=== PATIENT | female | born 1935 | race African-American/Black ===

== ENCOUNTER 2017-11-01 21:20 | Inpatient (IN) | payer MEDICARE, OTHER ==
[~2017-11-01] VITALS: Ht 165.1 cm; Wt 87.8 kg
[2017-11-01] MEDS ORDERED: LACTULOSE SYRUP 20 GM/30 ML CUP PO PRN (22:45)
[2017-11-01] MEDS ORDERED: MAGNESIUM HYDROXIDE SUSP 30 ML CUP PO PRN (22:45)
[2017-11-01] MEDS ORDERED: CHLORHEXIDINE GLUCONATE 2 % 1 PACK (2 CLOTHS) TOP PRN (22:45)
[2017-11-01] MEDS ORDERED: NURSING INFORMATION XX SCH (22:45)
[2017-11-01] MEDS ORDERED: BISACODYL 10 MG SUPP RECTAL PRN (22:45)
[2017-11-01] MEDS ORDERED: SENNOSIDES 8.6 MG TAB PO PRN (22:45)
[2017-11-01] MEDS ORDERED: RESP: ALBUTEROL 2.5 MG/IPRATROPIUM 0.5 MG NEB (PRN) INH (22:45)
[2017-11-01] MEDS ORDERED: MORPHINE SULFATE 4 MG/ML INJ IV PUSH PRN (22:45)
[2017-11-01] MEDS ORDERED: ACETAMINOPHEN 325 MG TAB PO PRN (22:45)
[2017-11-01] MEDS ORDERED: ONDANSETRON HCL 4 MG/2 ML VIAL IV PUSH PRN (22:45)
[2017-11-01] MEDS ORDERED: VITD400 PO (22:51)
[2017-11-01] MEDS ORDERED: POTA99TA4 (22:51)
[2017-11-01] MEDS ORDERED: HUMIBIDDM PO (22:51)
[2017-11-01] MEDS ORDERED: THYR120T2 (22:51)
[2017-11-01] MEDS ORDERED: LEVO250T7 PO (22:51)
[2017-11-01] MEDS ORDERED: ARAV10TA PO (22:51)
[2017-11-01] MEDS ORDERED: [UNRECOGNIZED DRUG - CODE] (22:51)
[2017-11-01] MEDS ORDERED: SPIRCAP INH (22:51)
[2017-11-01] MEDS ORDERED: LORA-650 PO (22:51)
[2017-11-01] MEDS ORDERED: SYMB80AE INH (22:51)
[2017-11-01] MEDS ORDERED: PRED1 PO (22:51)
[2017-11-01] MEDS ORDERED: LACTCAP8 PO (22:51)
--- NOTE | 2017-11-01 23:04 | HHI.HP ---
HPI Service Critical Care Medicine Primary Care Physician Unknown Admission Diagnosis Diagnosis: Travel History International Travel<30 Days: No Contact w/Intl Traveler <30 Da: No Traveled to Known Affected Are: No History of Present Illness 82-year-old female with past medical history significant for COPD, diabetes mellitus, dyslipidemia, hypertension, osteoporosis, thyroid disorder presented to [facility] due to altered mental status, found by the patient's caregiver. 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 for higher level of care. The patient is nonverbal and information is obtained from medical chart review. Review of Systems ROS Unobtainable patient's nonverbal Past Family Social History Allergies: Coded Allergies: No Known Allergies (Unverified , 11/01/17) Past Medical History COPD, diabetes mellitus, dyslipidemia, hypertension, osteoporosis, thyroid disorder Past Surgical History Gallstones removed. Reported Medications Reported Meds & Active Scripts Active Reported Prednisone 1 Mg Tab Unknown Dose PO DAILY Spiriva Handihaler (Tiotropium Inh) 18 Mcg Cap Unknown Dose INH DAILY 1 capsule = 18 mcg Probiotic (Lactobacillus Acidophilus) 10 Billion Cell Cap Unknown Dose PO TIDAC Levofloxacin 250 Mg Tablet Unknown Dose PO DAILY Mucinex DM (Dextromethorphan-Guaifenesin) 30-600 Mg Tab Unknown Dose PO BID PRN Symbicort Inh (Budesonide/Formoterol Fumarate) 80-4.5 Mcg/Act Aero Unknown Dose INH Q12HR Allergy Relief (Loratadine) 10 Mg Tab Unknown Dose PO DAILY Experimental Display Builder Thyroid (Thyroid,Pork) 120 Mg Tablet Unknown Dose Arava (Leflunomide) 10 Mg Tab Unknown Dose PO DAILY Vitamin D3 (Cholecalciferol) 400 Unit Tab Unknown Dose PO DAILY Potassium 99 Mg Tablet Hydrochlorothiazide 100 % Powder Active Ordered Medications Current Medications Medications (Trade) Dose Ordered Sig/Cathie Route PRN Reason Start Time Stop Time Status Last Admin Dose Admin Sodium Chloride 1,000 ml @ 84 mls/hr [id number] IV 11/01/17 22:37 Sodium Chloride (NS Flush) 2 ml UNSCH PRN IV FLUSH FLUSH AFTER USING IV ACCESS 11/01/17 22:45 Sodium Chloride (NS Flush) 2 ml BID IV FLUSH 11/02/17 09:00 Acetaminophen (Tylenol) 650 mg Q6H PRN PO PAIN 1-5 AND/OR FEVER >101F 11/01/17 22:45 Morphine Sulfate (Morphine Inj) 2 mg Q2H PRN IV PUSH PAIN SCALE 6 TO 10 11/01/17 22:45 Famotidine (Pepcid Inj) 20 mg Q12HR IV PUSH 11/02/17 09:00 Ondansetron HCl (Zofran Inj) 4 mg Q6H PRN IV PUSH NAUSEA OR VOMITING 11/01/17 22:45 Albuterol/ Ipratropium (Duoneb Neb) 1 ampule Q2HR NEB PRN INH WHEEZING 11/01/17 22:45 Miscellaneous Information ([facility] [place] [facility] [place]) 1 Q361D XX 11/01/17 22:45 Chlorhexidine Gluconate (Chlorhexidine 2% Cloth) 3 pack Taper DAILY@04 TOP 11/02/17 04:00 10/29/18 03:59 Chlorhexidine Gluconate (Chlorhexidine 2% Cloth) 3 pack UNSCH PRN TOP HYGIENIC CARE 11/01/17 22:45 Senna/Docusate Sodium (Leigh-Colace) 1 tab BID PO 11/02/17 09:00 Magnesium Hydroxide (Milk Of Magnesia Liq) 30 ml Q12H PRN PO Mild constipation 11/01/17 22:45 Sennosides (Senokot) 17.2 mg Q12H PRN PO Moderate constipation 11/01/17 22:45 Bisacodyl (Dulcolax Supp) 10 mg DAILY PRN RECTAL SEVERE CONSITIPATION 11/01/17 22:45 Lactulose (Lactulose Liq) 30 ml DAILY PRN PO SEVERE CONSITIPATION 11/01/17 22:45 Labetalol HCl (Trandate Inj) 10 mg Q4H PRN IV PUSH SBP>140, DBP>90 11/02/17 00:30 UNV Hydralazine HCl (Apresoline Inj) 20 mg Q4H PRN IV PUSH SBP>140, DBP>90 11/02/17 00:30 UNV Family History No family history significant of COMPENSATION SPECIALIST tumors Social History Positive history of tobacco use, negative for alcohol or illicit drug abuse Physical Exam Vital Signs Vital Signs Date Time Temp Pulse Resp B/P (MAP) Pulse Ox O2 Delivery O2 Flow Rate FiO2 11/02/17 00:00 98 Room Air Physical Exam GENERAL: Well-nourished, well-developed patient. Nonverbal SKIN: Warm and dry. HEAD: Normocephalic. EYES: No scleral icterus. No injection or drainage. NECK: Supple, trachea midline. No JVD or lymphadenopathy. CARDIOVASCULAR: Regular rate and rhythm without murmurs, gallops, or rubs. RESPIRATORY: Breath sounds equal bilaterally. No accessory muscle use. GASTROINTESTINAL: Abdomen soft, non-tender, nondistended. MUSCULOSKELETAL: No cyanosis, or edema. BACK: Nontender without obvious deformity. NEURO EXAM: Mental Status: The patient is alert but nonverbal Imaging Chest x-ray/no significant cardiopulmonary process. Head CT/findings compatible with a hemorrhagic infarct in the right temporal occipital region, measuring approximately 3.5 cm. Caprini VTE Risk Assessment Caprini VTE Risk Assessment: Mod/High Risk (score >= 2) VTE Pharm Contraindication: Hemorrhage Caprini Risk Assessment Model Point Value = 1 Point Value = 2 Point Value = 3 Point Value = 5 Age 41-60 Minor surgery BMI > 25 kg/m2 Swollen legs Varicose veins or History of unexplained or recurrent spontaneous Oral contraceptives or hormone replacement Sepsis (< 1 month) Serious lung disease, including pneumonia (< 1 month) Abnormal pulmonary function Acute myocardial infarction Congestive heart failure (< 1 month) History of inflammatory bowel disease Medical patient at bed rest Age 61-74 Arthroscopic surgery Major open surgery (> 45 min) Laparoscopic surgery (> 45 min) Malignancy Confined to bed (> 72 hours) Immobilizing plaster cast Central venous access Age >= 75 History of VTE Family history of VTE Factor V Leiden Prothrombin [id number] Lupus anticoagulant Anticardiolipin antibodies Elevated serum homocysteine Heparin-induced thrombocytopenia Other congenital or acquired thrombophilia Stroke (< 1 month) Elective arthroplasty Hip, pelvis, or leg fracture Acute spinal cord injury (< 1 month) Prophylaxis Regimen Total Risk Factor Score Risk Level Prophylaxis Regimen 0-1 Low Early ambulation 2 Moderate Order ONE of the following: *Sequential Compression Device (SCD) *Heparin 5000 units SQ BID 3-4 Higher Order ONE of the following medications: *Heparin 5000 units SQ TID *Enoxaparin/Lovenox 40 mg SQ daily (WT < 150 kg, CrCl > 30 mL/min) *Enoxaparin/Lovenox 30 mg SQ daily (WT < 150 kg, CrCl > 10-29 mL/min) *Enoxaparin/Lovenox 30 mg SQ BID (WT < 150 kg, CrCl > 30 mL/min) AND/OR *Sequential Compression Device (SCD) 5 or more Highest Order ONE of the following medications: *Heparin 5000 units SQ TID (Preferred with Epidurals) *Enoxaparin/Lovenox 40 mg SQ daily (WT < 150 kg, CrCl > 30 mL/min) *Enoxaparin/Lovenox 30 mg SQ daily (WT < 150 kg, CrCl > 10-29 mL/min) *Enoxaparin/Lovenox 30 mg SQ BID (WT < 150 kg, CrCl > 30 mL/min) AND *Sequential Compression Device (SCD) Assessment and Plan Assessment and Plan Intracranially humeri -Repeat CT head -Blood pressure control with SBP goal less than 140 -Neurosurgical consultation -Coags profile pending -PT and OT as tolerated COPD -No exacerbation -DuoNeb scheduled and as needed -No steroids or antibiotics indicated at this time Diabetes mellitus -Insulin sliding scale Dyslipidemia -Resume atorvastatin when okay 2 p.o. Hypertension -Hydralazine and labetalol as needed to keep SBP less than 140 Thyroid disease -Levothyroxine per home dose when available DVT GI prophylaxis -James's and SCDs -No pharmacological DVT prophylaxis due to acute ICH -IV Pepcid Critical Care: The total critical care time was 35 minutes. Time to perform other separately billable procedures was not included in the critical care time. Panchito Ghosh MD Nov 01, 2017 11:04 pm
[2017-11-02] VITALS (14 sets, daily range): BP systolic 125–137; BP diastolic 61–83; PULSE 88–106; RESP 20–26; TEMP 98.1–100.9; O2SAT 95–99
[2017-11-02] MEDS ORDERED: LABETALOL HCL 100 MG/20 ML VIAL IV PUSH PRN (00:30)
--- NOTE | 2017-11-02 03:49 | RADRPT ---
EXAM DATE/TIME: 11/02/2017 03:30 [place] COMPARISON: No previous studies available for comparison. INDICATIONS : Follow up hemorrhage. RADIATION DOSE: 56.34 CTDIvol (mGy) MEDICAL HISTORY : Cardiovascular disease. Hypertension. Chronic obstructive pulmonary disease. SURGICAL HISTORY : None. ENCOUNTER: Initial ACUITY: 1 day PAIN SCALE: Non-responsive LOCATION: cranial TECHNIQUE: Multiple contiguous axial images were obtained of the head. Using automated exposure control and adj ustment of the mA and/or kV according to patient size, radiation dose was kept as low as reasonably a chievable to obtain optimal diagnostic quality images. DICOM format image data is available electro nically for review and comparison. FINDINGS: Limited examination with motion artifact on every image. Despite the indications, I do not have the p rior for direct comparison. CEREBRUM: The ventricles are normal for age. I believe there is some periventricular small vessel ischemic demy elination, around the frontal horns of the lateral ventricles. There appears to be a 1.4 cm parenchym al hemorrhage in the right temporal lobe no midline shift. POSTERIOR FOSSA: The cerebellum and brainstem are intact. The 4th ventricle is midline. The cerebellopontine angle i s unremarkable. EXTRACRANIAL: The visualized portion of the orbits is intact. SKULL: The calvaria is intact. No evidence of skull fracture. CONCLUSION: 1. Limited exam due to motion artifact throughout. 2. 1.4 cm apparent parenchymal hemorrhage in the right temporal lobe. No midline shift. 3. Periventricular small vessel ischemic demyelination Gerardo Mcqueen MD on November 02, 2017 at 3:44 Board Certified Radiologist. This report was verified electronically.
[2017-11-02] MEDS: CHLORHEXIDINE GLUCONATE 2 % 1 PACK (2 CLOTHS) TOP SCH ×2 (04:00→23:39)
[2017-11-02 06:09] LABS: AUTOMATED NEUTROPHIL # 5.8 TH/MM3 (1.8-7.7); BASOPHIL % 0.4 % (0.0-2.0); EOSINOPHIL % 0.4 % (0.0-4.0); HEMATOCRIT 35.5 % (35.0-46.0); HEMOGLOBIN 11.8 GM/DL (11.6-15.3); LYMPHOCYTE # 1.8 TH/MM3 (1.0-4.8); MEAN CELL VOLUME 85.3 FL (80.0-100.0); MEAN CORPUSCULAR HEMOGLOBIN 28.4 PG (27.0-34.0); MEAN CORPUSCULAR HGB CONC 33.3 % (32.0-36.0); MEAN PLATELET VOLUME 6.7 FL (7.0-11.0); MONO % 12.6 % (0.0-8.0); MONOCYTE # 1.1 TH/MM3 (0-0.9); NEUT % 66.6 % (16.0-70.0); PLATELET COUNT 192 TH/MM3 (150-450); RED BLOOD COUNT 4.16 MIL/MM3 (4.00-5.30); RED CELL DISTRIBUTION WIDTH 18.1 % (11.6-17.2); WHITE BLOOD COUNT 8.8 TH/MM3 (4.0-11.0)
[2017-11-02 06:15] LABS: PROTHROMBIN TIME - PATIENT 10.3 SEC (9.8-11.6)
[2017-11-02 06:40] LABS: ALBUMIN 2.5 GM/DL (3.4-5.0); ALT (GPT) 27 U/L (10-53); AST (GOT) 28 U/L (15-37); BICARBONATE 26.6 MEQ/L (21.0-32.0); BLOOD UREA NITROGEN 17 MG/DL (7-18); CHLORIDE 106 MEQ/L (98-107); CREATININE 0.72 MG/DL (0.50-1.00); GLOMERULAR FILTRATION RATE 93 ML/MIN (>89); GLUCOSE,RANDOM 74 MG/DL (74-106); MAGNESIUM 1.9 MG/DL (1.5-2.5); PHOSPHORUS 2.2 MG/DL (2.5-4.9); SODIUM (NA) 139 MEQ/L (136-145)
[2017-11-02 06:42] LABS: ALKALINE PHOSPHATASE 85 U/L (45-117); TOTAL BILIRUBIN ADULT 1.1 MG/DL (0.2-1.0); TOTAL PROTEIN 5.8 GM/DL (6.4-8.2)
[2017-11-02] MEDS: DOCUSATE SODIUM 50 MG/SENNA 8.6 MG TAB PO SCH ×2 (08:20→20:45)
[2017-11-02] MEDS: FAMOTIDINE 20 MG/2 ML VIAL IV PUSH SCH ×2 (08:28→21:21)
[2017-11-02] MEDS: SODIUM CHLORIDE 0.9% FLUSH 10 ML FLUSH IV FLUSH SCH ×2 (08:29→21:00)
[2017-11-02] MEDS: SODIUM CHLOR 0.9% 1000 ML INJ 1,000 ML IV SCH (10:32)
[2017-11-02] MEDS ORDERED: FOSPHENYTOIN INJ 1,000 MGPE in SODIUM CHLORIDE 0.9% INJ 50 ML IV ONE (10:45)
--- NOTE | 2017-11-02 10:53 | HHI.CCPN ---
Subjective Remarks/Hospital Course Hospital Course: 82-year-old female with past medical history significant for COPD, diabetes mellitus, dyslipidemia, hypertension, osteoporosis, thyroid disorder presented to [facility] due to altered mental status, found by the patient's caregiver. 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 for higher level of care. The patient is nonverbal and information is obtained from medical chart review. Subjective: 11/02: more somnolent than on admission. EEG ordered and to my read appears to have significant ictal activity. loaded with fosphenytoin and neurology consult ordered. also, given size and location of the bleed, have ordered an MRI to better evaluate the area. Objective Vital Signs Date Time Temp Pulse Resp B/P (MAP) Pulse Ox O2 Delivery O2 Flow Rate FiO2 11/02/17 07:32 98 21 11/02/17 06:00 98 11/02/17 06:00 98.4 22 137/62 (87) 11/02/17 00:00 Room Air Intake and Output 11/02/17 11/02/17 11/03/17 08:00 16:00 00:00 Output Total 500 ml Balance -500 ml Result Diagram: 11/02/17 0557 11/02/17 0557 Imaging Chest x-ray/no significant cardiopulmonary process. Head CT/findings compatible with a hemorrhagic infarct in the right temporal occipital region, measuring approximately 3.5 cm. Objective Remarks GENERAL: Elderly female, lying in bed, somnolent but arousable HEENT: Normocephalic. Atraumatic. Pupils equal, round, reactive, conjugate. Mucous membranes are moist NECK: Trachea is midline. There is no JVD. CHEST: Equal chest rise. Nasal cannula oxygen. CARDIOVASCULAR: Normal rate, regular rhythm. Sinus by telemetry. ABDOMEN: Soft, nontender, nondistended. No guarding. MUSCULOSKELETAL: Pulses 2+. No peripheral edema. Left upper extremity is contracted in flexion NEUROLOGICAL: RASS -2. More somnolent than overnight. Still arouses to loud voice and will follow commands with the right upper extremity, bilateral lower extremities. Left upper extremity is contracted in flexion. A/P Assessment and Plan Assessment: 82-year-old female with right parietal intraparenchymal cerebral hemorrhage course is now complicated by acute and worsening encephalopathy and subclinical status epilepticus. Follow-up MRI, frequent neuro checks. Will load with Cerebyx. Consult neurology to assist with management of her seizure activity. Remains critically ill with intracerebral hemorrhage as well as subclinical status. Right parietal intraparenchymal hemorrhage -MRI -Blood pressure control with SBP goal less than 140 -Neurosurgical consultation -PT and OT as tolerated Frequent neurochecks Subclinical status epilepticus Neurology consult 1 g Cerebyx load and 100 mg IV every 8 hours Dilantin level in the morning Frequent neurochecks Hypertensive emergency -Hydralazine and labetalol as needed to keep SBP less than 140 May require nicardipine infusion COPD -No exacerbation -DuoNeb scheduled and as needed -No steroids or antibiotics indicated at this time Diabetes mellitus -Insulin sliding scale Dyslipidemia -Resume atorvastatin when okay to p.o. Thyroid disease -Levothyroxine per home dose when available DVT GI prophylaxis -James's and SCDs -No pharmacological DVT prophylaxis due to acute ICH -IV Pepcid Critical Care: The total critical care time was 47 minutes. Time to perform other separately billable procedures was not included in the critical care time. Arun Hernandez MD November 02, 2017 10:53
[2017-11-02] MEDS: hydrALAZINE HCL 20 MG/ML VIAL IV PUSH PRN ×2 (11:13→17:55)
--- NOTE | 2017-11-02 12:00 | PD.CONS ---
History of Present Illness Service Neurosurgery Consult Requested By Candy Starch Mold Printer Reason for Consult Right posterior temporal lobe hemorrhage Primary Care Physician Unknown Diagnoses: History of Present Illness 82-year-old -[place] female who was transferred from [facility] where she presented with neurologic changes. There is no family members and the patient cannot relate much of a history but apparently with CT scan head obtained she was found to have a right posterior temporal lobe cerebral hemorrhage. CT scan of the head reviewed from [facility] on arrival reveals a less than 2 cm right posterior temporal lobe hemorrhage without any significant mass-effect or midline shift. Overnight her exam is not changed although she had an EEG study done and was noted to have subclinical seizures and has been noted to be more lethargic since then and is awaiting fosphenytoin bolus. MRI scan of the brain is also pending along with neurology evaluation. It is unclear whether this cerebral hemorrhage is spontaneous versus traumatic. Review of Systems ROS Limitations: Clinical Condition, Speech Impaired, Poor Historian Past Family Social History Allergies: Coded Allergies: No Known Allergies (Unverified , 11/01/17) Past Medical History COPD, diabetes mellitus, dyslipidemia, hypertension, osteoporosis, thyroid disorder Reported Medications Current Medications Medications (Trade) Dose Ordered Sig/Cathie Route PRN Reason Start Time Stop Time Status Last Admin Dose Admin Sodium Chloride 1,000 ml @ 84 mls/hr [id number] IV 11/01/17 22:37 11/02/17 10:32 Sodium Chloride (NS Flush) 2 ml UNSCH PRN IV FLUSH FLUSH AFTER USING IV ACCESS 11/01/17 22:45 Sodium Chloride (NS Flush) 2 ml BID IV FLUSH 11/02/17 09:00 Acetaminophen (Tylenol) 650 mg Q6H PRN PO PAIN 1-5 AND/OR FEVER >101F 11/01/17 22:45 Morphine Sulfate (Morphine Inj) 2 mg Q2H PRN IV PUSH PAIN SCALE 6 TO 10 11/01/17 22:45 Famotidine (Pepcid Inj) 20 mg Q12HR IV PUSH 11/02/17 09:00 11/02/17 08:28 Ondansetron HCl (Zofran Inj) 4 mg Q6H PRN IV PUSH NAUSEA OR VOMITING 11/01/17 22:45 Albuterol/ Ipratropium (Duoneb Neb) 1 ampule Q2HR NEB PRN INH WHEEZING 11/01/17 22:45 Miscellaneous Information ([facility] [place] Nursing Information) 1 Q361D XX 11/01/17 22:45 Chlorhexidine Gluconate (Chlorhexidine 2% Cloth) 3 pack Taper DAILY@04 TOP 11/02/17 04:00 10/29/18 03:59 Chlorhexidine Gluconate (Chlorhexidine 2% Cloth) 3 pack UNSCH PRN TOP HYGIENIC CARE 11/01/17 22:45 Senna/Docusate Sodium (Leigh-Colace) 1 tab BID PO 11/02/17 09:00 Magnesium Hydroxide (Milk Of Magnesia Liq) 30 ml Q12H PRN PO Mild constipation 11/01/17 22:45 Sennosides (Senokot) 17.2 mg Q12H PRN PO Moderate constipation 11/01/17 22:45 Bisacodyl (Dulcolax Supp) 10 mg DAILY PRN RECTAL SEVERE CONSITIPATION 11/01/17 22:45 Lactulose (Lactulose Liq) 30 ml DAILY PRN PO SEVERE CONSITIPATION 11/01/17 22:45 Labetalol HCl (Trandate Inj) 10 mg Q4H PRN IV PUSH SBP>140, DBP>90 11/02/17 00:30 11/02/17 08:28 Hydralazine HCl (Apresoline Inj) 20 mg Q4H PRN IV PUSH SBP>140, DBP>90 11/02/17 00:30 11/02/17 11:13 Fosphenytoin Sodium (Cerebyx Inj) 100 mgpe Q8HR IV 11/02/17 14:00 Family History Unknown Social History She is a with no alcohol history and a former smoker Physical Exam Vital Signs Vital Signs Date Time Temp Pulse Resp B/P (MAP) Pulse Ox O2 Delivery O2 Flow Rate FiO2 11/02/17 07:32 98 21 11/02/17 07:00 98 Room Air 11/02/17 06:00 98 11/02/17 06:00 98.4 100 22 137/62 (87) 98 11/02/17 04:00 100 11/02/17 04:00 98.4 100 22 137/62 (87) 98 11/02/17 02:00 102 11/02/17 00:00 106 11/02/17 00:00 98 Room Air 11/02/17 00:00 98.1 106 24 133/66 (88) 99 Physical Exam GENERAL: This is a well-nourished, well-developed patient, in no apparent distress. SKIN: No rashes, ecchymoses or lesions. Cool and dry. HEAD: Atraumatic. Normocephalic. No temporal or scalp tenderness. EYES: Pupils equal round and reactive. Extraocular motions intact. No scleral icterus. No injection or drainage. ENT: Nose without bleeding, purulent drainage or septal hematoma. She has a slightly swollen tongue which is sticking out of her mouth although airway patent. NECK: Trachea midline. No JVD or lymphadenopathy. Supple, nontender, no meningeal signs. CARDIOVASCULAR: Regular rate and rhythm without murmurs, gallops, or rubs. RESPIRATORY: Clear to auscultation. Breath sounds equal bilaterally. No wheezes , rales, or rhonchi. GASTROINTESTINAL: Abdomen soft, non-tender, nondistended. No hepato-splenomegaly , or palpable masses. No guarding. MUSCULOSKELETAL: Extremities without clubbing, cyanosis, or edema. No joint tenderness, effusion, or edema noted. No calf tenderness. Negative Homans sign bilaterally. NEUROLOGICAL: Lethargic but arouses to verbal stimulation. Pupils are equal, does track. Very dysarthric speech. Follows simple commands. Moves all 4 extremities with negative Babinski. Laboratory Laboratory Tests Test 11/02/17 05:57 11/02/17 08:30 White Blood Count 8.8 Red Blood Count 4.16 Hemoglobin 11.8 Hematocrit 35.5 Mean Corpuscular Volume 85.3 Mean Corpuscular Hemoglobin 28.4 Mean Corpuscular Hemoglobin Concent 33.3 Red Cell Distribution Width 18.1 Platelet Count 192 Mean Platelet Volume 6.7 Neutrophils (%) (Auto) 66.6 Lymphocytes (%) (Auto) 20.0 Monocytes (%) (Auto) 12.6 Eosinophils (%) (Auto) 0.4 Basophils (%) (Auto) 0.4 Neutrophils # (Auto) 5.8 Lymphocytes # (Auto) 1.8 Monocytes # (Auto) 1.1 Eosinophils # (Auto) 0.0 Basophils # (Auto) 0.0 CBC Comment DIFF FINAL Differential Comment Prothrombin Time 10.3 Prothromb Time International Ratio 1.0 Blood Urea Nitrogen 17 Creatinine 0.72 Random Glucose 74 Total Protein 5.8 Albumin 2.5 Calcium Level 8.0 Phosphorus Level 2.2 Magnesium Level 1.9 Alkaline Phosphatase 85 Aspartate Amino Transf (AST/SGOT) 28 Alanine Aminotransferase (ALT/SGPT) 27 Total Bilirubin 1.1 Sodium Level 139 Potassium Level 3.8 Chloride Level 106 Carbon Dioxide Level 26.6 Anion Gap 6 Estimat Glomerular Filtration Rate 93 Nasal Screen MRSA (PCR) MRSA NOT DETECTED Result Diagram: 11/02/17 0557 11/02/17 0557 Imaging Last Impressions Head CT 11/01/17 0000 Signed Impressions: Service Date/Time: Thursday, November 02, 2017 03:30 - CONCLUSION: 1. Limited exam due to motion artifact throughout. 2. 1.4 cm apparent parenchymal hemorrhage in the right temporal lobe. No midline shift. 3. Periventricular small vessel ischemic demyelination Gerardo Mcqueen MD Assessment and Plan Assessment and Plan 82-year-old lady with a right posterior temporal lobe cerebral hemorrhage without mass-effect or midline shift. Continue with observation along with seizure prophylaxis. We will review MRI scan of the brain once undertaken. At this point the cerebral hemorrhage is small and does not warrant any surgical intervention. Recommended gastrointestinal stress ulcer prophylaxis and mechanical DVT prophylaxis. Jay Peterson MD November 02, 2017 12:00
--- NOTE | 2017-11-02 12:09 | PD.CONS ---
History of Present Illness Service Neurology Consult Requested By Dr. Hernandez Reason for Consult Seizures Primary Care Physician Unknown History of Present Illness 82 y/o female with hx of COPD, diabetes mellitus, dyslipidemia, hypertension, osteoporosis, thyroid disorder presented to [facility] due to altered mental status, found by the patient's caregiver, there is no history whether there was a fall. At the emergency department the CT of the head revealed hemorrhagic infarct in the right temporal occipital region, repeat scan shows 1.4 cm in right temporal lobe. The pt is nonverbal and unable to give history. The hx was obtained from chart review and from the nurse. Per nurse subclincial seizures seen on EEG. Pt has not had any witnessed seizure like events (Leydi Garzon) Review of Systems All other ROS: Unable to obtain (Leydi Garzon) Past Family Social History Allergies: Coded Allergies: No Known Allergies (Unverified , 11/01/17) Past Medical History COPD, diabetes mellitus, dyslipidemia, hypertension, osteoporosis, thyroid disorder Past Surgical History gallstones Active Ordered Medications Current Medications Medications (Trade) Dose Ordered Sig/Cathie Route Start Time Stop Time Status Last Admin Sodium Chloride 1,000 ml @ 84 mls/hr [id number] IV 11/01/17 22:37 11/02/17 10:32 (NS Flush) 2 ml UNSCH PRN IV FLUSH 11/01/17 22:45 (NS Flush) 2 ml BID IV FLUSH 11/02/17 09:00 (Tylenol) 650 mg Q6H PRN PO 11/01/17 22:45 (Morphine Inj) 2 mg Q2H PRN IV PUSH 11/01/17 22:45 (Pepcid Inj) 20 mg Q12HR IV PUSH 11/02/17 09:00 11/02/17 08:28 (Zofran Inj) 4 mg Q6H PRN IV PUSH 11/01/17 22:45 (Duoneb Neb) 1 ampule Q2HR NEB PRN INH 11/01/17 22:45 ([facility] [place] Nursing Information) 1 Q361D XX 11/01/17 22:45 (Chlorhexidine 2% Cloth) 3 pack Taper DAILY@04 TOP 11/02/17 04:00 10/29/18 03:59 (Chlorhexidine 2% Cloth) 3 pack UNSCH PRN TOP 11/01/17 22:45 (Leigh-Colace) 1 tab BID PO 11/02/17 09:00 (Milk Of Magnesia Liq) 30 ml Q12H PRN PO 11/01/17 22:45 (Senokot) 17.2 mg Q12H PRN PO 11/01/17 22:45 (Dulcolax Supp) 10 mg DAILY PRN RECTAL 11/01/17 22:45 (Lactulose Liq) 30 ml DAILY PRN PO 11/01/17 22:45 (Trandate Inj) 10 mg Q4H PRN IV PUSH 11/02/17 00:30 11/02/17 08:28 (Apresoline Inj) 20 mg Q4H PRN IV PUSH 11/02/17 00:30 11/02/17 11:13 (Cerebyx Inj) 100 mgpe Q8HR IV 11/02/17 14:00 Family History unable to obtain Social History unable to obtain (Leydi Garzon) Exam I&O / VS Vital Signs Date Time Temp Pulse Resp B/P (MAP) Pulse Ox O2 Delivery O2 Flow Rate FiO2 11/02/17 07:32 98 21 11/02/17 07:00 98 Room Air 11/02/17 06:00 98 11/02/17 06:00 98.4 100 22 137/62 (87) 98 11/02/17 04:00 100 11/02/17 04:00 98.4 100 22 137/62 (87) 98 11/02/17 02:00 102 11/02/17 00:00 106 11/02/17 00:00 98 Room Air 11/02/17 00:00 98.1 106 24 133/66 (88) 99 Eye: PERRL Respiratory: Non-labored respirations Cardiology: Normal rate Exam Comments Pt is lethargic but arousable, nonverbal, she does not follow commands, PERRL, no gaze deviation, no facial droop noted, withdraws from stimuli, spasticity noted in LUE, gait withheld (Leydi Garzon) Review/Management Diagnosis intraparencymal hemorrhage - unclear if this is spontaneous or traumatic MRI pending neurosurgery consulted blood pressure control subclinical seizure seen on EEG- seizure disorder likely 2/2 to bleed awaiting fosphenytoin bolus Calcium and phosphorus low, monitor electrolytes seizure precautions neuro checks HTN continue to monitor and control blood pressure DM blood sugar control Diagnosis/Plan: (Leydi Garzon) Diagnosis/Plan: (1) ICH (intracerebral hemorrhage) ICD Codes: I61.9 - Nontraumatic intracerebral hemorrhage, unspecified Status: Acute Plan: ich with edema may need f/u scan in a few weeks to r/o mass/neoplastic lesion further input per nsx bp control therapy d/w PA. agree with above. seen and examined (2) Seizure ICD Codes: R56.9 - Unspecified convulsions Status: Acute Plan: on iv cerebyrx add iv depakon recs f/u eeg (3) Brain mass ICD Codes: G93.9 - Disorder of brain, unspecified Status: Acute (Jorge Yuan MD) Leydi Garzon November 02, 2017 12:09 Jorge Yuan MD November 02, 2017 16:06
[2017-11-02] MEDS ORDERED: FOSPHENYTOIN SODIUM 100 MG PE/2 ML VIAL IV SCH (14:00)
--- NOTE | 2017-11-02 14:56 | RADRPT ---
EXAM DATE/TIME: 11/02/2017 14:05 [facility] COMPARISON: CT BRAIN W/O CONTRAST, November 02, 2017, 3:30. INDICATIONS : CVA. MEDICAL HISTORY : Hypertension. Chronic obstructive pulmonary disease. Hypercholesterolemia. SURGICAL HISTORY : Cholecystectomy. ENCOUNTER: Initial ACUITY: 1 day PAIN SCORE: Nonresponsive. LOCATION: Right cranial temporal lobe. TECHNIQUE: Multiplanar, multisequence MRI of the brain was performed without contrast. FINDINGS: CEREBRUM: There is a focal abnormality in the posterior right temporal lobe which is characterized by T2 prolon gation, scattered areas of susceptibility artifact at the periphery, and mixed pattern of signal on d iffusion weighted sequences. The lesion measures 3.7 x 2.5 cm. There is some mass effect upon the p osterior sylvian fissure. There is also some surrounding edema. Cannot determine whether this is in tra-axial or extra-axial in location. The pituitary gland is normal in appearance. No evidence of m idline shift or the ventricles are prominent. WHITE MATTER: No significant signal abnormalities are seen in the white matter. POSTERIOR FOSSA: The cerebellum and brainstem are intact. The 4th ventricle is midline. The cerebellopontine angle is unremarkable. The cerebellar tonsils are normal in position. DIFFUSION IMAGING: The lesion in the right temporal region does have areas of restricted diffusion, but there are also a reas of T2 shine through. No other focal areas of restricted diffusion are seen. No evidence of acu te infarction. EXTRACRANIAL: The visualized portions of the orbits and paranasal sinuses are unremarkable. CONCLUSION: 3.7 cm masslike lesion in the posterior right temporal region does contain blood products, but there are also areas that have signal abnormality inconsistent with blood. Cannot determine whether the le nba is intra-or extra-axial. Recommend further characterization with 3-D postcontrast imaging. Aquilino Hsieh MD on November 02, 2017 at 14:44 Board Certified Radiologist. This report was verified electronically.
[2017-11-02] MEDS: FOSPHENYTOIN INJ 100 MGPE in SODIUM CHLORIDE 0.9% INJ 50 ML IV SCH ×2 (15:52→22:28)
[2017-11-02] MEDS: VALPROATE INJ 500 MG in SODIUM CHLORIDE 0.9% INJ 100 ML IV SCH (17:56)
--- NOTE | 2017-11-02 18:15 | MG ---
cc: Santo Rsacon MD EEG NUMBER: [id number] An 82-year-old woman, hemorrhagic infarct, right occipital region. Trandate. Some right frontal 5 Hz slowing is noted, but there is some bilateral 2-4 Hz slowing at times, some phase reversing. Theta waves are seen over the right frontal head region, but no sharp activity is noted until midway through the recording, then there are some, what appears to be, sharply contoured bifrontal waves, but much more of a higher amplitude over the right frontocentral head region. These could conceivably be epileptiform. Photic stimulation is performed without significant posterior driving. Right at the end of the recording, some semirhythmic bifrontal slowing is also noted. IMPRESSION: Right frontal slowing at times with some sharply contoured features and higher amplitudes and certainly could be a seizure focus for this patient, much more prominent on the right side. There may have been a brief electroencephalographic seizure right at the end of the recording. Clinical correlation is needed. MD CODY Luis/JOZEF , 06:03 PM , 06:14 PM
[2017-11-02] MEDS ORDERED: IOHEXOL 350 MG/ML 10 ML VIAL (for RAD DIAG) IVCONTRAST ONE (21:44)
[2017-11-02] MEDS ORDERED: DEXTROSE 50% IN WATER 50 ML VIAL(D50) IV PUSH PRN (22:15)
[2017-11-02] MEDS ORDERED: GLUCAGON 1 MG/ML VIAL OTHER PRN (22:15)
--- NOTE | 2017-11-02 22:21 | RADRPT ---
EXAM DATE/TIME: 11/02/2017 21:35 [facility] COMPARISON: No previous studies available for comparison. INDICATIONS : Brain mass, evaluate for metastatic disease. IV CONTRAST: 75 cc Omnipaque 350 (iohexol) IV ; Cumulative dose for multiple exams. ORAL CONTRAST: No oral contrast ingested. RADIATION DOSE: 8.69 CTDIvol (mGy) ; Combined studies - Thorax/Abdomen/Pelvis MEDICAL HISTORY : Hypertension. Chronic obstructive pulmonary disease. Osteoporosis.CVA. SURGICAL HISTORY : Cholecystectomy. ENCOUNTER: Initial ACUITY: 1 day PAIN SCALE: 0/10 LOCATION: Abdomen. TECHNIQUE: Volumetric scanning of the abdomen and pelvis was performed. Using automated exposure control and ad justment of the mA and/or kV according to patient size, radiation dose was kept as low as reasonably achievable to obtain optimal diagnostic quality images. DICOM format image data is available electro nically for review and comparison. FINDINGS: Minimal scarring at the lung bases. Multiple hepatic cysts measuring up to 2.5 cm circumscribed in th e left leg. Additional 2.1 cm rim calcified cyst is present in the left lobe as well. Other smaller c ysts present in the liver. Small bilateral renal cysts. Spleen, adrenals and pancreas unremarkable. P revious cholecystectomy. No free fluid. No bowel obstruction. Mild constipation. Numerous partially calcified fibroids in uter us. Duong catheter in decompressed bladder. Small hiatal hernia. CONCLUSION: 1. Negative for metastatic disease in the abdomen or pelvis. Multiple hepatic cysts. Numerous fibroid s in the uterus. Mild colonic constipation and moderate rectal constipation. Axel Cheema MD on November 02, 2017 at 22:13 Board Certified Radiologist. This report was verified electronically.
--- NOTE | 2017-11-02 22:22 | RADRPT ---
EXAM DATE/TIME: 11/02/2017 21:35 [facility] COMPARISON: No previous studies available for comparison. INDICATIONS : Brain mass, evaluate for metastatic disease. IV CONTRAST: 75 cc Omnipaque 350 (iohexol) IV ; Cumulative dose for multiple exams. RADIATION DOSE: 8.69 CTDIvol (mGy) ; Combined studies - Thorax/Abdomen/Pelvis MEDICAL HISTORY : Hypertension. Chronic obstructive pulmonary disease. Osteoporosis.CVA. SURGICAL HISTORY : Cholecystectomy. ENCOUNTER: Initial ACUITY: 1 day PAIN SCALE: 0/10 LOCATION: chest TECHNIQUE: Volumetric scanning of the chest was performed. Using automated exposure control and adjustment of t he mA and/or kV according to patient size, radiation dose was kept as low as reasonably achievable to obtain optimal diagnostic quality images. DICOM format image data is available electronically for review and comparison. Follow-up recommendations for detected pulmonary nodules are based at a minimum on nodule size and pa tient risk factors according to Fleischner Society Guidelines. FINDINGS: No focal lung consolidation. Minimal basilar scarring. There is no hilar, mediastinal axillary adenop athy. No pleural or pericardial effusion. No acute bony abnormality. See abdomen CT for findings belo w the diaphragm. CONCLUSION: 1. Negative for metastatic disease to the thorax. No acute findings. Axel Cheema MD on November 02, 2017 at 22:19 Board Certified Radiologist. This report was verified electronically.
[2017-11-03] VITALS (15 sets, daily range): BP systolic 100–151; BP diastolic 49–72; PULSE 82–106; RESP 18–24; TEMP 97.4–100.1; O2SAT 95–98
[2017-11-03] MEDS: SODIUM CHLOR 0.9% 1000 ML INJ 1,000 ML IV SCH ×3 (00:54→21:01)
[2017-11-03] MEDS: VALPROATE INJ 500 MG in SODIUM CHLORIDE 0.9% INJ 100 ML IV SCH ×3 (02:53→17:48)
[2017-11-03 05:32] LABS: BICARBONATE 20.6 MEQ/L (21.0-32.0); CALCIUM 7.4 MG/DL (8.5-10.1); CREATININE 0.79 MG/DL (0.50-1.00); PHENYTOIN (DILANTIN) 12.1 MCG/ML (10.0-20.0)
[2017-11-03 05:35] LABS: HEMATOCRIT 34.1 % (35.0-46.0); HEMOGLOBIN 11.3 GM/DL (11.6-15.3); MEAN CELL VOLUME 87.4 FL (80.0-100.0); MEAN CORPUSCULAR HEMOGLOBIN 28.9 PG (27.0-34.0); MEAN CORPUSCULAR HGB CONC 33.1 % (32.0-36.0); MEAN PLATELET VOLUME 6.8 FL (7.0-11.0); PLATELET COUNT 167 TH/MM3 (150-450); RED CELL DISTRIBUTION WIDTH 19.5 % (11.6-17.2)
[2017-11-03 05:51] LABS: CALCIUM-PROTEIN CORRECTED 8.2 MG/DL (8.5-10.1); TOTAL PROTEIN 5.6 GM/DL (6.4-8.2)
[2017-11-03] MEDS: DOCUSATE SODIUM 50 MG/SENNA 8.6 MG TAB PO SCH ×2 (09:00→21:00)
--- NOTE | 2017-11-03 09:02 | HHI.PR ---
Review/Management Diagnosis Diagnosis/Plan: (1) ICH (intracerebral hemorrhage) ICD Codes: I61.9 - Nontraumatic intracerebral hemorrhage, unspecified Status: Acute Plan: ich with edema may need f/u scan in a few weeks to r/o mass/neoplastic lesion further input per nsx recs eeg this am- improved; no active sz's continue on sz meds ok for floor from neurology bp control therapy (2) Seizure ICD Codes: R56.9 - Unspecified convulsions Status: Acute Plan: on iv cerebyrx add iv depakon recs f/u eeg (3) Brain mass ICD Codes: G93.9 - Disorder of brain, unspecified Status: Acute Subjective Subjective Comments No acute events reported; no sz No headache No chest pain No dyspnea Active Medications Current Medications Medications (Trade) Dose Ordered Sig/Cathie Route Start Time Stop Time Status Last Admin Sodium Chloride 1,000 ml @ 84 mls/hr [id number] IV 11/01/17 22:37 11/03/17 00:54 (NS Flush) 2 ml UNSCH PRN IV FLUSH 11/01/17 22:45 (NS Flush) 2 ml BID IV FLUSH 11/02/17 09:00 (Tylenol) 650 mg Q6H PRN PO 11/01/17 22:45 (Morphine Inj) 2 mg Q2H PRN IV PUSH 11/01/17 22:45 (Pepcid Inj) 20 mg Q12HR IV PUSH 11/02/17 09:00 11/02/17 21:21 (Zofran Inj) 4 mg Q6H PRN IV PUSH 11/01/17 22:45 (Duoneb Neb) 1 ampule Q2HR NEB PRN INH 11/01/17 22:45 ([facility]) 1 [id number] XX 11/01/17 22:45 (Chlorhexidine 2% Cloth) 3 pack Taper DAILY@04 TOP 11/02/17 04:00 10/29/18 03:59 (Chlorhexidine 2% Cloth) 3 pack UNSCH PRN TOP 11/01/17 22:45 (Leigh-Colace) 1 tab BID PO 11/02/17 09:00 (Milk Of Magnesia Liq) 30 ml Q12H PRN PO 11/01/17 22:45 (Senokot) 17.2 mg Q12H PRN PO 11/01/17 22:45 (Dulcolax Supp) 10 mg DAILY PRN RECTAL 11/01/17 22:45 (Lactulose Liq) 30 ml DAILY PRN PO 11/01/17 22:45 (Trandate Inj) 10 mg Q4H PRN IV PUSH 11/02/17 00:30 11/02/17 08:28 (Apresoline Inj) 20 mg Q4H PRN IV PUSH 11/02/17 00:30 11/02/17 17:55 Fosphenytoin Sodium 100 mgpe/ Sodium Chloride 52 ml @ 208 mls/hr Q8H IV 11/02/17 15:00 11/02/17 22:28 Valproate Sodium 500 mg/Sodium Chloride 105 ml @ 105 mls/hr Q8H IV 11/02/17 18:00 11/03/17 02:53 (D50w (Vial) Inj) 50 ml UNSCH PRN IV PUSH 11/02/17 22:15 11/02/17 22:28 (Glucagon Inj) 1 mg UNSCH PRN OTHER 11/02/17 22:15 Allergies Allergies Coded Allergies No Known Allergies (Unverified11/01/17) Review of Systems All other ROS: ROS reviewed as documented in chart Exam I&O / VS Vital Signs Date Time Temp Pulse Resp B/P (MAP) Pulse Ox O2 Delivery O2 Flow Rate FiO2 11/03/17 07:20 97 Room Air 11/03/17 06:00 100 11/03/17 04:00 88 11/03/17 04:00 99.5 88 20 120/58 (78) 96 11/03/17 03:46 95 11/03/17 02:00 96 11/03/17 00:00 100 11/03/17 00:00 100.1 100 22 100/49 (66) 97 11/02/17 22:00 102 11/02/17 20:00 99.5 106 20 128/83 (98) 97 11/02/17 20:00 106 11/02/17 19:37 95 11/02/17 19:00 97 Room Air 11/02/17 18:00 104 11/02/17 16:00 98 11/02/17 16:00 100.9 98 24 125/69 (87) 96 11/02/17 14:00 104 11/02/17 12:00 99.8 102 26 129/61 (83) 98 11/02/17 12:00 102 11/02/17 10:00 88 General: No acute distress Eye: PERRL Respiratory: Non-labored respirations Cardiology: Normal rate Neurologic: Alert Psychiatric: Cooperative Exam Comments mumbles, follows occasionally, eomi, ou 2mm sluggish, face sym, ribeiro to gravity, getting eeg done Objective Micro and Labs Laboratory Tests Test 11/03/17 04:50 White Blood Count 10.0 Red Blood Count 3.90 Hemoglobin 11.3 Hematocrit 34.1 Mean Corpuscular Volume 87.4 Mean Corpuscular Hemoglobin 28.9 Mean Corpuscular Hemoglobin Concent 33.1 Red Cell Distribution Width 19.5 Platelet Count 167 Mean Platelet Volume 6.8 Blood Urea Nitrogen 17 Creatinine 0.79 Random Glucose 99 Total Protein 5.6 Calcium Level 7.4 Sodium Level 139 Potassium Level 3.6 Chloride Level 109 Carbon Dioxide Level 20.6 Anion Gap 9 Estimat Glomerular Filtration Rate 84 Protein Corrected Calcium 8.2 Phenytoin (Dilantin) Level 12.1 Jorge Yuan MD November 03, 2017 09:02
--- NOTE | 2017-11-03 09:16 | HHI.NSPN ---
(Deandre Cordoba) History Chief Complaint: ICH. (Deandre Cordoba) Interval History 82-year-old -[place] female who was transferred from [facility] where she presented with neurologic changes. There is no family members and the patient cannot relate much of a history but apparently with CT scan head obtained she was found to have a right posterior temporal lobe cerebral hemorrhage. CT scan of the head reviewed from [facility] on arrival reveals a less than 2 cm right posterior temporal lobe hemorrhage without any significant mass-effect or midline shift. Overnight her exam is not changed although she had an EEG study done and was noted to have subclinical seizures and has been noted to be more lethargic since then and is awaiting fosphenytoin bolus. MRI scan of the brain is also pending along with neurology evaluation. It is unclear whether this cerebral hemorrhage is spontaneous versus traumatic. 11/03/17: Pt awake and alert. At times not cooperative with exam. She at times doesn't verbalize and others answers questions yes/no. She follows commands at times and other times does not. (Deandre Cordoba) Review of Systems General: Negative for: fever, chills, insomnia Respiratory: Negative for: shortness of breath, cough, sputum Cardiovascular: Negative for: chest pain Gastrointestinal: Negative for: nausea, vomitting, diarrhea, constipation ( Deandre Cordoba) Exam Results Vital Signs Date Time Temp Pulse Resp B/P (MAP) Pulse Ox O2 Delivery O2 Flow Rate FiO2 11/03/17 07:20 97 Room Air 11/03/17 06:00 100 11/03/17 04:00 99.5 20 120/58 (78) 11/02/17 07:32 21 Intake and Output 11/03/17 11/03/17 11/04/17 08:00 16:00 00:00 Output Total 500 ml Balance -500 ml (Deandre Cordoba) Physical Examination General: Pt awake and alert. Resting in bed in NAD. Eyes: Pupils equal. Sclera anicteric. Resp: CTA bilaterally. Heart: NSR no murmurs. Abd: Soft positive bs Skin: No cyanosis or erythema. SCDs in place. Muscle: Moves all 4 extremities but not following commands consistently to get an exam. Neuro: Pt awake and alert. At times not cooperative for exam. At times verbalizes and other times doesn't. Sometimes answers questions and other times does not. Pupils 3mm bilaterally reactive bilaterally. (Deandre Cordoba) Lab, Micro, Other Results Last Impressions Chest CT 11/02/17 0000 Signed Impressions: Service Date/Time: Thursday, November 02, 2017 21:35 - CONCLUSION: 1. Negative for metastatic disease to the thorax. No acute findings. Axel Cheema MD Brain MRI 11/02/17 0000 Signed Impressions: Service Date/Time: Thursday, November 02, 2017 14:05 - CONCLUSION: 3.7 cm masslike lesion in the posterior right temporal region does contain blood products, but there are also areas that have signal abnormality inconsistent with blood. Cannot determine whether the lesion is intra-or extra-axial. Recommend further characterization with 3-D postcontrast imaging. Aquilino Hsieh MD Abdomen/Pelvis CT 11/02/17 0000 Signed Impressions: Service Date/Time: Thursday, November 02, 2017 21:35 - CONCLUSION: 1. Negative for metastatic disease in the abdomen or pelvis. Multiple hepatic cysts. Numerous fibroids in the uterus. Mild colonic constipation and moderate rectal constipation. Axel Cheema MD Head CT 11/01/17 0000 Signed Impressions: Service Date/Time: Thursday, November 02, 2017 03:30 - CONCLUSION: 1. Limited exam due to motion artifact throughout. 2. 1.4 cm apparent parenchymal hemorrhage in the right temporal lobe. No midline shift. 3. Periventricular small vessel ischemic demyelination Gerardo Mcqueen MD Laboratory Tests Test 11/03/17 04:50 White Blood Count 10.0 TH/MM3 Red Blood Count 3.90 MIL/MM3 Hemoglobin 11.3 GM/DL Hematocrit 34.1 % Mean Corpuscular Volume 87.4 FL Mean Corpuscular Hemoglobin 28.9 PG Mean Corpuscular Hemoglobin Concent 33.1 % Red Cell Distribution Width 19.5 % Platelet Count 167 TH/MM3 Mean Platelet Volume 6.8 FL Blood Urea Nitrogen 17 MG/DL Creatinine 0.79 MG/DL Random Glucose 99 MG/DL Total Protein 5.6 GM/DL Calcium Level 7.4 MG/DL Sodium Level 139 MEQ/L Potassium Level 3.6 MEQ/L Chloride Level 109 MEQ/L Carbon Dioxide Level 20.6 MEQ/L Anion Gap 9 MEQ/L Estimat Glomerular Filtration Rate 84 ML/MIN Protein Corrected Calcium 8.2 MG/DL Phenytoin (Dilantin) Level 12.1 MCG/ML (Deandre Cordoba) Medical Decision Making Impression and Plan A: 82-year-old lady with a right posterior temporal lobe cerebral hemorrhage without mass-effect or midline shift. Continue with observation along with seizure prophylaxis. MRI results noted will discuss with Dr. Peterson. P: Continue with hypertension control. Continue with neuro checks Continue with Rehab efforts. Continue with DVT prophylaxis. Continue with GI prophylaxis. (Deandre Cordoba) Attending Statement The exam, history, and the medical decision-making described in the above note were completed with the assistance of the mid-level provider. I reviewed and agree with the findings presented. I attest that I had a cnio-se-gboi encounter with the patient on the same day, and personally performed and documented my assessment and findings in the medical record. More alert today and follows simple commands although speech is still very limited. MRI of the brain without contrast suggests hemorrhagic right posterior temporal lobe mass although limited from motion artifact. Will obtain MRI scan of the brain with contrast once she is able to cooperate and lie still for a better study. Continue with supportive care for now. Discussed with nursing staff. She has a daughter and son who reside out of state and plan on coming to see her over the weekend. (Jay Peterson MD) Deandre Cordoba November 03, 2017 09:16 Jay Peterson MD November 03, 2017 13:16
[2017-11-03] MEDS: FAMOTIDINE 20 MG/2 ML VIAL IV PUSH SCH ×2 (10:12→21:06)
[2017-11-03] MEDS: FOSPHENYTOIN INJ 100 MGPE in SODIUM CHLORIDE 0.9% INJ 50 ML IV SCH ×3 (10:14→22:44)
[2017-11-03] MEDS: SODIUM CHLORIDE 0.9% FLUSH 10 ML FLUSH IV FLUSH SCH ×2 (10:14→21:00)
--- NOTE | 2017-11-03 13:01 | HHI.CCPN ---
Subjective Remarks/Hospital Course Hospital Course: 82-year-old female with past medical history significant for COPD, diabetes mellitus, dyslipidemia, hypertension, osteoporosis, thyroid disorder presented to [facility] due to altered mental status, found by the patient's caregiver. At the emergency department the CT of the head revealed hemorrhagic infarct in the right temporal occipital region, measuring approximately 3.5 cm and the patient has been transferred to [facility] for higher level of care. The patient is nonverbal and information is obtained from medical chart review. Subjective: 11/02: more somnolent than on admission. EEG ordered and to my read appears to have significant ictal activity. loaded with fosphenytoin and neurology consult ordered. also, given size and location of the bleed, have ordered an MRI to better evaluate the area. 11/03: Awake and alert. Following commands. Objective Vital Signs Date Time Temp Pulse Resp B/P (MAP) Pulse Ox O2 Delivery O2 Flow Rate FiO2 11/03/17 11:42 98 21 11/03/17 08:00 98.3 92 24 119/57 (77) 11/03/17 07:20 Room Air Intake and Output 11/03/17 11/03/17 11/04/17 08:00 16:00 00:00 Output Total 500 ml Balance -500 ml Result Diagram: 11/03/17 0450 11/03/17 0450 Imaging Chest x-ray/no significant cardiopulmonary process. Head CT/findings compatible with a hemorrhagic infarct in the right temporal occipital region, measuring approximately 3.5 cm. Objective Remarks GENERAL: Elderly female, lying in bed, awake and alert, following commands. HEENT: Normocephalic. Atraumatic. Pupils equal, round, reactive, conjugate. Mucous membranes are moist NECK: Trachea is midline. There is no JVD. CHEST: Equal chest rise. Nasal cannula oxygen. CARDIOVASCULAR: Normal rate, regular rhythm. Sinus by telemetry. ABDOMEN: Soft, nontender, nondistended. No guarding. MUSCULOSKELETAL: Pulses 2+. No peripheral edema. Left upper extremity is contracted in flexion NEUROLOGICAL: Awake alert, no she is in the hospital. Follow commands with the right upper extremity, bilateral lower extremities. Left upper extremity is contracted in flexion. A/P Assessment and Plan Assessment: 82-year-old female with right parietal intraparenchymal cerebral hemorrhage course is now complicated by acute and worsening encephalopathy and subclinical status epilepticus. Follow-up MRI, frequent neuro checks. Will load with Cerebyx. Consult neurology to assist with management of her seizure activity. Right parietal intraparenchymal hemorrhage -MRI -CT chest abdomen pelvis with no evidence of neoplasm to suggest metastatic disease -Blood pressure control with SBP goal less than 140 -Neurosurgical consultation -PT and OT as tolerated Frequent neurochecks Subclinical status epilepticus Neurology consulted and following 1 g Cerebyx load and 100 mg IV every 8 hours Dilantin level in the morning Frequent neurochecks Hypertensive emergency -Hydralazine and labetalol as needed to keep SBP less than 140 COPD -No exacerbation -DuoNeb scheduled and as needed -No steroids or antibiotics indicated at this time Diabetes mellitus -Insulin sliding scale Dyslipidemia -Resume atorvastatin when okay to p.o. Thyroid disease -Levothyroxine per home dose when available DVT GI prophylaxis -James's and SCDs -No pharmacological DVT prophylaxis due to acute ICH -IV Pepcid Consult and transfer to hospitalist service for further medical management. Critical care will be signing off at this time, please reconsult if needed. Joon Pruitt MD November 03, 2017 13:01
[2017-11-03] MEDS ORDERED: GLUCAGON 1 MG/ML VIAL OTHER PRN (18:15)
[2017-11-03] MEDS: INSULIN ASPART SUPPLEMENTAL SCALE SQ SCH (21:00)
[2017-11-04] VITALS (9 sets, daily range): BP systolic 120–137; BP diastolic 58–67; PULSE 74–96; RESP 18–22; TEMP 97.5–98.3; O2SAT 98–99
[2017-11-04] MEDS: VALPROATE INJ 500 MG in SODIUM CHLORIDE 0.9% INJ 100 ML IV SCH ×3 (01:07→17:55)
[2017-11-04] MEDS: CHLORHEXIDINE GLUCONATE 2 % 1 PACK (2 CLOTHS) TOP SCH (04:00)
--- NOTE | 2017-11-04 07:19 | MG ---
cc: Santo Rascon MD ELECTROENCEPHALOGRAM NUMBER: [id number]. PROCEDURE PERFORMED: No sedation. This is a repeat EEG. INDICATIONS: Parenchymal hemorrhage, right temporal lobe. MEDICATIONS: Depakote and Dilantin. DESCRIPTION: The recording shows a symmetric 7 Hz, 60 microvolt posterior rhythm. There is a run of phase reversing spike and sharp waves over the right mid temporal head region at EPOCH 22 lasting approximately 20 seconds and continues to be abnormal throughout with some focal slowing there and these discharges occurring approximately every one second to twice per second. This continues throughout much of the recording and sometimes looks somewhat PLED like. Photic stimulation is full without significant posterior driving. IMPRESSION: Right temporal seizure focus "very active at times almost PLED like. Phenobarbital could be considered. Clinical correlation is needed. Santo Rascon MD DJM/DL , 07:06 AM , 07:18 AM
[2017-11-04] MEDS: DOCUSATE SODIUM 50 MG/SENNA 8.6 MG TAB PO SCH ×2 (07:46→21:00)
[2017-11-04] MEDS: INSULIN ASPART SUPPLEMENTAL SCALE SQ SCH ×4 (07:46→21:00)
[2017-11-04 07:54] LABS: HEMATOCRIT 31.1 % (35.0-46.0); HEMOGLOBIN 10.4 GM/DL (11.6-15.3); MEAN CORPUSCULAR HEMOGLOBIN 28.7 PG (27.0-34.0); MEAN CORPUSCULAR HGB CONC 33.3 % (32.0-36.0); MEAN PLATELET VOLUME 6.8 FL (7.0-11.0); PLATELET COUNT 158 TH/MM3 (150-450); RED BLOOD COUNT 3.61 MIL/MM3 (4.00-5.30); RED CELL DISTRIBUTION WIDTH 18.8 % (11.6-17.2); WHITE BLOOD COUNT 6.4 TH/MM3 (4.0-11.0)
[2017-11-04 08:21] LABS: BICARBONATE 23.9 MEQ/L (21.0-32.0); CALCIUM 7.6 MG/DL (8.5-10.1); CREATININE 0.6 MG/DL (0.50-1.00)
--- NOTE | 2017-11-04 08:34 | HHI.PR ---
Review/Management Diagnosis Diagnosis/Plan: (1) ICH (intracerebral hemorrhage) ICD Codes: I61.9 - Nontraumatic intracerebral hemorrhage, unspecified Status: Acute Plan: ich with edema may need f/u scan in a few weeks to r/o mass/neoplastic lesion further input per nsx recs will add phb continue dil/dep therapy neuro stable (2) Seizure ICD Codes: R56.9 - Unspecified convulsions Status: Acute Plan: on iv cerebyrx add iv depakon (3) Brain mass ICD Codes: G93.9 - Disorder of brain, unspecified Status: Acute Subjective Subjective Comments No acute events reported No headache No chest pain No dyspnea Active Medications Current Medications Medications (Trade) Dose Ordered Sig/Cathie Route Start Time Stop Time Status Last Admin Sodium Chloride 1,000 ml @ 84 mls/hr [id number] IV 11/01/17 22:37 11/03/17 21:01 (NS Flush) 2 ml UNSCH PRN IV FLUSH 11/01/17 22:45 (NS Flush) 2 ml BID IV FLUSH 11/02/17 09:00 11/03/17 10:14 (Tylenol) 650 mg Q6H PRN PO 11/01/17 22:45 (Morphine Inj) 2 mg Q2H PRN IV PUSH 11/01/17 22:45 (Pepcid Inj) 20 mg Q12HR IV PUSH 11/02/17 09:00 11/03/17 21:06 (Zofran Inj) 4 mg Q6H PRN IV PUSH 11/01/17 22:45 (Duoneb Neb) 1 ampule Q2HR NEB PRN INH 11/01/17 22:45 ([facility] [place] [facility] [place]) 1 Q361D XX 11/01/17 22:45 (Chlorhexidine 2% Cloth) 3 pack Taper DAILY@04 TOP 11/02/17 04:00 10/29/18 03:59 (Chlorhexidine 2% Cloth) 3 pack UNSCH PRN TOP 11/01/17 22:45 (Leigh-Colace) 1 tab BID PO 11/02/17 09:00 (Milk Of Magnesia Liq) 30 ml Q12H PRN PO 11/01/17 22:45 (Senokot) 17.2 mg Q12H PRN PO 11/01/17 22:45 (Dulcolax Supp) 10 mg DAILY PRN RECTAL 11/01/17 22:45 (Lactulose Liq) 30 ml DAILY PRN PO 11/01/17 22:45 (Trandate Inj) 10 mg Q4H PRN IV PUSH 11/02/17 00:30 11/02/17 08:28 (Apresoline Inj) 20 mg Q4H PRN IV PUSH 11/02/17 00:30 11/02/17 17:55 Fosphenytoin Sodium 100 mgpe/ Sodium Chloride 52 ml @ 208 mls/hr Q8H IV 11/02/17 15:00 11/03/17 22:44 Valproate Sodium 500 mg/Sodium Chloride 105 ml @ 105 mls/hr Q8H IV 11/02/17 18:00 11/04/17 01:07 (D50w (Vial) Inj) 50 ml UNSCH PRN IV PUSH 11/03/17 18:15 (Glucagon Inj) 1 mg UNSCH PRN OTHER 11/03/17 18:15 (NovoLOG SUPPLEMENTAL SCALE) 1 ACHS SLIDING SCALE SQ 11/03/17 21:00 Allergies Allergies Coded Allergies No Known Allergies (Unverified11/01/17) Review of Systems All other ROS: ROS reviewed as documented in chart Exam I&O / VS Vital Signs Date Time Temp Pulse Resp B/P (MAP) Pulse Ox O2 Delivery O2 Flow Rate FiO2 11/04/17 07:28 97.7 87 18 134/63 (86) 99 11/04/17 05:39 98.1 96 22 120/58 (78) 99 11/04/17 00:00 98.3 90 18 137/67 (90) 98 11/03/17 23:58 86 11/03/17 21:00 98.0 90 18 119/72 (88) 98 11/03/17 21:00 98 Room Air 11/03/17 17:33 97.4 88 18 124/60 (81) 98 11/03/17 16:00 98.5 87 22 151/72 (98) 97 11/03/17 15:00 82 11/03/17 14:00 84 11/03/17 12:00 87 11/03/17 12:00 98.1 87 21 120/57 (78) 98 11/03/17 11:42 98 21 5/2/18 10:00 106 General: No acute distress Eye: PERRL Respiratory: Non-labored respirations Cardiology: Normal rate Neurologic: Alert Psychiatric: Cooperative Exam Comments ox 1, follows occasionally, eomi, mild rt gaze preference, ou 2mm sluggish, face sym, ribeiro to gravity, Objective Micro and Labs Laboratory Tests Test 11/03/17 18:18 11/04/17 07:40 Valproic Acid (Depakene) Level 61 61 White Blood Count 6.4 Red Blood Count 3.61 Hemoglobin 10.4 Hematocrit 31.1 Mean Corpuscular Volume 86.0 Mean Corpuscular Hemoglobin 28.7 Mean Corpuscular Hemoglobin Concent 33.3 Red Cell Distribution Width 18.8 Platelet Count 158 Mean Platelet Volume 6.8 Blood Urea Nitrogen 14 Creatinine 0.60 Random Glucose 96 Calcium Level 7.6 Sodium Level 144 Potassium Level 3.2 Chloride Level 112 Carbon Dioxide Level 23.9 Anion Gap 8 Estimat Glomerular Filtration Rate 115 Jorge Yuan MD November 04, 2017 08:34
[2017-11-04] MEDS ORDERED: SODIUM CHLORIDE 0.9% IV SCH ×2 (09:00→10:00)
[2017-11-04] MEDS ORDERED: PHENOBARBITAL IV SCH ×2 (09:00→10:00)
[2017-11-04] MEDS: FOSPHENYTOIN INJ 100 MGPE in SODIUM CHLORIDE 0.9% INJ 50 ML IV SCH ×3 (09:59→21:56)
[2017-11-04] MEDS: SODIUM CHLORIDE 0.9% FLUSH 10 ML FLUSH IV FLUSH SCH ×2 (09:59→21:57)
[2017-11-04] MEDS: FAMOTIDINE 20 MG/2 ML VIAL IV PUSH SCH ×2 (10:01→21:57)
[2017-11-04] MEDS: SODIUM CHLOR 0.9% 1000 ML INJ 1,000 ML IV SCH ×2 (10:26→21:56)
[2017-11-04] MEDS ORDERED: LORazepam 2 MG/ML VIAL IV PUSH PRN (11:45)
[2017-11-04] MEDS ORDERED: GADODIAMIDE PF 287 MG/ML 5 ML VIAL (for RAD MRI) IVCONTRAST ONE (12:49)
--- NOTE | 2017-11-04 14:47 | HHI.PR ---
Subjective Remarks No acute complaints today. Moderate difficulty speaking. No respiratory distress. No fevers overnight. No seizure activity. Objective Vital Signs Date Time Temp Pulse Resp B/P (MAP) Pulse Ox O2 Delivery O2 Flow Rate FiO2 11/04/17 12:00 84 11/04/17 11:32 97.6 80 18 129/60 (83) 99 11/04/17 10:40 Room Air 11/04/17 09:31 88 11/04/17 07:28 97.7 87 18 134/63 (86) 99 11/04/17 05:39 98.1 96 22 120/58 (78) 99 11/04/17 00:00 98.3 90 18 137/67 (90) 98 11/03/17 23:58 86 11/03/17 21:00 98.0 90 18 119/72 (88) 98 11/03/17 21:00 98 Room Air 11/03/17 17:33 97.4 88 18 124/60 (81) 98 11/03/17 16:00 98.5 87 22 151/72 (98) 97 11/03/17 15:00 82 I/O 11/03/17 11/03/17 11/03/17 11/04/17 11/04/17 11/04/17 07:00 15:00 23:00 07:00 15:00 23:00 Intake Total 105 ml 207.46 ml Output Total 500 ml 400 ml Balance -500 ml 105 ml -400 ml 207.46 ml Intake IV Total 105 ml 207.46 ml Output Urine Total 500 ml 400 ml Bladder Scan Volume Amount 78 ml 305 ml 22 ml 305 ml 22 ml # Voids 1 # Bowel Movements 1 2 1 Result Diagram: 11/04/17 0740 11/04/17 0740 Objective Remarks GENERAL: NAD, A&Ox1 HEAD: Normocephalic. NECK: Supple, trachea midline. No lymphadenopathy. EYES: No scleral icterus. No injection or drainage. CARDIOVASCULAR: Regular rate and rhythm without murmurs, gallops, or rubs. RESPIRATORY: Breath sounds equal bilaterally. No accessory muscle use. GASTROINTESTINAL: Abdomen soft, non-tender, nondistended. MUSCULOSKELETAL: No cyanosis, or edema. SKIN: Warm and dry. NEURO: No focal neurological deficitis. A/P Problem List: (1) Brain mass ICD Code: G93.9 - Disorder of brain, unspecified Status: Acute (2) ICH (intracerebral hemorrhage) ICD Code: I61.9 - Nontraumatic intracerebral hemorrhage, unspecified Status: Acute (3) Seizure ICD Code: R56.9 - Unspecified convulsions Status: Acute Assessment and Plan 82-year-old female with right parietal intraparenchymal cerebral hemorrhage, with subsequent status epilepticus and encephalopathy. Right parietal intraparenchymal hemorrhage Continue PT and OT Neurosurgery following Continue blood pressure optimization Subclinical status epilepticus Neurology following Continue Cerebyx Continue Dilantin Continue neuro checks Hypertensive emergency Continue hydralazine and labetalol Attempt to keep systolic blood pressure less than 140 mmHg COPD Continue duo nebs No exacerbation Diabetes mellitus Follow blood sugars Insulin sliding scale Diabetic diet Dyslipidemia Continue present treatment Follow as an outpatient Thyroid disease Levothyroxine DVT prophylaxis SCDs Discharge planning Inpatient rehab versus detention facility rehab Travis Traylor MD November 04, 2017 14:47
--- NOTE | 2017-11-04 16:42 | HHI.NSPN ---
(Deandre Cordoba) History Chief Complaint: ICH. (Deandre Cordoba) Interval History 82-year-old -[place] female who was transferred from [facility] where she presented with neurologic changes. There is no family members and the patient cannot relate much of a history but apparently with CT scan head obtained she was found to have a right posterior temporal lobe cerebral hemorrhage. CT scan of the head reviewed from [facility] on arrival reveals a less than 2 cm right posterior temporal lobe hemorrhage without any significant mass-effect or midline shift. Overnight her exam is not changed although she had an EEG study done and was noted to have subclinical seizures and has been noted to be more lethargic since then and is awaiting fosphenytoin bolus. MRI scan of the brain is also pending along with neurology evaluation. It is unclear whether this cerebral hemorrhage is spontaneous versus traumatic. 11/03/17: Pt awake and alert. At times not cooperative with exam. She at times doesn't verbalize and others answers questions yes/no. She follows commands at times and other times does not. 11/04/17: Pt sedated for MRI and not opening eyes or following commands. (Deandre Cordoba) System Review Comments Not able to obtain secondary to clinical condition-sedated. (Deandre Cordoba) Exam Results Vital Signs Date Time Temp Pulse Resp B/P (MAP) Pulse Ox O2 Delivery O2 Flow Rate FiO2 11/04/17 15:29 97.5 86 18 129/66 (87) 99 11/04/17 10:40 Room Air 11/03/17 11:42 21 Intake and Output 11/04/17 11/04/17 11/05/17 08:00 16:00 00:00 Intake Total 259.46 ml 240 ml Output Total 400 ml Balance -400 ml 259.46 ml 240 ml (Deandre Cordoba) Physical Examination General: Pt sedated on medical surgical floor for MRI today. Not opening eyes or following commands. No respiratory distress. Eyes: Pupils equal. Sclera anicteric. Resp: CTA bilaterally. Heart: NSR no murmurs. Abd: Soft positive bs Skin: No cyanosis or erythema. SCDs in place. Muscle: Not following commands. Sedated for MRI. Neuro: Pt sedated for MRI today. Not opening eyes or following commands. (Deandre Cordoba) Lab, Micro, Other Results Last Impressions Chest CT 11/02/17 0000 Signed Impressions: Service Date/Time: Thursday, November 02, 2017 21:35 - CONCLUSION: 1. Negative for metastatic disease to the thorax. No acute findings. Axel Cheema MD Brain MRI 11/02/17 0000 Signed Impressions: Service Date/Time: Thursday, November 02, 2017 14:05 - CONCLUSION: 3.7 cm masslike lesion in the posterior right temporal region does contain blood products, but there are also areas that have signal abnormality inconsistent with blood. Cannot determine whether the lesion is intra-or extra-axial. Recommend further characterization with 3-D postcontrast imaging. Aquilino Hsieh MD Abdomen/Pelvis CT 11/02/17 0000 Signed Impressions: Service Date/Time: Thursday, November 02, 2017 21:35 - CONCLUSION: 1. Negative for metastatic disease in the abdomen or pelvis. Multiple hepatic cysts. Numerous fibroids in the uterus. Mild colonic constipation and moderate rectal constipation. Axel Cheema MD Head CT 11/01/17 0000 Signed Impressions: Service Date/Time: Thursday, November 02, 2017 03:30 - CONCLUSION: 1. Limited exam due to motion artifact throughout. 2. 1.4 cm apparent parenchymal hemorrhage in the right temporal lobe. No midline shift. 3. Periventricular small vessel ischemic demyelination Gerardo Mcqueen MD Laboratory Tests Test 11/03/17 18:18 11/04/17 07:40 Valproic Acid (Depakene) Level 61 MCG/ML 61 MCG/ML White Blood Count 6.4 TH/MM3 Red Blood Count 3.61 MIL/MM3 Hemoglobin 10.4 GM/DL Hematocrit 31.1 % Mean Corpuscular Volume 86.0 FL Mean Corpuscular Hemoglobin 28.7 PG Mean Corpuscular Hemoglobin Concent 33.3 % Red Cell Distribution Width 18.8 % Platelet Count 158 TH/MM3 Mean Platelet Volume 6.8 FL Blood Urea Nitrogen 14 MG/DL Creatinine 0.60 MG/DL Random Glucose 96 MG/DL Calcium Level 7.6 MG/DL Sodium Level 144 MEQ/L Potassium Level 3.2 MEQ/L Chloride Level 112 MEQ/L Carbon Dioxide Level 23.9 MEQ/L Anion Gap 8 MEQ/L Estimat Glomerular Filtration Rate 115 ML/MIN 11/04/17 11/04/17 11/05/17 15:00 23:00 07:00 Intake Total 207.46 ml 292 ml Balance 207.46 ml 292 ml Intake Oral 240 ml IV Total 207.46 ml 52 ml Bladder Scan Volume Amount 22 ml 152 ml 22 ml 152 ml (Deandre Cordoba) Medical Decision Making Impression and Plan A: 82-year-old lady with a right posterior temporal lobe cerebral hemorrhage without mass-effect or midline shift. Continue with observation along with seizure prophylaxis. P: Continue with hypertension control. Continue with neuro checks Continue with Rehab efforts. Continue with DVT prophylaxis. Continue with GI prophylaxis. Pt had MRI brain today with contrast results pending. (Deandre Cordoba) Attending Statement The exam, history, and the medical decision-making described in the above note were completed with the assistance of the mid-level provider. I reviewed and agree with the findings presented. I attest that I had a [id number] encounter with the patient on the same day, and personally performed and documented my assessment and findings in the medical record. (Jay Peterson MD) Deandre Cordoba November 04, 2017 16:42 Jay Peterson MD November 04, 2017 16:50
[2017-11-04] MEDS: PHENobarbital SOD 130 MG/ML VIAL IV SCH (22:19)
[2017-11-05] VITALS (11 sets, daily range): BP systolic 126–163; BP diastolic 70–100; PULSE 77–93; RESP 18–22; TEMP 97.2–98.5; O2SAT 98–99
[2017-11-05] MEDS: CHLORHEXIDINE GLUCONATE 2 % 1 PACK (2 CLOTHS) TOP SCH (02:13)
[2017-11-05] MEDS: VALPROATE INJ 500 MG in SODIUM CHLORIDE 0.9% INJ 100 ML IV SCH ×3 (02:14→17:26)
[2017-11-05 03:57] LABS: ALBUMIN 1.8 GM/DL (3.4-5.0); CALCIUM 7.3 MG/DL (8.5-10.1); CALCIUM-PROTEIN CORRECTED 8.6 MG/DL (8.5-10.1); CREATININE 0.53 MG/DL (0.50-1.00); PHENYTOIN (DILANTIN) 13.7 MCG/ML (10.0-20.0); TOTAL BILIRUBIN ADULT 0.4 MG/DL (0.2-1.0); TOTAL PROTEIN 4.8 GM/DL (6.4-8.2)
[2017-11-05] MEDS: FOSPHENYTOIN INJ 100 MGPE in SODIUM CHLORIDE 0.9% INJ 50 ML IV SCH ×3 (06:13→22:35)
[2017-11-05 06:29] LABS: AUTOMATED NEUTROPHIL # 3.1 TH/MM3 (1.8-7.7); BASOPHIL % 0.4 % (0.0-2.0); EOSINOPHIL # 0.1 TH/MM3 (0-0.4); EOSINOPHIL % 1.3 % (0.0-4.0); HEMATOCRIT 32.7 % (35.0-46.0); HEMOGLOBIN 10.7 GM/DL (11.6-15.3); LYMPH % 13.9 % (9.0-44.0); LYMPHOCYTE # 0.6 TH/MM3 (1.0-4.8); MEAN CELL VOLUME 86.7 FL (80.0-100.0); MEAN CORPUSCULAR HEMOGLOBIN 28.5 PG (27.0-34.0); MEAN CORPUSCULAR HGB CONC 32.9 % (32.0-36.0); MONO % 16.7 % (0.0-8.0); MONOCYTE # 0.8 TH/MM3 (0-0.9); NEUT % 67.7 % (16.0-70.0); PLATELET COUNT 151 TH/MM3 (150-450); RED BLOOD COUNT 3.77 MIL/MM3 (4.00-5.30); RED CELL DISTRIBUTION WIDTH 19.4 % (11.6-17.2); WHITE BLOOD COUNT 4.5 TH/MM3 (4.0-11.0)
[2017-11-05] MEDS: INSULIN ASPART SUPPLEMENTAL SCALE SQ SCH ×4 (07:07→20:26)
[2017-11-05] MEDS: SODIUM CHLORIDE 0.9% FLUSH 10 ML FLUSH IV FLUSH SCH ×2 (07:39→20:23)
[2017-11-05] MEDS: FAMOTIDINE 20 MG/2 ML VIAL IV PUSH SCH ×2 (07:39→20:24)
[2017-11-05] MEDS: DOCUSATE SODIUM 50 MG/SENNA 8.6 MG TAB PO SCH ×2 (07:40→20:23)
[2017-11-05] MEDS: PHENobarbital SOD 130 MG/ML VIAL IV SCH ×2 (07:41→20:23)
--- NOTE | 2017-11-05 08:07 | RADRPT ---
EXAM DATE/TIME: 11/04/2017 12:38 [place] COMPARISON: MRI BRAIN W/O CONTRAST, November 02, 2017, 14:05. INDICATIONS : Mass. CONTRAST: 12 cc Omniscan (gadodiamide) IV MEDICAL HISTORY : Hypertension. Chronic obstructive pulmonary disease. SURGICAL HISTORY : Cholecystectomy. ENCOUNTER: Subsequent ACUITY: 3 day PAIN SCORE: 0/10 LOCATION: head. TECHNIQUE: An MRI brain stealth procedure was performed. The information will be used in the OR for localizatio n. FINDINGS: In the right posterior temporal lobe there is an area of decreased T1 and increased T2 signal which d emonstrates partial enhancement. The entire abnormality measures approximately 3.9 x 2.8 x 2.9 cm. Fu rther description is given on the prior MRI. There is mild local mass effect but there is no midline shift or transtentorial herniation. Ventricles are within normal limits. There is mild generalized at rophy. CONCLUSION: Focal abnormality in the right posterior temporal lobe measuring up to 3.9 cm, as above. Examination will be used for intraoperative localization. Donovan Campbell MD on November 05, 2017 at 8:00 Board Certified Radiologist. This report was verified electronically.
--- NOTE | 2017-11-05 08:30 | HHI.PR ---
Review/Management Diagnosis Diagnosis/Plan: (1) ICH (intracerebral hemorrhage) ICD Codes: I61.9 - Nontraumatic intracerebral hemorrhage, unspecified Status: Acute Plan: ich with edema may need f/u scan in a few weeks to r/o mass/neoplastic lesion further input per nsx on phb/dil/dep 11/04 mri brain with contrast reviewed recs nsx following; possible biopsy- somnolence likely 2/2 sz meds f/u eeg therapy neuro stable (2) Seizure ICD Codes: R56.9 - Unspecified convulsions Status: Acute Plan: on iv cerebyrx add iv depakon (3) Brain mass ICD Codes: G93.9 - Disorder of brain, unspecified Status: Acute Subjective Subjective Comments No acute events reported Active Medications Current Medications Medications (Trade) Dose Ordered Sig/Cathie Route Start Time Stop Time Status Last Admin Sodium Chloride 1,000 ml @ 84 mls/hr [id number] IV 11/01/17 22:37 11/04/17 21:56 (NS Flush) 2 ml UNSCH PRN IV FLUSH 11/01/17 22:45 (NS Flush) 2 ml BID IV FLUSH 11/02/17 09:00 11/05/17 07:39 (Tylenol) 650 mg Q6H PRN PO 11/01/17 22:45 (Morphine Inj) 2 mg Q2H PRN IV PUSH 11/01/17 22:45 (Pepcid Inj) 20 mg Q12HR IV PUSH 11/02/17 09:00 11/05/17 07:39 (Zofran Inj) 4 mg Q6H PRN IV PUSH 11/01/17 22:45 (Duoneb Neb) 1 ampule Q2HR NEB PRN INH 11/01/17 22:45 [place] [place] 1 Q361D XX 11/01/17 22:45 (Chlorhexidine 2% Cloth) 3 pack Taper DAILY@04 TOP 11/02/17 04:00 10/29/18 03:59 (Chlorhexidine 2% Cloth) 3 pack UNSCH PRN TOP 11/01/17 22:45 (Leigh-Colace) 1 tab BID PO 11/02/17 09:00 (Milk Of Magnesia Liq) 30 ml Q12H PRN PO 11/01/17 22:45 (Senokot) 17.2 mg Q12H PRN PO 11/01/17 22:45 (Dulcolax Supp) 10 mg DAILY PRN RECTAL 11/01/17 22:45 (Lactulose Liq) 30 ml DAILY PRN PO 11/01/17 22:45 (Trandate Inj) 10 mg Q4H PRN IV PUSH 11/02/17 00:30 11/02/17 08:28 (Apresoline Inj) 20 mg Q4H PRN IV PUSH 11/02/17 00:30 11/02/17 17:55 Fosphenytoin Sodium 100 mgpe/ Sodium Chloride 52 ml @ 208 mls/hr Q8H IV 11/02/17 15:00 11/05/17 06:13 Valproate Sodium 500 mg/Sodium Chloride 105 ml @ 105 mls/hr Q8H IV 11/02/17 18:00 11/05/17 02:14 (D50w (Vial) Inj) 50 ml UNSCH PRN IV PUSH 11/03/17 18:15 (Glucagon Inj) 1 mg UNSCH PRN OTHER 11/03/17 18:15 (NovoLOG SUPPLEMENTAL SCALE) 1 ACHS SLIDING SCALE SQ 11/03/17 21:00 (Luminal Inj) 60 mg BID IV 11/04/17 21:00 11/05/17 07:41 Allergies Allergies Coded Allergies No Known Allergies (Unverified11/01/17) Review of Systems All other ROS: ROS reviewed as documented in chart Exam I&O / VS Vital Signs Date Time Temp Pulse Resp B/P (MAP) Pulse Ox O2 Delivery O2 Flow Rate FiO2 11/05/17 08:18 98.1 78 22 163/82 (109) 98 11/05/17 04:49 97.4 84 18 155/76 (102) 99 11/05/17 00:51 97.2 84 18 134/70 (91) 98 11/04/17 21:19 97.9 87 18 124/66 (85) 99 11/04/17 19:00 Room Air 21 11/04/17 16:54 74 11/04/17 15:29 97.5 86 18 129/66 (87) 99 11/04/17 12:00 84 11/04/17 11:32 97.6 80 18 129/60 (83) 99 11/04/17 10:40 Room Air 11/04/17 09:31 88 General: No acute distress Eye: PERRL Respiratory: Non-labored respirations Cardiology: Normal rate Neurologic: Alert Psychiatric: Cooperative Exam Comments somnolent, partially opens eyes to tactile, eomi, mild rt gaze preference, resists pupillary exam, face sym, ribeiro to gravity, Objective Micro and Labs Laboratory Tests Test 11/05/17 03:30 11/05/17 05:47 Blood Urea Nitrogen 9 Creatinine 0.53 Random Glucose 77 Total Protein 4.8 Albumin 1.8 Calcium Level 7.3 Alkaline Phosphatase 64 Aspartate Amino Transf (AST/SGOT) 23 Alanine Aminotransferase (ALT/SGPT) 16 Total Bilirubin 0.4 Sodium Level 145 Potassium Level 3.2 Chloride Level 114 Carbon Dioxide Level 21.0 Anion Gap 10 Estimat Glomerular Filtration Rate 133 Protein Corrected Calcium 8.6 Phenytoin (Dilantin) Level 13.7 Valproic Acid (Depakene) Level 71 White Blood Count 4.5 Red Blood Count 3.77 Hemoglobin 10.7 Hematocrit 32.7 Mean Corpuscular Volume 86.7 Mean Corpuscular Hemoglobin 28.5 Mean Corpuscular Hemoglobin Concent 32.9 Red Cell Distribution Width 19.4 Platelet Count 151 Mean Platelet Volume 7.0 Neutrophils (%) (Auto) 67.7 Lymphocytes (%) (Auto) 13.9 Monocytes (%) (Auto) 16.7 Eosinophils (%) (Auto) 1.3 Basophils (%) (Auto) 0.4 Neutrophils # (Auto) 3.1 Lymphocytes # (Auto) 0.6 Monocytes # (Auto) 0.8 Eosinophils # (Auto) 0.1 Basophils # (Auto) 0.0 CBC Comment DIFF FINAL Differential Comment Jorge Yuan MD November 05, 2017 08:30
[2017-11-05] MEDS: SODIUM CHLOR 0.9% 1000 ML INJ 1,000 ML IV SCH ×2 (08:58→21:57)
[2017-11-05] MEDS ORDERED: POTASSIUM CHLORIDE 10 MEQ CONTROLLED RELEASE TAB PO ONE (10:00)
--- NOTE | 2017-11-05 12:27 | HHI.NSPN ---
(Deandre Cordoba) History Chief Complaint: ICH. (Deandre Cordoba) Interval History 82-year-old -[place] female who was transferred from [facility] where she presented with neurologic changes. There is no family members and the patient cannot relate much of a history but apparently with CT scan head obtained she was found to have a right posterior temporal lobe cerebral hemorrhage. CT scan of the head reviewed from [facility] on arrival reveals a less than 2 cm right posterior temporal lobe hemorrhage without any significant mass-effect or midline shift. Overnight her exam is not changed although she had an EEG study done and was noted to have subclinical seizures and has been noted to be more lethargic since then and is awaiting fosphenytoin bolus. MRI scan of the brain is also pending along with neurology evaluation. It is unclear whether this cerebral hemorrhage is spontaneous versus traumatic. 11/03/17: Pt awake and alert. At times not cooperative with exam. She at times doesn't verbalize and others answers questions yes/no. She follows commands at times and other times does not. 11/04/17: Pt sedated for MRI and not opening eyes or following commands. 11/05/17: Pt awakens but still fatigued. She states her name when asked but not verbalizing much otherwise. 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 She moves bilateral LEs to command. (Deandre Cordoba) System Review Comments limited exam secondary to clinical condition. (Deandre Cordoba) Exam Results Vital Signs Date Time Temp Pulse Resp B/P (MAP) Pulse Ox O2 Delivery O2 Flow Rate FiO2 11/05/17 09:29 Room Air 11/05/17 09:23 77 11/05/17 08:58 137/100 (112) 11/05/17 08:18 98.1 22 98 11/04/17 19:00 21 Intake and Output 11/05/17 11/05/17 11/06/17 08:00 16:00 00:00 Intake Total 105 ml Balance 105 ml (Deandre Cordoba) Physical Examination General: Pt on medical surgical floor. She is more arousable today but still not awake fully or following consistently. Eyes: Pupils equal. Sclera anicteric. Resp: CTA bilaterally. Heart: NSR no murmurs. Abd: Soft positive bs Skin: No cyanosis or erythema. SCDs in place. Muscle: Following some limited commands. Neuro: Pt opens eyes but still fatigued. She states her name when asked. She follows some simple commands. Pupils equal. (Deandre Cordoba) Lab, Micro, Other Results Last Impressions Brain MRI 11/04/17 0000 Signed Impressions: Service Date/Time: November 12:38 - CONCLUSION: Focal abnormality in the right posterior temporal lobe measuring up to 3.9 cm, as above. Examination will be used for intraoperative localization. Donovan Campbell MD Chest CT 11/02/17 0000 Signed Impressions: Service Date/Time: Thursday, November 02, 2017 21:35 - CONCLUSION: 1. Negative for metastatic disease to the thorax. No acute findings. Axel Cheema MD Abdomen/Pelvis CT 11/02/17 0000 Signed Impressions: Service Date/Time: Thursday, November 02, 2017 21:35 - CONCLUSION: 1. Negative for metastatic disease in the abdomen or pelvis. Multiple hepatic cysts. Numerous fibroids in the uterus. Mild colonic constipation and moderate rectal constipation. Axel Cheema MD Head CT 11/01/17 0000 Signed Impressions: Service Date/Time: Thursday, November 02, 2017 03:30 - CONCLUSION: 1. Limited exam due to motion artifact throughout. 2. 1.4 cm apparent parenchymal hemorrhage in the right temporal lobe. No midline shift. 3. Periventricular small vessel ischemic demyelination Gerardo Mcqueen MD Laboratory Tests Test 11/05/17 03:30 11/05/17 05:47 Blood Urea Nitrogen 9 MG/DL Creatinine 0.53 MG/DL Random Glucose 77 MG/DL Total Protein 4.8 GM/DL Albumin 1.8 GM/DL Calcium Level 7.3 MG/DL Alkaline Phosphatase 64 U/L Aspartate Amino Transf (AST/SGOT) 23 U/L Alanine Aminotransferase (ALT/SGPT) 16 U/L Total Bilirubin 0.4 MG/DL Sodium Level 145 MEQ/L Potassium Level 3.2 MEQ/L Chloride Level 114 MEQ/L Carbon Dioxide Level 21.0 MEQ/L Anion Gap 10 MEQ/L Estimat Glomerular Filtration Rate 133 ML/MIN Protein Corrected Calcium 8.6 MG/DL Phenytoin (Dilantin) Level 13.7 MCG/ML Valproic Acid (Depakene) Level 71 MCG/ML White Blood Count 4.5 TH/MM3 Red Blood Count 3.77 MIL/MM3 Hemoglobin 10.7 GM/DL Hematocrit 32.7 % Mean Corpuscular Volume 86.7 FL Mean Corpuscular Hemoglobin 28.5 PG Mean Corpuscular Hemoglobin Concent 32.9 % Red Cell Distribution Width 19.4 % Platelet Count 151 TH/MM3 Mean Platelet Volume 7.0 FL Neutrophils (%) (Auto) 67.7 % Lymphocytes (%) (Auto) 13.9 % Monocytes (%) (Auto) 16.7 % Eosinophils (%) (Auto) 1.3 % Basophils (%) (Auto) 0.4 % Neutrophils # (Auto) 3.1 TH/MM3 Lymphocytes # (Auto) 0.6 TH/MM3 Monocytes # (Auto) 0.8 TH/MM3 Eosinophils # (Auto) 0.1 TH/MM3 Basophils # (Auto) 0.0 TH/MM3 CBC Comment DIFF FINAL Differential Comment 11/05/17 11/05/17 11/06/17 15:00 23:00 07:00 Intake Total 105 ml Balance 105 ml IV Total 105 ml Bladder Scan Volume Amount 73 ml 73 ml (Deandre Cordoba) Medical Decision Making Impression and Plan A: 82-year-old lady with a right posterior temporal lobe cerebral hemorrhage without mass-effect or midline shift. Continue with observation along with seizure prophylaxis. MRI reveals likely underlying mass. No metastatic sites found on CT chest, abdomen, pelvis. P: Continue with hypertension control. Continue with neuro checks Continue with Rehab efforts. Continue with DVT prophylaxis. Continue with GI prophylaxis. We will need to discuss family treatment options/recommendations when they arrive. (Deandre Cordoba) Attending Statement The exam, history, and the medical decision-making described in the above note were completed with the assistance of the mid-level provider. I reviewed and agree with the findings presented. I attest that I had a [id number] encounter with the patient on the same day, and personally performed and documented my assessment and findings in the medical record. MRI scan of the brain with contrast with an area of enhancement possibly hemorrhagic mass. Plan on right temporal craniotomy with excisional biopsy possibly Wednesday if family is agreeable. (Jay Peterson MD) Deandre Cordoba November 05, 2017 12:27 Jay Peterson MD November 05, 2017 14:01
[2017-11-05] MEDS: POTASSIUM CHLOR 20 MEQ PREMIX 100 ML IV SCH ×2 (12:37→15:12)
--- NOTE | 2017-11-05 14:27 | HHI.PR ---
Subjective Remarks EEG pending. Patient has difficulty urinating and has been having a straight cath but does not show signs of resolution of her urinary retention. Duong catheter placed. Objective Vital Signs Date Time Temp Pulse Resp B/P (MAP) Pulse Ox O2 Delivery O2 Flow Rate FiO2 11/05/17 12:35 98.5 89 22 126/72 (90) 99 11/05/17 11:49 90 11/05/17 09:29 Room Air 11/05/17 09:23 77 11/05/17 08:58 137/100 (112) 11/05/17 08:18 98.1 78 22 163/82 (109) 98 11/05/17 04:49 97.4 84 18 155/76 (102) 99 11/05/17 00:51 97.2 84 18 134/70 (91) 98 11/04/17 21:19 97.9 87 18 124/66 (85) 99 11/04/17 19:00 Room Air 21 11/04/17 16:54 74 11/04/17 15:29 97.5 86 18 129/66 (87) 99 I/O 11/04/17 11/04/17 11/04/17 11/05/17 11/05/17 11/05/17 07:00 15:00 23:00 07:00 15:00 23:00 Intake Total 207.46 ml 637 ml 105 ml Output Total 400 ml 325 ml 400 ml Balance -400 ml 207.46 ml 312 ml -295 ml Intake Oral 480 ml IV Total 207.46 ml 157 ml 105 ml Output Urine Total 400 ml 325 ml 400 ml Bladder Scan Volume Amount 305 ml 22 ml 152 ml 324 ml 73 ml 305 ml 22 ml 152 ml 73 ml 302 ml 302 ml 74 ml 324 ml # Bowel Movements 1 Result Diagram: 11/05/17 0547 11/05/17 0330 Objective Remarks GENERAL: NAD, A&Ox1 HEAD: Normocephalic. NECK: Supple, trachea midline. No lymphadenopathy. EYES: No scleral icterus. No injection or drainage. CARDIOVASCULAR: Regular rate and rhythm without murmurs, gallops, or rubs. RESPIRATORY: Breath sounds equal bilaterally. No accessory muscle use. GASTROINTESTINAL: Abdomen soft, non-tender, nondistended. MUSCULOSKELETAL: No cyanosis, or edema. SKIN: Warm and dry. NEURO: No focal neurological deficitis. A/P Problem List: (1) Brain mass ICD Code: G93.9 - Disorder of brain, unspecified Status: Acute (2) ICH (intracerebral hemorrhage) ICD Code: I61.9 - Nontraumatic intracerebral hemorrhage, unspecified Status: Acute (3) Seizure ICD Code: R56.9 - Unspecified convulsions Status: Acute Assessment and Plan 82-year-old female with right parietal intraparenchymal cerebral hemorrhage, with subsequent status epilepticus and encephalopathy. EEG in process. Duong catheter placed for urinary obstruction. Follow-up with urology as an outpatient. Urinary obstruction Duong catheter placed Only catheter to remain at time of discharge. Right parietal intraparenchymal hemorrhage Continue PT and OT Neurosurgery following Continue blood pressure optimization Subclinical status epilepticus Neurology following Continue Cerebyx Continue Dilantin Continue neuro checks Hypertensive emergency Continue hydralazine and labetalol Attempt to keep systolic blood pressure less than 140 mmHg COPD Continue duo nebs No exacerbation Diabetes mellitus Follow blood sugars Insulin sliding scale Diabetic diet Dyslipidemia Continue present treatment Follow as an outpatient Thyroid disease Levothyroxine DVT prophylaxis SCDs Discharge planning Inpatient rehab versus shelter facility rehab Travis Traylor MD November 05, 2017 14:27
--- NOTE | 2017-11-05 16:38 | MG ---
cc: Santo Rascon MD EEG NUMBER: [id number] INDICATION: Hemorrhagic infarct, right temporal lobe. MEDICATION: 1. Phenobarbital. 2. Depakote. 3. Dilantin. DESCRIPTION: Diffuse 7 Hz slowing is noted, as well sweat artifact is seen. Some is muscle artifact is noted. Head movements. I do not see any epileptiform or seizure activity until epoch 95. There are some small sharp waves seen over the right mid temporal head region. They do not last very long. IMPRESSION: Some right temporal sharp waves. Otherwise, I did not see any major hemisphere asymmetry and certainly, no prolonged seizure activity is seen. MD CODY Luis/MARCK , 04:29 PM , 04:37 PM
[2017-11-06] VITALS (10 sets, daily range): BP systolic 117–136; BP diastolic 57–94; PULSE 85–94; RESP 16–20; TEMP 97.3–98.4; O2SAT 95–98
[2017-11-06] MEDS: CHLORHEXIDINE GLUCONATE 2 % 1 PACK (2 CLOTHS) TOP SCH (02:21)
[2017-11-06] MEDS: VALPROATE INJ 500 MG in SODIUM CHLORIDE 0.9% INJ 100 ML IV SCH ×3 (02:21→17:14)
[2017-11-06] MEDS: FOSPHENYTOIN INJ 100 MGPE in SODIUM CHLORIDE 0.9% INJ 50 ML IV SCH ×2 (06:18→14:13)
[2017-11-06 06:38] LABS: AUTOMATED NEUTROPHIL # 2.8 TH/MM3 (1.8-7.7); BASOPHIL % 0.5 % (0.0-2.0); HEMATOCRIT 32.8 % (35.0-46.0); HEMOGLOBIN 10.9 GM/DL (11.6-15.3); LYMPH % 15.8 % (9.0-44.0); LYMPHOCYTE # 0.6 TH/MM3 (1.0-4.8); MEAN CELL VOLUME 85.4 FL (80.0-100.0); MEAN CORPUSCULAR HEMOGLOBIN 28.3 PG (27.0-34.0); MEAN CORPUSCULAR HGB CONC 33.2 % (32.0-36.0); MEAN PLATELET VOLUME 6.9 FL (7.0-11.0); MONO % 14.4 % (0.0-8.0); MONOCYTE # 0.6 TH/MM3 (0-0.9); NEUT % 68.3 % (16.0-70.0); PLATELET COUNT 155 TH/MM3 (150-450); RED BLOOD COUNT 3.84 MIL/MM3 (4.00-5.30); RED CELL DISTRIBUTION WIDTH 18.6 % (11.6-17.2); WHITE BLOOD COUNT 4.1 TH/MM3 (4.0-11.0)
[2017-11-06 07:01] LABS: ALT (GPT) 21 U/L (10-53)
[2017-11-06 07:02] LABS: ALBUMIN 1.9 GM/DL (3.4-5.0); AST (GOT) 37 U/L (15-37); BICARBONATE 26.1 MEQ/L (21.0-32.0); BLOOD UREA NITROGEN 5 MG/DL (7-18); CALCIUM 7.6 MG/DL (8.5-10.1); CHLORIDE 107 MEQ/L (98-107); CREATININE 0.53 MG/DL (0.50-1.00); GLOMERULAR FILTRATION RATE 133 ML/MIN (>89); GLUCOSE,RANDOM 62 MG/DL (74-106); SODIUM (NA) 140 MEQ/L (136-145)
[2017-11-06 07:03] LABS: ALKALINE PHOSPHATASE 72 U/L (45-117); PHENYTOIN (DILANTIN) 16.7 MCG/ML (10.0-20.0); TOTAL BILIRUBIN ADULT 0.5 MG/DL (0.2-1.0); TOTAL PROTEIN 5.3 GM/DL (6.4-8.2)
[2017-11-06] MEDS: DOCUSATE SODIUM 50 MG/SENNA 8.6 MG TAB PO SCH ×2 (08:29→20:38)
[2017-11-06] MEDS: PHENobarbital SOD 130 MG/ML VIAL IV SCH ×2 (08:30→20:39)
[2017-11-06] MEDS: FAMOTIDINE 20 MG/2 ML VIAL IV PUSH SCH ×2 (08:31→20:38)
[2017-11-06] MEDS: SODIUM CHLORIDE 0.9% FLUSH 10 ML FLUSH IV FLUSH SCH ×2 (08:32→20:38)
[2017-11-06] MEDS: INSULIN ASPART SUPPLEMENTAL SCALE SQ SCH ×4 (08:35→20:55)
[2017-11-06] MEDS: SODIUM CHLOR 0.9% 1000 ML INJ 1,000 ML IV SCH ×2 (08:35→20:39)
--- NOTE | 2017-11-06 12:22 | HHI.PR ---
Subjective Remarks Blood sugars remain low. P.o. intake improving but poor p.o. intake is likely the source of her hypoglycemia. EEG shows no chronic seizure activity. Objective Vital Signs Date Time Temp Pulse Resp B/P (MAP) Pulse Ox O2 Delivery O2 Flow Rate FiO2 11/06/17 09:10 95 Room Air 11/06/17 09:06 86 11/06/17 08:16 98.4 88 16 130/68 (88) 95 11/06/17 04:49 97.3 89 20 128/76 (93) 98 11/06/17 00:13 97.6 94 20 136/94 (108) 95 11/05/17 23:42 82 11/05/17 20:35 96 Room Air 11/05/17 20:01 97.7 93 22 157/99 (118) 99 11/05/17 16:46 85 11/05/17 16:00 98.3 89 22 137/91 (106) 99 11/05/17 12:35 98.5 89 22 126/72 (90) 99 I/O 11/05/17 11/05/17 11/05/17 11/06/17 11/06/17 11/06/17 07:00 15:00 23:00 07:00 15:00 23:00 Intake Total 205 ml 257 ml Output Total 525 ml 1200 ml Balance -320 ml 257 ml -1200 ml Intake Oral 0 ml IV Total 205 ml 257 ml Output Urine Total 525 ml 1200 ml Bladder Scan Volume Amount 324 ml 73 ml 73 ml Result Diagram: 11/06/17 0604 11/06/17 0604 Objective Remarks GENERAL: NAD, A&Ox1 HEAD: Normocephalic. NECK: Supple, trachea midline. No lymphadenopathy. EYES: No scleral icterus. No injection or drainage. CARDIOVASCULAR: Regular rate and rhythm without murmurs, gallops, or rubs. RESPIRATORY: Breath sounds equal bilaterally. No accessory muscle use. GASTROINTESTINAL: Abdomen soft, non-tender, nondistended. MUSCULOSKELETAL: No cyanosis, or edema. SKIN: Warm and dry. NEURO: No focal neurological deficitis. A/P Problem List: (1) Brain mass ICD Code: G93.9 - Disorder of brain, unspecified Status: Acute (2) ICH (intracerebral hemorrhage) ICD Code: I61.9 - Nontraumatic intracerebral hemorrhage, unspecified Status: Acute (3) Seizure ICD Code: R56.9 - Unspecified convulsions Status: Acute Assessment and Plan 82-year-old female with right parietal intraparenchymal cerebral hemorrhage, with subsequent status epilepticus and encephalopathy. Plan to transition to [facility]dc facility once patient becomes more stable in regards to her hyperglycemia. Awaiting clearance from neurosurgery and neurology. Urinary obstruction Duong catheter placed Only catheter to remain at time of discharge. Right parietal intraparenchymal hemorrhage Continue PT and OT Neurosurgery following Continue blood pressure optimization Subclinical status epilepticus Neurology following Continue Cerebyx Continue Dilantin Continue neuro checks Hypertensive emergency Continue hydralazine and labetalol Attempt to keep systolic blood pressure less than 140 mmHg COPD Continue duo nebs No exacerbation Diabetes mellitus Follow blood sugars Insulin sliding scale Diabetic diet Dyslipidemia Continue present treatment Follow as an outpatient Thyroid disease Levothyroxine DVT prophylaxis SCDs Discharge planning Inpatient rehab versus fdc facility rehab, pending clearance from neurology and neurosurgery. Blood sugars need more stability prior to consideration for discharge. Travis Traylor MD November 06, 2017 12:22
--- NOTE | 2017-11-06 12:56 | HHI.NSPN ---
(Deandre Cordoba) History Chief Complaint: ICH. (Deandre Cordoba) Interval History 82-year-old -[place] female who was transferred from [facility] where she presented with neurologic changes. There is no family members and the patient cannot relate much of a history but apparently with CT scan head obtained she was found to have a right posterior temporal lobe cerebral hemorrhage. CT scan of the head reviewed from [facility] on arrival reveals a less than 2 cm right posterior temporal lobe hemorrhage without any significant mass-effect or midline shift. Overnight her exam is not changed although she had an EEG study done and was noted to have subclinical seizures and has been noted to be more lethargic since then and is awaiting fosphenytoin bolus. MRI scan of the brain is also pending along with neurology evaluation. It is unclear whether this cerebral hemorrhage is spontaneous versus traumatic. 11/03/17: Pt awake and alert. At times not cooperative with exam. She at times doesn't verbalize and others answers questions yes/no. She follows commands at times and other times does not. 11/04/17: Pt sedated for MRI and not opening eyes or following commands. 11/05/17: Pt awakens but still fatigued. She states her name when asked but not verbalizing much otherwise. She inhalation therapy teacher her right hand but not the left. She moves bilateral LEs to command. 11/06/17: Pt very fatigued again today. Not opening eyes. Not following commands. Pt resting in position. (Deandre Cordoba) System Review Comments Not able to obtain given level of alertness. (Deandre Cordoba) Exam Results Vital Signs Date Time Temp Pulse Resp B/P (MAP) Pulse Ox O2 Delivery O2 Flow Rate FiO2 11/06/17 12:43 88 11/06/17 12:37 98.1 18 128/70 (89) 97 11/06/17 09:10 Room Air 11/04/17 19:00 21 Intake and Output 11/06/17 11/06/17 11/07/17 08:00 16:00 00:00 Output Total 1200 ml Balance -1200 ml (Deandre Cordoba) Physical Examination General: Pt on medical surgical floor. She is lethargic. Eyes: Pupils equal. Sclera anicteric. Resp: CTA bilaterally. Heart: NSR no murmurs. Abd: Soft positive bs Skin: No cyanosis or erythema. SCDs in place. Muscle: Not following today given level of alertness. Neuro: Pt not opening eyes. Pupils 3mm bilaterally, reactive bilaterally. Not following commands. Not verbalizing. (Deandre Cordoba) Lab, Micro, Other Results Last Impressions Brain MRI 11/04/17 0000 Signed Impressions: Service Date/Time: November 12:38 - CONCLUSION: Focal abnormality in the right posterior temporal lobe measuring up to 3.9 cm, as above. Examination will be used for intraoperative localization. Donovan Campbell MD Chest CT 11/02/17 0000 Signed Impressions: Service Date/Time: Thursday, November 02, 2017 21:35 - CONCLUSION: 1. Negative for metastatic disease to the thorax. No acute findings. Axel Cheema MD Abdomen/Pelvis CT 11/02/17 0000 Signed Impressions: Service Date/Time: Thursday, November 02, 2017 21:35 - CONCLUSION: 1. Negative for metastatic disease in the abdomen or pelvis. Multiple hepatic cysts. Numerous fibroids in the uterus. Mild colonic constipation and moderate rectal constipation. Axel Cheema MD Head CT 11/01/17 0000 Signed Impressions: Service Date/Time: Thursday, November 02, 2017 03:30 - CONCLUSION: 1. Limited exam due to motion artifact throughout. 2. 1.4 cm apparent parenchymal hemorrhage in the right temporal lobe. No midline shift. 3. Periventricular small vessel ischemic demyelination Gerardo Mcqueen MD Laboratory Tests Test 11/05/17 13:35 11/06/17 06:04 Phenobarbital Level 5.5 MCG/ML 5.0 MCG/ML White Blood Count 4.1 TH/MM3 Red Blood Count 3.84 MIL/MM3 Hemoglobin 10.9 GM/DL Hematocrit 32.8 % Mean Corpuscular Volume 85.4 FL Mean Corpuscular Hemoglobin 28.3 PG Mean Corpuscular Hemoglobin Concent 33.2 % Red Cell Distribution Width 18.6 % Platelet Count 155 TH/MM3 Mean Platelet Volume 6.9 FL Neutrophils (%) (Auto) 68.3 % Lymphocytes (%) (Auto) 15.8 % Monocytes (%) (Auto) 14.4 % Eosinophils (%) (Auto) 1.0 % Basophils (%) (Auto) 0.5 % Neutrophils # (Auto) 2.8 TH/MM3 Lymphocytes # (Auto) 0.6 TH/MM3 Monocytes # (Auto) 0.6 TH/MM3 Eosinophils # (Auto) 0.0 TH/MM3 Basophils # (Auto) 0.0 TH/MM3 CBC Comment DIFF FINAL Differential Comment Blood Urea Nitrogen 5 MG/DL Creatinine 0.53 MG/DL Random Glucose 62 MG/DL Total Protein 5.3 GM/DL Albumin 1.9 GM/DL Calcium Level 7.6 MG/DL Alkaline Phosphatase 72 U/L Aspartate Amino Transf (AST/SGOT) 37 U/L Alanine Aminotransferase (ALT/SGPT) 21 U/L Total Bilirubin 0.5 MG/DL Sodium Level 140 MEQ/L Potassium Level 3.5 MEQ/L Chloride Level 107 MEQ/L Carbon Dioxide Level 26.1 MEQ/L Anion Gap 7 MEQ/L Estimat Glomerular Filtration Rate 133 ML/MIN Phenytoin (Dilantin) Level 16.7 MCG/ML Valproic Acid (Depakene) Level 77 MCG/ML (Deandre Cordoba) Medical Decision Making Impression and Plan A: 82-year-old lady with a right posterior temporal lobe cerebral hemorrhage without mass-effect or midline shift. Continue with observation along with seizure prophylaxis. MRI reveals likely underlying mass. No metastatic sites found on CT chest, abdomen, pelvis. P: Continue with hypertension control. Continue with neuro checks Continue with Rehab efforts. Continue with DVT prophylaxis. Continue with GI prophylaxis. We will need to discuss family treatment options/recommendations when they arrive. (Deandre Cordoba) Attending Statement The exam, history, and the medical decision-making described in the above note were completed with the assistance of the mid-level provider. I reviewed and agree with the findings presented. I attest that I had a [id number] encounter with the patient on the same day, and personally performed and documented my assessment and findings in the medical record. (Jay Peterson MD) Deandre Cordoba November 06, 2017 12:56 Jay Peterson MD November 06, 2017 13:09
[2017-11-07] VITALS (11 sets, daily range): BP systolic 118–145; BP diastolic 56–97; PULSE 64–100; RESP 18–23; TEMP 97.3–99.1; O2SAT 95–99
[2017-11-07] MEDS: FOSPHENYTOIN INJ 100 MGPE in SODIUM CHLORIDE 0.9% INJ 50 ML IV SCH ×3 (00:30→21:34)
[2017-11-07] MEDS: VALPROATE INJ 500 MG in SODIUM CHLORIDE 0.9% INJ 100 ML IV SCH ×3 (02:04→19:00)
[2017-11-07] MEDS: CHLORHEXIDINE GLUCONATE 2 % 1 PACK (2 CLOTHS) TOP SCH (03:40)
[2017-11-07] MEDS: DEXTROSE 50% IN WATER 50 ML VIAL(D50) IV PUSH PRN (07:28)
[2017-11-07] MEDS: INSULIN ASPART SUPPLEMENTAL SCALE SQ SCH ×4 (07:30→21:00)
[2017-11-07] MEDS: FAMOTIDINE 20 MG/2 ML VIAL IV PUSH SCH ×2 (09:10→21:33)
[2017-11-07] MEDS: DOCUSATE SODIUM 50 MG/SENNA 8.6 MG TAB PO SCH ×2 (09:10→21:00)
[2017-11-07] MEDS: PHENobarbital SOD 130 MG/ML VIAL IV SCH ×2 (09:10→21:33)
[2017-11-07] MEDS: SODIUM CHLORIDE 0.9% FLUSH 10 ML FLUSH IV FLUSH SCH ×2 (09:12→21:00)
[2017-11-07] MEDS: SODIUM CHLOR 0.9% 1000 ML INJ 1,000 ML IV SCH (09:12)
[2017-11-07] MEDS: DEXTROSE 5% IN WATE 1000ML INJ 1,000 ML IV SCH ×2 (10:29→22:10)
--- NOTE | 2017-11-07 11:03 | HHI.NSPN ---
(Deandre Cordoba) History Chief Complaint: ICH. (Deandre Cordoba) Interval History 82-year-old -[place]ones[place] female who was transferred from [facility] where she presented with neurologic changes. There is no family members and the patient cannot relate much of a history but apparently with CT scan head obtained she was found to have a right posterior temporal lobe cerebral hemorrhage. CT scan of the head reviewed from [facility] on arrival reveals a less than 2 cm right posterior temporal lobe hemorrhage without any significant mass-effect or midline shift. Overnight her exam is not changed although she had an EEG study done and was noted to have subclinical seizures and has been noted to be more lethargic since then and is awaiting fosphenytoin bolus. MRI scan of the brain is also pending along with neurology evaluation. It is unclear whether this cerebral hemorrhage is spontaneous versus traumatic. 11/03/17: Pt awake and alert. At times not cooperative with exam. She at times doesn't verbalize and others answers questions yes/no. She follows commands at times and other times does not. 11/04/17: Pt sedated for MRI and not opening eyes or following commands. 11/05/17: Pt awakens but still fatigued. She states her name when asked but not verbalizing much otherwise. She temple marker her right hand but not the left. She moves bilateral LEs to command. 11/06/17: Pt very fatigued again today. Not opening eyes. Not following commands. Pt resting in position. 11/07/17: Pt lethargic still. Not opening eyes or following commands. (Deandre Cordoba) System Review Comments Not able to obtain given clinical condition. (Deandre Cordoba) Exam Results Vital Signs Date Time Temp Pulse Resp B/P (MAP) Pulse Ox O2 Delivery O2 Flow Rate FiO2 11/07/17 08:00 97.3 87 18 119/57 (77) 95 11/07/17 07:34 Room Air 11/04/17 19:00 21 Intake and Output 11/07/17 11/07/17 11/08/17 08:00 16:00 00:00 Intake Total 157 ml 550 ml Output Total 300 ml Balance -143 ml 550 ml (Deandre Cordoba) Physical Examination General: Pt on medical surgical floor. She is lethargic. Eyes: Pupils equal. Sclera anicteric. Resp: CTA bilaterally. Heart: NSR no murmurs. Abd: Soft positive bs Skin: No cyanosis or erythema. SCDs in place. Muscle: Not following today given level of alertness. Neuro: Pt not opening eyes. Pupils 3mm bilaterally, reactive bilaterally. Not following commands. Not verbalizing. (Deandre Cordoba) Lab, Micro, Other Results Last Impressions Brain MRI 11/04/17 0000 Signed Impressions: Service Date/Time: November 12:38 - CONCLUSION: Focal abnormality in the right posterior temporal lobe measuring up to 3.9 cm, as above. Examination will be used for intraoperative localization. Donovan Campbell MD Chest CT 11/02/17 0000 Signed Impressions: Service Date/Time: Thursday, November 02, 2017 21:35 - CONCLUSION: 1. Negative for metastatic disease to the thorax. No acute findings. Axel Cheema MD Abdomen/Pelvis CT 11/02/17 0000 Signed Impressions: Service Date/Time: Thursday, November 02, 2017 21:35 - CONCLUSION: 1. Negative for metastatic disease in the abdomen or pelvis. Multiple hepatic cysts. Numerous fibroids in the uterus. Mild colonic constipation and moderate rectal constipation. Axel Cheema MD Head CT 11/01/17 0000 Signed Impressions: Service Date/Time: Thursday, November 02, 2017 03:30 - CONCLUSION: 1. Limited exam due to motion artifact throughout. 2. 1.4 cm apparent parenchymal hemorrhage in the right temporal lobe. No midline shift. 3. Periventricular small vessel ischemic demyelination Gerardo Mcqueen MD 11/07/17 11/07/17 11/08/17 15:00 23:00 07:00 Intake Total 550 ml Balance 550 ml IV Total 550 ml (Deandre Cordoba) Medical Decision Making Impression and Plan A: 82-year-old lady with a right posterior temporal lobe cerebral hemorrhage without mass-effect or midline shift. Continue with observation along with seizure prophylaxis. MRI reveals likely underlying mass. No metastatic sites found on CT chest, abdomen, pelvis. P: Continue with hypertension control. Continue with neuro checks Continue with Rehab efforts. Continue with DVT prophylaxis. Continue with GI prophylaxis. We will need to discuss family treatment options/recommendations. We have not seen any family at bedside. We will try to contact them. Discussed in detail with pts daughter Tsering Vargas and son Beto Hensley. I have explained with the son in person and the daughter by conference call the pts condition. I have explained she has a intracranial bleed and also a mass underlying it. She is lethargic possibly from a side effect of her antiepileptic medications. She had a follow up CT head today that appeared stable. Dr. Peterson has recommended a right craniotomy for intracranial hemorrhage evacuation and mass resection. The procedure, risks, benefits, recovery were explained. They were given the option of no treatment and comfort care. We have discussed the risk include but are not limited to bleeding, infection, muscle weakness, voice hoarseness, difficulty swallowing, heart attack, stroke, blood clots in arms, legs, lungs, brain swelling, seizures , coma and . No guarantees were made as to the results of the surgery. The goal of surgery is to evacuate the blood and resect the mass to help reduce pressure and irritation to the brain and establish a diagnosis of the tumor. They understand that she is very lethargic currently and she may continue to be after surgery and therefore we will need to watch her closely and she will need extensive PT and likely rehab after surgery. All of their questions have been answered to their satisfaction. Pts daughter Tsering Vargas gave informed consent over the phone which was witnessed by the RN and the pts son gave signed consent which was also witnessed by the RN. Pts niece was also present for the discussion. (Deandre Cordoba) Attending Statement The exam, history, and the medical decision-making described in the above note were completed with the assistance of the mid-level provider. I reviewed and agree with the findings presented. I attest that I had a [id number] encounter with the patient on the same day, and personally performed and documented my assessment and findings in the medical record. Very lethargic with the left hemiparesis today. She is on 3 different seizure medications which may be contributing to his level of alertness but cannot rule out any progression of the hemorrhagic stroke or recurrent seizure although none noted clinically. Will get follow-up CT scan of the head and transferred to ICU for closer observation and neurologic monitoring. Plan is for right craniotomy for hemorrhagic mass resection tomorrow morning once her daughter consents. (Jay Peterson MD) Deandre Cordoba November 07, 2017 11:03 am Jay Peterson MD November 07, 2017 12:45 pm
--- NOTE | 2017-11-07 11:10 | HHI.PR ---
Subjective Remarks Recurrent hypoglycemia today. Poor PO intake. PEG may be necessary to maintain blood sugars. Objective Vital Signs Date Time Temp Pulse Resp B/P (MAP) Pulse Ox O2 Delivery O2 Flow Rate FiO2 11/07/17 08:00 79 11/07/17 08:00 97.3 87 18 119/57 (77) 95 11/07/17 07:34 Room Air 11/07/17 05:46 86 11/07/17 05:45 97.3 64 21 130/88 (102) 99 11/07/17 00:40 98.9 69 20 135/80 (98) 98 11/07/17 00:00 81 11/06/17 22:23 98.1 85 18 131/71 (91) 97 11/06/17 20:30 Room Air 11/06/17 20:00 87 11/06/17 17:02 91 11/06/17 16:00 98.0 85 16 117/57 (77) 96 11/06/17 12:43 88 11/06/17 12:37 98.1 90 18 128/70 (89) 97 I/O 11/06/17 11/06/17 11/06/17 11/07/17 11/07/17 11/07/17 07:00 15:00 23:00 07:00 15:00 23:00 Intake Total 1030 ml 157 ml 550 ml Output Total 1200 ml 1000 ml 300 ml Balance -1200 ml 30 ml -143 ml 550 ml Intake Oral 30 ml 0 ml IV Total 1000 ml 157 ml 550 ml Output Urine Total 1200 ml 1000 ml 300 ml # Bowel Movements 0 1 Result Diagram: 11/06/17 0604 11/06/17 0604 Objective Remarks GENERAL: NAD, A&Ox1 HEAD: Normocephalic. NECK: Supple, trachea midline. No lymphadenopathy. EYES: No scleral icterus. No injection or drainage. CARDIOVASCULAR: Regular rate and rhythm without murmurs, gallops, or rubs. RESPIRATORY: Breath sounds equal bilaterally. No accessory muscle use. GASTROINTESTINAL: Abdomen soft, non-tender, nondistended. MUSCULOSKELETAL: No cyanosis, or edema. SKIN: Warm and dry. NEURO: No focal neurological deficitis. A/P Problem List: (1) Brain mass ICD Code: G93.9 - Disorder of brain, unspecified Status: Acute (2) ICH (intracerebral hemorrhage) ICD Code: I61.9 - Nontraumatic intracerebral hemorrhage, unspecified Status: Acute (3) Seizure ICD Code: R56.9 - Unspecified convulsions Status: Acute Assessment and Plan 82-year-old female with right parietal intraparenchymal cerebral hemorrhage, with subsequent status epilepticus and encephalopathy. IVD5 for hypoglycemia, initiated today. PEG may be necessary to maintain blood sugars. PEG vs. Hospice recommended to family, they are discussing this. Plan to transition to detention facility once patient becomes more stable in regards to her hyperglycemia. Awaiting clearance from neurosurgery and neurology. Urinary obstruction Duong catheter placed Only catheter to remain at time of discharge. Right parietal intraparenchymal hemorrhage Continue PT and OT Neurosurgery following Continue blood pressure optimization Subclinical status epilepticus Neurology following Continue Cerebyx Continue Dilantin Continue neuro checks Hypertensive emergency Continue hydralazine and labetalol Attempt to keep systolic blood pressure less than 140 mmHg COPD Continue duo nebs No exacerbation Diabetes mellitus Follow blood sugars Insulin sliding scale Diabetic diet Dyslipidemia Continue present treatment Follow as an outpatient Thyroid disease Levothyroxine DVT prophylaxis SCDs Discharge planning Inpatient rehab versus detention facility rehab, pending clearance from neurology and neurosurgery. Blood sugars need more stability prior to consideration for discharge. Travis Traylor MD November 07, 2017 11:10
[2017-11-07 12:10] LABS: HEMATOCRIT 34.2 % (35.0-46.0); HEMOGLOBIN 11.4 GM/DL (11.6-15.3); MEAN CELL VOLUME 85.1 FL (80.0-100.0); MEAN CORPUSCULAR HEMOGLOBIN 28.3 PG (27.0-34.0); MEAN CORPUSCULAR HGB CONC 33.2 % (32.0-36.0); MEAN PLATELET VOLUME 6.6 FL (7.0-11.0); PLATELET COUNT 150 TH/MM3 (150-450); RED BLOOD COUNT 4.02 MIL/MM3 (4.00-5.30); RED CELL DISTRIBUTION WIDTH 18.9 % (11.6-17.2); WHITE BLOOD COUNT 4.6 TH/MM3 (4.0-11.0)
[2017-11-07 12:39] LABS: CALCIUM 7.4 MG/DL (8.5-10.1); CREATININE 0.49 MG/DL (0.50-1.00); PHENYTOIN (DILANTIN) 16.6 MCG/ML (10.0-20.0)
[2017-11-07 12:57] LABS: CALCIUM-PROTEIN CORRECTED 8.7 MG/DL (8.5-10.1); TOTAL PROTEIN 4.8 GM/DL (6.4-8.2)
--- NOTE | 2017-11-07 13:43 | RADRPT ---
EXAM DATE/TIME: 11/07/2017 13:09 [facility] COMPARISON: CT BRAIN W/O CONTRAST, November 02, 2017, 3:30. INDICATIONS : Evaluate intracerebral hemorrhage. RADIATION DOSE: 24.53 CTDIvol (mGy) MEDICAL HISTORY : Cerebrovascular disease. Hypertension. SURGICAL HISTORY : Cholecystectomy. ENCOUNTER: Initial ACUITY: 1 day PAIN SCALE: Non-responsive LOCATION: cranial TECHNIQUE: Multiple contiguous axial images were obtained of the head. Using automated exposure control and adj ustment of the mA and/or kV according to patient size, radiation dose was kept as low as reasonably a chievable to obtain optimal diagnostic quality images. DICOM format image data is available electro nically for review and comparison. FINDINGS: Examination quality degraded by motion artifact. CEREBRUM: There is generalized atrophy. Ventricles are normal in size. Stable acute intra-axial blood products are present in the right posterior temporal lobe. There is surrounding vasogenic edema. The blood pro ducts measure proximally 2.0 x 1.3 cm, stable from the prior study. No midline shift, mass lesion, o r acute infarction. No extra-axial fluid collections are seen. POSTERIOR FOSSA: The cerebellum and brainstem demonstrate no acute finding. The 4th ventricle is midline. The cerebe llopontine angle is unremarkable. EXTRACRANIAL: Sinuses demonstrate no acute finding. SKULL: The calvaria is intact. No evidence of skull fracture. CONCLUSION: 1. Stable right posterior temporal lobe acute blood products with surrounding edema. 2. Motion degraded examination demonstrates no other acute finding. Donovan Campbell MD on November 07, 2017 at 13:37 Board Certified Radiologist. This report was verified electronically.
[2017-11-07] MEDS: POTASSIUM CHLOR 20 MEQ PREMIX 100 ML IV SCH ×2 (15:06→17:59)
--- NOTE | 2017-11-07 15:48 | HHI.PR ---
Subjective Remarks NOT SEEN Objective Vitals Vital Signs Date Time Temp Pulse Resp B/P (MAP) Pulse Ox O2 Delivery O2 Flow Rate FiO2 11/07/17 15:00 96 11/07/17 12:00 78 11/07/17 12:00 98.4 82 18 134/97 (109) 97 11/07/17 08:00 79 11/07/17 08:00 97.3 87 18 119/57 (77) 95 11/07/17 07:34 Room Air 11/07/17 05:46 86 11/07/17 05:45 97.3 64 21 130/88 (102) 99 11/07/17 00:40 98.9 69 20 135/80 (98) 98 11/07/17 00:00 81 11/06/17 22:23 98.1 85 18 131/71 (91) 97 11/06/17 20:30 Room Air 11/06/17 20:00 87 11/06/17 17:02 91 11/06/17 16:00 98.0 85 16 117/57 (77) 96 I/O 11/06/17 11/06/17 11/06/17 11/07/17 11/07/17 11/07/17 07:00 15:00 23:00 07:00 15:00 23:00 Intake Total 1030 ml 157 ml 550 ml Output Total 1200 ml 1000 ml 300 ml 600 ml Balance -1200 ml 30 ml -143 ml -50 ml Intake Oral 30 ml 0 ml IV Total 1000 ml 157 ml 550 ml Output Urine Total 1200 ml 1000 ml 300 ml 600 ml # Bowel Movements 0 1 Result Diagram: 11/07/17 1146 11/07/17 1146 Imaging Last Impressions Head CT 11/07/17 0000 Signed Impressions: Service Date/Time: Tuesday, November 07, 2017 13:09 - CONCLUSION: 1. Stable right posterior temporal lobe acute blood products with surrounding edema. 2. Motion degraded examination demonstrates no other acute finding. Donovan Campbell MD Brain MRI 11/04/17 0000 Signed Impressions: Service Date/Time: November 12:38 - CONCLUSION: Focal abnormality in the right posterior temporal lobe measuring up to 3.9 cm, as above. Examination will be used for intraoperative localization. Donovan Campbell MD Chest CT 11/02/17 0000 Signed Impressions: Service Date/Time: Thursday, November 02, 2017 21:35 - CONCLUSION: 1. Negative for metastatic disease to the thorax. No acute findings. Axel Cheema MD Abdomen/Pelvis CT 11/02/17 0000 Signed Impressions: Service Date/Time: Thursday, November 02, 2017 21:35 - CONCLUSION: 1. Negative for metastatic disease in the abdomen or pelvis. Multiple hepatic cysts. Numerous fibroids in the uterus. Mild colonic constipation and moderate rectal constipation. Axel Cheema MD Objective Remarks GENERAL: NAD, A&Ox1 HEAD: Normocephalic. NECK: Supple, trachea midline. No lymphadenopathy. EYES: No scleral icterus. No injection or drainage. CARDIOVASCULAR: Regular rate and rhythm without murmurs, gallops, or rubs. RESPIRATORY: Breath sounds equal bilaterally. No accessory muscle use. GASTROINTESTINAL: Abdomen soft, non-tender, nondistended. MUSCULOSKELETAL: No cyanosis, or edema. SKIN: Warm and dry. NEURO: Lethargic with left hemiparesis A/P Problem List: (1) ICH (intracerebral hemorrhage) ICD Code: I61.9 - Nontraumatic intracerebral hemorrhage, unspecified Status: Acute (2) Seizure ICD Code: R56.9 - Unspecified convulsions Status: Acute Assessment and Plan 82-year-old female with right parietal intraparenchymal cerebral hemorrhage, with subsequent status epilepticus and encephalopathy. Hypoglycemia hx DM IVD5 for hypoglycemia. PEG may be necessary to maintain blood sugars. PEG vs. Hospice recommended to family, they are discussing this. Plan to transition to care home facility once patient becomes more stable in regards to her hyperglycemia. Awaiting clearance from neurosurgery and neurology. Urinary retention Duong catheter placed Only catheter to remain at time of discharge. Right parietal intraparenchymal hemorrhage Continue PT and OT Neurosurgery following Continue blood pressure optimization Subclinical status epilepticus Neurology following Continue Phb and dep Continue Dilantin Continue neuro checks Hypertensive emergency Continue hydralazine and labetalol Attempt to keep systolic blood pressure less than 140 mmHg COPD Continue duo nebs No exacerbation Dyslipidemia Continue present treatment Follow as an outpatient Thyroid disease Levothyroxine DVT prophylaxis SCDs Discharge planning Inpatient rehab versus care home facility rehab, pending clearance from neurology and neurosurgery. Blood sugars need more stability prior to consideration for discharge. Derrick Gomez MD November 07, 2017 15:48
[2017-11-07] MEDS: hydrALAZINE HCL 20 MG/ML VIAL IV PUSH PRN (16:26)
[2017-11-07] MEDS ORDERED: SODIUM CHLORID 0.9% 500 ML IV PRN (21:15)
[2017-11-07] MEDS ORDERED: CHLORHEXIDINE GLUCONATE 2 % 1 PACK (2 CLOTHS) TOPICAL PRN (21:15)
[2017-11-07] MEDS ORDERED: LACTATED RINGER'S 1000 ML IV PRN (21:15)
[2017-11-07] MEDS ORDERED: METOPROLOL TARTRATE 25 MG TAB PO PRN (21:15)
[2017-11-07] MEDS ORDERED: POVIDONE IODINE 5% (ANTISEPSIS KIT) 4 APPLICATIONS EACH NARE PRN (21:15)
[2017-11-08] VITALS (12 sets, daily range): BP systolic 111–138; BP diastolic 53–68; PULSE 67–92; RESP 21–28; TEMP 97.7–98.4; O2SAT 94–100
[2017-11-08] MEDS ORDERED: LACTATED RINGER'S 1000 ML INJ 500 ML IV ONE (01:15)
[2017-11-08] MEDS: POTASSIUM CHLOR 20 MEQ PREMIX 100 ML IV SCH ×2 (01:18→03:15)
[2017-11-08] MEDS: CHLORHEXIDINE GLUCONATE 2 % 1 PACK (2 CLOTHS) TOP SCH ×2 (03:19→23:47)
[2017-11-08] MEDS: VALPROATE INJ 500 MG in SODIUM CHLORIDE 0.9% INJ 100 ML IV SCH ×3 (03:19→18:39)
[2017-11-08 06:09] LABS: HEMATOCRIT 36.2 % (35.0-46.0); MEAN CELL VOLUME 85.9 FL (80.0-100.0); MEAN CORPUSCULAR HEMOGLOBIN 28.6 PG (27.0-34.0); MEAN CORPUSCULAR HGB CONC 33.2 % (32.0-36.0); PLATELET COUNT 142 TH/MM3 (150-450); RED BLOOD COUNT 4.21 MIL/MM3 (4.00-5.30); RED CELL DISTRIBUTION WIDTH 18.9 % (11.6-17.2); WHITE BLOOD COUNT 4.9 TH/MM3 (4.0-11.0)
[2017-11-08 06:29] LABS: ALBUMIN 2.1 GM/DL (3.4-5.0); ALT (GPT) 20 U/L (10-53); AST (GOT) 45 U/L (15-37); BICARBONATE 25.2 MEQ/L (21.0-32.0); BLOOD UREA NITROGEN 6 MG/DL (7-18); CALCIUM 7.5 MG/DL (8.5-10.1); CHLORIDE 109 MEQ/L (98-107); CREATININE 0.54 MG/DL (0.50-1.00); GLOMERULAR FILTRATION RATE 130 ML/MIN (>89); GLUCOSE,RANDOM 93 MG/DL (74-106); MAGNESIUM 1.7 MG/DL (1.5-2.5); PHOSPHORUS 1.1 MG/DL (2.5-4.9); SODIUM (NA) 141 MEQ/L (136-145)
[2017-11-08 06:32] LABS: ALKALINE PHOSPHATASE 79 U/L (45-117); PHENYTOIN (DILANTIN) 17.3 MCG/ML (10.0-20.0); TOTAL BILIRUBIN ADULT 0.3 MG/DL (0.2-1.0); TOTAL PROTEIN 5.4 GM/DL (6.4-8.2)
--- NOTE | 2017-11-08 07:40 | HHI.PR ---
Review/Management Diagnosis Diagnosis/Plan: (1) ICH (intracerebral hemorrhage) ICD Codes: I61.9 - Nontraumatic intracerebral hemorrhage, unspecified Status: Acute Plan: ich with edema may need f/u scan in a few weeks to r/o mass/neoplastic lesion further input per nsx on phb/dil/dep 11/04 mri brain with contrast reviewed 11/07 ct brain- rt temporal ich with edema recs somnolence possibly 2/2 sz meds nsx following; possible biopsy; comfort care an option dil dose reduced. sz med levels in range f/u eeg- if stable will consider sz med adjustment therapy neuro stable (2) Seizure ICD Codes: R56.9 - Unspecified convulsions Status: Acute Plan: on iv cerebyrx add iv depakon (3) Brain mass ICD Codes: G93.9 - Disorder of brain, unspecified Status: Acute Subjective Subjective Comments No acute events reported Active Medications Current Medications Medications (Trade) Dose Ordered Sig/Cathie Route Start Time Stop Time Status Last Admin (NS Flush) 2 ml UNSCH PRN IV FLUSH 11/01/17 22:45 (NS Flush) 2 ml BID IV FLUSH 11/02/17 09:00 11/07/17 21:00 (Tylenol) 650 mg Q6H PRN PO 11/01/17 22:45 (Morphine Inj) 2 mg Q2H PRN IV PUSH 11/01/17 22:45 (Pepcid Inj) 20 mg Q12HR IV PUSH 11/02/17 09:00 11/07/17 21:33 (Zofran Inj) 4 mg Q6H PRN IV PUSH 11/01/17 22:45 (Duoneb Neb) 1 ampule Q2HR NEB PRN INH 11/01/17 22:45 ([facility] [place] [facility]) 1 [id number] XX 11/01/17 22:45 (Chlorhexidine 2% Cloth) Taper DAILY@04 TOP 11/02/17 04:00 10/29/18 03:59 (Chlorhexidine 2% Cloth) 3 pack UNSCH PRN TOP 11/01/17 22:45 (Leigh-Colace) 1 tab BID PO 11/02/17 09:00 11/07/17 09:10 (Milk Of Magnesia Liq) 30 ml Q12H PRN PO 11/01/17 22:45 (Senokot) 17.2 mg Q12H PRN PO 11/01/17 22:45 11/06/17 17:17 (Dulcolax Supp) 10 mg DAILY PRN RECTAL 11/01/17 22:45 (Lactulose Liq) 30 ml DAILY PRN PO 11/01/17 22:45 (Trandate Inj) 10 mg Q4H PRN IV PUSH 11/02/17 00:30 11/02/17 08:28 (Apresoline Inj) 20 mg Q4H PRN IV PUSH 11/02/17 00:30 11/07/17 16:26 Valproate Sodium 500 mg/Sodium Chloride 105 ml @ 105 mls/hr Q8H IV 11/02/17 18:00 11/08/17 03:19 (D50w (Vial) Inj) 50 ml UNSCH PRN IV PUSH 11/03/17 18:15 11/07/17 07:28 (Glucagon Inj) 1 mg UNSCH PRN OTHER 11/03/17 18:15 (NovoLOG SUPPLEMENTAL SCALE) 1 ACHS SLIDING SCALE SQ 11/03/17 21:00 (Luminal Inj) 60 mg BID IV 11/04/17 21:00 11/07/17 21:33 Dextrose 1,000 ml @ 84 mls/hr [id number] IV 11/07/17 10:15 11/07/17 22:10 Fosphenytoin Sodium 100 mgpe/ Sodium Chloride 52 ml @ 208 mls/hr BID IV 11/07/17 21:00 11/07/17 21:34 Lactated Ringer's 1,000 ml @ 30 mls/hr Q24H PRN IV 11/07/17 21:15 11/10/17 21:14 Sodium Chloride 500 ml @ 30 mls/hr [id number] PRN IV 11/07/17 21:15 11/10/17 21:14 (Lopressor) 25 mg DEGREASING SOLUTION RECLAIMER PRN PO 11/07/17 21:15 11/10/17 21:14 (Betadine 5% Antisepsis Kit) 1 applic DEGREASING SOLUTION RECLAIMER PRN EACH NARE 11/07/17 21:15 11/10/17 21:14 (Chlorhexidine 2% Cloth) 3 pack DEGREASING SOLUTION RECLAIMER PRN TOPICAL 11/07/17 21:15 11/10/17 21:14 Allergies Allergies Coded Allergies No Known Allergies (Unverified11/01/17) Review of Systems All other ROS: ROS reviewed as documented in chart Exam I&O / VS Vital Signs Date Time Temp Pulse Resp B/P (MAP) Pulse Ox O2 Delivery O2 Flow Rate FiO2 11/08/17 06:00 71 11/08/17 04:00 98.0 67 22 111/53 (72) 100 11/08/17 04:00 69 11/08/17 02:00 80 11/08/17 00:00 97.9 86 21 131/68 (89) 99 11/08/17 00:00 85 11/07/17 22:00 88 11/07/17 20:52 99 21 11/07/17 20:00 99.0 100 23 118/56 (76) 98 11/07/17 20:00 100 11/07/17 19:00 Room Air 11/07/17 16:00 99.1 82 22 145/71 (95) 99 11/07/17 15:00 96 11/07/17 12:00 78 11/07/17 12:00 98.4 82 18 134/97 (109) 97 11/07/17 08:00 79 11/07/17 08:00 97.3 87 18 119/57 (77) 95 General: No acute distress Eye: PERRL Respiratory: Non-labored respirations Cardiology: Normal rate Neurologic: Alert Psychiatric: Cooperative Exam Comments somnolent, partially opens eyes to tactile, eomi, mild rt gaze preference, resists pupillary exam, face sym, ribeiro to gravity, Objective Micro and Labs Laboratory Tests Test 11/07/17 11:46 11/08/17 00:15 11/08/17 05:19 White Blood Count 4.6 4.9 Red Blood Count 4.02 4.21 Hemoglobin 11.4 12.0 Hematocrit 34.2 36.2 Mean Corpuscular Volume 85.1 85.9 Mean Corpuscular Hemoglobin 28.3 28.6 Mean Corpuscular Hemoglobin Concent 33.2 33.2 Red Cell Distribution Width 18.9 18.9 Platelet Count 150 142 Mean Platelet Volume 6.6 7.0 Blood Urea Nitrogen 7 6 Creatinine 0.49 0.54 Random Glucose 103 93 Total Protein 4.8 5.4 Calcium Level 7.4 7.5 Sodium Level 141 141 Potassium Level 2.5 3.0 3.6 Chloride Level 109 109 Carbon Dioxide Level 23.0 25.2 Anion Gap 9 7 Estimat Glomerular Filtration Rate 146 130 Protein Corrected Calcium 8.7 Phenytoin (Dilantin) Level 16.6 17.3 Valproic Acid (Depakene) Level 83 Phenobarbital Level 8.1 11.1 Albumin 2.1 Phosphorus Level 1.1 Magnesium Level 1.7 Alkaline Phosphatase 79 Aspartate Amino Transf (AST/SGOT) 45 Alanine Aminotransferase (ALT/SGPT) 20 Total Bilirubin 0.3 Jorge Yuan MD November 08, 2017 07:40
[2017-11-08] MEDS: SODIUM CHLORIDE 0.9% FLUSH 10 ML FLUSH IV FLUSH SCH ×2 (09:00→21:33)
[2017-11-08] MEDS: POTASSIUM PHOSPHATE MONOBASIC 500 MG TAB PO SCH ×2 (09:00→21:00)
[2017-11-08] MEDS: DOCUSATE SODIUM 50 MG/SENNA 8.6 MG TAB PO SCH ×2 (09:00→21:00)
[2017-11-08] MEDS ORDERED: POTASSIUM CHLORIDE INJ 20 MEQ, SODIUM CHLORIDE 23.4% INJ 38.5 MEQ in WATER STERILE FOR ... IV SCH (09:00)
[2017-11-08] MEDS ORDERED: POTASSIUM PHOSPHATE INJ 30 MMOL in SODIUM CHLOR 0.9% 250 ML INJ 250 ML IV ONE (09:00)
[2017-11-08] MEDS: INSULIN ASPART SUPPLEMENTAL SCALE SQ SCH ×4 (09:00→21:00)
[2017-11-08 09:02] LABS: AUTOMATED NEUTROPHIL # 2.5 TH/MM3 (1.8-7.7); BASOPHIL % 0.3 % (0.0-2.0); EOSINOPHIL % 0.8 % (0.0-4.0); HEMATOCRIT 33.1 % (35.0-46.0); HEMOGLOBIN 11.1 GM/DL (11.6-15.3); LYMPH % 22.6 % (9.0-44.0); LYMPHOCYTE # 0.9 TH/MM3 (1.0-4.8); MEAN CELL VOLUME 84.5 FL (80.0-100.0); MEAN CORPUSCULAR HEMOGLOBIN 28.4 PG (27.0-34.0); MEAN CORPUSCULAR HGB CONC 33.6 % (32.0-36.0); MEAN PLATELET VOLUME 6.5 FL (7.0-11.0); MONO % 15.9 % (0.0-8.0); MONOCYTE # 0.7 TH/MM3 (0-0.9); NEUT % 60.4 % (16.0-70.0); PLATELET COUNT 149 TH/MM3 (150-450); RED BLOOD COUNT 3.91 MIL/MM3 (4.00-5.30); WHITE BLOOD COUNT 4.2 TH/MM3 (4.0-11.0)
[2017-11-08] MEDS: FAMOTIDINE 20 MG/2 ML VIAL IV PUSH SCH ×2 (09:02→21:33)
[2017-11-08] MEDS: PHENobarbital SOD 130 MG/ML VIAL IV SCH ×2 (09:02→21:00)
[2017-11-08] MEDS: FOSPHENYTOIN INJ 100 MGPE in SODIUM CHLORIDE 0.9% INJ 50 ML IV SCH (09:03)
[2017-11-08] MEDS: hydrALAZINE HCL 20 MG/ML VIAL IV PUSH PRN (09:54)
--- NOTE | 2017-11-08 10:32 | EKG ---
Date Performed: 11/07/2017 Time Performed: 21:02:20 PTAGE: 82 years EKG: SINUS TACHYCARDIA ABNORMAL RHYTHM ECG NO PREVIOUS TRACING DOCTOR: Santo Guardado Interpretating Date/Time 11/08/2017 10:31:34
--- NOTE | 2017-11-08 11:15 | MG ---
cc: Lidia Landrum MD ELECTROENCEPHALOGRAM NUMBER: [id number] REQUESTING PHYSICIAN: Dr. Yuan. ROOM: 1326. INDICATIONS: Lethargic, asleep. With photic, follows commands on left, but not on the right. CT shows a stable right lobe bleed with edema, The last EEG 11/05/2017 showed some right temporal sharps. This is a repeat study. MEDICATIONS: On phenobarbital and Depakote. DESCRIPTION OF RECORD: There is overall diffuse background slowing predominantly of 2-3 Hz. No sharp waves are seen on the right as previously. There is a lot of movement artifact documented by the glass technician/installer. Overall symmetrical slowing, possibly more slowing on the right compared to the left at times, but overall looks to be the same when the patient is not moving about. Photic stimulation, minimal driving response. IMPRESSION: Abnormal electroencephalogram due to moderate slowing consistent with encephalopathic process. There is no evidence of any epileptiform features in this one recording. Clinical correlation. Lidia Landrum MD DF/DL , 11:01 AM , 11:14 AM
[2017-11-08] MEDS ORDERED: LACTATED RINGER'S 1000 ML INJ 1,000 ML IV ONE (12:00)
[2017-11-08] MEDS ORDERED: SODIUM CHLORID 0.9% 500 ML INJ 500 ML IV ONE (12:00)
[2017-11-08] MEDS ORDERED: GLYCOPYRROLATE 1 MG/5 ML SYRINGE IV PUSH ONE (12:00)
[2017-11-08] MEDS ORDERED: DEXAMETHASONE SOD PHOS 4 MG/ML VIAL IV ONE (12:00)
[2017-11-08] MEDS ORDERED: PHENYLEPH/NS 1000 MCG/10 ML SYR IV ONE (12:00)
[2017-11-08] MEDS ORDERED: PROPOFOL 200 MG/20 ML AMP IV ONE (12:00)
[2017-11-08] MEDS ORDERED: LIDOCAINE HCL 1% PF 5 ML SYRINGE OTHER ONE (12:00)
[2017-11-08] MEDS ORDERED: ROCURONIUM INJ 50 MG/5 ML SYRINGE IV PUSH ONE (12:00)
[2017-11-08] MEDS ORDERED: NEOSTIGMINE 5 MG/5 ML SYRINGE IV PUSH ONE (12:00)
[2017-11-08] MEDS ORDERED: PHENYLEPHRINE HCL 10 MG/ML VIAL IV ONE (12:00)
[2017-11-08] MEDS ORDERED: GELFOAM SIZE 100 ONE (12:12)
[2017-11-08] MEDS ORDERED: GENTAMICIN SULFATE 80 MG/2 ML VIAL ONE (12:12)
[2017-11-08] MEDS ORDERED: THROMBIN (TOPICAL) 5,000 UNIT VIAL ONE (12:12)
[2017-11-08] MEDS ORDERED: BUPIVACAINE/EPINEPHRINE 0.5% PF 10 ML VIAL ONE (12:12)
[2017-11-08] MEDS ORDERED: VANCOMYCIN HCL 1000 MG VIAL ONE (13:42)
[2017-11-08] MEDS ORDERED: SODIUM CHLOR 0.9% 250 ML INJ 250 ML ONE (13:43)
[2017-11-08] MEDS ORDERED: DEXAMETHASONE SOD PHOS 4 MG/ML VIAL ONE (15:27)
[2017-11-08] MEDS ORDERED: DO NOT ADM ANY ANTICOAGULANT DRUGS PRN (16:25)
--- NOTE | 2017-11-08 16:32 | PD.OP ---
Operative Report Date of Surgery: November 08, 2017 Preoperative Diagnosis: Right posterior temporal lobe hemorrhagic mass Postoperative Diagnosis: Cerebral hemorrhage with gliosis Procedure: Right temporal craniotomy for hemorrhagic mass resection; BrainLab stereotactic intraoperative navigation; microsurgical technique Anesthesia: General endotracheal by Brittny johnson Surgeon: Jay Peterson MD Tire Bagger(s): [place] Resident Surgeon: Following initiation of general endotracheal anesthesia the patient had invasive lines and Duong catheter in place along with sequential compression device. A gram of vancomycin and 10 mg Decadron was administered intravenously and she was positioned supine with the right shoulder elevated on a roll and head turned to the left side and secured in the [place] 3 pin headrest. The BrainLab navigation system was then registered with external landmarks and good accuracy confirmed. A right posterior temporal incision area head shaved and prepped with ChloraPrep and sterilely draped in the usual sterile fashion. Incision was then made after infiltrating the scalp was 0.5% Marcaine with epinephrine solution a skin incision made and Jane clips were used at the scalp edges for hemostasis and the flap retracted with hooks. Right temporalis muscle and fascia was also incised and detached from the temporal bone and retracted with hooks. With an automated ad setter temporal bur hole made and then with the craniotome the bone flap was elevated. The dura opened in a cruciate format and bone holes placed in the craniotomy edges with 4-0 Nurolon dural tacking stitches for hemostasis. BrainLab navigation system was used to localize this epicenter of this abnormality with the hemorrhage and enhancing portion in the posterior temporal lobe. There was some hemorrhage approaching the cortical surface and a small corticectomy was made and encountered this clotted blood with moderate brain swelling along with some necrotic cerebral tissue adjacent to this which was resection in a gross total resection of the hemorrhage and necrotic surrounding area was achieved with the biopsy forceps along with suction and bipolar cautery used for hemostasis along with use of Gelfoam and thrombin. The brain was more relaxed at this point. Fresh frozen specimen sent was consistent with gliosis and rest of the specimens were sent for permanent pathology sections although most of the hemorrhagic component was suctioned out. Bipolar cautery used for hemostasis in the resection bed which was then lined with Surgicel and no bleeding was encountered at this point. Cavity was filled with saline solution and the dura approximately using 4 Nurolon sutures with a central dural tacking stitch. Bone flap approximated using [place] mini plates and bur hole covers. The area was then copiously irrigated. The temporalis fascia was approximated and using 2-0 Vicryl sutures and the galea reapproximated using 3-0 Vicryl interrupted sutures and final scalp closure was with ashlie. The Yee head was then removed and a sterile pressing dressing applied. There were no intraoperative complications and all sponge and needle count was correct at the end of the procedure. Estimated blood loss about 100 cc. Patient was extubated and taken to the recovery room. Jay Peterson MD November 08, 2017 16:32
--- NOTE | 2017-11-08 17:03 | RADRPT ---
EXAM DATE/TIME: 11/08/2017 16:37 [facility] COMPARISON: No previous studies available for comparison. INDICATIONS : Central Line Placement MEDICAL HISTORY : Cerebrovascular disease. Hypertension SURGICAL HISTORY : Cholecystectomy. ENCOUNTER: Subsequent ACUITY: 2 days PAIN SCORE: Non-responsive. LOCATION: Bilateral chest FINDINGS: Left subclavian central line is present in good position. There is no evidence of pneumothorax or oth er complication of placement. There is hazy bilateral lower lung zone pleuroparenchymal opacity, righ t worse than left. Accounting for rotation, cardiac contours are grossly satisfactory. CONCLUSION: Satisfactory central line positioning. No pneumothorax. Hazy bibasilar pleural-parenchymal opacities, right worse than left Donovan Piña MD on November 08, 2017 at 16:59 Board Certified Radiologist. This report was verified electronically.
--- NOTE | 2017-11-08 17:48 | HHI.PR ---
Subjective Remarks f/u encephalopathy. Seen in PACU. On NC. Moves head with pain stimuli on extremities dw RN Objective Vitals Vital Signs Date Time Temp Pulse Resp B/P (MAP) Pulse Ox O2 Delivery O2 Flow Rate FiO2 11/08/17 16:23 97.6 83 20 172/78 (109) 99 Nasal Cannula 2 137/62 (87) 11/08/17 12:00 84 11/08/17 10:00 88 11/08/17 08:00 98.4 79 24 138/65 (89) 99 11/08/17 08:00 79 11/08/17 07:00 99 Room Air 11/08/17 06:00 71 11/08/17 04:00 98.0 67 22 111/53 (72) 100 11/08/17 04:00 69 11/08/17 02:00 80 11/08/17 00:00 97.9 86 21 131/68 (89) 99 11/08/17 00:00 85 11/07/17 22:00 88 11/07/17 20:52 99 21 11/07/17 20:00 99.0 100 23 118/56 (76) 98 11/07/17 20:00 100 11/07/17 19:00 Room Air I/O 11/07/17 11/07/17 11/07/17 11/08/17 11/08/17 11/08/17 07:00 15:00 23:00 07:00 15:00 23:00 Intake Total 157 ml 550 ml 352 ml 600 ml 800 ml Output Total 300 ml 600 ml 150 ml 200 ml 150 ml Balance -143 ml -50 ml 202 ml 400 ml 650 ml Intake Oral 0 ml IV Total 157 ml 550 ml 352 ml 600 ml Other 800 ml Output Urine Total 300 ml 600 ml 150 ml 200 ml 100 ml Estimated Blood Loss 50 ml Bladder Scan Volume Amount 73 ml # Bowel Movements 1 Result Diagram: 11/08/17 0841 11/08/17 0519 Imaging Last Impressions Chest X-Ray 11/08/17 0000 Signed Impressions: Service Date/Time: Wednesday, November 08, 2017 16:37 - CONCLUSION: Satisfactory central line positioning. No pneumothorax. Hazy bibasilar pleural-parenchymal opacities, right worse than left Donovan Piña MD Head CT 11/07/17 0000 Signed Impressions: Service Date/Time: Tuesday, November 07, 2017 13:09 - CONCLUSION: 1. Stable right posterior temporal lobe acute blood products with surrounding edema. 2. Motion degraded examination demonstrates no other acute finding. Donovan Campbell MD Brain MRI 11/04/17 0000 Signed Impressions: Service Date/Time: November 12:38 - CONCLUSION: Focal abnormality in the right posterior temporal lobe measuring up to 3.9 cm, as above. Examination will be used for intraoperative localization. Donovan Campbell MD Chest CT 11/02/17 0000 Signed Impressions: Service Date/Time: Thursday, November 02, 2017 21:35 - CONCLUSION: 1. Negative for metastatic disease to the thorax. No acute findings. Axel Cheema MD Abdomen/Pelvis CT 11/02/17 0000 Signed Impressions: Service Date/Time: Thursday, November 02, 2017 21:35 - CONCLUSION: 1. Negative for metastatic disease in the abdomen or pelvis. Multiple hepatic cysts. Numerous fibroids in the uterus. Mild colonic constipation and moderate rectal constipation. Axel Cheema MD Objective Remarks GENERAL: NAD, A&Ox1 CARDIOVASCULAR: Regular rate and rhythm without murmurs, gallops, or rubs. RESPIRATORY: Breath sounds equal bilaterally. No accessory muscle use. GASTROINTESTINAL: Abdomen soft, non-tender, nondistended. MUSCULOSKELETAL: No cyanosis, or edema. SKIN: Warm and dry. NEURO: Somnolent moves head with pain on extremities Procedures Right temporal craniotomy for hemorrhagic mass resection; BrainLab stereotactic intraoperative navigation; microsurgical technique, left subclavian central line placement A/P Problem List: (1) ICH (intracerebral hemorrhage) ICD Code: I61.9 - Nontraumatic intracerebral hemorrhage, unspecified Status: Acute (2) Seizure ICD Code: R56.9 - Unspecified convulsions Status: Acute Assessment and Plan 82-year-old female with right parietal intraparenchymal cerebral hemorrhage, with subsequent status epilepticus and encephalopathy. Hypoglycemia hx DM. Improving IVD5 for hypoglycemia. PEG may be necessary to maintain blood sugars. PEG vs. Hospice recommended to family, they are discussing this. Plan to transition to [facility] Urinary retention Duong catheter placed Right parietal intraparenchymal hemorrhage Right temporal craniotomy for hemorrhagic mass resection; BrainLab stereotactic intraoperative navigation; microsurgical technique Continue PT and OT Neurosurgery following Continue blood pressure optimization Follow-up repeat head CT tomorrow Subclinical status epilepticus Neurology following Continue Phb and dep Continue Dilantin Continue neuro checks Follow-up repeat EEG Encephalopathy likely toxic will hold Cerebryx and repeat in the morning. Corrected Dilantin level of 27 today hypertensive emergency Continue hydralazine and labetalol Attempt to keep systolic blood pressure less than 140 mmHg COPD Continue duo nebs No exacerbation Dyslipidemia Continue present treatment Follow as an outpatient Thyroid disease Check TSH DVT prophylaxis SCDs. Pharmacological prophylaxis contraindicated at this time secondary to intracranial hemorrhage RN to verify home medications will contact patient's PCP Dr. Cristina [phone] Discharge planning Inpatient rehab versus [facility] rehab when ready Discharge Planning Keep in ICU Derrick Gomez MD November 08, 2017 17:48
[2017-11-08] MEDS: NS + KCL 20 MEQ INJ 1,000 ML IV SCH (18:37)
[2017-11-09] VITALS (13 sets, daily range): BP systolic 111–152; BP diastolic 53–64; PULSE 78–96; RESP 18–39; TEMP 97.7–98.1; O2SAT 97–99
[2017-11-09] MEDS: VALPROATE INJ 500 MG in SODIUM CHLORIDE 0.9% INJ 100 ML IV SCH ×3 (02:14→18:10)
[2017-11-09 05:27] LABS: HEMATOCRIT 31.2 % (35.0-46.0); HEMOGLOBIN 10.5 GM/DL (11.6-15.3); MEAN CELL VOLUME 85.1 FL (80.0-100.0); MEAN CORPUSCULAR HEMOGLOBIN 28.6 PG (27.0-34.0); MEAN CORPUSCULAR HGB CONC 33.6 % (32.0-36.0); MEAN PLATELET VOLUME 6.7 FL (7.0-11.0); PLATELET COUNT 136 TH/MM3 (150-450); RED BLOOD COUNT 3.67 MIL/MM3 (4.00-5.30); RED CELL DISTRIBUTION WIDTH 19.8 % (11.6-17.2); WHITE BLOOD COUNT 5.5 TH/MM3 (4.0-11.0)
[2017-11-09 06:03] LABS: ALBUMIN 1.7 GM/DL (3.4-5.0); BICARBONATE 21.7 MEQ/L (21.0-32.0); CALCIUM 6.9 MG/DL (8.5-10.1); CALCIUM-PROTEIN CORRECTED 8.4 MG/DL (8.5-10.1); CREATININE 0.36 MG/DL (0.50-1.00); MAGNESIUM 1.6 MG/DL (1.5-2.5); PHENYTOIN (DILANTIN) 13.9 MCG/ML (10.0-20.0); PHOSPHORUS 1.8 MG/DL (2.5-4.9); TOTAL BILIRUBIN ADULT 0.2 MG/DL (0.2-1.0); TOTAL PROTEIN 4.4 GM/DL (6.4-8.2)
--- NOTE | 2017-11-09 06:05 | RADRPT ---
EXAM DATE/TIME: 11/09/2017 05:51 [facility] COMPARISON: CT BRAIN W/O CONTRAST, November 07, 2017, 13:09. INDICATIONS : Evaluate intracerebral hemorrhage. RADIATION DOSE: 66.34 CTDIvol (mGy) MEDICAL HISTORY : Cerebrovascular disease. Hypertension. SURGICAL HISTORY : Cholecystectomy. ENCOUNTER: Initial ACUITY: 1 day PAIN SCALE: Non-responsive LOCATION: cranial TECHNIQUE: Multiple contiguous axial images were obtained of the head. Using automated exposure control and adj ustment of the mA and/or kV according to patient size, radiation dose was kept as low as reasonably a chievable to obtain optimal diagnostic quality images. DICOM format image data is available electro nically for review and comparison. FINDINGS: CEREBRUM: There some residual pneumocephalus in the right frontal and right temporal regions. No significant he morrhage is identified on today's exam. Disuse atrophy present. Ventricles are mildly prominent. POSTERIOR FOSSA: The cerebellum and brainstem are intact. The 4th ventricle is midline. The cerebellopontine angle i s unremarkable. EXTRACRANIAL: The visualized portion of the orbits is intact. SKULL: There's been a right-sided temporal craniotomy.. No evidence of skull fracture. CONCLUSION: Status post craniotomy and removal of the density seen previously. No residual hematoma is identified . There is residual pneumocephalus. No acute mass effect. Papa Lombardi MD on November 09, 2017 at 6:03 Board Certified Radiologist. This report was verified electronically.
[2017-11-09] MEDS: INSULIN ASPART SUPPLEMENTAL SCALE SQ SCH ×4 (08:00→21:00)
--- NOTE | 2017-11-09 08:10 | HHI.PR ---
Subjective Remarks Follow-up craniotomy. Corrected Dilantin level of 32 we will continue to hold Cerebryx and repeat level tomorrow. Currently n.p.o. we will obtain swallowing evaluation diet per neurosurgery Objective Vitals Vital Signs Date Time Temp Pulse Resp B/P (MAP) Pulse Ox O2 Delivery O2 Flow Rate FiO2 11/09/17 06:00 92 11/09/17 04:00 80 11/09/17 04:00 97.8 80 26 111/53 (72) 99 11/09/17 02:00 78 11/09/17 00:00 97.7 82 18 127/57 (80) 99 11/09/17 00:00 82 11/08/17 22:00 79 11/08/17 20:00 75 11/08/17 20:00 97.7 75 26 126/58 (80) 98 Automatic Cuff 11/08/17 19:50 99 Nasal Cannula 2.00 11/08/17 19:00 98 Nasal Cannula 2.00 11/08/17 18:00 79 11/08/17 17:45 98.0 82 28 94 120/56 (77) 11/08/17 17:45 80 11/08/17 17:15 97.6 79 20 156/69 (98) 99 Nasal Cannula 3 122/56 (78) 11/08/17 17:00 79 20 155/69 (97) 98 Nasal Cannula 3 127/59 (81) 11/08/17 16:45 81 20 154/68 (96) 98 Nasal Cannula 3 129/59 (82) 11/08/17 16:23 97.6 83 20 172/78 (109) 99 Nasal Cannula 2 137/62 (87) 11/08/17 12:00 98.3 92 26 132/63 (86) 98 11/08/17 12:00 84 11/08/17 10:00 88 I/O 11/08/17 11/08/17 11/08/17 11/09/17 11/09/17 11/09/17 07:00 15:00 23:00 07:00 15:00 23:00 Intake Total 600 ml 2170 ml Output Total 200 ml 300 ml 275 ml Balance 400 ml 1870 ml -275 ml Intake Oral 0 ml IV Total 600 ml 570 ml Other 1600 ml Output Urine Total 200 ml 100 ml 275 ml Estimated Blood Loss 100 ml Other 100 ml Bladder Scan Volume Amount 73 ml 73 ml # Bowel Movements 1 0 Result Diagram: 11/09/17 0515 11/09/17 0515 Imaging Last Impressions Head CT 11/09/17 0600 Signed Impressions: Service Date/Time: Thursday, November 09, 2017 05:51 - CONCLUSION: Status post craniotomy and removal of the density seen previously. No residual hematoma is identified. There is residual pneumocephalus. No acute mass effect. Papa Lombardi MD Chest X-Ray 11/08/17 0000 Signed Impressions: Service Date/Time: Wednesday, November 08, 2017 16:37 - CONCLUSION: Satisfactory central line positioning. No pneumothorax. Hazy bibasilar pleural-parenchymal opacities, right worse than left Donovan Piña MD Brain MRI 11/04/17 0000 Signed Impressions: Service Date/Time: November 12:38 - CONCLUSION: Focal abnormality in the right posterior temporal lobe measuring up to 3.9 cm, as above. Examination will be used for intraoperative localization. Donovan Campbell MD Chest CT 11/02/17 0000 Signed Impressions: Service Date/Time: Thursday, November 02, 2017 21:35 - CONCLUSION: 1. Negative for metastatic disease to the thorax. No acute findings. Axel Cheema MD Abdomen/Pelvis CT 11/02/17 0000 Signed Impressions: Service Date/Time: Thursday, November 02, 2017 21:35 - CONCLUSION: 1. Negative for metastatic disease in the abdomen or pelvis. Multiple hepatic cysts. Numerous fibroids in the uterus. Mild colonic constipation and moderate rectal constipation. Axel Cheema MD Objective Remarks GENERAL: NAD, well-developed and well-nourished CARDIOVASCULAR: Regular rate and rhythm without murmurs, gallops, or rubs. RESPIRATORY: Breath sounds equal bilaterally. No accessory muscle use. GASTROINTESTINAL: Abdomen soft, non-tender, nondistended. MUSCULOSKELETAL: No cyanosis, or edema. SKIN: Warm and dry. NEURO: Lethargic. Patient moving all extremities Procedures Right temporal craniotomy for hemorrhagic mass resection; BrainLab stereotactic intraoperative navigation; microsurgical technique, left subclavian central line placement A/P Problem List: (1) ICH (intracerebral hemorrhage) ICD Code: I61.9 - Nontraumatic intracerebral hemorrhage, unspecified Status: Acute (2) Seizure ICD Code: R56.9 - Unspecified convulsions Status: Acute Assessment and Plan 82-year-old female with right parietal intraparenchymal cerebral hemorrhage, with subsequent status epilepticus and encephalopathy. Hypoglycemia hx DM. Improving IVD5 for hypoglycemia. PEG may be necessary to maintain blood sugars. PEG vs. Hospice recommended to family, they are discussing this. Plan to transition to [facility] Urinary retention Duong catheter placed Right parietal intraparenchymal hemorrhage Right temporal craniotomy for hemorrhagic mass resection; BrainLab stereotactic intraoperative navigation; microsurgical technique Continue PT and OT Neurosurgery following Continue blood pressure optimization Follow-up repeat head CT noted Subclinical status epilepticus Neurology following Continue Phb and dep Continue Cerebryx but hold today 2/2 toxic level. Discussed with neurology Continue neuro checks Follow-up repeat EEG 11/08 no sz Encephalopathy likely toxic will hold Cerebryx and repeat in the morning. Corrected Dilantin level of 32 today hypertensive emergency Continue hydralazine and labetalol Attempt to keep systolic blood pressure less than 140 mmHg COPD Continue duo nebs No exacerbation Dyslipidemia Continue present treatment Follow as an outpatient Thyroid disease TSH 11 will adjust med Elevated AST, mild. Monitor mena on AED FEN. Continue IV hydration pending swallowing eval. Consult dietitian may need tube feeding DVT prophylaxis SCDs. Pharmacological prophylaxis contraindicated at this time secondary to intracranial hemorrhage RN to verify home medications will contact patient's PCP Dr. Cristina [phone] Discharge Planning Keep in ICU, high likelihood of deterioration of neurological status Derrick Gomez MD November 09, 2017 08:10
[2017-11-09] MEDS ORDERED: POTASSIUM PHOSPHATE INJ 15 MMOL in SODIUM CHLORIDE 0.9% INJ 150 ML IV ONE (08:15)
[2017-11-09] MEDS: POTASSIUM PHOSPHATE MONOBASIC 500 MG TAB PO SCH ×2 (09:00→20:25)
[2017-11-09] MEDS: DOCUSATE SODIUM 50 MG/SENNA 8.6 MG TAB PO SCH ×2 (09:00→20:25)
[2017-11-09] MEDS ORDERED: FOSPHENYTOIN INJ 100 MGPE in SODIUM CHLORIDE 0.9% INJ 50 ML IV SCH (09:00)
[2017-11-09] MEDS: SODIUM CHLORIDE 0.9% FLUSH 10 ML FLUSH IV FLUSH SCH ×2 (09:09→20:47)
[2017-11-09] MEDS: FAMOTIDINE 20 MG/2 ML VIAL IV PUSH SCH ×2 (09:09→20:47)
[2017-11-09] MEDS: NS + KCL 20 MEQ INJ 1,000 ML IV SCH (09:10)
[2017-11-09] MEDS: PHENobarbital SOD 130 MG/ML VIAL IV SCH ×2 (09:12→20:47)
--- NOTE | 2017-11-09 09:26 | HHI.NSPN ---
(Deandre Cordoba) History Chief Complaint: ICH. (Deandre Cordoba) Interval History 82-year-old -[place] female who was transferred from [facility] where she presented with neurologic changes. There is no family members and the patient cannot relate much of a history but apparently with CT scan head obtained she was found to have a right posterior temporal lobe cerebral hemorrhage. CT scan of the head reviewed from [facility] on arrival reveals a less than 2 cm right posterior temporal lobe hemorrhage without any significant mass-effect or midline shift. Overnight her exam is not changed although she had an EEG study done and was noted to have subclinical seizures and has been noted to be more lethargic since then and is awaiting fosphenytoin bolus. MRI scan of the brain is also pending along with neurology evaluation. It is unclear whether this cerebral hemorrhage is spontaneous versus traumatic. 11/03/17: Pt awake and alert. At times not cooperative with exam. She at times doesn't verbalize and others answers questions yes/no. She follows commands at times and other times does not. 11/04/17: Pt sedated for MRI and not opening eyes or following commands. 11/05/17: Pt awakens but still fatigued. She states her name when asked but not verbalizing much otherwise. 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 She moves bilateral LEs to command. 11/06/17: Pt very fatigued again today. Not opening eyes. Not following commands. Pt resting in position. 11/07/17: Pt lethargic still. Not opening eyes or following commands. 11/09/17: Pt lethargic but more awake today than previous days as she actually opened her eyes and said some words. She underwent a right temporal craniotomy for hemorrhagic mass resection on 11/08/17. She is lethargic but opens her eyes. She answers some simple questions. She follows some simple commands. (Deandre Cordoba) System Review Comments Unable to obtain given clinical condition still lethargic not answering questions. (Deandre Cordoba) Exam Results Vital Signs Date Time Temp Pulse Resp B/P (MAP) Pulse Ox O2 Delivery O2 Flow Rate FiO2 11/09/17 06:00 92 11/09/17 04:00 97.8 26 111/53 (72) 99 11/08/17 19:50 Nasal Cannula 2.00 11/07/17 20:52 21 Intake and Output 11/09/17 11/09/17 11/10/17 08:00 16:00 00:00 Intake Total 550 ml Output Total 275 ml Balance 275 ml (Deandre Cordoba) Physical Examination General: Pt in ICU. She is lethargic but opens eyes to voice now. Eyes: Pupils equal. Sclera anicteric. Resp: CTA bilaterally. Heart: NSR no murmurs. Abd: Soft positive bs Skin: No cyanosis or erythema. SCDs in place. Muscle: Follows some simple commands. She moves all 4 extremities spontaneously but moves LEs less than UEs to command. Neuro: Pt opens eyes to voice. Pupils 3mm bilaterally, reactive sluggishly bilaterally. Following some simple commands. Verbalizing some but very limited. (Deandre Cordoba) Lab, Micro, Other Results Last Impressions Head CT 11/09/17 0600 Signed Impressions: Service Date/Time: Thursday, November 09, 2017 05:51 - CONCLUSION: Status post craniotomy and removal of the density seen previously. No residual hematoma is identified. There is residual pneumocephalus. No acute mass effect. Papa Lombardi MD Chest X-Ray 11/08/17 0000 Signed Impressions: Service Date/Time: Wednesday, November 08, 2017 16:37 - CONCLUSION: Satisfactory central line positioning. No pneumothorax. Hazy bibasilar pleural-parenchymal opacities, right worse than left Donovan Piña MD Brain MRI 11/04/17 0000 Signed Impressions: Service Date/Time: November 12:38 - CONCLUSION: Focal abnormality in the right posterior temporal lobe measuring up to 3.9 cm, as above. Examination will be used for intraoperative localization. Donovan Campbell MD Chest CT 11/02/17 0000 Signed Impressions: Service Date/Time: Thursday, November 02, 2017 21:35 - CONCLUSION: 1. Negative for metastatic disease to the thorax. No acute findings. Axel Cheema MD Abdomen/Pelvis CT 11/02/17 0000 Signed Impressions: Service Date/Time: Thursday, November 02, 2017 21:35 - CONCLUSION: 1. Negative for metastatic disease in the abdomen or pelvis. Multiple hepatic cysts. Numerous fibroids in the uterus. Mild colonic constipation and moderate rectal constipation. Axel Cheema MD Laboratory Tests Test 11/08/17 14:50 11/08/17 17:15 11/09/17 05:15 Blood Gas Puncture Site ART LINE ART LINE Blood Gas Patient Temperature 98.6 98.6 Blood Gas HCO3 20 mmol/L 21 mmol/L Blood Gas Base Excess -2.6 mmol/L -2.4 mmol/L Blood Gas Oxygen Saturation 96 % 94 % Arterial Blood pH 7.50 7.44 Arterial Blood Partial Pressure CO2 26 mmHg 31 mmHg Arterial Blood Partial Pressure O2 267 mmHg 104 mmHg Arterial Blood Oxygen Content 16.7 Vol % 14.8 Vol % Arterial Blood Carboxyhemoglobin 0.4 % 0.5 % Arterial Blood Methemoglobin 2.2 % 2.2 % Blood Gas Hemoglobin 11.9 G/DL 11.1 G/DL Oxygen Delivery Device VENTILATOR NASAL CANNULA Blood Gas Liter Flow 4 L/M White Blood Count 5.5 TH/MM3 Red Blood Count 3.67 MIL/MM3 Hemoglobin 10.5 GM/DL Hematocrit 31.2 % Mean Corpuscular Volume 85.1 FL Mean Corpuscular Hemoglobin 28.6 PG Mean Corpuscular Hemoglobin Concent 33.6 % Red Cell Distribution Width 19.8 % Platelet Count 136 TH/MM3 Mean Platelet Volume 6.7 FL Blood Urea Nitrogen 7 MG/DL Creatinine 0.36 MG/DL Random Glucose 64 MG/DL Total Protein 4.4 GM/DL Albumin 1.7 GM/DL Calcium Level 6.9 MG/DL Phosphorus Level 1.8 MG/DL Magnesium Level 1.6 MG/DL Alkaline Phosphatase 67 U/L Aspartate Amino Transf (AST/SGOT) 46 U/L Alanine Aminotransferase (ALT/SGPT) 18 U/L Total Bilirubin 0.2 MG/DL Sodium Level 140 MEQ/L Potassium Level 3.6 MEQ/L Chloride Level 111 MEQ/L Carbon Dioxide Level 21.7 MEQ/L Anion Gap 7 MEQ/L Estimat Glomerular Filtration Rate 208 ML/MIN Protein Corrected Calcium 8.4 MG/DL Thyroid Stimulating Hormone 3rd Gen 11.100 uIU/ML Phenytoin (Dilantin) Level 13.9 MCG/ML Valproic Acid (Depakene) Level 56 MCG/ML Phenobarbital Level 10.5 MCG/ML (Deandre Cordoba) Medical Decision Making Impression and Plan A: 82-year-old lady with a right posterior temporal lobe cerebral hemorrhage without mass-effect or midline shift. Continue with observation along with seizure prophylaxis. MRI reveals likely underlying mass. No metastatic sites found on CT chest, abdomen, pelvis. s/p right temporal craniotomy for hemorrhagic mass resection on 11/08/17. Path pending. P: Continue with hypertension control. Continue with neuro checks in ICU Continue with Rehab efforts. Continue with DVT prophylaxis. Continue with GI prophylaxis. Speech therapy assessing swallow. Following pathology. (Deandre Cordoba) Attending Statement The exam, history, and the medical decision-making described in the above note were completed with the assistance of the mid-level provider. I reviewed and agree with the findings presented. I attest that I had a [id number] encounter with the patient on the same day, and personally performed and documented my assessment and findings in the medical record. (Jay Peterson MD) Deandre Cordoba November 09, 2017 09:26 Jay Peterson MD November 09, 2017 18:30
--- NOTE | 2017-11-09 11:09 | HHI.PR ---
Review/Management Diagnosis Diagnosis/Plan: (1) ICH (intracerebral hemorrhage) ICD Codes: I61.9 - Nontraumatic intracerebral hemorrhage, unspecified Status: Acute Plan: ich with edema nsx following on phb/dil/dep 11/04 mri brain with contrast reviewed 11/07 ct brain- rt temporal ich with edema 11/09 ct brain- s/p craniotomy, no mass effect noted recs somnolence possibly 2/2 sz meds nsx following sz med levels in range f/u eeg- no epileptiform activity noted, consider adjusting seizure meds as this may help to decrease sedation therapy neuro stable brain bx pending (2) Seizure ICD Codes: R56.9 - Unspecified convulsions Status: Acute Plan: on iv cerebyrx and depakon Dil level 13.9, VPA level 56 (3) Brain mass ICD Codes: G93.9 - Disorder of brain, unspecified Status: Acute (Leydi Garzon) Diagnosis/Plan: (1) ICH (intracerebral hemorrhage) ICD Codes: I61.9 - Nontraumatic intracerebral hemorrhage, unspecified Status: Acute Plan: ich with edema nsx following on phb/dil/dep 11/04 mri brain with contrast reviewed 11/07 ct brain- rt temporal ich with edema 11/09 ct brain- s/p craniotomy, no mass effect noted alb 1.7 dil 13.9. corrected level 31 recs more alert dilantin on hold f/u exam f/u eeg- no epileptiform activity noted therapy neuro stable brain bx pending (2) Seizure ICD Codes: R56.9 - Unspecified convulsions Status: Acute Plan: Dil level 13.9, VPA level 56 (3) Brain mass ICD Codes: G93.9 - Disorder of brain, unspecified Status: Acute (Jorge Yuan MD) Subjective Subjective Comments Nurse denies any new events overnight. Reports she was more alert this morning. No witnessed seizures Active Medications Current Medications Medications (Trade) Dose Ordered Sig/Cathie Route Start Time Stop Time Status Last Admin (NS Flush) 2 ml UNSCH PRN IV FLUSH 11/01/17 22:45 (NS Flush) 2 ml BID IV FLUSH 11/02/17 09:00 11/09/17 09:09 (Tylenol) 650 mg Q6H PRN PO 11/01/17 22:45 (Morphine Inj) 2 mg Q2H PRN IV PUSH 11/01/17 22:45 (Pepcid Inj) 20 mg Q12HR IV PUSH 11/02/17 09:00 11/09/17 09:09 (Zofran Inj) 4 mg Q6H PRN IV PUSH 11/01/17 22:45 (Duoneb Neb) 1 ampule Q2HR NEB PRN INH 11/01/17 22:45 ([facility]) 1 Q361D XX 11/01/17 22:45 (Chlorhexidine 2% Cloth) Taper DAILY@04 TOP 11/02/17 04:00 10/29/18 03:59 (Chlorhexidine 2% Cloth) 3 pack UNSCH PRN TOP 11/01/17 22:45 (Leigh-Colace) 1 tab BID PO 11/02/17 09:00 11/07/17 09:10 (Milk Of Magnesia Liq) 30 ml Q12H PRN PO 11/01/17 22:45 (Senokot) 17.2 mg Q12H PRN PO 11/01/17 22:45 11/06/17 17:17 (Dulcolax Supp) 10 mg DAILY PRN RECTAL 11/01/17 22:45 (Lactulose Liq) 30 ml DAILY PRN PO 11/01/17 22:45 (Trandate Inj) 10 mg Q4H PRN IV PUSH 11/02/17 00:30 11/02/17 08:28 (Apresoline Inj) 20 mg Q4H PRN IV PUSH 11/02/17 00:30 11/08/17 09:54 Valproate Sodium 500 mg/Sodium Chloride 105 ml @ 105 mls/hr Q8H IV 11/02/17 18:00 11/09/17 11:00 (D50w (Vial) Inj) 50 ml UNSCH PRN IV PUSH 11/03/17 18:15 11/07/17 07:28 (Glucagon Inj) 1 mg UNSCH PRN OTHER 11/03/17 18:15 (NovoLOG SUPPLEMENTAL SCALE) 1 ACHS SLIDING SCALE SQ 11/03/17 21:00 (Luminal Inj) 60 mg BID IV 11/04/17 21:00 11/09/17 09:12 Lactated Ringer's 1,000 ml @ 30 mls/hr Q24H PRN IV 11/07/17 21:15 11/10/17 21:14 Sodium Chloride 500 ml @ 30 mls/hr [id number] PRN IV 11/07/17 21:15 11/10/17 21:14 (Lopressor) 25 mg FISH HEADER PRN PO 11/07/17 21:15 11/10/17 21:14 (Betadine 5% Antisepsis Kit) 1 applic FISH HEADER PRN EACH NARE 11/07/17 21:15 11/10/17 21:14 (Chlorhexidine 2% Cloth) 3 pack FISH HEADER PRN TOPICAL 11/07/17 21:15 11/10/17 21:14 (K-Phos) 1,000 mg Q12HR PO 11/08/17 09:00 Potassium Chloride/Sodium Chloride 1,000 ml @ 80 mls/hr [id number] IV 11/08/17 16:30 11/09/17 09:10 ([facility] Nursing Information) ALL NURSING DEPARTME... UNSCH PRN .XX 11/08/17 16:25 11/09/17 16:24 Fosphenytoin Sodium 100 mgpe/ Sodium Chloride 52 ml @ 208 mls/hr BID IV 11/10/17 09:00 Potassium Phosphate 15 mmol/ Sodium Chloride 155 ml @ 38.75 mls/ hr ONCE ONCE IV 11/09/17 08:15 11/09/17 12:14 11/09/17 09:11 Allergies Allergies Coded Allergies No Known Allergies (Unverified11/01/17) (Leydi Garzon) Review of Systems All other ROS: ROS reviewed as documented in chart (Leydi Garzon) Exam I&O / VS Vital Signs Date Time Temp Pulse Resp B/P (MAP) Pulse Ox O2 Delivery O2 Flow Rate FiO2 11/09/17 06:00 92 11/09/17 04:00 80 11/09/17 04:00 97.8 80 26 111/53 (72) 99 11/09/17 02:00 78 11/09/17 00:00 97.7 82 18 127/57 (80) 99 11/09/17 00:00 82 11/08/17 22:00 79 11/08/17 20:00 75 11/08/17 20:00 97.7 75 26 126/58 (80) 98 Automatic Cuff 11/08/17 19:50 99 Nasal Cannula 2.00 11/08/17 19:00 98 Nasal Cannula 2.00 11/08/17 18:00 79 11/08/17 17:45 98.0 82 28 94 120/56 (77) 11/08/17 17:45 80 11/08/17 17:15 97.6 79 20 156/69 (98) 99 Nasal Cannula 3 122/56 (78) 11/08/17 17:00 79 20 155/69 (97) 98 Nasal Cannula 3 127/59 (81) 11/08/17 16:45 81 20 154/68 (96) 98 Nasal Cannula 3 129/59 (82) 11/08/17 16:23 97.6 83 20 172/78 (109) 99 Nasal Cannula 2 137/62 (87) 11/08/17 12:00 98.3 92 26 132/63 (86) 98 11/08/17 12:00 84 General: No acute distress Eye: PERRL Respiratory: Non-labored respirations Cardiology: Normal rate Neurologic: Alert Psychiatric: Cooperative Exam Comments Pt is lethargic but arousable to noxious stimuli, nonverbal, she does not follow commands, PERRL- sluggish, no gaze deviation, withdraws from stimuli, spasticity noted in LUE (Leydi Garzon) Objective Path Results brain bx pending Micro and Labs Laboratory Tests Test 11/08/17 14:50 11/08/17 17:15 11/09/17 05:15 Blood Gas Puncture Site ART LINE ART LINE Blood Gas Patient Temperature 98.6 98.6 Blood Gas HCO3 20 21 Blood Gas Base Excess -2.6 -2.4 Blood Gas Oxygen Saturation 96 94 Arterial Blood pH 7.50 7.44 Arterial Blood Partial Pressure CO2 26 31 Arterial Blood Partial Pressure O2 267 104 Arterial Blood Oxygen Content 16.7 14.8 Arterial Blood Carboxyhemoglobin 0.4 0.5 Arterial Blood Methemoglobin 2.2 2.2 Blood Gas Hemoglobin 11.9 11.1 Oxygen Delivery Device VENTILATOR NASAL CANNULA Blood Gas Liter Flow 4 White Blood Count 5.5 Red Blood Count 3.67 Hemoglobin 10.5 Hematocrit 31.2 Mean Corpuscular Volume 85.1 Mean Corpuscular Hemoglobin 28.6 Mean Corpuscular Hemoglobin Concent 33.6 Red Cell Distribution Width 19.8 Platelet Count 136 Mean Platelet Volume 6.7 Blood Urea Nitrogen 7 Creatinine 0.36 Random Glucose 64 Total Protein 4.4 Albumin 1.7 Calcium Level 6.9 Phosphorus Level 1.8 Magnesium Level 1.6 Alkaline Phosphatase 67 Aspartate Amino Transf (AST/SGOT) 46 Alanine Aminotransferase (ALT/SGPT) 18 Total Bilirubin 0.2 Sodium Level 140 Potassium Level 3.6 Chloride Level 111 Carbon Dioxide Level 21.7 Anion Gap 7 Estimat Glomerular Filtration Rate 208 Protein Corrected Calcium 8.4 Thyroid Stimulating Hormone 3rd Gen 11.100 Phenytoin (Dilantin) Level 13.9 Valproic Acid (Depakene) Level 56 Phenobarbital Level 10.5 (Leydi Garzon) Leydi Garzon November 09, 2017 11:09 Jorge Yuan MD November 09, 2017 14:53
[2017-11-09] MEDS: DEXTROSE 50% IN WATER 50 ML VIAL(D50) IV PUSH PRN (12:18)
[2017-11-09] MEDS: POTASSIUM CHLORIDE INJ 10 MEQ in DEXT 5%-NACL 0.9% 1000 ML INJ 1,000 ML IV SCH (16:43)
[2017-11-10] VITALS (13 sets, daily range): BP systolic 86–138; BP diastolic 51–79; PULSE 74–101; RESP 19–29; TEMP 97.7–98.1; O2SAT 97–100
[2017-11-10] MEDS: VALPROATE INJ 500 MG in SODIUM CHLORIDE 0.9% INJ 100 ML IV SCH ×3 (00:41→18:03)
[2017-11-10] MEDS: POTASSIUM CHLORIDE INJ 10 MEQ in DEXT 5%-NACL 0.9% 1000 ML INJ 1,000 ML IV SCH ×2 (03:11→11:21)
[2017-11-10] MEDS: CHLORHEXIDINE GLUCONATE 2 % 1 PACK (2 CLOTHS) TOP SCH ×2 (03:11→23:48)
[2017-11-10 07:03] LABS: BICARBONATE 21.2 MEQ/L (21.0-32.0); CREATININE 0.47 MG/DL (0.50-1.00); MAGNESIUM 1.5 MG/DL (1.5-2.5); PHENYTOIN (DILANTIN) 13.2 MCG/ML (10.0-20.0); PHOSPHORUS 1.1 MG/DL (2.5-4.9)
[2017-11-10 07:31] LABS: CALCIUM-PROTEIN CORRECTED 8.4 MG/DL (8.5-10.1); TOTAL PROTEIN 4.6 GM/DL (6.4-8.2)
--- NOTE | 2017-11-10 07:31 | HHI.PR ---
Review/Management Diagnosis Diagnosis/Plan: (1) ICH (intracerebral hemorrhage) ICD Codes: I61.9 - Nontraumatic intracerebral hemorrhage, unspecified Status: Acute Plan: ich with edema nsx following on phb/dil/dep 11/04 mri brain with contrast reviewed 11/07 ct brain- rt temporal ich with edema 11/09 ct brain- s/p craniotomy, no mass effect noted alb 1.7 dil 13.2. corrected level 30 5/7eeg- no sz recs alerts with stimuli brain biopsy pending dilantin on hold therapy (2) Seizure ICD Codes: R56.9 - Unspecified convulsions Status: Acute Plan: Dil level 13.9, VPA level 56 (3) Brain mass ICD Codes: G93.9 - Disorder of brain, unspecified Status: Acute Subjective Subjective Comments No acute events reported No headache No chest pain No dyspnea Active Medications Current Medications Medications (Trade) Dose Ordered Sig/Cathie Route Start Time Stop Time Status Last Admin (NS Flush) 2 ml UNSCH PRN IV FLUSH 11/01/17 22:45 (NS Flush) 2 ml BID IV FLUSH 11/02/17 09:00 11/09/17 20:47 (Tylenol) 650 mg Q6H PRN PO 11/01/17 22:45 (Morphine Inj) 2 mg Q2H PRN IV PUSH 11/01/17 22:45 (Pepcid Inj) 20 mg Q12HR IV PUSH 11/02/17 09:00 11/09/17 20:47 (Zofran Inj) 4 mg Q6H PRN IV PUSH 11/01/17 22:45 (Duoneb Neb) 1 ampule Q2HR NEB PRN INH 11/01/17 22:45 ([facility] [place] Nursing Information) 1 Q361D XX 11/01/17 22:45 (Chlorhexidine 2% Cloth) Taper DAILY@04 TOP 11/02/17 04:00 10/29/18 03:59 (Chlorhexidine 2% Cloth) 3 pack UNSCH PRN TOP 11/01/17 22:45 (Leigh-Colace) 1 tab BID PO 11/02/17 09:00 11/07/17 09:10 (Milk Of Magnesia Liq) 30 ml Q12H PRN PO 11/01/17 22:45 (Senokot) 17.2 mg Q12H PRN PO 11/01/17 22:45 11/06/17 17:17 (Dulcolax Supp) 10 mg DAILY PRN RECTAL 11/01/17 22:45 (Lactulose Liq) 30 ml DAILY PRN PO 11/01/17 22:45 (Trandate Inj) 10 mg Q4H PRN IV PUSH 11/02/17 00:30 11/02/17 08:28 (Apresoline Inj) 20 mg Q4H PRN IV PUSH 11/02/17 00:30 11/08/17 09:54 Valproate Sodium 500 mg/Sodium Chloride 105 ml @ 105 mls/hr Q8H IV 11/02/17 18:00 11/10/17 00:41 (D50w (Vial) Inj) 50 ml UNSCH PRN IV PUSH 11/03/17 18:15 11/09/17 12:18 (Glucagon Inj) 1 mg UNSCH PRN OTHER 11/03/17 18:15 (NovoLOG SUPPLEMENTAL SCALE) 1 ACHS SLIDING SCALE SQ 11/03/17 21:00 (Luminal Inj) 60 mg BID IV 11/04/17 21:00 11/09/17 20:47 (Lopressor) 25 mg [employer]INEER PRN PO 11/07/17 21:15 11/10/17 21:14 (Betadine 5% Antisepsis Kit) 1 applic [employer] SAL[employer]INEER PRN EACH NARE 11/07/17 21:15 11/10/17 21:14 (Chlorhexidine 2% Cloth) 3 pack [employer]ER PRN TOPICAL 11/07/17 21:15 11/10/17 21:14 (K-Phos) 1,000 mg Q12HR PO 11/08/17 09:00 Fosphenytoin Sodium 100 mgpe/ Sodium Chloride 52 ml @ 208 mls/hr BID IV 11/10/17 09:00 Potassium Chloride 10 meq/ Dextrose/Sodium Chloride 1,005 ml @ 100 mls/hr Q10H3M IV 11/09/17 16:00 11/10/17 03:11 Allergies Allergies Coded Allergies No Known Allergies (Unverified11/01/17) Review of Systems All other ROS: ROS reviewed as documented in chart Exam I&O / VS Vital Signs Date Time Temp Pulse Resp B/P (MAP) Pulse Ox O2 Delivery O2 Flow Rate FiO2 11/10/17 06:00 93 5/9/18 04:00 90 11/10/17 04:00 98.1 93 29 115/65 (82) 99 11/10/17 02:00 83 11/10/17 00:00 98.0 94 25 130/79 (96) 97 11/10/17 00:00 94 11/09/17 22:00 93 11/09/17 20:00 98.1 94 25 129/59 (82) 97 11/09/17 20:00 94 11/09/17 19:00 97 Room Air 11/09/17 18:19 91 11/09/17 16:00 97.8 96 29 152/64 (93) 99 Arterial Line 11/09/17 16:00 96 11/09/17 14:00 91 11/09/17 12:00 97.8 93 39 126/53 (77) 99 11/09/17 12:00 93 11/09/17 11:57 98 21 11/09/17 10:00 93 11/09/17 10:00 90 11/09/17 08:00 93 11/09/17 08:00 98.1 91 20 134/63 (86) 98 General: No acute distress Eye: PERRL Respiratory: Non-labored respirations Cardiology: Normal rate Neurologic: Alert Psychiatric: Cooperative Exam Comments drowsy but partially opens eyes to tactile, mumbles 2-3 words, eomi, eomi, ou 2.5mm sluggish, face sym, ribeiro to gravity, Objective Micro and Labs Laboratory Tests Test 11/10/17 06:14 Blood Urea Nitrogen 6 Creatinine 0.47 Random Glucose 133 Calcium Level 7.0 Phosphorus Level 1.1 Magnesium Level 1.5 Sodium Level 143 Potassium Level 3.3 Chloride Level 114 Carbon Dioxide Level 21.2 Anion Gap 8 Estimat Glomerular Filtration Rate 153 Phenytoin (Dilantin) Level 13.2 Valproic Acid (Depakene) Level 60 Jorge Yuan MD November 10, 2017 07:31
--- NOTE | 2017-11-10 07:42 | HHI.PR ---
Subjective Remarks Follow-up encephalopathy. Remains lethargic still Dilantin toxic corrected level 24 Objective Vitals Vital Signs Date Time Temp Pulse Resp B/P (MAP) Pulse Ox O2 Delivery O2 Flow Rate FiO2 11/10/17 06:00 93 11/10/17 04:00 90 11/10/17 04:00 98.1 93 29 115/65 (82) 99 11/10/17 02:00 83 11/10/17 00:00 98.0 94 25 130/79 (96) 97 11/10/17 00:00 94 11/09/17 22:00 93 11/09/17 20:00 98.1 94 25 129/59 (82) 97 11/09/17 20:00 94 11/09/17 19:00 97 Room Air 11/09/17 18:19 91 11/09/17 16:00 97.8 96 29 152/64 (93) 99 Arterial Line 11/09/17 16:00 96 11/09/17 14:00 91 11/09/17 12:00 97.8 93 39 126/53 (77) 99 11/09/17 12:00 93 11/09/17 11:57 98 21 11/09/17 10:00 93 11/09/17 10:00 90 11/09/17 08:00 93 11/09/17 08:00 98.1 91 20 134/63 (86) 98 I/O 11/09/17 11/09/17 11/09/17 11/10/17 11/10/17 11/10/17 07:00 15:00 23:00 07:00 15:00 23:00 Intake Total 550 ml 350 ml 640 ml Output Total 275 ml 350 ml 93 ml Balance 275 ml 350 ml 290 ml -93 ml IV Total 550 ml 350 ml 640 ml Output Urine Total 275 ml 350 ml 93 ml # Bowel Movements 0 Result Diagram: 11/09/1715 11/10/17 0614 Imaging Last Impressions Head CT 11/09/17 0600 Signed Impressions: Service Date/Time: Thursday, November 09, 2017 05:51 - CONCLUSION: Status post craniotomy and removal of the density seen previously. No residual hematoma is identified. There is residual pneumocephalus. No acute mass effect. Papa Lombardi MD Chest X-Ray 11/08/17 0000 Signed Impressions: Service Date/Time: Wednesday, November 08, 2017 16:37 - CONCLUSION: Satisfactory central line positioning. No pneumothorax. Hazy bibasilar pleural-parenchymal opacities, right worse than left Donovan Piña MD Brain MRI 11/04/17 0000 Signed Impressions: Service Date/Time: November 12:38 - CONCLUSION: Focal abnormality in the right posterior temporal lobe measuring up to 3.9 cm, as above. Examination will be used for intraoperative localization. Donovan Campbell MD Chest CT 11/02/17 0000 Signed Impressions: Service Date/Time: Thursday, November 02, 2017 21:35 - CONCLUSION: 1. Negative for metastatic disease to the thorax. No acute findings. Axel Cheema MD Abdomen/Pelvis CT 11/02/17 0000 Signed Impressions: Service Date/Time: Thursday, November 02, 2017 21:35 - CONCLUSION: 1. Negative for metastatic disease in the abdomen or pelvis. Multiple hepatic cysts. Numerous fibroids in the uterus. Mild colonic constipation and moderate rectal constipation. Axel Cheema MD Objective Remarks GENERAL: NAD, well-developed and well-nourished is no name and Neck: stridor no retractions CARDIOVASCULAR: Regular rate and rhythm without murmurs, gallops, or rubs. RESPIRATORY: Breath sounds equal bilaterally. No accessory muscle use. GASTROINTESTINAL: Abdomen soft, non-tender, nondistended. MUSCULOSKELETAL: No cyanosis, or edema. SKIN: Warm and dry. NEURO: Lethargic. Patient moving all extremities Procedures Right temporal craniotomy for hemorrhagic mass resection; BrainLab stereotactic intraoperative navigation; microsurgical technique, left subclavian central line placement A/P Problem List: (1) ICH (intracerebral hemorrhage) ICD Code: I61.9 - Nontraumatic intracerebral hemorrhage, unspecified Status: Acute (2) Seizure ICD Code: R56.9 - Unspecified convulsions Status: Acute Assessment and Plan 82-year-old female with right parietal intraparenchymal cerebral hemorrhage, with subsequent status epilepticus and encephalopathy. Hypoglycemia hx DM. Improving IVD5 for hypoglycemia. PEG may be necessary to maintain blood sugars. PEG vs. Hospice recommended to family, they are discussing this. Plan to transition to shelter facility Urinary retention Duong catheter placed Right parietal intraparenchymal hemorrhage Right temporal craniotomy for hemorrhagic mass resection; BrainLab stereotactic intraoperative navigation; microsurgical technique Continue PT and OT Neurosurgery following Continue blood pressure optimization Follow-up repeat head CT noted Subclinical status epilepticus Neurology following Continue Phb and dep Continue Cerebryx but hold today 2/2 toxic level. Discussed with neurology Continue neuro checks Follow-up repeat EEG 11/08 no sz Encephalopathy likely toxic will hold Cerebryx and repeat in the morning. Corrected Dilantin level of 24 today hypertensive emergency Continue hydralazine and labetalol Attempt to keep systolic blood pressure less than 140 mmHg COPD with stridor RTC duo nebs with prn, start IV solumedrol and racemic epi prn Dyslipidemia Continue present treatment Follow as an outpatient Thyroid disease TSH 11 will adjust med Elevated AST, mild. Monitor mena on AED FEN. Patient has dysphagia secondary to intracranial hemorrhage. Continue IV hydration. Consult dietitian. NG and start Jevity. Aspiration precautions. Restraints DVT prophylaxis SCDs. Pharmacological prophylaxis contraindicated at this time secondary to intracranial hemorrhage Left message with PCP Dr. Cristina [phone] to verify home med list Discharge Planning Keep in ICU, high likelihood of deterioration of neurological status Derrick Gomez MD November 10, 2017 07:42
[2017-11-10] MEDS ORDERED: POTASSIUM CHLORIDE 25 MEQ EFFERVESCENT TAB PO PRN (07:45)
[2017-11-10] MEDS ORDERED: POTASSIUM CHLOR 40 MEQ PREMIX 100 ML IV PRN ×2 (07:45)
[2017-11-10] MEDS ORDERED: POTASSIUM CHLOR 20 MEQ PREMIX 100 ML IV PRN (07:45)
[2017-11-10] MEDS ORDERED: MAGNESIUM SULFATE INJ 4 GM in SODIUM CHLORIDE 0.9% INJ 92 ML IV PRN (07:45)
[2017-11-10] MEDS ORDERED: MAGNESIUM SULFATE INJ 2 GM in SODIUM CHLORIDE 0.9% INJ 96 ML IV PRN (07:45)
[2017-11-10] MEDS ORDERED: SODIUM PHOSPHATE INJ 30 MMOL in SODIUM CHLOR 0.9% 250 ML INJ 240 ML IV PRN (07:45)
[2017-11-10] MEDS ORDERED: POTASSIUM PHOSPHATE INJ 30 MMOL in SODIUM CHLOR 0.9% 250 ML INJ 250 ML IV PRN (07:45)
[2017-11-10] MEDS ORDERED: POTASSIUM PHOSPHATE MONOBASIC 500 MG TAB PO PRN (07:45)
[2017-11-10] MEDS ORDERED: MAGNESIUM OXIDE 400 MG TAB PO PRN (07:45)
[2017-11-10] MEDS ORDERED: POTASSIUM PHOSPHATE MONOBASIC 500 MG TAB PO/TUBE PRN (07:45)
[2017-11-10] MEDS: POTASSIUM PHOSPHATE MONOBASIC 500 MG TAB PO SCH ×2 (09:00→20:10)
[2017-11-10] MEDS ORDERED: FOSPHENYTOIN INJ 100 MGPE in SODIUM CHLORIDE 0.9% INJ 50 ML IV SCH (09:00)
[2017-11-10] MEDS: DOCUSATE SODIUM 50 MG/SENNA 8.6 MG TAB PO SCH ×2 (09:00→20:10)
--- NOTE | 2017-11-10 09:01 | HHI.NSPN ---
(Deandre Cordoba) History Chief Complaint: ICH. (Deandre Cordoba) Interval History 82-year-old -Cypriot female who was transferred from [facility] where she presented with neurologic changes. There is no family members and the patient cannot relate much of a history but apparently with CT scan head obtained she was found to have a right posterior temporal lobe cerebral hemorrhage. CT scan of the head reviewed from [facility] on arrival reveals a less than 2 cm right posterior temporal lobe hemorrhage without any significant mass-effect or midline shift. Overnight her exam is not changed although she had an EEG study done and was noted to have subclinical seizures and has been noted to be more lethargic since then and is awaiting fosphenytoin bolus. MRI scan of the brain is also pending along with neurology evaluation. It is unclear whether this cerebral hemorrhage is spontaneous versus traumatic. 11/03/17: Pt awake and alert. At times not cooperative with exam. She at times doesn't verbalize and others answers questions yes/no. She follows commands at times and other times does not. 11/04/17: Pt sedated for MRI and not opening eyes or following commands. 11/05/17: Pt awakens but still fatigued. She states her name when asked but not verbalizing much otherwise. She international accountant her right hand but not the left. She moves bilateral LEs to command. 11/06/17: Pt very fatigued again today. Not opening eyes. Not following commands. Pt resting in position. 11/07/17: Pt lethargic still. Not opening eyes or following commands. 11/09/17: Pt lethargic but more awake today than previous days as she actually opened her eyes and said some words. She underwent a right temporal craniotomy for hemorrhagic mass resection on 11/08/17. She is lethargic but opens her eyes. She answers some simple questions. She follows some simple commands. 11/10/17: Pt not as alert this morning as yesterday. Not opening eyes. Verbalizing some words but not able to understand. Spontaneously moves extremities. (Deandre Cordoba) System Review Comments Not able to obtain given clinical condition. (Deandre Cordoba) Exam Results Vital Signs Date Time Temp Pulse Resp B/P (MAP) Pulse Ox O2 Delivery O2 Flow Rate FiO2 11/10/17 08:27 100 11/10/17 06:00 93 11/10/17 04:00 98.1 29 115/65 (82) 11/09/17 19:00 Room Air 11/09/17 11:57 21 11/08/17 19:50 2.00 Intake and Output 11/10/17 11/10/17 11/11/17 08:00 16:00 00:00 Intake Total 500 ml Output Total 93 ml Balance 407 ml (Deandre Cordoba) Physical Examination General: Pt in ICU. She is lethargic but protecting airway. Eyes: Pupils equal. Sclera anicteric. Resp: CTA bilaterally. Heart: NSR no murmurs. Abd: Soft positive bs Skin: No cyanosis or erythema. SCDs in place. Muscle: Follows some simple commands. She moves all 4 extremities spontaneously but moves LEs less than UEs to command. Neuro: Pt not opening eyes. Pupils 3mm bilaterally, reactive sluggishly bilaterally. Not following commands. Not verbalizing. (Deandre Cordoba) Lab, Micro, Other Results Last Impressions Head CT 11/09/17 0600 Signed Impressions: Service Date/Time: Thursday, November 09, 2017 05:51 - CONCLUSION: Status post craniotomy and removal of the density seen previously. No residual hematoma is identified. There is residual pneumocephalus. No acute mass effect. Papa Lombardi MD Chest X-Ray 11/08/17 0000 Signed Impressions: Service Date/Time: Wednesday, November 08, 2017 16:37 - CONCLUSION: Satisfactory central line positioning. No pneumothorax. Hazy bibasilar pleural-parenchymal opacities, right worse than left Donovan Piña MD Brain MRI 11/04/17 0000 Signed Impressions: Service Date/Time: November 12:38 - CONCLUSION: Focal abnormality in the right posterior temporal lobe measuring up to 3.9 cm, as above. Examination will be used for intraoperative localization. Donovan Campbell MD Chest CT 11/02/17 0000 Signed Impressions: Service Date/Time: Thursday, November 02, 2017 21:35 - CONCLUSION: 1. Negative for metastatic disease to the thorax. No acute findings. Axel Cheema MD Abdomen/Pelvis CT 11/02/17 0000 Signed Impressions: Service Date/Time: Thursday, November 02, 2017 21:35 - CONCLUSION: 1. Negative for metastatic disease in the abdomen or pelvis. Multiple hepatic cysts. Numerous fibroids in the uterus. Mild colonic constipation and moderate rectal constipation. Axel Cheema MD Laboratory Tests Test 11/10/17 06:14 Blood Urea Nitrogen 6 MG/DL Creatinine 0.47 MG/DL Random Glucose 133 MG/DL Total Protein 4.6 GM/DL Calcium Level 7.0 MG/DL Phosphorus Level 1.1 MG/DL Magnesium Level 1.5 MG/DL Sodium Level 143 MEQ/L Potassium Level 3.3 MEQ/L Chloride Level 114 MEQ/L Carbon Dioxide Level 21.2 MEQ/L Anion Gap 8 MEQ/L Estimat Glomerular Filtration Rate 153 ML/MIN Protein Corrected Calcium 8.4 MG/DL Phenytoin (Dilantin) Level 13.2 MCG/ML Valproic Acid (Depakene) Level 60 MCG/ML 11/10/17 11/10/17 11/11/17 15:00 23:00 07:00 Intake Total 500 ml Balance 500 ml IV Total 500 ml (Deandre Cordoba) Medical Decision Making Impression and Plan A: 82-year-old lady with a right posterior temporal lobe cerebral hemorrhage without mass-effect or midline shift. Continue with observation along with seizure prophylaxis. MRI reveals likely underlying mass. No metastatic sites found on CT chest, abdomen, pelvis. s/p right temporal craniotomy for hemorrhagic mass resection on 11/08/17. Path pending. P: Continue with hypertension control. Continue with neuro checks in ICU Continue with Rehab efforts. Continue with DVT prophylaxis. Continue with GI prophylaxis. Speech therapy assessing swallow. Following pathology. We will get her up in a chair to see if this stimulates her more. (Deandre Cordoba) Attending Statement The exam, history, and the medical decision-making described in the above note were completed with the assistance of the mid-level provider. I reviewed and agree with the findings presented. I attest that I had a [id number] encounter with the patient on the same day, and personally performed and documented my assessment and findings in the medical record. (Jay Peterson MD) Deandre Cordoba November 10, 2017 09:01 Jay Peterson MD November 10, 2017 17:09
[2017-11-10] MEDS: FAMOTIDINE 20 MG/2 ML VIAL IV PUSH SCH ×2 (10:19→20:08)
[2017-11-10] MEDS: INSULIN ASPART SUPPLEMENTAL SCALE SQ SCH ×4 (10:19→21:00)
[2017-11-10] MEDS: PHENobarbital SOD 130 MG/ML VIAL IV SCH ×2 (10:19→20:09)
[2017-11-10] MEDS: SODIUM CHLORIDE 0.9% FLUSH 10 ML FLUSH IV FLUSH SCH ×2 (10:20→20:09)
[2017-11-10] MEDS: POTASSIUM CHLOR 20 MEQ PREMIX 100 ML IV PRN ×2 (11:23→13:00)
--- NOTE | 2017-11-10 14:18 | RADRPT ---
EXAM DATE/TIME: 11/10/2017 14:00 [facility] COMPARISON: CT ABDOMEN & PELVIS W CONTRAST, November 02, 2017, 21:35. INDICATIONS : NG tube placement. MEDICAL HISTORY : None. SURGICAL HISTORY : None. ENCOUNTER: Initial ACUITY: 1 day PAIN SCORE: Non-responsive. LOCATION: Bilateral abdomen. FINDINGS: Nasogastric tube descends into the stomach with tip in the pyloric antrum region. Intestinal gas [place] is nonspecific and benign. There are surgical clips in the right upper quadrant from previous cho lecystectomy. Calcifications over the pelvis are presumably in uterine fibroids. There are vascular c alcifications also present. Mild degenerative changes present in the spine and hips. CONCLUSION: NG tube in the stomach Donovan Piña MD on November 10, 2017 at 14:15 Board Certified Radiologist. This report was verified electronically.
[2017-11-10] MEDS: DEXTROSE 50% IN WATER 50 ML VIAL(D50) IV PUSH PRN (15:21)
[2017-11-10] MEDS: methylPREDNISolone SOD SUCC 40 MG/1 ML VIAL IV PUSH SCH ×2 (15:21→20:08)
[2017-11-10] MEDS: RESP: ALBUTEROL 2.5 MG/IPRATROPIUM 0.5 MG NEB (SCH) INH ×3 (16:32→20:31)
[2017-11-10] MEDS ORDERED: FOSPHENYTOIN SODIUM 100 MG PE/2 ML VIAL IV SCH (21:00)
[2017-11-11] VITALS (13 sets, daily range): BP systolic 87–131; BP diastolic 51–70; PULSE 86–104; RESP 20–23; TEMP 97.6–99; O2SAT 98–100
[2017-11-11] MEDS: POTASSIUM CHLORIDE INJ 10 MEQ in DEXT 5%-NACL 0.9% 1000 ML INJ 1,000 ML IV SCH ×2 (00:20→11:03)
[2017-11-11] MEDS: VALPROATE INJ 500 MG in SODIUM CHLORIDE 0.9% INJ 100 ML IV SCH ×3 (01:54→17:49)
[2017-11-11] MEDS: RESP: ALBUTEROL 2.5 MG/3 ML NEB (PRN) NEB (02:45)
[2017-11-11] MEDS: RESP: RACEPINEPHRINE 2.25% 0.5 ML NEB NEB PRN (03:44)
--- NOTE | 2017-11-11 04:29 | RADRPT ---
EXAM DATE/TIME: 11/11/2017 03:39 [facility] COMPARISON: CHEST SINGLE AP, November 08, 2017, 16:37. INDICATIONS : Respiratory Distress MEDICAL HISTORY : Cerebrovascular disease. Hypertension SURGICAL HISTORY : Cholecystectomy. ENCOUNTER: Subsequent ACUITY: 4 - 6 days PAIN SCORE: Non-responsive. LOCATION: Bilateral chest FINDINGS: A single AP supine view of the chest was obtained and demonstrates interval placement of nasogastric tube seen coursing through the esophagus into the stomach. The left subclavian central venous cathete r remains in place. Hazy opacity remains in the perihilar regions and both lung bases with mild blunt ing of the costophrenic angles. CONCLUSION: 1. Interval placement of nasogastric tube. 2. Hazy proximal opacities remain in both lungs. Hany Booth MD on November 11, 2017 at 4:26 Board Certified Radiologist. This report was verified electronically.
[2017-11-11] MEDS ORDERED: RESP: ALBUTEROL 2.5 MG/3 ML NEB (SCH) NEB ONE (04:30)
[2017-11-11] MEDS ORDERED: ACETAMINOPHEN/HYDROcodone 325 MG/5 MG TAB PO ONE (04:45)
[2017-11-11] MEDS: LEVOTHYROXINE SODIUM 100 MCG TAB NG SCH (05:30)
[2017-11-11] MEDS: methylPREDNISolone SOD SUCC 40 MG/1 ML VIAL IV PUSH SCH ×3 (05:30→20:31)
[2017-11-11 06:12] LABS: AUTOMATED NEUTROPHIL # 6.1 TH/MM3 (1.8-7.7); BASOPHIL % 0.3 % (0.0-2.0); EOSINOPHIL % 0.1 % (0.0-4.0); HEMATOCRIT 29.3 % (35.0-46.0); HEMOGLOBIN 9.7 GM/DL (11.6-15.3); MEAN CELL VOLUME 86.2 FL (80.0-100.0); MEAN CORPUSCULAR HEMOGLOBIN 28.6 PG (27.0-34.0); MEAN CORPUSCULAR HGB CONC 33.1 % (32.0-36.0); MEAN PLATELET VOLUME 7.1 FL (7.0-11.0); MONO % 13.8 % (0.0-8.0); MONOCYTE # 1.1 TH/MM3 (0-0.9); NEUT % 73.8 % (16.0-70.0); PLATELET COUNT 137 TH/MM3 (150-450); RED CELL DISTRIBUTION WIDTH 19.8 % (11.6-17.2); WHITE BLOOD COUNT 8.3 TH/MM3 (4.0-11.0)
[2017-11-11 06:42] LABS: BICARBONATE 20.6 MEQ/L (21.0-32.0); CALCIUM 7.3 MG/DL (8.5-10.1); CREATININE 0.58 MG/DL (0.50-1.00); MAGNESIUM 1.9 MG/DL (1.5-2.5); PHENYTOIN (DILANTIN) 11.8 MCG/ML (10.0-20.0)
[2017-11-11 07:12] LABS: CALCIUM-PROTEIN CORRECTED 8.6 MG/DL (8.5-10.1); TOTAL PROTEIN 4.8 GM/DL (6.4-8.2)
[2017-11-11] MEDS: RESP: ALBUTEROL 2.5 MG/IPRATROPIUM 0.5 MG NEB (SCH) INH ×4 (08:25→20:33)
[2017-11-11] MEDS: INSULIN ASPART SUPPLEMENTAL SCALE SQ SCH ×4 (08:33→22:40)
[2017-11-11] MEDS: DOCUSATE SODIUM 50 MG/SENNA 8.6 MG TAB PO SCH ×2 (08:33→20:30)
--- NOTE | 2017-11-11 08:33 | HHI.PR ---
Review/Management Diagnosis Diagnosis/Plan: (1) ICH (intracerebral hemorrhage) ICD Codes: I61.9 - Nontraumatic intracerebral hemorrhage, unspecified Status: Acute Plan: ich with edema nsx following on phb/dil/dep 11/04 mri brain with contrast reviewed 11/07 ct brain- rt temporal ich with edema 11/09 ct brain- s/p craniotomy, no mass effect noted alb 1.7 dil 11.8 corrected level 26 5/7eeg- no sz recs still somnolent continue to hold dilantin stop phb f/u eeg brain biopsy pending (2) Seizure ICD Codes: R56.9 - Unspecified convulsions Status: Acute Plan: on sz med (3) Brain mass ICD Codes: G93.9 - Disorder of brain, unspecified Status: Acute Plan: biopsy pending Subjective Subjective Comments No acute events reported No headache No chest pain No dyspnea Active Medications Current Medications Medications (Trade) Dose Ordered Sig/Cathie Route Start Time Stop Time Status Last Admin (NS Flush) 2 ml UNSCH PRN IV FLUSH 11/01/17 22:45 (NS Flush) 2 ml BID IV FLUSH 11/02/17 09:00 11/10/17 10:20 (Tylenol) 650 mg Q6H PRN PO 11/01/17 22:45 (Morphine Inj) 2 mg Q2H PRN IV PUSH 11/01/17 22:45 (Pepcid Inj) 20 mg Q12HR IV PUSH 11/02/17 09:00 11/10/17 20:08 (Zofran Inj) 4 mg Q6H PRN IV PUSH 11/01/17 22:45 ([facility]) 1 Q361D XX 11/01/17 22:45 (Chlorhexidine 2% Cloth) Taper DAILY@04 TOP 11/02/17 04:00 10/29/18 03:59 (Chlorhexidine 2% Cloth) 3 pack UNSCH PRN TOP 11/01/17 22:45 (Leigh-Colace) 1 tab BID PO 11/02/17 09:00 11/10/17 20:10 (Milk Of Magnesia Liq) 30 ml Q12H PRN PO 11/01/17 22:45 (Senokot) 17.2 mg Q12H PRN PO 11/01/17 22:45 11/06/17 17:17 (Dulcolax Supp) 10 mg DAILY PRN RECTAL 11/01/17 22:45 (Lactulose Liq) 30 ml DAILY PRN PO 11/01/17 22:45 (Trandate Inj) 10 mg Q4H PRN IV PUSH 11/02/17 00:30 11/02/17 08:28 (Apresoline Inj) 20 mg Q4H PRN IV PUSH 11/02/17 00:30 11/08/17 09:54 Valproate Sodium 500 mg/Sodium Chloride 105 ml @ 105 mls/hr Q8H IV 11/02/17 18:00 11/11/17 01:54 (D50w (Vial) Inj) 50 ml UNSCH PRN IV PUSH 11/03/17 18:15 11/10/17 15:21 (Glucagon Inj) 1 mg UNSCH PRN OTHER 11/03/17 18:15 (NovoLOG SUPPLEMENTAL SCALE) 1 ACHS SLIDING SCALE SQ 11/03/17 21:00 11/10/17 21:00 (K-Phos) 1,000 mg Q12HR PO 11/08/17 09:00 11/10/17 20:10 Potassium Chloride 10 meq/ Dextrose/Sodium Chloride 1,005 ml @ 100 mls/hr Q10H3M IV 11/09/17 16:00 11/11/17 00:20 (Luminal Inj) 30 mg BID IV 11/10/17 09:00 11/10/17 20:09 Potassium Chloride 100 ml @ 50 mls/hr Q2H PRN IV 11/10/17 07:45 Potassium Chloride 100 ml @ 50 mls/hr Q2H PRN IV 11/10/17 07:45 11/10/17 13:00 (K-Lyte Cl Eff) 50 meq UNSCH PRN PO 11/10/17 07:45 Potassium Chloride 100 ml @ 25 mls/hr UNSCH PRN IV 11/10/17 07:45 Potassium Chloride 100 ml @ 50 mls/hr Q2H PRN IV 11/10/17 07:45 Magnesium Sulfate 4 gm/Sodium Chloride 100 ml @ 50 mls/hr UNSCH PRN IV 11/10/17 07:45 (Mag-Ox) 800 mg UNSCH PRN PO 11/10/17 07:45 Magnesium Sulfate 2 gm/Sodium Chloride 100 ml @ 50 mls/hr UNSCH PRN IV 11/10/17 07:45 11/10/17 15:34 (K-Phos) 2,000 mg Q4H PRN PO 11/10/17 07:45 Sodium Phosphate 30 mmol/Sodium Chloride 250 ml @ 42 mls/hr UNSCH PRN IV 11/10/17 07:45 (K-Phos) 2,000 mg UNSCH PRN PO/TUBE 11/10/17 07:45 Potassium Phosphate 30 mmol/ Sodium Chloride 260 ml @ 42 mls/hr UNSCH PRN IV 11/10/17 07:45 (Cerebyx Inj) 100 mgpe BID IV 11/11/17 09:00 (Duoneb Neb) 1 ampule QID NEB INH 11/10/17 14:00 11/11/17 08:25 (Albuterol Neb) 2.5 mg Q4HR NEB PRN NEB 11/10/17 13:45 11/11/17 02:45 (SoluMEDROL INJ) 40 mg Q8HR IV PUSH 11/10/17 14:00 11/11/17 05:30 (Racepinephrine 2.25% Neb) 0.5 ml Q4HR NEB PRN NEB 11/10/17 13:45 11/11/17 03:44 (Synthroid) 100 mcg DAILY@0600 NG 11/11/17 06:00 11/11/17 05:30 Allergies Allergies Coded Allergies No Known Allergies (Unverified11/01/17) Review of Systems All other ROS: ROS reviewed as documented in chart Exam I&O / VS Vital Signs Date Time Temp Pulse Resp B/P (MAP) Pulse Ox O2 Delivery O2 Flow Rate FiO2 11/11/17 08:25 99 Nasal Cannula 2.00 11/11/17 06:52 19 11/11/17 04:47 99 Nasal Cannula 2.00 11/11/17 04:00 98.2 101 22 130/58 (82) 99 11/11/17 00:00 97.6 86 23 100/59 (73) 99 11/10/17 20:33 98 21 11/10/17 20:00 Room Air 11/10/17 20:00 97.7 76 19 100/66 (77) 99 11/10/17 20:00 81 11/10/17 18:00 74 11/10/17 16:00 89 11/10/17 16:00 97.9 83 22 138/72 (94) 99 11/10/17 14:00 101 11/10/17 12:00 89 11/10/17 12:00 98.1 89 24 86/59 (68) 99 11/10/17 10:00 85 General: No acute distress Eye: PERRL Respiratory: Non-labored respirations Cardiology: Normal rate Neurologic: Alert Psychiatric: Cooperative Exam Comments drowsy but partially opens eyes to tactile, mumbles 2-3 words, eomi, eomi, ou 2.5mm sluggish, face sym, ribeiro to gravity, Objective Micro and Labs Laboratory Tests Test 11/11/17 04:31 11/11/17 05:25 Blood Gas Puncture Site LT RADIAL Blood Gas Patient Temperature 98.6 Blood Gas HCO3 19 Blood Gas Base Excess -4.7 Blood Gas Oxygen Saturation 92 Arterial Blood pH 7.45 Arterial Blood Partial Pressure CO2 28 Arterial Blood Partial Pressure O2 75 Arterial Blood Oxygen Content 12.7 Arterial Blood Carboxyhemoglobin 0.9 Arterial Blood Methemoglobin 1.9 Blood Gas Hemoglobin 9.8 Oxygen Delivery Device ROOM AIR Blood Gas Inspired Oxygen 21 White Blood Count 8.3 Red Blood Count 3.40 Hemoglobin 9.7 Hematocrit 29.3 Mean Corpuscular Volume 86.2 Mean Corpuscular Hemoglobin 28.6 Mean Corpuscular Hemoglobin Concent 33.1 Red Cell Distribution Width 19.8 Platelet Count 137 Mean Platelet Volume 7.1 Neutrophils (%) (Auto) 73.8 Lymphocytes (%) (Auto) 12.0 Monocytes (%) (Auto) 13.8 Eosinophils (%) (Auto) 0.1 Basophils (%) (Auto) 0.3 Neutrophils # (Auto) 6.1 Lymphocytes # (Auto) 1.0 Monocytes # (Auto) 1.1 Eosinophils # (Auto) 0.0 Basophils # (Auto) 0.0 CBC Comment DIFF FINAL Differential Comment Blood Urea Nitrogen 3 Creatinine 0.58 Random Glucose 193 Total Protein 4.8 Calcium Level 7.3 Phosphorus Level 1.0 Magnesium Level 1.9 Sodium Level 146 Potassium Level 3.6 Chloride Level 116 Carbon Dioxide Level 20.6 Anion Gap 9 Estimat Glomerular Filtration Rate 120 Protein Corrected Calcium 8.6 Phenytoin (Dilantin) Level 11.8 Valproic Acid (Depakene) Level 68 Jorge Yuan MD November 11, 2017 08:33
[2017-11-11] MEDS: SODIUM CHLORIDE 0.9% FLUSH 10 ML FLUSH IV FLUSH SCH ×2 (08:34→20:31)
[2017-11-11] MEDS: POTASSIUM PHOSPHATE MONOBASIC 500 MG TAB PO SCH ×2 (08:34→20:30)
[2017-11-11] MEDS: FAMOTIDINE 20 MG/2 ML VIAL IV PUSH SCH ×2 (08:34→20:30)
[2017-11-11] MEDS ORDERED: FOSPHENYTOIN SODIUM 100 MG PE/2 ML VIAL IV SCH (09:00)
--- NOTE | 2017-11-11 12:29 | HHI.NSPN ---
(Deandre Cordoba) History Chief Complaint: ICH. (Deandre Cordoba) Interval History 82-year-old -[place] female who was transferred from [facility] where she presented with neurologic changes. There is no family members and the patient cannot relate much of a history but apparently with CT scan head obtained she was found to have a right posterior temporal lobe cerebral hemorrhage. CT scan of the head reviewed from [facility] on arrival reveals a less than 2 cm right posterior temporal lobe hemorrhage without any significant mass-effect or midline shift. Overnight her exam is not changed although she had an EEG study done and was noted to have subclinical seizures and has been noted to be more lethargic since then and is awaiting fosphenytoin bolus. MRI scan of the brain is also pending along with neurology evaluation. It is unclear whether this cerebral hemorrhage is spontaneous versus traumatic. 11/03/17: Pt awake and alert. At times not cooperative with exam. She at times doesn't verbalize and others answers questions yes/no. She follows commands at times and other times does not. 11/04/17: Pt sedated for MRI and not opening eyes or following commands. 11/05/17: Pt awakens but still fatigued. She states her name when asked but not verbalizing much otherwise. 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 She moves bilateral LEs to command. 11/06/17: Pt very fatigued again today. Not opening eyes. Not following commands. Pt resting in position. 11/07/17: Pt lethargic still. Not opening eyes or following commands. 11/09/17: Pt lethargic but more awake today than previous days as she actually opened her eyes and said some words. She underwent a right temporal craniotomy for hemorrhagic mass resection on 11/08/17. She is lethargic but opens her eyes. She answers some simple questions. She follows some simple commands. 11/10/17: Pt not as alert this morning as yesterday. Not opening eyes. Verbalizing some words but not able to understand. Spontaneously moves extremities. 11/11/17: Pt lethargic. Not opening eyes. Not following commands. Not verbalizing. Protecting airway currently. (Deandre Cordoba) System Review Comments Not able to obtain given level of alertness. (Deandre Cordoba) Exam Results Vital Signs Date Time Temp Pulse Resp B/P (MAP) Pulse Ox O2 Delivery O2 Flow Rate FiO2 11/11/17 08:25 99 Nasal Cannula 2.00 11/11/17 06:52 19 11/11/17 04:00 98.2 101 130/58 (82) 11/10/17 20:33 21 Intake and Output 11/11/17 11/11/17 11/12/17 08:00 16:00 00:00 Intake Total 1543 ml Output Total 175 ml Balance 1368 ml (Deandre Cordoba) Physical Examination General: Pt in ICU. She is lethargic but protecting airway. Eyes: Pupils equal. Sclera anicteric. Resp: CTA bilaterally. Heart: NSR no murmurs. Abd: Soft positive bs Skin: No cyanosis or erythema. SCDs in place. Incision clean and dry without signs of infection. Muscle: Follows some simple commands. She moves all 4 extremities spontaneously but moves LEs less than UEs to command. Neuro: Pt not opening eyes. Pupils 3mm bilaterally, reactive sluggishly bilaterally. Not following commands. Not verbalizing. (Deandre Cordoba) Lab, Micro, Other Results Last Impressions Chest X-Ray 11/11/17 0000 Signed Impressions: Service Date/Time: November 03:39 - CONCLUSION: 1. Interval placement of nasogastric tube. 2. Hazy proximal opacities remain in both lungs. Hany Booth MD Abdomen X-Ray 11/10/17 0000 Signed Impressions: Service Date/Time: Friday, November 10, 2017 14:00 - CONCLUSION: NG tube in the stomach Donovan Piña MD Head CT 11/09/17 0600 Signed Impressions: Service Date/Time: Thursday, November 09, 2017 05:51 - CONCLUSION: Status post craniotomy and removal of the density seen previously. No residual hematoma is identified. There is residual pneumocephalus. No acute mass effect. Papa Lombardi MD Brain MRI 11/04/17 0000 Signed Impressions: Service Date/Time: November 12:38 - CONCLUSION: Focal abnormality in the right posterior temporal lobe measuring up to 3.9 cm, as above. Examination will be used for intraoperative localization. Donovan Campbell MD Chest CT 11/02/17 0000 Signed Impressions: Service Date/Time: Thursday, November 02, 2017 21:35 - CONCLUSION: 1. Negative for metastatic disease to the thorax. No acute findings. Axel Cheema MD Abdomen/Pelvis CT 11/02/17 0000 Signed Impressions: Service Date/Time: Thursday, November 02, 2017 21:35 - CONCLUSION: 1. Negative for metastatic disease in the abdomen or pelvis. Multiple hepatic cysts. Numerous fibroids in the uterus. Mild colonic constipation and moderate rectal constipation. Axel Cheema MD Laboratory Tests Test 11/11/17 04:31 11/11/17 05:25 Blood Gas Puncture Site LT RADIAL Blood Gas Patient Temperature 98.6 Blood Gas HCO3 19 mmol/L Blood Gas Base Excess -4.7 mmol/L Blood Gas Oxygen Saturation 92 % Arterial Blood pH 7.45 Arterial Blood Partial Pressure CO2 28 mmHg Arterial Blood Partial Pressure O2 75 mmHg Arterial Blood Oxygen Content 12.7 Vol % Arterial Blood Carboxyhemoglobin 0.9 % Arterial Blood Methemoglobin 1.9 % Blood Gas Hemoglobin 9.8 G/DL Oxygen Delivery Device ROOM AIR Blood Gas Inspired Oxygen 21 % White Blood Count 8.3 TH/MM3 Red Blood Count 3.40 MIL/MM3 Hemoglobin 9.7 GM/DL Hematocrit 29.3 % Mean Corpuscular Volume 86.2 FL Mean Corpuscular Hemoglobin 28.6 PG Mean Corpuscular Hemoglobin Concent 33.1 % Red Cell Distribution Width 19.8 % Platelet Count 137 TH/MM3 Mean Platelet Volume 7.1 FL Neutrophils (%) (Auto) 73.8 % Lymphocytes (%) (Auto) 12.0 % Monocytes (%) (Auto) 13.8 % Eosinophils (%) (Auto) 0.1 % Basophils (%) (Auto) 0.3 % Neutrophils # (Auto) 6.1 TH/MM3 Lymphocytes # (Auto) 1.0 TH/MM3 Monocytes # (Auto) 1.1 TH/MM3 Eosinophils # (Auto) 0.0 TH/MM3 Basophils # (Auto) 0.0 TH/MM3 CBC Comment DIFF FINAL Differential Comment Blood Urea Nitrogen 3 MG/DL Creatinine 0.58 MG/DL Random Glucose 193 MG/DL Total Protein 4.8 GM/DL Calcium Level 7.3 MG/DL Phosphorus Level 1.0 MG/DL Magnesium Level 1.9 MG/DL Sodium Level 146 MEQ/L Potassium Level 3.6 MEQ/L Chloride Level 116 MEQ/L Carbon Dioxide Level 20.6 MEQ/L Anion Gap 9 MEQ/L Estimat Glomerular Filtration Rate 120 ML/MIN Protein Corrected Calcium 8.6 MG/DL Phenytoin (Dilantin) Level 11.8 MCG/ML Valproic Acid (Depakene) Level 68 MCG/ML (Deandre Cordoba) Medical Decision Making Impression and Plan A: 82-year-old lady with a right posterior temporal lobe cerebral hemorrhage without mass-effect or midline shift. Continue with observation along with seizure prophylaxis. MRI reveals likely underlying mass. No metastatic sites found on CT chest, abdomen, pelvis. s/p right temporal craniotomy for hemorrhagic mass resection on 11/08/17. Follow up CT head stable. Path pending. P: Continue with hypertension control. Continue with neuro checks in ICU Continue with Rehab efforts. Continue with DVT prophylaxis. Continue with GI prophylaxis. Speech therapy assessing swallow. Following pathology. Continue to get her up in a chair to see if this stimulates her more. (Deandre Cordoba) Attending Statement The exam, history, and the medical decision-making described in the above note were completed with the assistance of the mid-level provider. I reviewed and agree with the findings presented. I attest that I had a [id number] encounter with the patient on the same day, and personally performed and documented my assessment and findings in the medical record. She is on multiple seizure medications and 2 of them are being held due to lethargy as per neurology. Await brain biopsy pathology results. Transfer to floor and subsequent rehab placement once she is more alert. Discussed with nursing staff. (Jay Peterson MD) Deandre Cordoba November 11, 2017 12:29 Jay Peterson MD November 11, 2017 16:47
--- NOTE | 2017-11-11 13:14 | HHI.PR ---
Subjective Remarks Follow-up encephalopathy. Still encephalopathic fosphenytoin and phenobarbital discontinued pending repeat EEG Objective Vitals Vital Signs Date Time Temp Pulse Resp B/P (MAP) Pulse Ox O2 Delivery O2 Flow Rate FiO2 11/11/17 12:00 98 11/11/17 12:00 98.3 98 20 109/51 (70) 98 11/11/17 10:00 94 11/11/17 08:25 99 Nasal Cannula 2.00 11/11/17 08:00 94 11/11/17 08:00 98.5 94 20 87/53 (64) 100 11/11/17 07:00 100 Nasal Cannula 1.00 11/11/17 06:52 19 11/11/17 04:47 99 Nasal Cannula 2.00 11/11/17 04:00 98.2 101 22 130/58 (82) 99 11/11/17 00:00 97.6 86 23 100/59 (73) 99 11/10/17 20:33 98 21 11/10/17 20:00 Room Air 11/10/17 20:00 97.7 76 19 100/66 (77) 99 11/10/17 20:00 81 11/10/17 18:00 74 11/10/17 16:00 89 11/10/17 16:00 97.9 83 22 138/72 (94) 99 11/10/17 14:00 101 I/O 11/10/17 11/10/17 11/10/17 11/11/17 11/11/17 11/11/17 07:00 15:00 23:00 07:00 15:00 23:00 Intake Total 600 ml 1244 ml 1543 ml Output Total 93 ml 280 ml 175 ml Balance -93 ml 600 ml 964 ml 1368 ml IV Total 600 ml 1244 ml 1105 ml Tube Feeding 318 ml Tube Irrigant 120 ml Output Urine Total 93 ml 280 ml 175 ml # Bowel Movements 0 1 Result Diagram: 11/11/1725 11/11/17524 Imaging Last Impressions Soft Tissue Neck X-Ray 11/11/17 0000 Signed Impressions: Service Date/Time: November 13:28 - CONCLUSION: 1. No acute findings. NG tube present. Axel Cheema MD Chest X-Ray 11/11/17 0000 Signed Impressions: Service Date/Time: November 03:39 - CONCLUSION: 1. Interval placement of nasogastric tube. 2. Hazy proximal opacities remain in both lungs. Hany Booth MD Abdomen X-Ray 11/10/17 0000 Signed Impressions: Service Date/Time: Friday, November 10, 2017 14:00 - CONCLUSION: NG tube in the stomach Donovan Piña MD Head CT 11/09/17 0600 Signed Impressions: Service Date/Time: Thursday, November 09, 2017 05:51 - CONCLUSION: Status post craniotomy and removal of the density seen previously. No residual hematoma is identified. There is residual pneumocephalus. No acute mass effect. Papa Lombardi MD Brain MRI 11/04/17 0000 Signed Impressions: Service Date/Time: November 12:38 - CONCLUSION: Focal abnormality in the right posterior temporal lobe measuring up to 3.9 cm, as above. Examination will be used for intraoperative localization. Donovan Campbell MD Chest CT 11/02/17 0000 Signed Impressions: Service Date/Time: Thursday, November 02, 2017 21:35 - CONCLUSION: 1. Negative for metastatic disease to the thorax. No acute findings. Axel Cheema MD Abdomen/Pelvis CT 11/02/17 0000 Signed Impressions: Service Date/Time: Thursday, November 02, 2017 21:35 - CONCLUSION: 1. Negative for metastatic disease in the abdomen or pelvis. Multiple hepatic cysts. Numerous fibroids in the uterus. Mild colonic constipation and moderate rectal constipation. Axel Cheema MD Objective Remarks GENERAL: NAD, well-developed and well-nourished Neck: Improved stridor no retractions CARDIOVASCULAR: Regular rate and rhythm without murmurs, gallops, or rubs. RESPIRATORY: Breath sounds equal bilaterally. No accessory muscle use. GASTROINTESTINAL: Abdomen soft, non-tender, nondistended. MUSCULOSKELETAL: No cyanosis, or edema. SKIN: Warm and dry. NEURO: Lethargic. Patient moving all extremities Procedures Right temporal craniotomy for hemorrhagic mass resection; Brain[facility] stereotactic intraoperative navigation; microsurgical technique, left subclavian central line placement A/P Problem List: (1) ICH (intracerebral hemorrhage) ICD Code: I61.9 - Nontraumatic intracerebral hemorrhage, unspecified Status: Acute (2) Seizure ICD Code: R56.9 - Unspecified convulsions Status: Acute Assessment and Plan 82-year-old female with right parietal intraparenchymal cerebral hemorrhage, with subsequent status epilepticus and encephalopathy. Hypoglycemia hx DM. Resolved now hyperglycemic on steroids continue sliding- scale coverage IVD5 for hypoglycemia. PEG may be necessary to maintain blood sugars. PEG vs. Hospice recommended to family, they are discussing this. Plan to transition to senior living facility Urinary retention Duong catheter placed Right parietal intraparenchymal hemorrhage Right temporal craniotomy for hemorrhagic mass resection; Brain[facility]om[facility] stereotactic intraoperative navigation; microsurgical technique Continue PT and OT Neurosurgery following Continue blood pressure optimization Follow-up repeat head CT noted Subclinical status epilepticus Neurology following Continue dep Neurology has discontinued phenobarbital and fosphenytoin because of persistent encephalopathy repeat EEG pending Continue neuro checks hypertensive emergency. Resolved Continue hydralazine and labetalol Attempt to keep systolic blood pressure less than 140 mmHg COPD with stridor. Improving RTC duo nebs with prn, continue IV solumedrol and racemic epi prn Dyslipidemia Continue present treatment Follow as an outpatient Thyroid disease TSH 11 will adjust med Elevated AST, mild. Monitor mena on AED FEN. Patient has dysphagia secondary to intracranial hemorrhage. Continue tube feeding and discontinue IV hydration as needed restraints DVT prophylaxis SCDs. Pharmacological prophylaxis contraindicated at this time secondary to intracranial hemorrhage Left message with PCP Dr. Cristina [phone] to verify home med list Discharge Planning Keep in ICU, high likelihood of deterioration of neurological status Derrick Gomez MD November 11, 2017 13:14
--- NOTE | 2017-11-11 14:23 | RADRPT ---
EXAM DATE/TIME: 11/11/2017 13:28 [facility] COMPARISON: No previous studies available for comparison. INDICATIONS : Stridor. MEDICAL HISTORY : Stroke. SURGICAL HISTORY : None. ENCOUNTER: Initial ACUITY: 1 week PAIN SCORE: Non-responsive. LOCATION: neck FINDINGS: Two view examination of the soft tissues of the neck demonstrates the hypopharyngeal airway to have a grossly normal configuration. The trachea is midline. No unexpected radiopaque foreign bodies are seen. CONCLUSION: 1. No acute findings. NG tube present. Axel Cheema MD on November 11, 2017 at 14:19 Board Certified Radiologist. This report was verified electronically.
--- NOTE | 2017-11-11 16:12 | MG ---
cc: Lidia Landrum MD DATE OF : 1935 AGE: [age] years old EEG NUMBER: [id number]. REFERRING PHYSICIAN: MD Kwabena ROOM: 1326. NOTE: With photic done, no sedation. Awake, lethargic and asleep. Status post right craniotomy. EEG showed in the past abnormalities due to moderate slowing. I do not have the CT report. Admitted with medicines, please refer to MAR but also on Depakote. DESCRIPTION OF RECORD: A lot of muscle artifact in the frontal morris. The patient is noted to be snoring from the start. Overall 1-2 Hz background except for the artifacts in the frontal eye morris. No gross epileptiform features, but moderate slowing noted throughout. Hyperventilation was not done. Of note, the patient is snoring throughout the recording. Photic stimulation without any significant driving response. IMPRESSION: Moderately slow background noted without any epileptiform features, consistent with encephalopathic process of various etiology. Clinical correlation. Lidia Landrum MD DF/JOZEF , 03:45 PM , 04:11 PM
[2017-11-12] VITALS (14 sets, daily range): BP systolic 105–135; BP diastolic 58–87; PULSE 90–104; RESP 18–34; TEMP 97.8–99.1; O2SAT 96–100
[2017-11-12] MEDS: VALPROATE INJ 500 MG in SODIUM CHLORIDE 0.9% INJ 100 ML IV SCH ×3 (00:18→17:00)
[2017-11-12] MEDS: CHLORHEXIDINE GLUCONATE 2 % 1 PACK (2 CLOTHS) TOP SCH (00:18)
[2017-11-12] MEDS: LEVOTHYROXINE SODIUM 100 MCG TAB NG SCH (06:01)
[2017-11-12] MEDS: methylPREDNISolone SOD SUCC 40 MG/1 ML VIAL IV PUSH SCH (06:01)
[2017-11-12 07:34] LABS: BICARBONATE 24.5 MEQ/L (21.0-32.0); CALCIUM 7.3 MG/DL (8.5-10.1); CREATININE 0.47 MG/DL (0.50-1.00); PHENYTOIN (DILANTIN) 9.6 MCG/ML (10.0-20.0); PHOSPHORUS 1.3 MG/DL (2.5-4.9)
[2017-11-12] MEDS: RESP: ALBUTEROL 2.5 MG/IPRATROPIUM 0.5 MG NEB (SCH) INH ×4 (07:43→20:45)
[2017-11-12 07:49] LABS: CALCIUM-PROTEIN CORRECTED 8.7 MG/DL (8.5-10.1); TOTAL PROTEIN 4.6 GM/DL (6.4-8.2)
--- NOTE | 2017-11-12 08:05 | HHI.PR ---
Review/Management Diagnosis Diagnosis/Plan: (1) ICH (intracerebral hemorrhage) ICD Codes: I61.9 - Nontraumatic intracerebral hemorrhage, unspecified Status: Acute Plan: ich with edema nsx following on phb/dil/dep 11/04 mri brain with contrast reviewed 11/07 ct brain- rt temporal ich with edema 11/09 ct brain- s/p craniotomy, no mass effect noted alb 1.7 dil 9 5/7eeg- no sz recs more arousable will add provigil for somnolence continue on depakote only eeg- no sz. moderate slowing brain biopsy pending (2) Seizure ICD Codes: R56.9 - Unspecified convulsions Status: Acute Plan: on sz med (3) Brain mass ICD Codes: G93.9 - Disorder of brain, unspecified Status: Acute Plan: biopsy pending Subjective Subjective Comments No acute events reported apparently follows off/on; better at night Active Medications Current Medications Medications (Trade) Dose Ordered Sig/Cathie Route Start Time Stop Time Status Last Admin (NS Flush) 2 ml UNSCH PRN IV FLUSH 11/01/17 22:45 (NS Flush) 2 ml BID IV FLUSH 11/02/17 09:00 11/11/17 20:31 (Tylenol) 650 mg Q6H PRN PO 11/01/17 22:45 (Morphine Inj) 2 mg Q2H PRN IV PUSH 11/01/17 22:45 (Pepcid Inj) 20 mg Q12HR IV PUSH 11/02/17 09:00 11/11/17 20:30 (Zofran Inj) 4 mg Q6H PRN IV PUSH 11/01/17 22:45 ([facility] Nursing Information) 1 [id number] XX 11/01/17 22:45 (Chlorhexidine 2% Cloth) Taper DAILY@04 TOP 11/02/17 04:00 10/29/18 03:59 (Chlorhexidine 2% Cloth) 3 pack UNSCH PRN TOP 11/01/17 22:45 (Leigh-Colace) 1 tab BID PO 11/02/17 09:00 11/11/17 20:30 (Milk Of Magnesia Liq) 30 ml Q12H PRN PO 11/01/17 22:45 (Senokot) 17.2 mg Q12H PRN PO 11/01/17 22:45 11/06/17 17:17 (Dulcolax Supp) 10 mg DAILY PRN RECTAL 11/01/17 22:45 (Lactulose Liq) 30 ml DAILY PRN PO 11/01/17 22:45 (Trandate Inj) 10 mg Q4H PRN IV PUSH 11/02/17 00:30 11/02/17 08:28 (Apresoline Inj) 20 mg Q4H PRN IV PUSH 11/02/17 00:30 11/08/17 09:54 Valproate Sodium 500 mg/Sodium Chloride 105 ml @ 105 mls/hr Q8H IV 11/02/17 18:00 11/12/17 00:18 (D50w (Vial) Inj) 50 ml UNSCH PRN IV PUSH 11/03/17 18:15 11/10/17 15:21 (Glucagon Inj) 1 mg UNSCH PRN OTHER 11/03/17 18:15 (NovoLOG SUPPLEMENTAL SCALE) 1 ACHS SLIDING SCALE SQ 11/03/17 21:00 11/11/17 22:40 (K-Phos) 1,000 mg Q12HR PO 11/08/17 09:00 11/11/17 20:30 Potassium Chloride 100 ml @ 50 mls/hr Q2H PRN IV 11/10/17 07:45 Potassium Chloride 100 ml @ 50 mls/hr Q2H PRN IV 11/10/17 07:45 11/10/17 13:00 (K-Lyte Cl Eff) 50 meq UNSCH PRN PO 11/10/17 07:45 Potassium Chloride 100 ml @ 25 mls/hr UNSCH PRN IV 11/10/17 07:45 Potassium Chloride 100 ml @ 50 mls/hr Q2H PRN IV 11/10/17 07:45 Magnesium Sulfate 4 gm/Sodium Chloride 100 ml @ 50 mls/hr UNSCH PRN IV 11/10/17 07:45 (Mag-Ox) 800 mg UNSCH PRN PO 11/10/17 07:45 Magnesium Sulfate 2 gm/Sodium Chloride 100 ml @ 50 mls/hr UNSCH PRN IV 11/10/17 07:45 11/10/17 15:34 (K-Phos) 2,000 mg Q4H PRN PO 11/10/17 07:45 Sodium Phosphate 30 mmol/Sodium Chloride 250 ml @ 42 mls/hr UNSCH PRN IV 11/10/17 07:45 (K-Phos) 2,000 mg UNSCH PRN PO/TUBE 11/10/17 07:45 Potassium Phosphate 30 mmol/ Sodium Chloride 260 ml @ 42 mls/hr UNSCH PRN IV 11/10/17 07:45 11/11/17 08:35 (Duoneb Neb) 1 ampule QID NEB INH 11/10/17 14:00 11/12/17 07:43 (Albuterol Neb) 2.5 mg Q4HR NEB PRN NEB 11/10/17 13:45 11/11/17 02:45 (SoluMEDROL INJ) 40 mg Q8HR IV PUSH 11/10/17 14:00 11/12/17 06:01 (Racepinephrine 2.25% Neb) 0.5 ml Q4HR NEB PRN NEB 11/10/17 13:45 11/11/17 03:44 (Synthroid) 100 mcg DAILY@0600 NG 11/11/17 06:00 11/12/17 06:01 Allergies Allergies Coded Allergies No Known Allergies (Unverified11/01/17) Review of Systems All other ROS: ROS reviewed as documented in chart Exam I&O / VS Vital Signs Date Time Temp Pulse Resp B/P (MAP) Pulse Ox O2 Delivery O2 Flow Rate FiO2 11/12/17 07:44 97 11/12/17 06:00 96 11/12/17 04:00 98.5 95 22 105/71 (82) 100 11/12/17 04:00 95 11/12/17 02:00 92 11/12/17 00:00 99 11/12/17 00:00 99.1 99 21 135/87 (103) 99 11/11/17 22:00 98 11/11/17 20:34 100 Nasal Cannula 2.00 11/11/17 20:00 101 11/11/17 20:00 99.0 101 23 131/70 (90) 100 11/11/17 19:00 100 Nasal Cannula 1.00 11/11/17 18:00 101 11/11/17 16:00 100 11/11/17 16:00 98.4 100 22 105/56 (72) 99 11/11/17 14:00 104 11/11/17 12:00 98 11/11/17 12:00 98.3 98 20 109/51 (70) 98 11/11/17 10:00 94 11/11/17 08:25 99 Nasal Cannula 2.00 General: No acute distress Eye: PERRL Respiratory: Non-labored respirations Cardiology: Normal rate Neurologic: Alert Psychiatric: Cooperative Exam Comments alerted once and said "what" then closed her eyes, eomi, eomi, ou 2.5mm sluggish , face sym, ribeiro to gravity, Objective Micro and Labs Laboratory Tests Test 11/12/17 04:40 Blood Urea Nitrogen 5 Creatinine 0.47 Random Glucose 174 Total Protein 4.6 Calcium Level 7.3 Phosphorus Level 1.3 Magnesium Level 2.0 Sodium Level 148 Potassium Level 3.9 Chloride Level 117 Carbon Dioxide Level 24.5 Anion Gap 7 Estimat Glomerular Filtration Rate 153 Protein Corrected Calcium 8.7 Phenytoin (Dilantin) Level 9.6 Valproic Acid (Depakene) Level 55 Jorge Yuan MD November 12, 2017 08:05
--- NOTE | 2017-11-12 08:36 | HHI.PR ---
Subjective Remarks Follow-up encephalopathy. She is more awake today following simple commands states she is fine Objective Vitals Vital Signs Date Time Temp Pulse Resp B/P (MAP) Pulse Ox O2 Delivery O2 Flow Rate FiO2 11/12/17 07:44 97 11/12/17 06:00 96 11/12/17 04:00 98.5 95 22 105/71 (82) 100 11/12/17 04:00 95 11/12/17 02:00 92 11/12/17 00:00 99 11/12/17 00:00 99.1 99 21 135/87 (103) 99 11/11/17 22:00 98 11/11/17 20:34 100 Nasal Cannula 2.00 11/11/17 20:00 101 11/11/17 20:00 99.0 101 23 131/70 (90) 100 11/11/17 19:00 100 Nasal Cannula 1.00 11/11/17 18:00 101 11/11/17 16:00 100 11/11/17 16:00 98.4 100 22 105/56 (72) 99 11/11/17 14:00 104 11/11/17 12:00 98 11/11/17 12:00 98.3 98 20 109/51 (70) 98 11/11/17 10:00 94 I/O 11/11/17 11/11/17 11/11/17 11/12/17 11/12/17 11/12/17 07:00 15:00 23:00 07:00 15:00 23:00 Intake Total 1543 ml 1110 ml 1055 ml 1227 ml Output Total 175 ml 200 ml 235 ml Balance 1368 ml 1110 ml 855 ml 992 ml IV Total 1105 ml 1110 ml 415 ml 105 ml Tube Feeding 318 ml 540 ml 1002 ml Tube Irrigant 120 ml 100 ml Other 120 ml Output Urine Total 175 ml 200 ml 235 ml # Bowel Movements 1 0 0 Result Diagram: 11/11/17 0525 11/12/17 0440 Imaging Last Impressions Soft Tissue Neck X-Ray 11/11/17 0000 Signed Impressions: Service Date/Time: November 13:28 - CONCLUSION: 1. No acute findings. NG tube present. Axel Cheema MD Chest X-Ray 11/11/17 0000 Signed Impressions: Service Date/Time: November 03:39 - CONCLUSION: 1. Interval placement of nasogastric tube. 2. Hazy proximal opacities remain in both lungs. Hany Booth MD Abdomen X-Ray 11/10/17 0000 Signed Impressions: Service Date/Time: Friday, November 10, 2017 14:00 - CONCLUSION: NG tube in the stomach Donovan Piña MD Head CT 11/09/17 0600 Signed Impressions: Service Date/Time: Thursday, November 09, 2017 05:51 - CONCLUSION: Status post craniotomy and removal of the density seen previously. No residual hematoma is identified. There is residual pneumocephalus. No acute mass effect. Papa Lombardi MD Brain MRI 11/04/17 0000 Signed Impressions: Service Date/Time: November 12:38 - CONCLUSION: Focal abnormality in the right posterior temporal lobe measuring up to 3.9 cm, as above. Examination will be used for intraoperative localization. Donovan Campbell MD Chest CT 11/02/17 0000 Signed Impressions: Service Date/Time: Thursday, November 02, 2017 21:35 - CONCLUSION: 1. Negative for metastatic disease to the thorax. No acute findings. Axel Cheema MD Abdomen/Pelvis CT 11/02/17 0000 Signed Impressions: Service Date/Time: Thursday, November 02, 2017 21:35 - CONCLUSION: 1. Negative for metastatic disease in the abdomen or pelvis. Multiple hepatic cysts. Numerous fibroids in the uterus. Mild colonic constipation and moderate rectal constipation. Axel Cheema MD Objective Remarks GENERAL: NAD, well-developed and well-nourished Neck: Improved stridor no retractions CARDIOVASCULAR: Regular rate and rhythm without murmurs, gallops, or rubs. RESPIRATORY: Breath sounds equal bilaterally. No accessory muscle use. GASTROINTESTINAL: Abdomen soft, non-tender, nondistended. MUSCULOSKELETAL: No cyanosis but with pitting edema. SKIN: Warm and dry. NEURO: Less lethargic answering questions and following simple commands patient moving all extremities Procedures Right temporal craniotomy for hemorrhagic mass resection; Brain[facility] stereotactic intraoperative navigation; microsurgical technique, left subclavian central line placement A/P Problem List: (1) ICH (intracerebral hemorrhage) ICD Code: I61.9 - Nontraumatic intracerebral hemorrhage, unspecified Status: Acute (2) Seizure ICD Code: R56.9 - Unspecified convulsions Status: Acute Assessment and Plan 82-year-old female with right parietal intraparenchymal cerebral hemorrhage, with subsequent status epilepticus and encephalopathy. Hypoglycemia hx DM. Resolved now hyperglycemic on steroids continue sliding- scale coverage IVD5 for hypoglycemia. PEG may be necessary to maintain blood sugars. PEG vs. Hospice recommended to family, they are discussing this. Plan to transition to [facility] facility Urinary retention Duong catheter placed, will consider removal once she is out of bed Right parietal intraparenchymal hemorrhage Right temporal craniotomy for hemorrhagic mass resection; BrainLab stereotactic intraoperative navigation; microsurgical technique. Pathology pending Continue PT and OT Neurosurgery following Continue blood pressure optimization Follow-up repeat head CT noted Subclinical status epilepticus Neurology following Continue dep Neurology has discontinued phenobarbital and fosphenytoin because of persistent encephalopathy repeat EEG without seizure. Improving mental status. Ordered Provigil Continue neuro checks hypertensive emergency. Resolved Continue hydralazine and labetalol Attempt to keep systolic blood pressure less than 140 mmHg COPD with stridor. Improving RTC duo nebs with prn, switch to p.o. 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 Monitor mena on AED FEN. Patient has dysphagia secondary to intracranial hemorrhage. Continue tube feeding and discontinue IV hydration as needed restraints DVT prophylaxis SCDs. Pharmacological prophylaxis contraindicated at this time secondary to intracranial hemorrhage Discharge Planning Keep in ICU for another day Derrick Gomez MD November 12, 2017 08:36
[2017-11-12] MEDS: DOCUSATE SODIUM 50 MG/SENNA 8.6 MG TAB PO SCH ×2 (10:17→21:00)
[2017-11-12] MEDS: POTASSIUM PHOSPHATE MONOBASIC 500 MG TAB PO SCH ×2 (10:18→21:00)
[2017-11-12] MEDS: SODIUM CHLORIDE 0.9% FLUSH 10 ML FLUSH IV FLUSH SCH ×2 (10:18→21:00)
[2017-11-12] MEDS: INSULIN ASPART SUPPLEMENTAL SCALE SQ SCH ×4 (10:55→21:00)
[2017-11-12] MEDS: predniSONE 20 MG TAB NG SCH (11:43)
[2017-11-12] MEDS: LANSOPRAZOLE SOLUTAB 15 MG TAB NG SCH (11:43)
--- NOTE | 2017-11-12 12:06 | HHI.NSPN ---
(Vickie Linder) Note Status Status: Progress Note (Vickie Linder) Interval History Interval History 82-year-old -French female who was transferred from [facility] where she presented with neurologic changes. There is no family members and the patient cannot relate much of a history but apparently with CT scan head obtained she was found to have a right posterior temporal lobe cerebral hemorrhage. CT scan of the head reviewed from [facility] on arrival reveals a less than 2 cm right posterior temporal lobe hemorrhage without any significant mass-effect or midline shift. Overnight her exam is not changed although she had an EEG study done and was noted to have subclinical seizures and has been noted to be more lethargic since then and is awaiting fosphenytoin bolus. MRI scan of the brain is also pending along with neurology evaluation. It is unclear whether this cerebral hemorrhage is spontaneous versus traumatic. 11/03/17: Pt awake and alert. At times not cooperative with exam. She at times doesn't verbalize and others answers questions yes/no. She follows commands at times and other times does not. 11/04/17: Pt sedated for MRI and not opening eyes or following commands. 11/05/17: Pt awakens but still fatigued. She states her name when asked but not verbalizing much otherwise. 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 She moves bilateral LEs to command. 11/06/17: Pt very fatigued again today. Not opening eyes. Not following commands. Pt resting in position. 11/07/17: Pt lethargic still. Not opening eyes or following commands. 11/09/17: Pt lethargic but more awake today than previous days as she actually opened her eyes and said some words. She underwent a right temporal craniotomy for hemorrhagic mass resection on 11/08/17. She is lethargic but opens her eyes. She answers some simple questions. She follows some simple commands. 11/10/17: Pt not as alert this morning as yesterday. Not opening eyes. Verbalizing some words but not able to understand. Spontaneously moves extremities. 5/10/18: Pt lethargic. Not opening eyes. Not following commands. Not verbalizing. Protecting airway currently. 11/12/17: awake, appears drowsy, oriented to name, followed few simple commands. (Vickie Linder) Labs, Micro, & Vital Signs Results Date Time Temp Pulse Resp B/P (MAP) Pulse Ox O2 Delivery O2 Flow Rate FiO2 11/12/17 07:44 97 11/12/17 06:00 96 11/12/17 04:00 98.5 95 22 105/71 (82) 100 11/12/17 04:00 95 11/12/17 02:00 92 11/12/17 00:00 99 11/12/17 00:00 99.1 99 21 135/87 (103) 99 11/11/17 22:00 98 11/11/17 20:34 100 Nasal Cannula 2.00 11/11/17 20:00 101 11/11/17 20:00 99.0 101 23 131/70 (90) 100 11/11/17 19:00 100 Nasal Cannula 1.00 11/11/17 18:00 101 11/11/17 16:00 100 11/11/17 16:00 98.4 100 22 105/56 (72) 99 11/11/17 14:00 104 11/11/17 12:00 98 11/11/17 12:00 98.3 98 20 109/51 (70) 98 Constitutional Vital Signs Date Time Temp Pulse Resp B/P (MAP) Pulse Ox O2 Delivery O2 Flow Rate FiO2 11/12/17 07:44 97 11/12/17 06:00 96 11/12/17 04:00 98.5 95 22 105/71 (82) 100 11/12/17 04:00 95 11/12/17 02:00 92 11/12/17 00:00 99 11/12/17 00:00 99.1 99 21 135/87 (103) 99 11/11/17 22:00 98 11/11/17 20:34 100 Nasal Cannula 2.00 11/11/17 20:00 101 11/11/17 20:00 99.0 101 23 131/70 (90) 100 11/11/17 19:00 100 Nasal Cannula 1.00 11/11/17 18:00 101 11/11/17 16:00 100 11/11/17 16:00 98.4 100 22 105/56 (72) 99 11/11/17 14:00 104 11/11/17 12:00 98 11/11/17 12:00 98.3 98 20 109/51 (70) 98 (Vickie Linder) Review of Systems ROS Limitations: Altered Mental Status (Vickie Linder) Physical Exam General: In no obvious distress Eyes: Pupils equal. Sclera anicteric. Resp: mild wheezing bilaterally Heart: NSR no murmurs. Abd: Soft positive bs Skin: No cyanosis or erythema. SCDs in place. Incision clean and dry without signs of infection. Muscle: Follows some simple commands. Generalized weakness, moved grossly hands and moved feet. Neuro: Awake, said her name and in hospital, appears mildly drowsy, followed few simple commands to extremities. Pupils 3mm bilaterally, reactive sluggishly bilaterally. (Vickie Linder) Medications Current Medications Current Medications Medications (Trade) Dose Ordered Sig/Cathie Route PRN Reason Start Time Stop Time Status Last Admin Dose Admin Sodium Chloride (NS Flush) 2 ml UNSCH PRN IV FLUSH FLUSH AFTER USING IV ACCESS 11/01/17 22:45 Sodium Chloride (NS Flush) 2 ml BID IV FLUSH 11/02/17 09:00 11/12/17 10:18 Acetaminophen (Tylenol) 650 mg Q6H PRN PO PAIN 1-5 AND/OR FEVER >101F 11/01/17 22:45 Morphine Sulfate (Morphine Inj) 2 mg Q2H PRN IV PUSH PAIN SCALE 6 TO 10 11/01/17 22:45 Ondansetron HCl (Zofran Inj) 4 mg Q6H PRN IV PUSH NAUSEA OR VOMITING 11/01/17 22:45 Miscellaneous Information ([facility] [place] [facility]) 1 Q361D XX 11/01/17 22:45 Chlorhexidine Gluconate (Chlorhexidine 2% Cloth) Taper DAILY@04 TOP 11/02/17 04:00 10/29/18 03:59 Chlorhexidine Gluconate (Chlorhexidine 2% Cloth) 3 pack UNSCH PRN TOP HYGIENIC CARE 11/01/17 22:45 Senna/Docusate Sodium (Leigh-Colace) 1 tab BID PO 11/02/17 09:00 11/12/17 10:17 Magnesium Hydroxide (Milk Of Magnesia Liq) 30 ml Q12H PRN PO Mild constipation 11/01/17 22:45 Sennosides (Senokot) 17.2 mg Q12H PRN PO Moderate constipation 11/01/17 22:45 11/06/17 17:17 Bisacodyl (Dulcolax Supp) 10 mg DAILY PRN RECTAL SEVERE CONSITIPATION 11/01/17 22:45 Lactulose (Lactulose Liq) 30 ml DAILY PRN PO SEVERE CONSITIPATION 11/01/17 22:45 Labetalol HCl (Trandate Inj) 10 mg Q4H PRN IV PUSH SBP>140, DBP>90 11/02/17 00:30 11/02/17 08:28 Hydralazine HCl (Apresoline Inj) 20 mg Q4H PRN IV PUSH SBP>140, DBP>90 11/02/17 00:30 11/08/17 09:54 Valproate Sodium 500 mg/Sodium Chloride 105 ml @ 105 mls/hr Q8H IV 11/02/17 18:00 11/12/17 10:18 Dextrose (D50w (Vial) Inj) 50 ml UNSCH PRN IV PUSH HYPOGLYCEMIA-SEE COMMENTS 11/03/17 18:15 11/10/17 15:21 Glucagon (Glucagon Inj) 1 mg UNSCH PRN OTHER HYPOGLYCEMIA-SEE COMMENTS 11/03/17 18:15 Insulin Aspart (NovoLOG SUPPLEMENTAL SCALE) 1 ACHS SLIDING SCALE SQ 11/03/17 21:00 11/12/17 10:55 Potassium Phosphate (K-Phos) 1,000 mg Q12HR PO 11/08/17 09:00 11/12/17 10:18 Potassium Chloride 100 ml @ 50 mls/hr Q2H PRN IV For Potassium 2.8 - 3.2 mEq/L 11/10/17 07:45 Potassium Chloride 100 ml @ 50 mls/hr Q2H PRN IV For Potassium 2.8 - 3.2 mEq/L 11/10/17 07:45 11/10/17 13:00 Potassium Bicarb/ Potassium Chloride (K-Lyte Cl Eff) 50 meq UNSCH PRN PO For Potassium 3.3 - 3.5 mEq/L 11/10/17 07:45 Potassium Chloride 100 ml @ 25 mls/hr UNSCH PRN IV For Potassium 3.3 - 3.5 mEq/L 11/10/17 07:45 Potassium Chloride 100 ml @ 50 mls/hr Q2H PRN IV For Potassium 3.3 - 3.5 mEq/L 11/10/17 07:45 Magnesium Sulfate 4 gm/Sodium Chloride 100 ml @ 50 mls/hr UNSCH PRN IV For Magnesium 0.9 - 1.1 mg/dL 11/10/17 07:45 Magnesium Oxide (Mag-Ox) 800 mg UNSCH PRN PO For Magnesium 1.2 - 1.6 mg/dL 11/10/17 07:45 Magnesium Sulfate 2 gm/Sodium Chloride 100 ml @ 50 mls/hr UNSCH PRN IV For Magnesium 1.2 - 1.6 mg/dL 11/10/17 07:45 11/10/17 15:34 Potassium Phosphate (K-Phos) 2,000 mg Q4H PRN PO For Phosphorus < 2.5 mg/dL 11/10/17 07:45 Sodium Phosphate 30 mmol/Sodium Chloride 250 ml @ 42 mls/hr UNSCH PRN IV For Phosphorus < 2.5 mg/dL 11/10/17 07:45 Potassium Phosphate (K-Phos) 2,000 mg UNSCH PRN PO/TUBE SEE LABEL COMMENTS 11/10/17 07:45 Potassium Phosphate 30 mmol/ Sodium Chloride 260 ml @ 42 mls/hr UNSCH PRN IV SEE LABEL COMMENTS 11/10/17 07:45 11/11/17 08:35 Albuterol/ Ipratropium (Duoneb Neb) 1 ampule QID NEB INH 11/10/17 14:00 11/12/17 10:54 Albuterol Sulfate (Albuterol Neb) 2.5 mg Q4HR NEB PRN NEB SOB/WHEEZING 11/10/17 13:45 11/11/17 02:45 Racepinephrine (Racepinephrine 2.25% Neb) 0.5 ml Q4HR NEB PRN NEB stridor 11/10/17 13:45 11/11/17 03:44 Levothyroxine Sodium (Synthroid) 100 mcg DAILY@0600 NG 11/11/17 06:00 11/12/17 06:01 Lansoprazole (Prevacid Odt) 15 mg DAILY NG 11/12/17 10:00 11/12/17 11:43 Prednisone (Deltasone) 20 mg DAILY NG 11/12/17 12:00 11/17/17 11:59 11/12/17 11:43 (Vickie Linder) Medical Decision Making MDM Remarks 82-year-old lady with a right posterior temporal lobe cerebral hemorrhage without mass-effect or midline shift. Continue with observation along with seizure prophylaxis. MRI reveals likely underlying mass. No metastatic sites found on CT chest, abdomen, pelvis. s/p right temporal craniotomy for hemorrhagic mass resection on 11/08/17. Follow up CT head stable. Pathology pending. (Vickie Linder) Plan Plan Remarks cont neuro checks DVT prophylaxis. GI prophylaxis. f/u pathology cont therapy (Vickie Linder) Attending Statement The exam, history, and the medical decision-making described in the above note were completed with the assistance of the mid-level provider. I reviewed and agree with the findings presented. I attest that I had a [id number] encounter with the patient on the same day, and personally performed and documented my assessment and findings in the medical record. (Fili Mcdermott MD) Vickie Lidner November 12, 2017 12:06 Fili Mcdermott MD November 14, 2017 14:26
[2017-11-13] VITALS (14 sets, daily range): BP systolic 97–133; BP diastolic 52–68; PULSE 60–100; RESP 18–24; TEMP 97.7–98.1; O2SAT 96–100
[2017-11-13] MEDS: VALPROATE INJ 500 MG in SODIUM CHLORIDE 0.9% INJ 100 ML IV SCH ×3 (01:17→17:41)
[2017-11-13] MEDS: CHLORHEXIDINE GLUCONATE 2 % 1 PACK (2 CLOTHS) TOP SCH (03:30)
[2017-11-13 04:46] LABS: AUTOMATED NEUTROPHIL # 3.7 TH/MM3 (1.8-7.7); BASOPHIL % 0.5 % (0.0-2.0); EOSINOPHIL % 0.6 % (0.0-4.0); HEMATOCRIT 25.2 % (35.0-46.0); HEMOGLOBIN 8.3 GM/DL (11.6-15.3); LYMPH % 21.6 % (9.0-44.0); LYMPHOCYTE # 1.4 TH/MM3 (1.0-4.8); MEAN CELL VOLUME 85.9 FL (80.0-100.0); MEAN CORPUSCULAR HEMOGLOBIN 28.3 PG (27.0-34.0); MEAN CORPUSCULAR HGB CONC 32.9 % (32.0-36.0); MEAN PLATELET VOLUME 6.9 FL (7.0-11.0); MONO % 19.4 % (0.0-8.0); MONOCYTE # 1.2 TH/MM3 (0-0.9); NEUT % 57.9 % (16.0-70.0); PLATELET COUNT 175 TH/MM3 (150-450); RED BLOOD COUNT 2.94 MIL/MM3 (4.00-5.30); RED CELL DISTRIBUTION WIDTH 21.5 % (11.6-17.2); WHITE BLOOD COUNT 6.4 TH/MM3 (4.0-11.0)
[2017-11-13 05:33] LABS: BICARBONATE 27.8 MEQ/L (21.0-32.0); CALCIUM 7.4 MG/DL (8.5-10.1); CREATININE 0.44 MG/DL (0.50-1.00); MAGNESIUM 1.9 MG/DL (1.5-2.5); PHOSPHORUS 1.4 MG/DL (2.5-4.9)
[2017-11-13 05:44] LABS: BANDS 3 % (0-6); LYMPHOCYTES 19 % (9-44); METAMYELOCYTES 13 % (0-1); MONOCYTES 1 % (0-8); NEUTROPHIL # MANUAL DIFF 5.1 TH/MM3 (1.8-7.7); POLYS (SEG NEUTROPHILS) 62 % (16-70); PROMYELOCYTES 2 % (0-0)
[2017-11-13 05:45] LABS: OVALOCYTES 1+ (NORMAL)
[2017-11-13 05:55] LABS: CALCIUM-PROTEIN CORRECTED 8.9 MG/DL (8.5-10.1); TOTAL PROTEIN 4.5 GM/DL (6.4-8.2)
[2017-11-13] MEDS: THYROID 30 MG TAB NG SCH (07:48)
[2017-11-13] MEDS: THYROID 60 MG TAB NG SCH (07:49)
[2017-11-13] MEDS: RESP: ALBUTEROL 2.5 MG/IPRATROPIUM 0.5 MG NEB (SCH) INH ×4 (07:54→19:46)
[2017-11-13] MEDS: INSULIN ASPART SUPPLEMENTAL SCALE SQ SCH ×4 (08:50→20:57)
[2017-11-13] MEDS: SODIUM CHLORIDE 0.9% FLUSH 10 ML FLUSH IV FLUSH SCH ×2 (09:13→20:56)
[2017-11-13] MEDS: LANSOPRAZOLE SOLUTAB 15 MG TAB NG SCH (09:17)
[2017-11-13] MEDS: predniSONE 20 MG TAB NG SCH (09:17)
[2017-11-13] MEDS: DOCUSATE SODIUM 50 MG/SENNA 8.6 MG TAB PO SCH ×2 (09:17→20:57)
[2017-11-13] MEDS: POTASSIUM PHOSPHATE MONOBASIC 500 MG TAB PO SCH ×2 (09:18→20:56)
[2017-11-13] MEDS ORDERED: PILL SPLITTER OTHER PRN (11:00)
[2017-11-13] MEDS ORDERED: MODAFINIL 200 MG TAB PO ONE (12:00)
--- NOTE | 2017-11-13 12:40 | HHI.NSPN ---
(Vickie Lindre) Note Status Status: Progress Note (Vickie Linder) Interval History Interval History 82-year-old -[place] female who was transferred from [facility] where she presented with neurologic changes. There is no family members and the patient cannot relate much of a history but apparently with CT scan head obtained she was found to have a right posterior temporal lobe cerebral hemorrhage. CT scan of the head reviewed from [facility] on arrival reveals a less than 2 cm right posterior temporal lobe hemorrhage without any significant mass-effect or midline shift. Overnight her exam is not changed although she had an EEG study done and was noted to have subclinical seizures and has been noted to be more lethargic since then and is awaiting fosphenytoin bolus. MRI scan of the brain is also pending along with neurology evaluation. It is unclear whether this cerebral hemorrhage is spontaneous versus traumatic. 11/03/17: Pt awake and alert. At times not cooperative with exam. She at times doesn't verbalize and others answers questions yes/no. She follows commands at times and other times does not. 11/04/17: Pt sedated for MRI and not opening eyes or following commands. 11/05/17: Pt awakens but still fatigued. She states her name when asked but not verbalizing much otherwise. 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 She moves bilateral LEs to command. 11/06/17: Pt very fatigued again today. Not opening eyes. Not following commands. Pt resting in position. 11/07/17: Pt lethargic still. Not opening eyes or following commands. 11/09/17: Pt lethargic but more awake today than previous days as she actually opened her eyes and said some words. She underwent a right temporal craniotomy for hemorrhagic mass resection on 11/08/17. She is lethargic but opens her eyes. She answers some simple questions. She follows some simple commands. 11/10/17: Pt not as alert this morning as yesterday. Not opening eyes. Verbalizing some words but not able to understand. Spontaneously moves extremities. 5/10/18: Pt lethargic. Not opening eyes. Not following commands. Not verbalizing. Protecting airway currently. 11/12/17: awake, appears drowsy, oriented to name, followed few simple commands. 11/13/17: Appearing more awake today, says to be doing well. Generalized weakness, but follows commands 4 extremities. (Vickie Linder) Labs, Micro, & Vital Signs Results Date Time Temp Pulse Resp B/P (MAP) Pulse Ox O2 Delivery O2 Flow Rate FiO2 11/13/17 10:00 93 11/13/17 08:00 91 11/13/17 08:00 98.1 83 18 133/60 (84) 96 11/13/17 07:54 97 21 11/13/17 07:00 98 Room Air 11/13/17 06:00 90 11/13/17 04:00 88 11/13/17 04:00 98.0 88 21 97/52 (67) 96 11/13/17 02:00 98 11/13/17 00:00 98.1 100 24 126/58 (80) 96 11/13/17 00:00 100 11/12/17 22:00 104 11/12/17 20:45 96 21 11/12/17 20:00 97.8 98 34 115/69 (84) 97 11/12/17 20:00 98 11/12/17 19:00 97 Room Air 11/12/17 18:00 100 11/12/17 16:00 91 11/12/17 16:00 97.8 94 18 130/60 (83) 98 11/12/17 14:00 90 Constitutional Vital Signs Date Time Temp Pulse Resp B/P (MAP) Pulse Ox O2 Delivery O2 Flow Rate FiO2 11/13/17 10:00 93 11/13/17 08:00 91 11/13/17 08:00 98.1 83 18 133/60 (84) 96 11/13/17 07:54 97 21 11/13/17 07:00 98 Room Air 11/13/17 06:00 90 11/13/17 04:00 88 11/13/17 04:00 98.0 88 21 97/52 (67) 96 11/13/17 02:00 98 11/13/17 00:00 98.1 100 24 126/58 (80) 96 11/13/17 00:00 100 11/12/17 22:00 104 11/12/17 20:45 96 21 11/12/17 20:00 97.8 98 34 115/69 (84) 97 11/12/17 20:00 98 11/12/17 19:00 97 Room Air 11/12/17 18:00 100 11/12/17 16:00 91 11/12/17 16:00 97.8 94 18 130/60 (83) 98 11/12/17 14:00 90 (Vickie Linder) Physical Exam General: In no obvious distress, resting comfortably Eyes: Pupils equal. Sclera anicteric. Resp: mild wheezing bilaterally Heart: NSR no murmurs. Abd: Soft positive bs Skin: No cyanosis or erythema. SCDs in place. Right surgical wound healing well, ashlie intact Muscle: Follows some simple commands. Generalized weakness, gripped both hands and moved both feet to command Neuro: Awake, said her name and in hospital, followed few simple commands to extremities. Pupils 3mm bilaterally, reactive sluggishly bilaterally. NGT tube feeds (Vickie Linder) Medications Current Medications Current Medications Medications (Trade) Dose Ordered Sig/Cathie Route PRN Reason Start Time Stop Time Status Last Admin Dose Admin Sodium Chloride (NS Flush) 2 ml UNSCH PRN IV FLUSH FLUSH AFTER USING IV ACCESS 11/01/17 22:45 Sodium Chloride (NS Flush) 2 ml BID IV FLUSH 11/02/17 09:00 11/13/17 09:13 Acetaminophen (Tylenol) 650 mg Q6H PRN PO PAIN 1-5 AND/OR FEVER >101F 11/01/17 22:45 Morphine Sulfate (Morphine Inj) 2 mg Q2H PRN IV PUSH PAIN SCALE 6 TO 10 11/01/17 22:45 Ondansetron HCl (Zofran Inj) 4 mg Q6H PRN IV PUSH NAUSEA OR VOMITING 11/01/17 22:45 Miscellaneous Information ([facility] [place] Nursing Information) 1 Q361D XX 11/01/17 22:45 Chlorhexidine Gluconate (Chlorhexidine 2% Cloth) Taper DAILY@04 TOP 11/02/17 04:00 10/29/18 03:59 Chlorhexidine Gluconate (Chlorhexidine 2% Cloth) 3 pack UNSCH PRN TOP HYGIENIC CARE 11/01/17 22:45 Senna/Docusate Sodium (Leigh-Colace) 1 tab BID PO 11/02/17 09:00 11/13/17 09:17 Magnesium Hydroxide (Milk Of Magnesia Liq) 30 ml Q12H PRN PO Mild constipation 11/01/17 22:45 Sennosides (Senokot) 17.2 mg Q12H PRN PO Moderate constipation 11/01/17 22:45 11/06/17 17:17 Bisacodyl (Dulcolax Supp) 10 mg DAILY PRN RECTAL SEVERE CONSITIPATION 11/01/17 22:45 Lactulose (Lactulose Liq) 30 ml DAILY PRN PO SEVERE CONSITIPATION 11/01/17 22:45 Labetalol HCl (Trandate Inj) 10 mg Q4H PRN IV PUSH SBP>140, DBP>90 11/02/17 00:30 11/02/17 08:28 Hydralazine HCl (Apresoline Inj) 20 mg Q4H PRN IV PUSH SBP>140, DBP>90 11/02/17 00:30 11/08/17 09:54 Valproate Sodium 500 mg/Sodium Chloride 105 ml @ 105 mls/hr Q8H IV 11/02/17 18:00 11/13/17 09:18 Dextrose (D50w (Vial) Inj) 50 ml UNSCH PRN IV PUSH HYPOGLYCEMIA-SEE COMMENTS 11/03/17 18:15 11/10/17 15:21 Glucagon (Glucagon Inj) 1 mg UNSCH PRN OTHER HYPOGLYCEMIA-SEE COMMENTS 11/03/17 18:15 Insulin Aspart (NovoLOG SUPPLEMENTAL SCALE) 1 ACHS SLIDING SCALE SQ 11/03/17 21:00 11/13/17 08:50 Potassium Phosphate (K-Phos) 1,000 mg Q12HR PO 11/08/17 09:00 11/13/17 09:18 Potassium Chloride 100 ml @ 50 mls/hr Q2H PRN IV For Potassium 2.8 - 3.2 mEq/L 11/10/17 07:45 Potassium Chloride 100 ml @ 50 mls/hr Q2H PRN IV For Potassium 2.8 - 3.2 mEq/L 11/10/17 07:45 11/10/17 13:00 Potassium Bicarb/ Potassium Chloride (K-Lyte Cl Eff) 50 meq UNSCH PRN PO For Potassium 3.3 - 3.5 mEq/L 11/10/17 07:45 Potassium Chloride 100 ml @ 25 mls/hr UNSCH PRN IV For Potassium 3.3 - 3.5 mEq/L 11/10/17 07:45 Potassium Chloride 100 ml @ 50 mls/hr Q2H PRN IV For Potassium 3.3 - 3.5 mEq/L 11/10/17 07:45 Magnesium Sulfate 4 gm/Sodium Chloride 100 ml @ 50 mls/hr UNSCH PRN IV For Magnesium 0.9 - 1.1 mg/dL 11/10/17 07:45 Magnesium Oxide (Mag-Ox) 800 mg UNSCH PRN PO For Magnesium 1.2 - 1.6 mg/dL 11/10/17 07:45 Magnesium Sulfate 2 gm/Sodium Chloride 100 ml @ 50 mls/hr UNSCH PRN IV For Magnesium 1.2 - 1.6 mg/dL 11/10/17 07:45 11/10/17 15:34 Potassium Phosphate (K-Phos) 2,000 mg Q4H PRN PO For Phosphorus < 2.5 mg/dL 11/10/17 07:45 Sodium Phosphate 30 mmol/Sodium Chloride 250 ml @ 42 mls/hr UNSCH PRN IV For Phosphorus < 2.5 mg/dL 11/10/17 07:45 Potassium Phosphate (K-Phos) 2,000 mg UNSCH PRN PO/TUBE SEE LABEL COMMENTS 11/10/17 07:45 Potassium Phosphate 30 mmol/ Sodium Chloride 260 ml @ 42 mls/hr UNSCH PRN IV SEE LABEL COMMENTS 11/10/17 07:45 11/11/17 08:35 Albuterol/ Ipratropium (Duoneb Neb) 1 ampule QID NEB INH 11/10/17 14:00 11/13/17 11:23 Albuterol Sulfate (Albuterol Neb) 2.5 mg Q4HR NEB PRN NEB SOB/WHEEZING 11/10/17 13:45 11/11/17 02:45 Racepinephrine (Racepinephrine 2.25% Neb) 0.5 ml Q4HR NEB PRN NEB stridor 11/10/17 13:45 11/11/17 03:44 Lansoprazole (Prevacid Odt) 15 mg DAILY NG 11/12/17 10:00 11/13/17 09:17 Prednisone (Deltasone) 20 mg DAILY NG 11/12/17 12:00 11/17/17 11:59 11/13/17 09:17 Thyroid ([place] Thyroid) 60 mg DAILY@0600 NG 11/13/17 06:00 11/13/17 07:49 Thyroid ([place] Thyroid) 30 mg DAILY@0600 NG 11/13/17 06:00 11/13/17 07:48 Miscellaneous (Pill Splitter) 1 ea UNSCH PRN OTHER SEE LABEL COMMENTS 11/13/17 11:00 (Vickie Linder) Medical Decision Making MDM Remarks 82-year-old lady with a right posterior temporal lobe cerebral hemorrhage without mass-effect or midline shift. Continue with observation along with seizure prophylaxis. MRI reveals likely underlying mass. No metastatic sites found on CT chest, abdomen, pelvis. s/p right temporal craniotomy for hemorrhagic mass resection on 11/08/17. Follow up CT head stable. Pathology pending (Vickie Linder) Plan Plan Remarks neuro exam stable, cont neuro checks f/u pathology cont therapy ok to transfer out of [facility] to near nursing station (Vickie Linder) Attending Statement The exam, history, and the medical decision-making described in the above note were completed with the assistance of the mid-level provider. I reviewed and agree with the findings presented. I attest that I had a [id number] encounter with the patient on the same day, and personally performed and documented my assessment and findings in the medical record. (Fili Mcdermott MD) Vickie Linder November 13, 2017 12:40 Fili Mcdermott MD November 14, 2017 14:28
--- NOTE | 2017-11-13 14:35 | HHI.PR ---
Subjective Remarks f/u enephalopathy. More awake oriented to person and ff commands Objective Vitals Vital Signs Date Time Temp Pulse Resp B/P (MAP) Pulse Ox O2 Delivery O2 Flow Rate FiO2 11/13/17 12:00 98.1 88 22 122/61 (81) 100 11/13/17 12:00 60 11/13/17 10:00 93 11/13/17 08:00 91 11/13/17 08:00 98.1 83 18 133/60 (84) 96 11/13/17 07:54 97 21 11/13/17 07:00 98 Room Air 11/13/17 06:00 90 11/13/17 04:00 88 11/13/17 04:00 98.0 88 21 97/52 (67) 96 11/13/17 02:00 98 11/13/17 00:00 98.1 100 24 126/58 (80) 96 11/13/17 00:00 100 11/12/17 22:00 104 11/12/17 20:45 96 21 11/12/17 20:00 97.8 98 34 115/69 (84) 97 11/12/17 20:00 98 11/12/17 19:00 97 Room Air 11/12/17 18:00 100 11/12/17 16:00 91 11/12/17 16:00 97.8 94 18 130/60 (83) 98 I/O 11/12/17 11/12/17 11/12/17 11/13/17 11/13/17 11/13/17 07:00 15:00 23:00 07:00 15:00 23:00 Intake Total 1227 ml 720 ml 554 ml Output Total 235 ml 550 ml 350 ml Balance 992 ml 170 ml 204 ml IV Total 105 ml Tube Feeding 1002 ml 520 ml 454 ml Other 120 ml 200 ml 100 ml Output Urine Total 235 ml 550 ml 350 ml # Bowel Movements 0 0 0 Result Diagram: 11/13/1741911/13/17419 Imaging Last Impressions Soft Tissue Neck X-Ray 11/11/17 0000 Signed Impressions: Service Date/Time: November 13:28 - CONCLUSION: 1. No acute findings. NG tube present. Axel Cheema MD Chest X-Ray 11/11/17 0000 Signed Impressions: Service Date/Time: November 03:39 - CONCLUSION: 1. Interval placement of nasogastric tube. 2. Hazy proximal opacities remain in both lungs. Hany Booth MD Abdomen X-Ray 11/10/17 0000 Signed Impressions: Service Date/Time: Friday, November 10, 2017 14:00 - CONCLUSION: NG tube in the stomach Donovan Piña MD Head CT 11/09/17 0600 Signed Impressions: Service Date/Time: Thursday, November 09, 2017 05:51 - CONCLUSION: Status post craniotomy and removal of the density seen previously. No residual hematoma is identified. There is residual pneumocephalus. No acute mass effect. Papa Lombardi MD Brain MRI 11/04/17 0000 Signed Impressions: Service Date/Time: November 12:38 - CONCLUSION: Focal abnormality in the right posterior temporal lobe measuring up to 3.9 cm, as above. Examination will be used for intraoperative localization. Donovan Campbell MD Chest CT 11/02/17 0000 Signed Impressions: Service Date/Time: Thursday, November 02, 2017 21:35 - CONCLUSION: 1. Negative for metastatic disease to the thorax. No acute findings. Axel Cheema MD Abdomen/Pelvis CT 11/02/17 0000 Signed Impressions: Service Date/Time: Thursday, November 02, 2017 21:35 - CONCLUSION: 1. Negative for metastatic disease in the abdomen or pelvis. Multiple hepatic cysts. Numerous fibroids in the uterus. Mild colonic constipation and moderate rectal constipation. Axel Cheema MD Objective Remarks GENERAL: NAD, well-developed and well-nourished Neck: Improved stridor no retractions CARDIOVASCULAR: Regular rate and rhythm without murmurs, gallops, or rubs. RESPIRATORY: Breath sounds equal bilaterally. No accessory muscle use. GASTROINTESTINAL: Abdomen soft, non-tender, nondistended. MUSCULOSKELETAL: No cyanosis but with pitting edema. SKIN: Warm and dry. NEURO: Less lethargic answering questions and following simple commands patient moving all extremities Procedures Right temporal craniotomy for hemorrhagic mass resection; BrainLab stereotactic intraoperative navigation; microsurgical technique, left subclavian central line placement A/P Problem List: (1) ICH (intracerebral hemorrhage) ICD Code: I61.9 - Nontraumatic intracerebral hemorrhage, unspecified Status: Acute (2) Seizure ICD Code: R56.9 - Unspecified convulsions Status: Acute Assessment and Plan 82-year-old female with right parietal intraparenchymal cerebral hemorrhage, with subsequent status epilepticus and encephalopathy. Hypoglycemia hx DM. Resolved now hyperglycemic on steroids continue sliding- scale coverage IVD5 for hypoglycemia. PEG may be necessary to maintain blood sugars. PEG vs. Hospice recommended to family, they are discussing this. Plan to transition to correction facility Urinary retention Duong catheter placed, will remove once she is out of bed Right parietal intraparenchymal hemorrhage Right temporal craniotomy for hemorrhagic mass resection; BrainLab stereotactic intraoperative navigation; microsurgical technique. Pathology pending Continue PT and OT Neurosurgery following Continue blood pressure optimization Follow-up repeat head CT noted Subclinical status epilepticus Neurology following Continue dep Neurology has discontinued phenobarbital and fosphenytoin because of persistent encephalopathy repeat EEG without seizure. Improving mental status. Ordered Provigil x 1 Continue neuro checks hypertensive emergency. Resolved Continue hydralazine and labetalol Attempt to keep systolic blood pressure less than 140 mmHg COPD with stridor. Improving RTC duo nebs with prn, switch to p.o. prednisone (patient not on chronic prednisone per primary care physician ) Dyslipidemia Continue present treatment Follow as an outpatient Thyroid disease TSH 11 on armour thyroid questionable compliance per PCP Elevated AST, mild. Monitor mena on AED FEN. Patient has dysphagia secondary to intracranial hemorrhage. Continue tube feeding and discontinue IV hydration> Ct as needed restraints DVT prophylaxis SCDs. Pharmacological prophylaxis contraindicated at this time secondary to intracranial hemorrhage Discharge Planning Stable to Derrick Medrano MD November 13, 2017 14:34
[2017-11-14] VITALS (10 sets, daily range): BP systolic 102–146; BP diastolic 56–67; PULSE 86–100; RESP 21–29; TEMP 97.8–98.1; O2SAT 98–99
[2017-11-14] MEDS: VALPROATE INJ 500 MG in SODIUM CHLORIDE 0.9% INJ 100 ML IV SCH ×3 (01:57→18:32)
[2017-11-14] MEDS: CHLORHEXIDINE GLUCONATE 2 % 1 PACK (2 CLOTHS) TOP SCH (04:31)
[2017-11-14 04:40] LABS: BICARBONATE 29.2 MEQ/L (21.0-32.0); CALCIUM 7.9 MG/DL (8.5-10.1); CREATININE 0.43 MG/DL (0.50-1.00); MAGNESIUM 1.8 MG/DL (1.5-2.5)
[2017-11-14] MEDS: THYROID 30 MG TAB NG SCH (06:19)
[2017-11-14] MEDS: THYROID 60 MG TAB NG SCH (06:20)
[2017-11-14] MEDS: RESP: ALBUTEROL 2.5 MG/IPRATROPIUM 0.5 MG NEB (SCH) INH ×2 (07:49→11:35)
[2017-11-14] MEDS: INSULIN ASPART SUPPLEMENTAL SCALE SQ SCH ×4 (08:00→20:34)
[2017-11-14] MEDS: SODIUM CHLORIDE 0.9% FLUSH 10 ML FLUSH IV FLUSH SCH ×2 (10:01→20:34)
[2017-11-14] MEDS: POTASSIUM PHOSPHATE MONOBASIC 500 MG TAB PO SCH ×2 (10:02→20:34)
[2017-11-14] MEDS: LANSOPRAZOLE SOLUTAB 15 MG TAB NG SCH (10:02)
[2017-11-14] MEDS: predniSONE 20 MG TAB NG SCH (10:02)
[2017-11-14] MEDS: DOCUSATE SODIUM 50 MG/SENNA 8.6 MG TAB PO SCH ×2 (10:02→20:34)
--- NOTE | 2017-11-14 11:40 | HHI.NSPN ---
(Vickie Linder) Note Status Status: Progress Note (Vickie Linder) Interval History Interval History 82-year-old -Cypriot female who was transferred from [facility] where she presented with neurologic changes. There is no family members and the patient cannot relate much of a history but apparently with CT scan head obtained she was found to have a right posterior temporal lobe cerebral hemorrhage. CT scan of the head reviewed from [facility] on arrival reveals a less than 2 cm right posterior temporal lobe hemorrhage without any significant mass-effect or midline shift. Overnight her exam is not changed although she had an EEG study done and was noted to have subclinical seizures and has been noted to be more lethargic since then and is awaiting fosphenytoin bolus. MRI scan of the brain is also pending along with neurology evaluation. It is unclear whether this cerebral hemorrhage is spontaneous versus traumatic. 11/03/17: Pt awake and alert. At times not cooperative with exam. She at times doesn't verbalize and others answers questions yes/no. She follows commands at times and other times does not. 11/04/17: Pt sedated for MRI and not opening eyes or following commands. 11/05/17: Pt awakens but still fatigued. She states her name when asked but not verbalizing much otherwise. She improvement intern her right hand but not the left. She moves bilateral LEs to command. 11/06/17: Pt very fatigued again today. Not opening eyes. Not following commands. Pt resting in position. 11/07/17: Pt lethargic still. Not opening eyes or following commands. 11/09/17: Pt lethargic but more awake today than previous days as she actually opened her eyes and said some words. She underwent a right temporal craniotomy for hemorrhagic mass resection on 11/08/17. She is lethargic but opens her eyes. She answers some simple questions. She follows some simple commands. 11/10/17: Pt not as alert this morning as yesterday. Not opening eyes. Verbalizing some words but not able to understand. Spontaneously moves extremities. 11/11/17: Pt lethargic. Not opening eyes. Not following commands. Not verbalizing. Protecting airway currently. 11/12/17: awake, appears drowsy, oriented to name, followed few simple commands. 11/13/17: Appearing more awake today, says to be doing well. Generalized weakness, but follows commands 4 extremities. 11/14/17: no changes to neuro checks overnight, awaiting bed near nursing station on floor. (Vickie Linder) Labs, Micro, & Vital Signs Results Date Time Temp Pulse Resp B/P (MAP) Pulse Ox O2 Delivery O2 Flow Rate FiO2 11/14/17 07:49 98 11/14/17 06:00 92 11/14/17 04:00 96 11/14/17 04:00 98.1 96 21 115/57 (76) 99 11/14/17 02:00 97 11/14/17 00:00 97.9 100 24 102/57 (72) 98 11/14/17 00:00 100 11/13/17 22:00 96 11/13/17 20:00 97.7 92 18 122/68 (86) 98 11/13/17 20:00 92 11/13/17 19:46 97 21 11/13/17 19:00 97 Room Air 11/13/17 18:00 86 11/13/17 16:00 91 11/13/17 16:00 98.1 94 20 113/57 (75) 100 11/13/17 14:00 89 11/13/17 12:00 98.1 88 22 122/61 (81) 100 11/13/17 12:00 60 Constitutional Vital Signs Date Time Temp Pulse Resp B/P (MAP) Pulse Ox O2 Delivery O2 Flow Rate FiO2 11/14/17 07:49 98 11/14/17 06:00 92 11/14/17 04:00 96 11/14/17 04:00 98.1 96 21 115/57 (76) 99 11/14/17 02:00 97 11/14/17 00:00 97.9 100 24 102/57 (72) 98 11/14/17 00:00 100 11/13/17 22:00 96 11/13/17 20:00 97.7 92 18 122/68 (86) 98 11/13/17 20:00 92 11/13/17 19:46 97 21 11/13/17 19:00 97 Room Air 11/13/17 18:00 86 11/13/17 16:00 91 11/13/17 16:00 98.1 94 20 113/57 (75) 100 11/13/17 14:00 89 11/13/17 12:00 98.1 88 22 122/61 (81) 100 11/13/17 12:00 60 (Vickie Linder) Physical Exam General: In no obvious distress, resting comfortably Eyes: Pupils equal. Sclera anicteric. Resp: mild wheezing bilaterally Heart: NSR no murmurs. Abd: Soft positive bs Skin: No cyanosis or erythema. SCDs in place. Right surgical wound healing well, ashlie intact Muscle: Follows some simple commands. Generalized weakness, gripped both hands and moved both feet to command Neuro: Awake, said her name and in hospital, followed few simple commands to extremities. Pupils 3mm bilaterally, reactive sluggishly bilaterally. NGT tube feeds (Vickie Linder) Medications Current Medications Current Medications Medications (Trade) Dose Ordered Sig/Cathie Route PRN Reason Start Time Stop Time Status Last Admin Dose Admin Sodium Chloride (NS Flush) 2 ml UNSCH PRN IV FLUSH FLUSH AFTER USING IV ACCESS 11/01/17 22:45 Sodium Chloride (NS Flush) 2 ml BID IV FLUSH 11/02/17 09:00 11/14/17 10:01 Acetaminophen (Tylenol) 650 mg Q6H PRN PO PAIN 1-5 AND/OR FEVER >101F 11/01/17 22:45 Morphine Sulfate (Morphine Inj) 2 mg Q2H PRN IV PUSH PAIN SCALE 6 TO 10 11/01/17 22:45 Ondansetron HCl (Zofran Inj) 4 mg Q6H PRN IV PUSH NAUSEA OR VOMITING 11/01/17 22:45 Miscellaneous Information ([facility] Information) 1 Q361D XX 11/01/17 22:45 Chlorhexidine Gluconate (Chlorhexidine 2% Cloth) Taper DAILY@04 TOP 11/02/17 04:00 10/29/18 03:59 Chlorhexidine Gluconate (Chlorhexidine 2% Cloth) 3 pack UNSCH PRN TOP HYGIENIC CARE 11/01/17 22:45 Senna/Docusate Sodium (Leigh-Colace) 1 tab BID PO 11/02/17 09:00 11/14/17 10:02 Magnesium Hydroxide (Milk Of Magnesia Liq) 30 ml Q12H PRN PO Mild constipation 11/01/17 22:45 Sennosides (Senokot) 17.2 mg Q12H PRN PO Moderate constipation 11/01/17 22:45 11/06/17 17:17 Bisacodyl (Dulcolax Supp) 10 mg DAILY PRN RECTAL SEVERE CONSITIPATION 11/01/17 22:45 Lactulose (Lactulose Liq) 30 ml DAILY PRN PO SEVERE CONSITIPATION 11/01/17 22:45 Labetalol HCl (Trandate Inj) 10 mg Q4H PRN IV PUSH SBP>140, DBP>90 11/02/17 00:30 11/02/17 08:28 Hydralazine HCl (Apresoline Inj) 20 mg Q4H PRN IV PUSH SBP>140, DBP>90 11/02/17 00:30 11/08/17 09:54 Valproate Sodium 500 mg/Sodium Chloride 105 ml @ 105 mls/hr Q8H IV 11/02/17 18:00 11/14/17 10:01 Dextrose (D50w (Vial) Inj) 50 ml UNSCH PRN IV PUSH HYPOGLYCEMIA-SEE COMMENTS 11/03/17 18:15 11/10/17 15:21 Glucagon (Glucagon Inj) 1 mg UNSCH PRN OTHER HYPOGLYCEMIA-SEE COMMENTS 11/03/17 18:15 Insulin Aspart (NovoLOG SUPPLEMENTAL SCALE) 1 ACHS SLIDING SCALE SQ 11/03/17 21:00 11/13/17 20:57 Potassium Phosphate (K-Phos) 1,000 mg Q12HR PO 11/08/17 09:00 11/14/17 10:02 Potassium Chloride 100 ml @ 50 mls/hr Q2H PRN IV For Potassium 2.8 - 3.2 mEq/L 11/10/17 07:45 Potassium Chloride 100 ml @ 50 mls/hr Q2H PRN IV For Potassium 2.8 - 3.2 mEq/L 11/10/17 07:45 11/10/17 13:00 Potassium Bicarb/ Potassium Chloride (K-Lyte Cl Eff) 50 meq UNSCH PRN PO For Potassium 3.3 - 3.5 mEq/L 11/10/17 07:45 Potassium Chloride 100 ml @ 25 mls/hr UNSCH PRN IV For Potassium 3.3 - 3.5 mEq/L 11/10/17 07:45 Potassium Chloride 100 ml @ 50 mls/hr Q2H PRN IV For Potassium 3.3 - 3.5 mEq/L 11/10/17 07:45 Magnesium Sulfate 4 gm/Sodium Chloride 100 ml @ 50 mls/hr UNSCH PRN IV For Magnesium 0.9 - 1.1 mg/dL 11/10/17 07:45 Magnesium Oxide (Mag-Ox) 800 mg UNSCH PRN PO For Magnesium 1.2 - 1.6 mg/dL 11/10/17 07:45 Magnesium Sulfate 2 gm/Sodium Chloride 100 ml @ 50 mls/hr UNSCH PRN IV For Magnesium 1.2 - 1.6 mg/dL 11/10/17 07:45 11/10/17 15:34 Potassium Phosphate (K-Phos) 2,000 mg Q4H PRN PO For Phosphorus < 2.5 mg/dL 11/10/17 07:45 Sodium Phosphate 30 mmol/Sodium Chloride 250 ml @ 42 mls/hr UNSCH PRN IV For Phosphorus < 2.5 mg/dL 11/10/17 07:45 Potassium Phosphate (K-Phos) 2,000 mg UNSCH PRN PO/TUBE SEE LABEL COMMENTS 11/10/17 07:45 Potassium Phosphate 30 mmol/ Sodium Chloride 260 ml @ 42 mls/hr UNSCH PRN IV SEE LABEL COMMENTS 11/10/17 07:45 11/11/17 08:35 Albuterol/ Ipratropium (Duoneb Neb) 1 ampule QID NEB INH 11/10/17 14:00 11/14/17 11:35 Albuterol Sulfate (Albuterol Neb) 2.5 mg Q4HR NEB PRN NEB SOB/WHEEZING 11/10/17 13:45 11/11/17 02:45 Racepinephrine (Racepinephrine 2.25% Neb) 0.5 ml Q4HR NEB PRN NEB stridor 11/10/17 13:45 11/11/17 03:44 Lansoprazole (Prevacid Odt) 15 mg DAILY NG 11/12/17 10:00 11/14/17 10:02 Prednisone (Deltasone) 20 mg DAILY NG 11/12/17 12:00 11/17/17 11:59 11/14/17 10:02 Thyroid ([place] Thyroid) 60 mg DAILY@0600 NG 11/13/17 06:00 11/14/17 06:20 Thyroid ([place] Thyroid) 30 mg DAILY@0600 NG 11/13/17 06:00 11/14/17 06:19 Miscellaneous (Pill Splitter) 1 ea UNSCH PRN OTHER SEE LABEL COMMENTS 11/13/17 11:00 (Vickie Linder) Medical Decision Making MDM Remarks 82-year-old lady with a right posterior temporal lobe cerebral hemorrhage without mass-effect or midline shift. Continue with observation along with seizure prophylaxis. MRI reveals likely underlying mass. No metastatic sites found on CT chest, abdomen, pelvis. s/p right temporal craniotomy for hemorrhagic mass resection on 11/08/17. Follow up CT head stable. Pathology pending (Vickie Linder) Plan Plan Remarks neuro exam stable, cont neuro checks f/u pathology cont therapy ok to transfer out of [facility] to near nursing station (Vickie Linder) Attending Statement The exam, history, and the medical decision-making described in the above note were completed with the assistance of the mid-level provider. I reviewed and agree with the findings presented. I attest that I had a [id number] encounter with the patient on the same day, and personally performed and documented my assessment and findings in the medical record. (Fili Mcdermott MD) Vickie Linder November 14, 2017 11:40 Fili Mcdermott MD November 14, 2017 14:34
--- NOTE | 2017-11-14 15:25 | HHI.PR ---
Subjective Remarks Follow-up for right posterior temporal lobe cerebral hemorrhage. Currently resting in bed. Per nursing, no acute concerns. Neurosurgery is okay for patient to be transferred to the floor. Objective Vitals Vital Signs Date Time Temp Pulse Resp B/P (MAP) Pulse Ox O2 Delivery O2 Flow Rate FiO2 11/14/17 12:00 97.9 90 26 146/63 (90) 98 11/14/17 12:00 90 11/14/17 08:00 86 11/14/17 08:00 97.9 86 21 132/62 (85) 99 11/14/17 08:00 99 Room Air 11/14/17 07:49 98 11/14/17 06:00 92 11/14/17 04:00 96 11/14/17 04:00 98.1 96 21 115/57 (76) 99 11/14/17 02:00 97 11/14/17 00:00 97.9 100 24 102/57 (72) 98 11/14/17 00:00 100 11/13/17 22:00 96 11/13/17 20:00 97.7 92 18 122/68 (86) 98 11/13/17 20:00 92 11/13/17 19:46 97 21 11/13/17 19:00 97 Room Air 11/13/17 18:00 86 11/13/17 16:00 91 11/13/17 16:00 98.1 94 20 113/57 (75) 100 I/O 11/13/17 11/13/17 11/13/17 11/14/17 11/14/17 11/14/17 07:00 15:00 23:00 07:00 15:00 23:00 Intake Total 554 ml 603 ml 525 ml Output Total 350 ml 550 ml 500 ml Balance 204 ml 53 ml 25 ml Tube Feeding 454 ml 403 ml 425 ml Other 100 ml 200 ml 100 ml Output Urine Total 350 ml 550 ml 500 ml # Bowel Movements 0 0 Result Diagram: 11/13/17 0420 11/14/170 Imaging Last Impressions Soft Tissue Neck X-Ray 11/11/17 0000 Signed Impressions: Service Date/Time: November 13:28 - CONCLUSION: 1. No acute findings. NG tube present. Axel Cheema MD Chest X-Ray 11/11/17 0000 Signed Impressions: Service Date/Time: November 03:39 - CONCLUSION: 1. Interval placement of nasogastric tube. 2. Hazy proximal opacities remain in both lungs. Hany Booth MD Abdomen X-Ray 11/10/17 0000 Signed Impressions: Service Date/Time: Friday, November 10, 2017 14:00 - CONCLUSION: NG tube in the stomach Donovan Piña MD Head CT 11/09/17 0600 Signed Impressions: Service Date/Time: Thursday, November 09, 2017 05:51 - CONCLUSION: Status post craniotomy and removal of the density seen previously. No residual hematoma is identified. There is residual pneumocephalus. No acute mass effect. Papa Lombardi MD Brain MRI 11/04/17 0000 Signed Impressions: Service Date/Time: November 12:38 - CONCLUSION: Focal abnormality in the right posterior temporal lobe measuring up to 3.9 cm, as above. Examination will be used for intraoperative localization. Donovan Campbell MD Chest CT 11/02/17 0000 Signed Impressions: Service Date/Time: Thursday, November 02, 2017 21:35 - CONCLUSION: 1. Negative for metastatic disease to the thorax. No acute findings. Axel Cheema MD Abdomen/Pelvis CT 11/02/17 0000 Signed Impressions: Service Date/Time: Thursday, November 02, 2017 21:35 - CONCLUSION: 1. Negative for metastatic disease in the abdomen or pelvis. Multiple hepatic cysts. Numerous fibroids in the uterus. Mild colonic constipation and moderate rectal constipation. Axel Cheema MD Objective Remarks GENERAL: Sleeping in bed, No acute distress. SKIN: Warm and dry. HEAD: Normocephalic. EYES: No scleral icterus. No injection or drainage. NECK: Supple, trachea midline. No JVD or lymphadenopathy. CARDIOVASCULAR: Regular rate and rhythm without murmurs, gallops, or rubs. RESPIRATORY: Breath sounds equal bilaterally. No accessory muscle use. GASTROINTESTINAL: Abdomen soft, non-tender, nondistended. MUSCULOSKELETAL: No cyanosis, or edema. BACK: Nontender without obvious deformity. No CVA tenderness. Procedures Right temporal craniotomy for hemorrhagic mass resection; BrainLab stereotactic intraoperative navigation; microsurgical technique, left subclavian central line placement A/P Problem List: (1) ICH (intracerebral hemorrhage) ICD Code: I61.9 - Nontraumatic intracerebral hemorrhage, unspecified Status: Acute (2) Seizure ICD Code: R56.9 - Unspecified convulsions Status: Acute Assessment and Plan 82-year-old female with right parietal intraparenchymal cerebral hemorrhage, with subsequent status epilepticus and encephalopathy. Right parietal intraparenchymal hemorrhage Right temporal craniotomy for hemorrhagic mass resection; BrainLab stereotactic intraoperative navigation; microsurgical technique. Pathology pending Continue PT and OT Neurosurgery following Continue blood pressure optimization Subclinical status epilepticus Neurology following Continue Depakote only. Continue neuro checks hypertension COPD Continue hydralazine and labetalol. Blood pressure in the 130s and 140s. Continue Prednisone 20mg Qday. Thyroid disease Continue [place] thyroid 90 mg daily Nutrition May need PEG tube if aggressive care is pursued by family. DVT prophylaxis SCDs. Pharmacological prophylaxis contraindicated at this time secondary to intracranial hemorrhage Jordy Figueroa DO November 14, 2017 3:25 pm
[2017-11-15] VITALS (14 sets, daily range): BP systolic 90–125; BP diastolic 52–67; PULSE 85–102; RESP 20–30; TEMP 97.7–98.8; O2SAT 96–100
[2017-11-15] MEDS: RESP: ALBUTEROL 2.5 MG/3 ML NEB (PRN) NEB ×4 (01:11→22:43)
[2017-11-15] MEDS: VALPROATE INJ 500 MG in SODIUM CHLORIDE 0.9% INJ 100 ML IV SCH ×3 (02:23→17:29)
[2017-11-15] MEDS: CHLORHEXIDINE GLUCONATE 2 % 1 PACK (2 CLOTHS) TOP SCH (04:00)
[2017-11-15] MEDS: THYROID 30 MG TAB NG SCH (05:44)
[2017-11-15] MEDS: THYROID 60 MG TAB NG SCH (05:44)
[2017-11-15] MEDS: INSULIN ASPART SUPPLEMENTAL SCALE SQ SCH ×4 (08:00→21:38)
[2017-11-15] MEDS: SODIUM CHLORIDE 0.9% FLUSH 10 ML FLUSH IV FLUSH SCH ×2 (09:00→21:39)
[2017-11-15] MEDS: DOCUSATE SODIUM 50 MG/SENNA 8.6 MG TAB PO SCH ×2 (09:00→21:38)
[2017-11-15] MEDS: predniSONE 20 MG TAB NG SCH (09:47)
[2017-11-15] MEDS: POTASSIUM PHOSPHATE MONOBASIC 500 MG TAB PO SCH ×2 (09:47→21:38)
[2017-11-15] MEDS: LANSOPRAZOLE SOLUTAB 15 MG TAB NG SCH (09:47)
--- NOTE | 2017-11-15 09:57 | HHI.NSPN ---
(Deandre Cordoba) History Chief Complaint: ICH. (Deandre Cordoba) Interval History 82-year-old -[place] female who was transferred from [facility] where she presented with neurologic changes. There is no family members and the patient cannot relate much of a history but apparently with CT scan head obtained she was found to have a right posterior temporal lobe cerebral hemorrhage. CT scan of the head reviewed from [facility] on arrival reveals a less than 2 cm right posterior temporal lobe hemorrhage without any significant mass-effect or midline shift. Overnight her exam is not changed although she had an EEG study done and was noted to have subclinical seizures and has been noted to be more lethargic since then and is awaiting fosphenytoin bolus. MRI scan of the brain is also pending along with neurology evaluation. It is unclear whether this cerebral hemorrhage is spontaneous versus traumatic. 11/03/17: Pt awake and alert. At times not cooperative with exam. She at times doesn't verbalize and others answers questions yes/no. She follows commands at times and other times does not. 11/04/17: Pt sedated for MRI and not opening eyes or following commands. 11/05/17: Pt awakens but still fatigued. She states her name when asked but not verbalizing much otherwise. 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 She moves bilateral LEs to command. 11/06/17: Pt very fatigued again today. Not opening eyes. Not following commands. Pt resting in position. 11/07/17: Pt lethargic still. Not opening eyes or following commands. 11/09/17: Pt lethargic but more awake today than previous days as she actually opened her eyes and said some words. She underwent a right temporal craniotomy for hemorrhagic mass resection on 11/08/17. She is lethargic but opens her eyes. She answers some simple questions. She follows some simple commands. 11/10/17: Pt not as alert this morning as yesterday. Not opening eyes. Verbalizing some words but not able to understand. Spontaneously moves extremities. 11/11/17: Pt lethargic. Not opening eyes. Not following commands. Not verbalizing. Protecting airway currently. 11/15/17: Pt more awake today. Opens eyes and communicates appropriately. Denies headaches, nausea, paresthesias. (Deandre Cordoba) Review of Systems General: Negative for: fever, chills, insomnia Respiratory: Negative for: shortness of breath, cough, sputum Cardiovascular: Negative for: chest pain Gastrointestinal: Negative for: nausea, vomitting, diarrhea, constipation ( Deandre Cordoba) Exam Results Vital Signs Date Time Temp Pulse Resp B/P (MAP) Pulse Ox O2 Delivery O2 Flow Rate FiO2 11/15/17 06:00 87 11/15/17 04:00 97.7 29 125/59 (81) 98 11/15/17 01:13 21 11/14/17 19:00 Room Air 11/11/17 20:34 2.00 Intake and Output 11/15/17 11/15/17 11/16/17 08:00 16:00 00:00 Intake Total 514 ml Output Total 600 ml Balance -86 ml (Deandre Cordoba) Physical Examination General: In no obvious distress, resting comfortably Eyes: Pupils equal. Sclera anicteric. Resp: mild wheezing bilaterally Heart: NSR no murmurs. Abd: Soft positive bs. NGT tube feeds at 65ml/hr. Skin: No cyanosis or erythema. SCDs in place. Right surgical wound healing well, ashlie intact Muscle: Follows simple commands. Generalized weakness, gripped both hands and moved both feet to command Neuro: Awake, answering questions appropriately. Followed simple commands to extremities. Pupils 3mm bilaterally, reactive sluggishly bilaterally. (Deandre Cordoba) Lab, Micro, Other Results Last Impressions Soft Tissue Neck X-Ray 11/11/17 0000 Signed Impressions: Service Date/Time: November 13:28 - CONCLUSION: 1. No acute findings. NG tube present. Axel Cheema MD Chest X-Ray 11/11/17 0000 Signed Impressions: Service Date/Time: November 03:39 - CONCLUSION: 1. Interval placement of nasogastric tube. 2. Hazy proximal opacities remain in both lungs. Hany Booth MD Abdomen X-Ray 11/10/17 0000 Signed Impressions: Service Date/Time: Friday, November 10, 2017 14:00 - CONCLUSION: NG tube in the stomach Donovan Piña MD Head CT 11/09/17 0600 Signed Impressions: Service Date/Time: Thursday, November 09, 2017 05:51 - CONCLUSION: Status post craniotomy and removal of the density seen previously. No residual hematoma is identified. There is residual pneumocephalus. No acute mass effect. Papa Lombardi MD Brain MRI 11/04/17 0000 Signed Impressions: Service Date/Time: November 12:38 - CONCLUSION: Focal abnormality in the right posterior temporal lobe measuring up to 3.9 cm, as above. Examination will be used for intraoperative localization. Donovan Campbell MD Chest CT 11/02/17 0000 Signed Impressions: Service Date/Time: Thursday, November 02, 2017 21:35 - CONCLUSION: 1. Negative for metastatic disease to the thorax. No acute findings. Axel Cheema MD Abdomen/Pelvis CT 11/02/17 0000 Signed Impressions: Service Date/Time: Thursday, November 02, 2017 21:35 - CONCLUSION: 1. Negative for metastatic disease in the abdomen or pelvis. Multiple hepatic cysts. Numerous fibroids in the uterus. Mild colonic constipation and moderate rectal constipation. Axel Cheema MD (Deandre Cordoba) Medical Decision Making Impression and Plan A: 82-year-old lady with a right posterior temporal lobe cerebral hemorrhage without mass-effect or midline shift. Continue with observation along with seizure prophylaxis. MRI reveals likely underlying mass. No metastatic sites found on CT chest, abdomen, pelvis. s/p right temporal craniotomy for hemorrhagic mass resection on 11/08/17. Follow up CT head stable. Path pending. P: Continue with hypertension control. Continue with neuro checks in ICU Continue with Rehab efforts. Continue with DVT prophylaxis. Continue with GI prophylaxis. Speech therapy assessing swallow. Following pathology. Continue to get her up in a chair. PT/OT/Speech. (Deandre Cordoba) Attending Statement The exam, history, and the medical decision-making described in the above note were completed with the assistance of the mid-level provider. I reviewed and agree with the findings presented. I attest that I had a aeng-bo-exvl encounter with the patient on the same day, and personally performed and documented my assessment and findings in the medical record. (Jay Peterson MD) Deandre Cordoba November 15, 2017 09:57 Jay Peterson MD November 15, 2017 18:56
[2017-11-15] MEDS: FUROSEMIDE 40 MG/4 ML VIAL IV PUSH ONE ×2 (11:00→15:45)
--- NOTE | 2017-11-15 12:12 | RADRPT ---
EXAM DATE/TIME: 11/15/2017 11:35 [facility] COMPARISON: CT THORAX W CONTRAST, November 02, 2017, 21:35. CHEST SINGLE AP, November 11, 2017, 3:39. INDICATIONS : Congestion. MEDICAL HISTORY : Hypertension. Cerebrovascular disease. Stroke. SURGICAL HISTORY : Cholecystectomy. ENCOUNTER: Initial ACUITY: 2 weeks PAIN SCORE: Non-responsive. LOCATION: Bilateral chest FINDINGS: A single view of the chest demonstrates bibasilar densities more prominent on current study. Tortuous thoracic aorta. Nasogastric tube and left subclavian central line in stable position. Heart mildly e nlarged. Osseous structures are intact. CONCLUSION: 1. Worsening bibasilar infiltrates. Deandre Rodriguez MD on November 15, 2017 at 12:08 Board Certified Radiologist. This report was verified electronically.
[2017-11-16] VITALS (7 sets, daily range): BP systolic 100–124; BP diastolic 55–68; PULSE 86–100; RESP 20–24; TEMP 97.6–98.8; O2SAT 94–97
[2017-11-16] MEDS: VALPROATE INJ 500 MG in SODIUM CHLORIDE 0.9% INJ 100 ML IV SCH ×3 (01:56→18:02)
[2017-11-16] MEDS: CHLORHEXIDINE GLUCONATE 2 % 1 PACK (2 CLOTHS) TOP SCH (03:26)
[2017-11-16] MEDS: THYROID 60 MG TAB NG SCH (05:31)
[2017-11-16] MEDS: THYROID 30 MG TAB NG SCH (05:31)
[2017-11-16] MEDS: INSULIN ASPART SUPPLEMENTAL SCALE SQ SCH ×4 (07:44→22:07)
[2017-11-16] MEDS: LANSOPRAZOLE SOLUTAB 15 MG TAB NG SCH (07:47)
[2017-11-16] MEDS: POTASSIUM PHOSPHATE MONOBASIC 500 MG TAB PO SCH ×2 (07:48→22:05)
[2017-11-16] MEDS: predniSONE 20 MG TAB NG SCH (07:48)
[2017-11-16] MEDS: DOCUSATE SODIUM 50 MG/SENNA 8.6 MG TAB PO SCH ×2 (07:48→22:05)
[2017-11-16] MEDS: SODIUM CHLORIDE 0.9% FLUSH 10 ML FLUSH IV FLUSH SCH ×2 (08:04→22:05)
--- NOTE | 2017-11-16 08:25 | HHI.PR ---
Subjective Remarks Late entry for 11/15/2014 Follow-up for right posterior temporal lobe cerebral hemorrhage. Patient complains of some shortness of breath. No fever, chills. Objective Vitals Vital Signs Date Time Temp Pulse Resp B/P (MAP) Pulse Ox O2 Delivery O2 Flow Rate FiO2 11/16/17 05:15 98.2 88 22 122/65 (84) 94 11/16/17 00:30 97.6 100 21 115/68 (84) 97 11/15/17 22:46 96 11/15/17 21:00 98.8 102 20 110/67 (81) 96 11/15/17 19:05 Room Air 11/15/17 18:00 102 11/15/17 16:00 102 11/15/17 16:00 21 100 11/15/17 14:00 90 11/15/17 12:00 91 11/15/17 12:00 98.4 91 21 90/52 (65) 100 11/15/17 10:21 100 21 11/15/17 10:00 93 I/O 11/15/17 11/15/17 11/15/17 11/16/17 11/16/17 11/16/17 07:00 15:00 23:00 07:00 15:00 23:00 Intake Total 514 ml 733 ml 0 ml 594 ml Output Total 600 ml 2800 ml 800 ml Balance -86 ml -2067 ml -800 ml 594 ml Intake Oral 0 ml 0 ml IV Total 105 ml Tube Feeding 414 ml 508 ml 594 ml Other 100 ml 120 ml Output Urine Total 600 ml 2800 ml 800 ml # Bowel Movements 1 1 0 Result Diagram: 11/13/17 0420 11/14/17 0400 Imaging Last Impressions Chest X-Ray 11/15/17 0000 Signed Impressions: Service Date/Time: Wednesday, November 15, 2017 11:35 - CONCLUSION: 1. Worsening bibasilar infiltrates. Deandre Rodriguez MD Soft Tissue Neck X-Ray 11/11/17 0000 Signed Impressions: Service Date/Time: November 13:28 - CONCLUSION: 1. No acute findings. NG tube present. Axel Cheema MD Abdomen X-Ray 11/10/17 0000 Signed Impressions: Service Date/Time: Friday, November 10, 2017 14:00 - CONCLUSION: NG tube in the stomach Donovan Piña MD Head CT 11/09/17 0600 Signed Impressions: Service Date/Time: Thursday, November 09, 2017 05:51 - CONCLUSION: Status post craniotomy and removal of the density seen previously. No residual hematoma is identified. There is residual pneumocephalus. No acute mass effect. Papa Lombardi MD Brain MRI 11/04/17 0000 Signed Impressions: Service Date/Time: November 12:38 - CONCLUSION: Focal abnormality in the right posterior temporal lobe measuring up to 3.9 cm, as above. Examination will be used for intraoperative localization. Donovan Campbell MD Chest CT 11/02/17 0000 Signed Impressions: Service Date/Time: Thursday, November 02, 2017 21:35 - CONCLUSION: 1. Negative for metastatic disease to the thorax. No acute findings. Axel Cheema MD Abdomen/Pelvis CT 11/02/17 0000 Signed Impressions: Service Date/Time: Thursday, November 02, 2017 21:35 - CONCLUSION: 1. Negative for metastatic disease in the abdomen or pelvis. Multiple hepatic cysts. Numerous fibroids in the uterus. Mild colonic constipation and moderate rectal constipation. Axel Cheema MD Objective Remarks GENERAL: Sleeping in bed, No acute distress. SKIN: Warm and dry. HEAD: Normocephalic. EYES: No scleral icterus. No injection or drainage. NECK: Supple, trachea midline. No JVD or lymphadenopathy. CARDIOVASCULAR: Regular rate and rhythm without murmurs, gallops, or rubs. RESPIRATORY: Breath sounds equal bilaterally. No accessory muscle use. GASTROINTESTINAL: Abdomen soft, non-tender, nondistended. MUSCULOSKELETAL: No cyanosis, or edema. BACK: Nontender without obvious deformity. No CVA tenderness. Procedures Right temporal craniotomy for hemorrhagic mass resection; BrainLab stereotactic intraoperative navigation; microsurgical technique, left subclavian central line placement A/P Problem List: (1) ICH (intracerebral hemorrhage) ICD Code: I61.9 - Nontraumatic intracerebral hemorrhage, unspecified Status: Acute (2) Seizure ICD Code: R56.9 - Unspecified convulsions Status: Acute Assessment and Plan 82-year-old female with right parietal intraparenchymal cerebral hemorrhage, with subsequent status epilepticus and encephalopathy. Right parietal intraparenchymal hemorrhage Right temporal craniotomy for hemorrhagic mass resection; BrainLab stereotactic intraoperative navigation; microsurgical technique. Pathology pending Continue PT and OT Neurosurgery following Continue blood pressure optimization Dyspnea Will obtain CXR. No clinical symptoms of pneumonia. May need mild diuresis. Subclinical status epilepticus Neurology following Continue Depakote only. Continue neuro checks hypertension COPD Continue hydralazine and labetalol. Blood pressure in the 130s and 140s. Continue Prednisone 20mg Qday. Thyroid disease Continue [place] thyroid 90 mg daily Nutrition May need PEG tube if aggressive care is pursued by family. DVT prophylaxis SCDs. Pharmacological prophylaxis contraindicated at this time secondary to intracranial hemorrhage Jordy Figueroa DO November 16, 2017 08:25
--- NOTE | 2017-11-16 10:16 | HHI.NSPN ---
History Chief Complaint: ICH. Interval History 82-year-old -[place] female who was transferred from [facility] where she presented with neurologic changes. There is no family members and the patient cannot relate much of a history but apparently with CT scan head obtained she was found to have a right posterior temporal lobe cerebral hemorrhage. CT scan of the head reviewed from [facility] on arrival reveals a less than 2 cm right posterior temporal lobe hemorrhage without any significant mass-effect or midline shift. Overnight her exam is not changed although she had an EEG study done and was noted to have subclinical seizures and has been noted to be more lethargic since then and is awaiting fosphenytoin bolus. MRI scan of the brain is also pending along with neurology evaluation. It is unclear whether this cerebral hemorrhage is spontaneous versus traumatic. 11/03/17: Pt awake and alert. At times not cooperative with exam. She at times doesn't verbalize and others answers questions yes/no. She follows commands at times and other times does not. 11/04/17: Pt sedated for MRI and not opening eyes or following commands. 11/05/17: Pt awakens but still fatigued. She states her name when asked but not verbalizing much otherwise. 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 She moves bilateral LEs to command. 11/06/17: Pt very fatigued again today. Not opening eyes. Not following commands. Pt resting in position. 11/07/17: Pt lethargic still. Not opening eyes or following commands. 11/09/17: Pt lethargic but more awake today than previous days as she actually opened her eyes and said some words. She underwent a right temporal craniotomy for hemorrhagic mass resection on 11/08/17. She is lethargic but opens her eyes. She answers some simple questions. She follows some simple commands. 11/10/17: Pt not as alert this morning as yesterday. Not opening eyes. Verbalizing some words but not able to understand. Spontaneously moves extremities. 11/11/17: Pt lethargic. Not opening eyes. Not following commands. Not verbalizing. Protecting airway currently. 11/15/17: Pt more awake today. Opens eyes and communicates appropriately. Denies headaches, nausea, paresthesias. 11/16/17: Pt awakens to voice but lethargic. She denies headaches, nausea, paresthesias. She denies chest pain or sob. Review of Systems General: Negative for: fever, chills, insomnia Respiratory: Negative for: shortness of breath, cough, sputum Cardiovascular: Negative for: chest pain Gastrointestinal: Negative for: nausea, vomitting, diarrhea, constipation Exam Results Vital Signs Date Time Temp Pulse Resp B/P (MAP) Pulse Ox O2 Delivery O2 Flow Rate FiO2 11/16/17 08:00 98.3 86 24 100/55 (70) 94 11/15/17 19:05 Room Air 11/15/17 10:21 21 Intake and Output 11/16/17 11/16/17 11/17/17 08:00 16:00 00:00 Intake Total 0 ml 594 ml Output Total 800 ml Balance -800 ml 594 ml Physical Examination General: Lethargic but awakens to voice. Eyes: Pupils equal. Sclera anicteric. Resp: Wheezing bilaterally Heart: NSR no murmurs. Abd: Soft positive bs. NGT tube feeds at 65ml/hr. Skin: No cyanosis or erythema. SCDs in place. Right surgical wound healing well, ashlie intact Muscle: Follows simple commands. Generalized weakness, gripped both hands and moved both feet to command Neuro: Awakens to voice but lethargic, answering questions appropriately but fatigued this morning. Followed simple commands to extremities. Pupils 3mm bilaterally, reactive sluggishly bilaterally. Lab, Micro, Other Results Last Impressions Chest X-Ray 11/15/17 0000 Signed Impressions: Service Date/Time: Wednesday, November 15, 2017 11:35 - CONCLUSION: 1. Worsening bibasilar infiltrates. Deandre Rodriguez MD Soft Tissue Neck X-Ray 11/11/17 0000 Signed Impressions: Service Date/Time: November 13:28 - CONCLUSION: 1. No acute findings. NG tube present. Axel Cheema MD Abdomen X-Ray 11/10/17 0000 Signed Impressions: Service Date/Time: Friday, November 10, 2017 14:00 - CONCLUSION: NG tube in the stomach Donovan Piña MD Head CT 11/09/17 0600 Signed Impressions: Service Date/Time: Thursday, November 09, 2017 05:51 - CONCLUSION: Status post craniotomy and removal of the density seen previously. No residual hematoma is identified. There is residual pneumocephalus. No acute mass effect. Papa Lombardi MD Brain MRI 11/04/17 0000 Signed Impressions: Service Date/Time: November 12:38 - CONCLUSION: Focal abnormality in the right posterior temporal lobe measuring up to 3.9 cm, as above. Examination will be used for intraoperative localization. Donovan Campbell MD Chest CT 11/02/17 0000 Signed Impressions: Service Date/Time: Thursday, November 02, 2017 21:35 - CONCLUSION: 1. Negative for metastatic disease to the thorax. No acute findings. Axel Cheema MD Abdomen/Pelvis CT 11/02/17 0000 Signed Impressions: Service Date/Time: Thursday, November 02, 2017 21:35 - CONCLUSION: 1. Negative for metastatic disease in the abdomen or pelvis. Multiple hepatic cysts. Numerous fibroids in the uterus. Mild colonic constipation and moderate rectal constipation. Axel Cheema MD 11/16/17 11/16/17 11/17/17 15:00 23:00 07:00 Intake Total 594 ml Balance 594 ml Tube Feeding 594 ml Medical Decision Making Impression and Plan A: 82-year-old lady with a right posterior temporal lobe cerebral hemorrhage without mass-effect or midline shift. Continue with observation along with seizure prophylaxis. MRI reveals likely underlying mass. No metastatic sites found on CT chest, abdomen, pelvis. s/p right temporal craniotomy for hemorrhagic mass resection on 11/08/17. Follow up CT head stable. Path pending. P: Continue with hypertension control. Continue with neuro checks Continue with Rehab efforts. Continue with DVT prophylaxis. Continue with GI prophylaxis. Speech therapy assessing swallow. Following pathology. Continue to get her up in a chair. PT/OT/Speech. Deandre Cordoba November 16, 2017 10:16 am
--- NOTE | 2017-11-16 10:37 | HHI.PR ---
Review/Management Diagnosis Diagnosis/Plan: (1) ICH (intracerebral hemorrhage) ICD Codes: I61.9 - Nontraumatic intracerebral hemorrhage, unspecified Status: Acute Plan: ich with edema nsx following previously on phb/dil/dep now on depakote monotherapy 11/04 mri brain with contrast reviewed 11/07 ct brain- rt temporal ich with edema 11/09 ct brain- s/p craniotomy, no mass effect noted alb 1.7 dil 9 7eeg- no sz recs continue current medications will check Depakote level brain biopsy pending (2) Seizure ICD Codes: R56.9 - Unspecified convulsions Status: Acute Plan: on sz med (3) Brain mass ICD Codes: G93.9 - Disorder of brain, unspecified Status: Acute Plan: biopsy pending (Leydi Garzon) Diagnosis/Plan: (1) ICH (intracerebral hemorrhage) ICD Codes: I61.9 - Nontraumatic intracerebral hemorrhage, unspecified Status: Acute Plan: ich with edema nsx following now on depakote monotherapy 11/04 mri brain with contrast reviewed 11/07 ct brain- rt temporal ich with edema 11/09 ct brain- s/p craniotomy, no mass effect noted 7eeg- no sz recs on provigil for hypersomnolence will check Depakote level brain biopsy pending d/w PA agree with above (2) Seizure ICD Codes: R56.9 - Unspecified convulsions Status: Acute Plan: on sz med (3) Brain mass ICD Codes: G93.9 - Disorder of brain, unspecified Status: Acute Plan: biopsy pending (Jorge Yuan MD) Subjective Subjective Comments No acute events reported No headache No chest pain No dyspnea no seizure activity Active Medications Current Medications Medications (Trade) Dose Ordered Sig/Cathie Route Start Time Stop Time Status Last Admin (NS Flush) 2 ml UNSCH PRN IV FLUSH 11/01/17 22:45 (NS Flush) 2 ml BID IV FLUSH 11/02/17 09:00 11/16/17 08:04 (Tylenol) 650 mg Q6H PRN PO 11/01/17 22:45 (Morphine Inj) 2 mg Q2H PRN IV PUSH 11/01/17 22:45 (Zofran Inj) 4 mg Q6H PRN IV PUSH 11/01/17 22:45 ([facility]) 1 [id number] XX 11/01/17 22:45 (Chlorhexidine 2% Cloth) Taper DAILY@04 TOP 11/02/17 04:00 10/29/18 03:59 (Chlorhexidine 2% Cloth) 3 pack UNSCH PRN TOP 11/01/17 22:45 (Leigh-Colace) 1 tab BID PO 11/02/17 09:00 11/16/17 07:48 (Milk Of Magnesia Liq) 30 ml Q12H PRN PO 11/01/17 22:45 (Senokot) 17.2 mg Q12H PRN PO 11/01/17 22:45 11/06/17 17:17 (Dulcolax Supp) 10 mg DAILY PRN RECTAL 11/01/17 22:45 (Lactulose Liq) 30 ml DAILY PRN PO 11/01/17 22:45 (Trandate Inj) 10 mg Q4H PRN IV PUSH 11/02/17 00:30 11/02/17 08:28 (Apresoline Inj) 20 mg Q4H PRN IV PUSH 11/02/17 00:30 11/08/17 09:54 Valproate Sodium 500 mg/Sodium Chloride 105 ml @ 105 mls/hr Q8H IV 11/02/17 18:00 11/16/17 01:56 (D50w (Vial) Inj) 50 ml UNSCH PRN IV PUSH 11/03/17 18:15 11/10/17 15:21 (Glucagon Inj) 1 mg UNSCH PRN OTHER 11/03/17 18:15 (NovoLOG SUPPLEMENTAL SCALE) 1 ACHS SLIDING SCALE SQ 11/03/17 21:00 11/16/17 07:44 (K-Phos) 1,000 mg Q12HR PO 11/08/17 09:00 11/16/17 07:48 (Albuterol Neb) 2.5 mg Q4HR NEB PRN NEB 11/10/17 13:45 11/15/17 22:43 (Racepinephrine 2.25% Neb) 0.5 ml Q4HR NEB PRN NEB 11/10/17 13:45 11/11/17 03:44 (Prevacid Odt) 15 mg DAILY NG 11/12/17 10:00 11/16/17 07:47 (Deltasone) 20 mg DAILY NG 11/12/17 12:00 11/17/17 11:59 11/16/17 07:48 ([place] Thyroid) 60 mg DAILY@0600 NG 11/13/17 06:00 11/16/17 05:31 ([place] Thyroid) 30 mg DAILY@0600 NG 11/13/17 06:00 11/16/17 05:31 (Pill Splitter) 1 ea UNSCH PRN OTHER 11/13/17 11:00 Allergies Allergies Coded Allergies No Known Allergies (Unverified11/01/17) (Leydi Garzon) Review of Systems All other ROS: ROS reviewed as documented in chart (Leydi Garzon) Exam I&O / VS 11/16/17 11/16/17 11/17/17 15:00 23:00 07:00 Intake Total 594 ml Balance 594 ml Tube Feeding 594 ml Vital Signs Date Time Temp Pulse Resp B/P (MAP) Pulse Ox O2 Delivery O2 Flow Rate FiO2 11/16/17 08:00 98.3 86 24 100/55 (70) 94 11/16/17 05:15 98.2 88 22 122/65 (84) 94 11/16/17 00:30 97.6 100 21 115/68 (84) 97 11/15/17 22:46 96 11/15/17 21:00 98.8 102 20 110/67 (81) 96 11/15/17 19:05 Room Air 11/15/17 18:00 102 11/15/17 16:00 102 11/15/17 16:00 21 100 11/15/17 14:00 90 11/15/17 12:00 91 11/15/17 12:00 98.4 91 21 90/52 (65) 100 General: No acute distress Eye: PERRL, EOMI Respiratory: Non-labored respirations Cardiology: Normal rate Neurologic: Alert Psychiatric: Cooperative Exam Comments Pt is more alert, follows simple commands, Date: Jul unsure of month, PERRL- sluggish, no gaze deviation, moving extremities (Leydi Garzon) Leydi Garzon November 16, 2017 10:36 Jorge Yuan MD November 16, 2017 16:21
[2017-11-16 11:46] LABS: AUTOMATED NEUTROPHIL # 3.7 TH/MM3 (1.8-7.7); BASOPHIL % 0.4 % (0.0-2.0); EOSINOPHIL % 0.2 % (0.0-4.0); HEMATOCRIT 25.9 % (35.0-46.0); HEMOGLOBIN 8.6 GM/DL (11.6-15.3); LYMPH % 9.5 % (9.0-44.0); LYMPHOCYTE # 0.5 TH/MM3 (1.0-4.8); MEAN CELL VOLUME 86.7 FL (80.0-100.0); MEAN CORPUSCULAR HEMOGLOBIN 28.9 PG (27.0-34.0); MEAN CORPUSCULAR HGB CONC 33.4 % (32.0-36.0); MEAN PLATELET VOLUME 6.5 FL (7.0-11.0); MONO % 25.5 % (0.0-8.0); MONOCYTE # 1.5 TH/MM3 (0-0.9); NEUT % 64.4 % (16.0-70.0); PLATELET COUNT 267 TH/MM3 (150-450); RED BLOOD COUNT 2.99 MIL/MM3 (4.00-5.30); RED CELL DISTRIBUTION WIDTH 19.9 % (11.6-17.2); WHITE BLOOD COUNT 5.7 TH/MM3 (4.0-11.0)
[2017-11-16 12:11] LABS: CALCIUM 7.9 MG/DL (8.5-10.1); CREATININE 0.47 MG/DL (0.50-1.00)
[2017-11-16 12:47] LABS: BANDS 17 % (0-6); LYMPHOCYTES 13 % (9-44); MONOCYTES 11 % (0-8); MYELOCYTES 4 % (0-0); NEUTROPHIL # MANUAL DIFF 4.3 TH/MM3 (1.8-7.7); POLYS (SEG NEUTROPHILS) 55 % (16-70); TOXIC GRANULATION 1+ (NORMAL)
[2017-11-16] MEDS: RESP: ALBUTEROL 2.5 MG/3 ML NEB (PRN) NEB (17:02)
--- NOTE | 2017-11-16 17:12 | HHI.PR ---
Subjective Remarks Follow-up for right posterior temporal lobe cerebral hemorrhage. Patient is doing better today. More alert. Currently on room air. Objective Vitals Vital Signs Date Time Temp Pulse Resp B/P (MAP) Pulse Ox O2 Delivery O2 Flow Rate FiO2 11/16/17 16:00 98.3 92 22 117/62 (80) 97 11/16/17 12:00 98.5 88 24 124/62 (82) 94 11/16/17 08:00 98.3 86 24 100/55 (70) 94 11/16/17 05:15 98.2 88 22 122/65 (84) 94 11/16/17 00:30 97.6 100 21 115/68 (84) 97 11/15/17 22:46 96 11/15/17 21:00 98.8 102 20 110/67 (81) 96 11/15/17 19:05 Room Air 11/15/17 18:00 102 I/O 11/15/17 11/15/17 11/15/17 11/16/17 11/16/17 11/16/17 07:00 15:00 23:00 07:00 15:00 23:00 Intake Total 514 ml 733 ml 0 ml 594 ml Output Total 600 ml 2800 ml 800 ml Balance -86 ml -2067 ml -800 ml 594 ml Intake Oral 0 ml 0 ml IV Total 105 ml Tube Feeding 414 ml 508 ml 594 ml Other 100 ml 120 ml Output Urine Total 600 ml 2800 ml 800 ml # Bowel Movements 1 1 0 Result Diagram: 11/16/17 1127 11/16/17 1127 Objective Remarks GENERAL: Sleeping in bed, No acute distress. SKIN: Warm and dry. HEAD: Normocephalic. EYES: No scleral icterus. No injection or drainage. NECK: Supple, trachea midline. No JVD or lymphadenopathy. CARDIOVASCULAR: Regular rate and rhythm without murmurs, gallops, or rubs. RESPIRATORY: Breath sounds equal bilaterally. No accessory muscle use. GASTROINTESTINAL: Abdomen soft, non-tender, nondistended. MUSCULOSKELETAL: No cyanosis, or edema. BACK: Nontender without obvious deformity. No CVA tenderness. Procedures Right temporal craniotomy for hemorrhagic mass resection; BrainLab stereotactic intraoperative navigation; microsurgical technique, left subclavian central line placement A/P Problem List: (1) ICH (intracerebral hemorrhage) ICD Code: I61.9 - Nontraumatic intracerebral hemorrhage, unspecified Status: Acute (2) Seizure ICD Code: R56.9 - Unspecified convulsions Status: Acute Assessment and Plan 82-year-old female with right parietal intraparenchymal cerebral hemorrhage, with subsequent status epilepticus and encephalopathy. Right parietal intraparenchymal hemorrhage Right temporal craniotomy for hemorrhagic mass resection; BrainLab stereotactic intraoperative navigation; microsurgical technique. Pathology pending Continue PT and OT Neurosurgery following Continue blood pressure optimization Dyspnea CXR from 11/15/2017 shows bibasilar infiltrates - this is most likely fluid. No clinical symptoms of pneumonia. We gave one dose of Lasix 40mg IV. Will give 10mg IV lasix BID for a few days. Subclinical status epilepticus Neurology following Continue Depakote only. Continue neuro checks hypertension COPD Continue hydralazine and labetalol. Blood pressure in the 130s and 140s. Continue Prednisone 20mg Qday. Thyroid disease Continue [place] thyroid 90 mg daily Nutrition May need PEG tube if aggressive care is pursued by family. DVT prophylaxis SCDs. Pharmacological prophylaxis contraindicated at this time secondary to intracranial hemorrhage Jordy Figueroa DO November 16, 2017 17:12
[2017-11-16] MEDS ORDERED: FUROSEMIDE 40 MG/4 ML VIAL IV PUSH ONE (17:30)
[2017-11-16] MEDS ORDERED: FUROSEMIDE 20 MG/2 ML VIAL IV PUSH SCH (18:00)
--- NOTE | 2017-11-16 18:00 | RADRPT ---
EXAM DATE/TIME: 11/16/2017 17:41 [facility] COMPARISON: CHEST SINGLE AP, November 15, 2017, 11:35. INDICATIONS : Short of breath. MEDICAL HISTORY : Stroke. SURGICAL HISTORY : None. ENCOUNTER: Subsequent ACUITY: 4 - 6 days PAIN SCORE: 0/10 LOCATION: Bilateral chest FINDINGS: Stable NGT and left subclavian central line. Slightly improved aeration in the left lower lung zone w ith persistent airspace disease in the right lower lung zone. Suspect small right pleural effusion. C ardiomediastinal contours are stable. Remainder of exam is unchanged. CONCLUSION: 1. Improved aeration in the left lower lung zone. 2. Persistent airspace disease in the right lower lung zone with probable small pleural effusion. Cesar Mcneil MD on November 16, 2017 at 17:57 Board Certified Radiologist. This report was verified electronically.
[2017-11-17] VITALS (7 sets, daily range): BP systolic 112–144; BP diastolic 58–70; PULSE 86–97; RESP 16–21; TEMP 97.9–98.6; O2SAT 95–100
[2017-11-17] MEDS: VALPROATE INJ 500 MG in SODIUM CHLORIDE 0.9% INJ 100 ML IV SCH ×2 (01:22→08:50)
[2017-11-17] MEDS: CHLORHEXIDINE GLUCONATE 2 % 1 PACK (2 CLOTHS) TOP SCH (03:41)
[2017-11-17] MEDS: THYROID 30 MG TAB NG SCH (04:45)
[2017-11-17] MEDS: THYROID 60 MG TAB NG SCH (04:45)
[2017-11-17] MEDS: DOCUSATE SODIUM 50 MG/SENNA 8.6 MG TAB PO SCH ×2 (08:20→19:52)
[2017-11-17] MEDS: predniSONE 20 MG TAB NG SCH (08:20)
[2017-11-17] MEDS: SODIUM CHLORIDE 0.9% FLUSH 10 ML FLUSH IV FLUSH SCH ×2 (08:21→19:52)
[2017-11-17] MEDS: POTASSIUM PHOSPHATE MONOBASIC 500 MG TAB PO SCH ×2 (08:21→19:52)
[2017-11-17] MEDS: INSULIN ASPART SUPPLEMENTAL SCALE SQ SCH ×4 (08:48→21:00)
[2017-11-17] MEDS: FUROSEMIDE 40 MG/4 ML VIAL IV PUSH SCH ×2 (08:48→17:30)
[2017-11-17] MEDS: LANSOPRAZOLE SOLUTAB 15 MG TAB NG SCH (08:49)
[2017-11-17] MEDS ORDERED: FUROSEMIDE 20 MG/2 ML VIAL IV PUSH SCH (09:00)
--- NOTE | 2017-11-17 10:59 | HHI.NSPN ---
History Chief Complaint: ICH. Interval History 82-year-old -[place] female who was transferred from [facility] where she presented with neurologic changes. There is no family members and the patient cannot relate much of a history but apparently with CT scan head obtained she was found to have a right posterior temporal lobe cerebral hemorrhage. CT scan of the head reviewed from [facility] on arrival reveals a less than 2 cm right posterior temporal lobe hemorrhage without any significant mass-effect or midline shift. Overnight her exam is not changed although she had an EEG study done and was noted to have subclinical seizures and has been noted to be more lethargic since then and is awaiting fosphenytoin bolus. MRI scan of the brain is also pending along with neurology evaluation. It is unclear whether this cerebral hemorrhage is spontaneous versus traumatic. 11/03/17: Pt awake and alert. At times not cooperative with exam. She at times doesn't verbalize and others answers questions yes/no. She follows commands at times and other times does not. 11/04/17: Pt sedated for MRI and not opening eyes or following commands. 11/05/17: Pt awakens but still fatigued. She states her name when asked but not verbalizing much otherwise. 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 She moves bilateral LEs to command. 11/06/17: Pt very fatigued again today. Not opening eyes. Not following commands. Pt resting in position. 11/07/17: Pt lethargic still. Not opening eyes or following commands. 11/09/17: Pt lethargic but more awake today than previous days as she actually opened her eyes and said some words. She underwent a right temporal craniotomy for hemorrhagic mass resection on 11/08/17. She is lethargic but opens her eyes. She answers some simple questions. She follows some simple commands. 11/10/17: Pt not as alert this morning as yesterday. Not opening eyes. Verbalizing some words but not able to understand. Spontaneously moves extremities. 11/11/17: Pt lethargic. Not opening eyes. Not following commands. Not verbalizing. Protecting airway currently. 11/15/17: Pt more awake today. Opens eyes and communicates appropriately. Denies headaches, nausea, paresthesias. 11/16/17: Pt awakens to voice but lethargic. She denies headaches, nausea, paresthesias. She denies chest pain or sob. 11/17/17: Pt more awake today. She denies headaches, nausea, chest pain or sob. Review of Systems General: Negative for: fever, chills, insomnia Respiratory: Negative for: shortness of breath, cough, sputum Cardiovascular: Negative for: chest pain Gastrointestinal: Negative for: nausea, vomitting, diarrhea, constipation Exam Results Vital Signs Date Time Temp Pulse Resp B/P (MAP) Pulse Ox O2 Delivery O2 Flow Rate FiO2 11/17/17 08:21 Nasal Cannula 2.00 11/17/17 08:00 98.2 95 16 120/69 (86) 98 11/15/17 10:21 21 Intake and Output 11/17/17 11/17/17 11/18/17 08:00 16:00 00:00 Intake Total 105 ml 100 ml Output Total 1400 ml 1500 ml Balance -1295 ml -1400 ml Physical Examination General: Pt more awake today answering questions in nad. Eyes: Pupils equal. Sclera anicteric. Resp: Expiratory wheezing bilaterally but improved from yesterday. Heart: NSR no murmurs. Abd: Soft positive bs. NGT tube feeds at 65ml/hr. Skin: No cyanosis or erythema. SCDs in place. Right surgical wound healing well no signs of infection. Muscle: Follows simple commands. Generalized weakness, gripped both hands and moved both feet to command Neuro: Awakens to voice, answering questions appropriately this morning. Followed simple commands in extremities. Pupils 3mm bilaterally, reactive sluggishly bilaterally. Lab, Micro, Other Results Last Impressions Chest X-Ray 11/16/17 0000 Signed Impressions: Service Date/Time: Thursday, November 16, 2017 17:41 - CONCLUSION: 1. Improved aeration in the left lower lung zone. 2. Persistent airspace disease in the right lower lung zone with probable small pleural effusion. Cesar Mcneil MD Soft Tissue Neck X-Ray 11/11/17 0000 Signed Impressions: Service Date/Time: November 13:28 - CONCLUSION: 1. No acute findings. NG tube present. Axel Cheema MD Abdomen X-Ray 11/10/17 0000 Signed Impressions: Service Date/Time: Friday, November 10, 2017 14:00 - CONCLUSION: NG tube in the stomach Donovan Piña MD Head CT 11/09/17 0600 Signed Impressions: Service Date/Time: Thursday, November 09, 2017 05:51 - CONCLUSION: Status post craniotomy and removal of the density seen previously. No residual hematoma is identified. There is residual pneumocephalus. No acute mass effect. Papa Lombardi MD Brain MRI 11/04/17 0000 Signed Impressions: Service Date/Time: November 12:38 - CONCLUSION: Focal abnormality in the right posterior temporal lobe measuring up to 3.9 cm, as above. Examination will be used for intraoperative localization. Donovan Campbell MD Chest CT 11/02/17 0000 Signed Impressions: Service Date/Time: Thursday, November 02, 2017 21:35 - CONCLUSION: 1. Negative for metastatic disease to the thorax. No acute findings. Axel Cheema MD Abdomen/Pelvis CT 11/02/17 0000 Signed Impressions: Service Date/Time: Thursday, November 02, 2017 21:35 - CONCLUSION: 1. Negative for metastatic disease in the abdomen or pelvis. Multiple hepatic cysts. Numerous fibroids in the uterus. Mild colonic constipation and moderate rectal constipation. Axel Cheema MD Laboratory Tests Test 11/16/17 11:27 11/16/17 17:27 White Blood Count 5.7 TH/MM3 Red Blood Count 2.99 MIL/MM3 Hemoglobin 8.6 GM/DL Hematocrit 25.9 % Mean Corpuscular Volume 86.7 FL Mean Corpuscular Hemoglobin 28.9 PG Mean Corpuscular Hemoglobin Concent 33.4 % Red Cell Distribution Width 19.9 % Platelet Count 267 TH/MM3 Mean Platelet Volume 6.5 FL Neutrophils (%) (Auto) 64.4 % Lymphocytes (%) (Auto) 9.5 % Monocytes (%) (Auto) 25.5 % Eosinophils (%) (Auto) 0.2 % Basophils (%) (Auto) 0.4 % Neutrophils # (Auto) 3.7 TH/MM3 Lymphocytes # (Auto) 0.5 TH/MM3 Monocytes # (Auto) 1.5 TH/MM3 Eosinophils # (Auto) 0.0 TH/MM3 Basophils # (Auto) 0.0 TH/MM3 CBC Comment AUTO DIFF Differential Total Cells Counted 100 Neutrophils % (Manual) 55 % Band Neutrophils % 17 % Lymphocytes % 13 % Monocytes % 11 % Neutrophils # (Manual) 4.3 TH/MM3 Myelocytes 4 % Differential Comment FINAL DIFF MANUAL Toxic Granulation 1+ Platelet Estimate NORMAL Platelet Morphology Comment NORMAL Blood Urea Nitrogen 10 MG/DL Creatinine 0.47 MG/DL Random Glucose 175 MG/DL Calcium Level 7.9 MG/DL Sodium Level 138 MEQ/L Potassium Level 3.8 MEQ/L Chloride Level 101 MEQ/L Carbon Dioxide Level 29.0 MEQ/L Anion Gap 8 MEQ/L Estimat Glomerular Filtration Rate 153 ML/MIN Lactic Acid Level 1.2 mmol/L Valproic Acid (Depakene) Level 39 MCG/ML Blood Gas Puncture Site RT RADIAL Blood Gas Patient Temperature 98.6 Blood Gas HCO3 30 mmol/L Blood Gas Base Excess 6.2 mmol/L Blood Gas Oxygen Saturation 92 % Arterial Blood pH 7.51 Arterial Blood Partial Pressure CO2 38 mmHg Arterial Blood Partial Pressure O2 72 mmHg Arterial Blood Oxygen Content 12.5 Vol % Arterial Blood Carboxyhemoglobin 1.1 % Arterial Blood Methemoglobin 1.6 % Blood Gas Hemoglobin 9.6 G/DL Blood Gas Inspired Oxygen 21 % 11/17/17 11/17/17 11/18/17 15:00 23:00 07:00 Intake Total 100 ml Output Total 1500 ml Balance -1400 ml IV Total 100 ml Output Urine Total 1500 ml Medical Decision Making Impression and Plan A: 82-year-old lady with a right posterior temporal lobe cerebral hemorrhage without mass-effect or midline shift. Continue with observation along with seizure prophylaxis. MRI reveals likely underlying mass. No metastatic sites found on CT chest, abdomen, pelvis. s/p right temporal craniotomy for hemorrhagic mass resection on 11/08/17. Follow up CT head stable. Path pending. P: Continue with hypertension control. Continue with neuro checks Continue with Rehab efforts. Continue with DVT prophylaxis. Continue with GI prophylaxis. Speech therapy assessing swallow. Following pathology. Continue to get her up in a chair. PT/OT/Speech. Deandre Cordoba November 17, 2017 10:59 am
--- NOTE | 2017-11-17 11:34 | HHI.PR ---
Subjective Remarks Follow-up for right posterior temporal lobe cerebral hemorrhage. Patient is breathing better. She reports no CP, SOB, fever, chills. Objective Vitals Vital Signs Date Time Temp Pulse Resp B/P (MAP) Pulse Ox O2 Delivery O2 Flow Rate FiO2 11/17/17 08:21 Nasal Cannula 2.00 11/17/17 08:00 98.2 95 16 120/69 (86) 98 11/17/17 04:30 98.6 88 21 117/65 (82) 95 11/17/17 00:10 98.0 89 21 120/64 (82) 95 11/16/17 21:00 98.8 99 20 112/68 (83) 94 11/16/17 19:15 98 Nasal Cannula 2.00 11/16/17 17:38 97 Nasal Cannula 2.00 11/16/17 17:23 98 Nasal Cannula 2.00 11/16/17 16:00 98.3 92 22 117/62 (80) 97 11/16/17 12:00 98.5 88 24 124/62 (82) 94 I/O 11/16/17 11/16/17 11/16/17 11/17/17 11/17/17 11/17/17 07:00 15:00 23:00 07:00 15:00 23:00 Intake Total 0 ml 594 ml 105 ml 105 ml 100 ml Output Total 800 ml 1875 ml 1400 ml 1500 ml Balance -800 ml 594 ml -1770 ml -1295 ml -1400 ml Intake Oral 0 ml 0 ml 0 ml IV Total 105 ml 105 ml 100 ml Tube Feeding 594 ml Output Urine Total 800 ml 1875 ml 1400 ml 1500 ml # Bowel Movements 0 0 0 Result Diagram: 11/16/17 1127 11/16/17 1127 Imaging Last Impressions Chest X-Ray 11/16/17 0000 Signed Impressions: Service Date/Time: Thursday, November 16, 2017 17:41 - CONCLUSION: 1. Improved aeration in the left lower lung zone. 2. Persistent airspace disease in the right lower lung zone with probable small pleural effusion. Cesar Mcneil MD Soft Tissue Neck X-Ray 11/11/17 0000 Signed Impressions: Service Date/Time: November 13:28 - CONCLUSION: 1. No acute findings. NG tube present. Axel Cheema MD Abdomen X-Ray 11/10/17 0000 Signed Impressions: Service Date/Time: Friday, November 10, 2017 14:00 - CONCLUSION: NG tube in the stomach Donovan Piña MD Head CT 11/09/17 0600 Signed Impressions: Service Date/Time: Thursday, November 09, 2017 05:51 - CONCLUSION: Status post craniotomy and removal of the density seen previously. No residual hematoma is identified. There is residual pneumocephalus. No acute mass effect. Papa Lombardi MD Brain MRI 11/04/17 0000 Signed Impressions: Service Date/Time: November 12:38 - CONCLUSION: Focal abnormality in the right posterior temporal lobe measuring up to 3.9 cm, as above. Examination will be used for intraoperative localization. Donovan Campbell MD Chest CT 11/02/17 0000 Signed Impressions: Service Date/Time: Thursday, November 02, 2017 21:35 - CONCLUSION: 1. Negative for metastatic disease to the thorax. No acute findings. Axel Cheema MD Abdomen/Pelvis CT 11/02/17 0000 Signed Impressions: Service Date/Time: Thursday, November 02, 2017 21:35 - CONCLUSION: 1. Negative for metastatic disease in the abdomen or pelvis. Multiple hepatic cysts. Numerous fibroids in the uterus. Mild colonic constipation and moderate rectal constipation. Axel Cheema MD Objective Remarks GENERAL: Sleeping in bed, No acute distress. SKIN: Warm and dry. HEAD: Normocephalic. EYES: No scleral icterus. No injection or drainage. NECK: Supple, trachea midline. No JVD or lymphadenopathy. CARDIOVASCULAR: Regular rate and rhythm without murmurs, gallops, or rubs. RESPIRATORY: Moderate air entry. she is a mouth breather and there is some accessory muscle use. GASTROINTESTINAL: Abdomen soft, non-tender, nondistended. MUSCULOSKELETAL: No cyanosis, or edema. BACK: Nontender without obvious deformity. No CVA tenderness. Procedures Right temporal craniotomy for hemorrhagic mass resection; BrainLab stereotactic intraoperative navigation; microsurgical technique, left subclavian central line placement A/P Problem List: (1) ICH (intracerebral hemorrhage) ICD Code: I61.9 - Nontraumatic intracerebral hemorrhage, unspecified Status: Acute (2) Seizure ICD Code: R56.9 - Unspecified convulsions Status: Acute Assessment and Plan 82-year-old female with right parietal intraparenchymal cerebral hemorrhage, with subsequent status epilepticus and encephalopathy. Right parietal intraparenchymal hemorrhage Right temporal craniotomy for hemorrhagic mass resection; BrainLab stereotactic intraoperative navigation; microsurgical technique. Pathology pending Continue PT and OT Neurosurgery following Continue blood pressure optimization Dyspnea CXR from 11/15/2017 shows bibasilar infiltrates - this is most likely fluid. No clinical symptoms of pneumonia. Will give IV lasix 40mg BID for now. Subclinical status epilepticus Continue Depakote only. Continue neuro checks hypertension COPD Continue hydralazine and labetalol. Blood pressure in the 130s and 140s. Continue Prednisone 20mg Qday. Thyroid disease Continue [place] thyroid 90 mg daily Nutrition May need PEG tube if aggressive care is pursued by family. Currently on tube feed via NG tube. DVT prophylaxis SCDs. Pharmacological prophylaxis contraindicated at this time secondary to intracranial hemorrhage Jordy Figueroa DO November 17, 2017 11:34 am
[2017-11-17 12:57] LABS: CREATININE 0.5 MG/DL (0.50-1.00)
[2017-11-17 12:58] LABS: BICARBONATE 33.3 MEQ/L (21.0-32.0); CALCIUM 8.1 MG/DL (8.5-10.1)
[2017-11-17] MEDS: VALPROATE INJ 750 MG in SODIUM CHLORIDE 0.9% INJ 100 ML IV SCH (17:31)
--- NOTE | 2017-11-17 18:31 | RADRPT ---
EXAM DATE/TIME: 11/17/2017 17:52 [facility] COMPARISON: No previous studies available for comparison. INDICATIONS : Right leg pain. MEDICAL HISTORY : Stroke. Hypertension. Hypercholesterolemia. Thyroid disease. COPD. Osteoporosis. Diabetes. SURGICAL HISTORY : Oral surgery. ENCOUNTER: Initial ACUITY: 4 - 6 days PAIN SCORE: 3/10 LOCATION: Right leg. TECHNIQUE: Venous ultrasound of the leg was performed from the inguinal ligament to the proximal calf. Real-nedra e, color Doppler and spectral tracing, compression and augmentation techniques were used. FINDINGS: There is normal compressibility of the deep venous system from the inguinal region to the proximal ca lf. No echogenic clot is seen in the lumen of the common femoral, femoral, popliteal, and posterior tibial veins. There is a normal response of the venous system to proximal and distal augmentation an d respiration. CONCLUSION: No DVT. Donovan Fleming MD on November 17, 2017 at 18:28 Board Certified Radiologist. This report was verified electronically.
[2017-11-17] MEDS: ENOXAPARIN SODIUM 40 MG/0.4 ML SYRINGE SQ SCH (18:38)
--- NOTE | 2017-11-17 21:18 | MG ---
cc: Jorge Yuan MD ELECTROENCEPHALOGRAM RECORD NUMBER: [id number]. DESCRIPTION: Symmetric right and atmospheric slowing with theta/delta frequencies, 10-50 microvolt activity. Proved EEG variability and reactivity. Further generalized slowing suggestive of drowsy stage I sleep followed by wakeful state. Intermittent muscle artifact. Some driving with photic stimulation. Single lead EKG showing sinus rhythm. INTERPRETATION: Asymmetric mild right hemispheric slowing, mild generalized encephalopathy. Overall, improved EEG compared to previous. Clinical correlation. MD TORRES Anderson/SHAR , 09:04 PM , 09:18 PM
[2017-11-17] MEDS: RESP: ALBUTEROL 2.5 MG/3 ML NEB (PRN) NEB (23:32)
[2017-11-18] VITALS (19 sets, daily range): BP systolic 92–169; BP diastolic 50–91; PULSE 97–138; RESP 18–36; TEMP 97.6–98.8; O2SAT 84–99
[2017-11-18] MEDS: CHLORHEXIDINE GLUCONATE 2 % 1 PACK (2 CLOTHS) TOP SCH (00:11)
[2017-11-18] MEDS: VALPROATE INJ 750 MG in SODIUM CHLORIDE 0.9% INJ 100 ML IV SCH ×3 (01:29→17:47)
--- NOTE | 2017-11-18 05:13 | RADRPT ---
EXAM DATE/TIME: 11/18/2017 04:13 This report includes an Addendum and supersedes previous reports for this exam. [facility] COMPARISON: CHEST SINGLE AP, November 16, 2017, 17:41. INDICATIONS : Respiratory distress and NG tube placement. MEDICAL HISTORY : Stroke. SURGICAL HISTORY : None. ENCOUNTER: Subsequent ACUITY: 1 week PAIN SCORE: Non-responsive. LOCATION: Bilateral chest FINDINGS: Improvement in the right lower lobe infiltrate. Mild infiltrate remains. Left base is clear. Tiny lef t effusion is stable. Heart is normal in size. Nasogastric tube noted. CONCLUSION: Improving right lower lobe infiltrate. Stable tiny left effusion. Aquilino Colon Jr., MD on November 18, 2017 at 5:11 Board Certified Radiologist. This report was verified electronically. ADDENDUM: Nasogastric tube is coiled within the stomach. Aquilino Colon Jr., MD on November 18, 2017 at 5:39 Board Certified Radiologist. This report was verified electronically.
[2017-11-18] MEDS: THYROID 60 MG TAB NG SCH ×2 (06:00→06:13)
[2017-11-18] MEDS: THYROID 30 MG TAB NG SCH ×2 (06:00→06:13)
[2017-11-18] MEDS: INSULIN ASPART SUPPLEMENTAL SCALE SQ SCH ×4 (08:00→21:00)
[2017-11-18] MEDS: FUROSEMIDE 40 MG/4 ML VIAL IV PUSH SCH (08:01)
[2017-11-18] MEDS: SODIUM CHLORIDE 0.9% FLUSH 10 ML FLUSH IV FLUSH SCH ×2 (08:04→21:00)
[2017-11-18] MEDS ORDERED: RESP: IPRATROPIUM 0.5 MG/2.5 ML NEB NEB PRN (08:30)
[2017-11-18] MEDS ORDERED: ROCURONIUM INJ 50 MG/5 ML VIAL ONE (08:45)
[2017-11-18] MEDS ORDERED: ETOMIDATE 40 MG/20 ML VIAL ONE (08:45)
[2017-11-18] MEDS: POTASSIUM PHOSPHATE MONOBASIC 500 MG TAB PO SCH ×2 (09:00→23:04)
[2017-11-18] MEDS: LANSOPRAZOLE SOLUTAB 15 MG TAB NG SCH (09:00)
[2017-11-18] MEDS: DOCUSATE SODIUM 50 MG/SENNA 8.6 MG TAB PO SCH ×2 (09:00→20:26)
[2017-11-18] MEDS ORDERED: PROPOFOL 500 MG/50 ML INJ 50 ML ONE (09:07)
--- NOTE | 2017-11-18 09:33 | RADRPT ---
EXAM DATE/TIME: 11/18/2017 09:01 [facility] COMPARISON: CHEST SINGLE AP, November 18, 2017, 4:13. INDICATIONS : Endotracheal tube placement. MEDICAL HISTORY : Stroke. SURGICAL HISTORY : Cholecystectomy. ENCOUNTER: Subsequent ACUITY: 4 - 6 days PAIN SCORE: Non-responsive. LOCATION: Bilateral chest FINDINGS: There is an endotracheal tube in place. The tip appears to be approximately 2 cm above the carrol. No pneumothorax. There is scattered infiltrates especially in the left lung. The right lung is grossly clear. No definite pleural effusions. Heart size is within normal limits. There is an NG tube in the stomach. CONCLUSION: The endotracheal tube appears to be in good position. No evidence of pneumothorax. Corey Arreola MD on November 18, 2017 at 9:29 Board Certified Radiologist. This report was verified electronically.
[2017-11-18] MEDS ORDERED: ROCURONIUM INJ 50 MG/5 ML VIAL IV ONE (09:45)
[2017-11-18] MEDS ORDERED: fentaNYL CITRATE 250 MCG/5 ML AMP IV ONE (09:45)
[2017-11-18] MEDS ORDERED: ETOMIDATE 20 MG/10 ML VIAL IVP ONE (09:45)
[2017-11-18] MEDS ORDERED: MIDAZOLAM HCL 5 MG/ML VIAL (1 ML) ONE (09:49)
[2017-11-18] MEDS: PIPERACIL-TAZO 3.375 GM PREMIX 50 ML IV SCH ×3 (10:00→23:03)
--- NOTE | 2017-11-18 10:33 | RADRPT ---
EXAM DATE/TIME: 11/18/2017 10:09 [facility] COMPARISON: CHEST SINGLE AP, November 18, 2017, 9:01. INDICATIONS : Post central line placement MEDICAL HISTORY : Stroke. SURGICAL HISTORY : Cholecystectomy. ENCOUNTER: Subsequent ACUITY: 4 - 6 days PAIN SCORE: Non-responsive. LOCATION: Bilateral chest FINDINGS: Status post placement of a right-sided central line. The central line appears to be in good position. There is no pneumothorax. There are scattered pulmonary infiltrates bilaterally. The ET tube and NG tube are stable. CONCLUSION: 1. Right central line in good position. 2. No pneumothorax. Corey Arreola MD on November 18, 2017 at 10:30 Board Certified Radiologist. This report was verified electronically.
[2017-11-18 11:08] LABS: ALBUMIN 1.7 GM/DL (3.4-5.0); ALKALINE PHOSPHATASE 78 U/L (45-117); ALT (GPT) 20 U/L (10-53); AST (GOT) 63 U/L (15-37); BICARBONATE 28.8 MEQ/L (21.0-32.0); BLOOD UREA NITROGEN 12 MG/DL (7-18); CALCIUM 7.8 MG/DL (8.5-10.1); CHLORIDE 100 MEQ/L (98-107); CREATININE 0.65 MG/DL (0.50-1.00); GLOMERULAR FILTRATION RATE 105 ML/MIN (>89); GLUCOSE,RANDOM 139 MG/DL (74-106); MAGNESIUM 1.5 MG/DL (1.5-2.5); PHOSPHORUS 1.8 MG/DL (2.5-4.9); SODIUM (NA) 139 MEQ/L (136-145); TOTAL BILIRUBIN ADULT 0.4 MG/DL (0.2-1.0)
[2017-11-18 12:00] LABS: AUTOMATED NEUTROPHIL # 3.2 TH/MM3 (1.8-7.7); BASOPHIL % 0.9 % (0.0-2.0); EOSINOPHIL % 0.2 % (0.0-4.0); HEMATOCRIT 31.4 % (35.0-46.0); HEMOGLOBIN 10.2 GM/DL (11.6-15.3); LYMPH % 15.4 % (9.0-44.0); LYMPHOCYTE # 0.7 TH/MM3 (1.0-4.8); MEAN CELL VOLUME 87.7 FL (80.0-100.0); MEAN CORPUSCULAR HEMOGLOBIN 28.4 PG (27.0-34.0); MEAN CORPUSCULAR HGB CONC 32.3 % (32.0-36.0); MEAN PLATELET VOLUME 6.5 FL (7.0-11.0); MONO % 8.3 % (0.0-8.0); MONOCYTE # 0.4 TH/MM3 (0-0.9); NEUT % 75.2 % (16.0-70.0); PLATELET COUNT 404 TH/MM3 (150-450); RED BLOOD COUNT 3.58 MIL/MM3 (4.00-5.30); RED CELL DISTRIBUTION WIDTH 19.8 % (11.6-17.2); WHITE BLOOD COUNT 4.3 TH/MM3 (4.0-11.0)
[2017-11-18 12:11] LABS: PROTHROMBIN TIME - PATIENT 10.2 SEC (9.8-11.6)
--- NOTE | 2017-11-18 12:33 | RADRPT ---
EXAM DATE/TIME: 11/18/2017 11:50 [facility] COMPARISON: CT BRAIN W/O CONTRAST, November 09, 2017, 5:51. INDICATIONS : Inracranial bleed RADIATION DOSE: 43.49 CTDIvol (mGy) MEDICAL HISTORY : Cerebrovascular disease. Chronic obstructive pulmonary disease. Hypertension.Diabetes SURGICAL HISTORY : Craniotomy. ENCOUNTER: Subsequent ACUITY: 3 days PAIN SCALE: Non-responsive LOCATION: cranial TECHNIQUE: Multiple contiguous axial images were obtained of the head. Using automated exposure control and adj ustment of the mA and/or kV according to patient size, radiation dose was kept as low as reasonably a chievable to obtain optimal diagnostic quality images. DICOM format image data is available electro nically for review and comparison. FINDINGS: There is a slight pneumocephalus on the right side in the temporal lobe from prior craniotomy not sig nificantly changed. There is one area of linear increased density in the right anterior thalamic eric on probably artifact related to surgical hardware. There is encephalomalacia developing in the right temporal lobe and there are no extra-axial fluid collections or any mass effect. The rest of the exam ination has not changed. CONCLUSION: Postsurgical changes and encephalomalacia developing in the right frontal lobe with o ne area of linear density probable artifact without definite hemorrhage or mass effect. Loretta Muro MD on November 18, 2017 at 12:29 Board Certified Radiologist. This report was verified electronically.
[2017-11-18] MEDS ORDERED: IOHEXOL 350 MG/ML 10 ML VIAL (for RAD DIAG) IVCONTRAST ONE (12:38)
--- NOTE | 2017-11-18 12:48 | RADRPT ---
EXAM DATE/TIME: 11/18/2017 12:05 [facility] COMPARISON: No previous studies available for comparison. INDICATIONS : Shortness of breath IV CONTRAST: 50 cc Omnipaque 350 (iohexol) IV RADIATION DOSE: 11.42 CTDIvol (mGy) MEDICAL HISTORY : Chronic obstructive pulmonary disease. Hypertension. Cerebrovascular disease.Diabetes SURGICAL HISTORY : Craniotomy. ENCOUNTER: Initial ACUITY: 1 day PAIN SCALE: Non-responsive LOCATION: chest TECHNIQUE: Volumetric scanning of the chest was performed using a pulmonary embolism protocol MIP images were re constructed. Using automated exposure control and adjustment of the mA and/or kV according to patien t size, radiation dose was kept as low as reasonably achievable to obtain optimal diagnostic quality images. DICOM format image data is available electronically for review and comparison. Follow-up recommendations for detected pulmonary nodules are based at a minimum on nodule size and pa tient risk factors according to Fleischner Society Guidelines. FINDINGS: There is no evidence for PE for technique. There are simple cysts in the liver the largest measures 2 .3 cm in the right hepatic lobe and is one area with rim-like calcification left hepatic lobe measure s 1.9 cm in size nonspecific and not adequately characterized. There is dense consolidation in the le ft upper lobe, bilateral lower lobes, parts of the right middle lobe characteristic of pneumonia. Sig nificant atherosclerotic plaquing and calcifications are present involving the aorta and the visualiz ed portions of the celiac and SMA axis and possibly right renal artery. There is no pleural effusion or interstitial pathological adenopathy. CONCLUSION: 1. Dense airspace consolidation bilaterally characteristic of pneumonia. 2. There is simple cyst in the liver with one area of rim-like calcification of the right lobe most l ikely benign, however not definitely characterized. 3. There is no evidence for PE for technique. Loretta Muro MD on November 18, 2017 at 12:42 Board Certified Radiologist. This report was verified electronically.
[2017-11-18] MEDS ORDERED: POTASSIUM CHLOR 40 MEQ PREMIX 100 ML IV ONE (13:00)
[2017-11-18] MEDS ORDERED: NOREPINEPHRINE-DEXTROSE DRIP 250 ML IV ONE (13:05)
[2017-11-18] MEDS ORDERED: PHENYLEPHRINE HCL 10 MG/ML VIAL ONE (13:05)
[2017-11-18 13:34] LABS: TROPONIN I 0.11 NG/ML (0.02-0.05)
[2017-11-18] MEDS ORDERED: POTASSIUM CHLORIDE 25 MEQ EFFERVESCENT TAB PO PRN (14:00)
[2017-11-18] MEDS ORDERED: POTASSIUM CHLOR 40 MEQ PREMIX 100 ML IV PRN ×2 (14:00)
[2017-11-18] MEDS ORDERED: MAGNESIUM SULFATE INJ 2 GM in SODIUM CHLORIDE 0.9% INJ 96 ML IV PRN (14:00)
[2017-11-18] MEDS ORDERED: POTASSIUM PHOSPHATE MONOBASIC 500 MG TAB PO/TUBE PRN (14:00)
[2017-11-18] MEDS ORDERED: POTASSIUM PHOSPHATE MONOBASIC 500 MG TAB PO PRN (14:00)
[2017-11-18] MEDS ORDERED: SODIUM PHOSPHATE INJ 30 MMOL in SODIUM CHLOR 0.9% 250 ML INJ 240 ML IV PRN (14:00)
[2017-11-18] MEDS ORDERED: MAGNESIUM OXIDE 400 MG TAB PO PRN (14:00)
[2017-11-18] MEDS ORDERED: MAGNESIUM SULFATE INJ 4 GM in SODIUM CHLORIDE 0.9% INJ 92 ML IV PRN (14:00)
[2017-11-18] MEDS ORDERED: POTASSIUM CHLOR 20 MEQ PREMIX 100 ML IV PRN (14:00)
[2017-11-18] MEDS ORDERED: TERBUTALINE INJ 1 MG/ML AMP SQ PRN ×2 (14:15→17:45)
--- NOTE | 2017-11-18 14:17 | HHI.CCPN ---
Subjective Remarks/Hospital Course Hospital Course: 82-year-old female with past medical history significant for COPD, diabetes mellitus, dyslipidemia, hypertension, osteoporosis, thyroid disorder presented to [facility] due to altered mental status, found by the patient's caregiver. At the emergency department the CT of the head revealed hemorrhagic infarct in the right temporal occipital region, measuring approximately 3.5 cm and the patient has been transferred to [facility] for higher level of care. The patient is nonverbal and information is obtained from medical chart review. Subjective: 11/02: more somnolent than on admission. EEG ordered and to my read appears to have significant ictal activity. loaded with fosphenytoin and neurology consult ordered. also, given size and location of the bleed, have ordered an MRI to better evaluate the area. 11/03: Awake and alert. Following commands. 11/18: Critical care reconsulted by Dr. Figueroa for worsening shortness of breath overnight. This morning patient was noted to be on a nonrebreather facemask with respiratory rate in the 30s using accessory muscles of respiration. Rapid response team was activated and patient was transferred to the ICU. I evaluated the patient immediately following her arrival to the ICU. She was in significant respiratory distress and I proceeded with emergent intubation and patient was placed on mechanical ventilation. Borderline blood pressures following intubation for which 1 L normal saline bolus ordered. I emergently placed a central line as well. Patient underwent a CT chest which was negative for PE however showed bilateral dense consolidations with concern regarding aspiration. Stat labs were ordered and patient was initiated on IV Zosyn for empiric antibiotic coverage. Objective Vital Signs Date Time Temp Pulse Resp B/P (MAP) Pulse Ox O2 Delivery O2 Flow Rate FiO2 11/18/17 10:25 96 50 11/18/17 08:18 Simple Mask 10.00 11/18/17 08:00 120 30 130/91 (104) 11/18/17 03:55 98.3 Intake and Output 11/18/17 11/18/17 11/19/17 08:00 16:00 00:00 Output Total 300 ml Balance -300 ml Result Diagram: 11/18/17 1113 11/18/17 1011 Other Results Laboratory Tests Test 11/18/17 03:53 11/18/17 12:25 Blood Gas Puncture Site RT RADIAL RT RADIAL Blood Gas Patient Temperature 98.6 98.6 Blood Gas HCO3 34 mmol/L (22-26) 29 mmol/L (22-26) Blood Gas Base Excess 9.8 mmol/L (-2-2) 5.6 mmol/L (-2-2) Blood Gas Oxygen Saturation 90 % (90-100) 94 % (90-100) Arterial Blood pH 7.47 (7.380-7.420) 7.54 (7.380-7.420) Arterial Blood Partial Pressure CO2 47 mmHg (38-42) 34 mmHg (38-42) Arterial Blood Partial Pressure O2 67 mmHg (61-120) 86 mmHg (61-120) Arterial Blood Oxygen Content 11.8 Vol % (12.0-20.0) 14.2 Vol % (12.0-20.0) Arterial Blood Carboxyhemoglobin 1.0 % (0-4) 0.8 % (0-4) Arterial Blood Methemoglobin 1.5 % (0-2) 1.5 % (0-2) Blood Gas Hemoglobin 9.2 G/DL (12.0-16.0) 10.7 G/DL (12.0-16.0) Oxygen Delivery Device PRB VENTILATOR Blood Gas Liter Flow 15 L/M Blood Gas Ventilator Setting PRVC/18/500/5/50% Blood Gas Inspired Oxygen 50 % Imaging Last Impressions Head CT 11/18/17 Signed Impressions: Service Date/Time: November 11:50 - CONCLUSION: Postsurgical changes and encephalomalacia developing in the right frontal lobe with one area of linear density probable artifact without definite hemorrhage or mass effect. Loretta Muro MD Chest X-Ray 11/18/17 Signed Impressions: Service Date/Time: November 10:09 - CONCLUSION: 1. Right central line in good position. 2. No pneumothorax. Corey Arreola MD CT Angiography 11/18/17 Signed Impressions: Service Date/Time: November 12:05 - CONCLUSION: 1. Dense airspace consolidation bilaterally characteristic of pneumonia. 2. There is simple cyst in the liver with one area of rim-like calcification of the right lobe most likely benign, however not definitely characterized. 3. There is no evidence for PE for technique. Loretta Muro MD Lower Extremity Ultrasound 5/16/18 0000 Signed Impressions: Service Date/Time: Friday, November 17, 2017 17:52 - CONCLUSION: No DVT. Donovan Fleming MD Soft Tissue Neck X-Ray 11/11/17 0000 Signed Impressions: Service Date/Time: November 13:28 - CONCLUSION: 1. No acute findings. NG tube present. Axel Cheema MD Abdomen X-Ray 11/10/17 0000 Signed Impressions: Service Date/Time: Friday, November 10, 2017 14:00 - CONCLUSION: NG tube in the stomach Donovan Piña MD Brain MRI 11/04/17 0000 Signed Impressions: Service Date/Time: November 12:38 - CONCLUSION: Focal abnormality in the right posterior temporal lobe measuring up to 3.9 cm, as above. Examination will be used for intraoperative localization. Donovan Campbell MD Chest CT 11/02/17 Signed Impressions: Service Date/Time: Thursday, November 02, 2017 21:35 - CONCLUSION: 1. Negative for metastatic disease to the thorax. No acute findings. Axel Cheema MD Abdomen/Pelvis CT 11/02/17 0000 Signed Impressions: Service Date/Time: Thursday, November 02, 2017 21:35 - CONCLUSION: 1. Negative for metastatic disease in the abdomen or pelvis. Multiple hepatic cysts. Numerous fibroids in the uterus. Mild colonic constipation and moderate rectal constipation. Axel Cheema MD Procedures Right temporal craniotomy for hemorrhagic mass resection; BrainLab stereotactic intraoperative navigation; microsurgical technique, left subclavian central line placement Objective Remarks HEENT/ Neuro: Sedated, orally intubated, Pallor present, no icterus, tongue/ mucosa dry. [place] over craniotomy site on right noted Neck: No JVD Chest/Pulm: on mech vent, good air entry bilaterally, scattered rhonchi bilaterally, no wheezing or crackles CVS: S1-S2 regular, no murmur GI/abdomen: soft, nontender, bowel sounds sluggish Extremities: warm bilaterally, no edema A/P Assessment and Plan Assessment: 82-year-old female with right parietal intraparenchymal cerebral hemorrhage status post, subclinical status epilepticus. Now with acute respiratory failure requiring mechanical ventilation with suspected aspiration pneumonia Right parietal intraparenchymal hemorrhage status post craniotomy -Status post craniotomy 11/08, being followed by neurosurgery -PT and OT as tolerated Frequent neurochecks Subclinical status epilepticus Sedation with propofol while intubated, daily sedation vacation. Neurology consulted and following Continue anticonvulsants per neurology Frequent neurochecks Pneumonia with suspected aspiration Hypotension Acute respiratory failure requiring mechanical ventilation Pancultures ordered. Empiric antibiotic coverage with IV Zosyn. CT chest negative for PE and shows bilateral dense consolidations concerning for aspiration. -Fluid boluses ordered for hypotension. Srinivasan-Synephrine for pressor support. COPD -No exacerbation -DuoNeb scheduled and as needed -No steroids or antibiotics indicated at this time Diabetes mellitus -Insulin sliding scale Dyslipidemia -atorvastatin p.o. Thyroid disease -Levothyroxine per home dose when available DVT GI prophylaxis -James's and SCDs -Lovenox for DVT prophylaxis -IV Pepcid Condition critical Discussed with neurosurgery, discussed with Dr. White, discussed with SLUICE TENDER. Time spent on critical care excluding procedures 60 minutes Joon Pruitt MD November 18, 2017 14:17
--- NOTE | 2017-11-18 14:19 | PD.PROCEDR ---
Procedure Note Procedure Procedure: Endotracheal intubation Preop diagnosis: Acute respiratory failure on mechanical ventilation Postop diagnosis: Same Sedation used: Etomidate 20 mg, fentanyl 200 mcg, rocuronium 50 mg IV Procedure: Patient was preoxygenated with 100% oxygen via Ambu bag with bag mask ventilation, following induction of sedation and neuromuscular blockade, direct laryngoscopy was performed using a Mac 4 blade with good visualization of vocal cords. An 8 Indonesian ET tube was passed through the vocal cords under direct visualization up to the 22 centimeter maged and after inflating cuff of ET tube, correct placement was confirmed using bagging with good color change on CO2 detector, 5 point auscultation and chest rise with ventilation. Patient was connected to mechanical ventilation. Patient tolerated the procedure well with no immediate complications noted. Postprocedure chest x-ray was ordered and reviewed with ET tube noted to be in right mainstem bronchus. ET tube was withdrawn back to 20 cm maged and repeat chest x-ray revealed of ET tube to be just above carrol. Joon Pruitt MD November 18, 2017 14:19
--- NOTE | 2017-11-18 14:21 | PD.PROCEDR ---
Central Line Procedure REASON FOR PROCEDURE Central venous access PROCEDURE PERFORMED Central line placement: Right subclavian vein CONSENT Informed consent not obtained as this was an emergent procedure and the patient following intubation with poor vascular access and hypotension ANESTHESIA Local injection of 1% Lidocaine DESCRIPTION OF THE PROCEDURE The patient was placed in supine, mild Trendelenburg position. The area was exposed and cleansed with ChloraPrep, times two. Large sterile drape was used to cover the patient, with the site exposed, under sterile conditions including cap, face mask, sterile gown, and sterile gloves. On single attempt, the introducer needle was inserted with negative pressure in syringe and venous flash was obtained. The guide wire was then advanced without any restriction and the needle was removed. The dilator was used without any complications. Using Seldinger technique, a 20 cm antimicrobial coated triple-lumen catheter was advanced over the guide wire to a depth of 15 centimeters. The guide wire was removed. All ports were aspirated with dark venous blood return and flushed easily with sterile saline. All ports were capped. Antibiotic disc was placed around central line at puncture site. The central line was secured to the skin with a statlock. The area was bandaged with sterile see-through central line bandage. Postprocedure chest x-ray was ordered and will be reviewed when available. COMPLICATIONS: No apparent complications ESTIMATED BLOOD LOSS: Less than 1 cc. Joon Pruitt MD November 18, 2017 14:21
[2017-11-18] MEDS ORDERED: SODIUM CHLOR 0.9% 1000 ML INJ 1,000 ML IV ONE ×2 (15:15)
--- NOTE | 2017-11-18 16:16 | HHI.NSPN ---
History Chief Complaint: ICH. Interval History 82-year-old -[place]aced[place] female who was transferred from [facility] where she presented with neurologic changes. There is no family members and the patient cannot relate much of a history but apparently with CT scan head obtained she was found to have a right posterior temporal lobe cerebral hemorrhage. CT scan of the head reviewed from [facility] on arrival reveals a less than 2 cm right posterior temporal lobe hemorrhage without any significant mass-effect or midline shift. Overnight her exam is not changed although she had an EEG study done and was noted to have subclinical seizures and has been noted to be more lethargic since then and is awaiting fosphenytoin bolus. MRI scan of the brain is also pending along with neurology evaluation. It is unclear whether this cerebral hemorrhage is spontaneous versus traumatic. 11/03/17: Pt awake and alert. At times not cooperative with exam. She at times doesn't verbalize and others answers questions yes/no. She follows commands at times and other times does not. 11/04/17: Pt sedated for MRI and not opening eyes or following commands. 11/05/17: Pt awakens but still fatigued. She states her name when asked but not verbalizing much otherwise. 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 She moves bilateral LEs to command. 11/06/17: Pt very fatigued again today. Not opening eyes. Not following commands. Pt resting in position. 11/07/17: Pt lethargic still. Not opening eyes or following commands. 11/09/17: Pt lethargic but more awake today than previous days as she actually opened her eyes and said some words. She underwent a right temporal craniotomy for hemorrhagic mass resection on 11/08/17. She is lethargic but opens her eyes. She answers some simple questions. She follows some simple commands. 11/10/17: Pt not as alert this morning as yesterday. Not opening eyes. Verbalizing some words but not able to understand. Spontaneously moves extremities. 11/11/17: Pt lethargic. Not opening eyes. Not following commands. Not verbalizing. Protecting airway currently. 11/15/17: Pt more awake today. Opens eyes and communicates appropriately. Denies headaches, nausea, paresthesias. 11/16/17: Pt awakens to voice but lethargic. She denies headaches, nausea, paresthesias. She denies chest pain or sob. 11/17/17: Pt more awake today. She denies headaches, nausea, chest pain or sob. 11/18/17: Pt sedated on Diprivan but opens eyes to voice. She nods her head to some questions and denies headache. She was intubated this morning. She is on a Phenylephrine drip. System Review Comments Not able to obtain given clinical condition. Exam Results Vital Signs Date Time Temp Pulse Resp B/P (MAP) Pulse Ox O2 Delivery O2 Flow Rate FiO2 11/18/17 14:16 138 69/38 11/18/17 10:25 96 50 11/18/17 08:18 Simple Mask 10.00 11/18/17 08:00 30 11/18/17 03:55 98.3 Intake and Output 11/18/17 11/18/17 11/19/17 08:00 16:00 00:00 Output Total 300 ml Balance -300 ml Physical Examination General: Opens eyes slightly to voice and responds to some simple questions. She is tachycardia and hypotensive on Phenylephrine drip. Eyes: Pupils equal. Sclera anicteric. Resp: CTA bilaterally. Heart: NSR no murmurs. Abd: Soft positive bs. NGT in place. Skin: No cyanosis or erythema. SCDs in place. Right surgical wound healing well no signs of infection. Muscle: Not following commands as well currently but is on Diprivan. Neuro: Pt opens eyes slightly to voice. She is sedated on Diprivan. Pupils 3mm bilaterally, reactive sluggishly bilaterally. Nods head to some questions. Not following commands as well currently. Lab, Micro, Other Results Last Impressions Head CT 11/18/17 0000 Signed Impressions: Service Date/Time: November 11:50 - CONCLUSION: Postsurgical changes and encephalomalacia developing in the right frontal lobe with one area of linear density probable artifact without definite hemorrhage or mass effect. Loretta Muro MD Chest X-Ray 11/18/17 0000 Signed Impressions: Service Date/Time: November 10:09 - CONCLUSION: 1. Right central line in good position. 2. No pneumothorax. Corey Arreola MD CT Angiography 11/18/17 0000 Signed Impressions: Service Date/Time: November 12:05 - CONCLUSION: 1. Dense airspace consolidation bilaterally characteristic of pneumonia. 2. There is simple cyst in the liver with one area of rim-like calcification of the right lobe most likely benign, however not definitely characterized. 3. There is no evidence for PE for technique. K. Avelino Muro MD Lower Extremity Ultrasound 11/17/17 0000 Signed Impressions: Service Date/Time: Friday, November 17, 2017 17:52 - CONCLUSION: No DVT. Donovan Fleming MD Soft Tissue Neck X-Ray 11/11/17 0000 Signed Impressions: Service Date/Time: November 13:28 - CONCLUSION: 1. No acute findings. NG tube present. Axel Cheema MD Abdomen X-Ray 11/10/17 0000 Signed Impressions: Service Date/Time: Friday, November 10, 2017 14:00 - CONCLUSION: NG tube in the stomach Donovan Piña MD Brain MRI 11/04/17 Signed Impressions: Service Date/Time: November 12:38 - CONCLUSION: Focal abnormality in the right posterior temporal lobe measuring up to 3.9 cm, as above. Examination will be used for intraoperative localization. Donovan Campbell MD Chest CT 11/02/17 Signed Impressions: Service Date/Time: Thursday, November 02, 2017 21:35 - CONCLUSION: 1. Negative for metastatic disease to the thorax. No acute findings. Axel Cheema MD Abdomen/Pelvis CT 11/02/17 0000 Signed Impressions: Service Date/Time: Thursday, November 02, 2017 21:35 - CONCLUSION: 1. Negative for metastatic disease in the abdomen or pelvis. Multiple hepatic cysts. Numerous fibroids in the uterus. Mild colonic constipation and moderate rectal constipation. Axel Cheema MD Laboratory Tests Test 11/18/17 03:53 11/18/17 10:11 11/18/17 11:13 11/18/17 12:25 Blood Gas Puncture Site RT RADIAL RT RADIAL Blood Gas Patient Temperature 98.6 98.6 Blood Gas HCO3 34 mmol/L 29 mmol/L Blood Gas Base Excess 9.8 mmol/L 5.6 mmol/L Blood Gas Oxygen Saturation 90 % 94 % Arterial Blood pH 7.47 7.54 Arterial Blood Partial Pressure CO2 47 mmHg 34 mmHg Arterial Blood Partial Pressure O2 67 mmHg 86 mmHg Arterial Blood Oxygen Content 11.8 Vol % 14.2 Vol % Arterial Blood Carboxyhemoglobin 1.0 % 0.8 % Arterial Blood Methemoglobin 1.5 % 1.5 % Blood Gas Hemoglobin 9.2 G/DL 10.7 G/DL Oxygen Delivery Device PRB VENTILATOR Blood Gas Liter Flow 15 L/M Blood Urea Nitrogen 12 MG/DL Creatinine 0.65 MG/DL Random Glucose 139 MG/DL Total Protein 5.0 GM/DL Albumin 1.7 GM/DL Calcium Level 7.8 MG/DL Phosphorus Level 1.8 MG/DL Magnesium Level 1.5 MG/DL Alkaline Phosphatase 78 U/L Aspartate Amino Transf (AST/SGOT) 63 U/L Alanine Aminotransferase (ALT/SGPT) 20 U/L Total Bilirubin 0.4 MG/DL Sodium Level 139 MEQ/L Potassium Level 2.9 MEQ/L Chloride Level 100 MEQ/L Carbon Dioxide Level 28.8 MEQ/L Anion Gap 10 MEQ/L Estimat Glomerular Filtration Rate 105 ML/MIN Lactic Acid Level 3.2 mmol/L Total Creatine Kinase 991 U/L Creatine Kinase MB 4.1 NG/ML Creatine Kinase MB % 0.4 % Troponin I 0.11 NG/ML White Blood Count 4.3 TH/MM3 Red Blood Count 3.58 MIL/MM3 Hemoglobin 10.2 GM/DL Hematocrit 31.4 % Mean Corpuscular Volume 87.7 FL Mean Corpuscular Hemoglobin 28.4 PG Mean Corpuscular Hemoglobin Concent 32.3 % Red Cell Distribution Width 19.8 % Platelet Count 404 TH/MM3 Mean Platelet Volume 6.5 FL Neutrophils (%) (Auto) 75.2 % Lymphocytes (%) (Auto) 15.4 % Monocytes (%) (Auto) 8.3 % Eosinophils (%) (Auto) 0.2 % Basophils (%) (Auto) 0.9 % Neutrophils # (Auto) 3.2 TH/MM3 Lymphocytes # (Auto) 0.7 TH/MM3 Monocytes # (Auto) 0.4 TH/MM3 Eosinophils # (Auto) 0.0 TH/MM3 Basophils # (Auto) 0.0 TH/MM3 CBC Comment DIFF FINAL Differential Comment Prothrombin Time 10.2 SEC Prothromb Time International Ratio 1.0 RATIO Activated Partial Thromboplast Time 22.1 SEC Blood Gas Ventilator Setting PRVC/18/500/5/50% Blood Gas Inspired Oxygen 50 % Medical Decision Making Impression and Plan A: 82-year-old lady with a right posterior temporal lobe cerebral hemorrhage without mass-effect or midline shift. Continue with observation along with seizure prophylaxis. MRI reveals likely underlying mass. No metastatic sites found on CT chest, abdomen, pelvis. s/p right temporal craniotomy for hemorrhagic mass resection on 11/08/17. Follow up CT head stable. Follow up CT head 11/18 stable. Path pending. P: Continue with hypertension control. Continue with neuro checks Continue with Rehab efforts. Continue with DVT prophylaxis. Continue with GI prophylaxis. Following pathology. Continue with critical care. Deandre Cordoba November 18, 2017 4:16 pm
[2017-11-18] MEDS ORDERED: POTASSIUM CHLORIDE 20 MEQ PWD PACKET NG SCH (17:00)
[2017-11-18] MEDS: PHENYLEPHRINE 40 MG in D5W 500 ML IV PRN ×2 (17:03→22:36)
[2017-11-18] MEDS: ENOXAPARIN SODIUM 40 MG/0.4 ML SYRINGE SQ SCH (17:45)
--- NOTE | 2017-11-18 17:50 | PD.PROCEDR ---
Procedure Note Procedure Procedure: Left axillary arterial catheter placement with ultrasound guidance Preop diagnosis: Septic shock Postop diagnosis: Same Anesthesia: 1% lidocaine for local infiltration anesthesia Procedure: After sterile prepping and draping using 1% lidocaine for local infiltration anesthesia, left axillary artery was visualized using ultrasound vessel finder and was cannulated using an introducer needle with bright pulsatile blood return. A guidewire was passed through the introducer needle without any resistance and the needle was then removed. A 12 cm 20-gauge arterial catheter was passed over the guidewire by modified Seldinger's technique up to the 12 cm maged and after removal of guidewire catheter was connected to transducer tubing with good waveform being obtained on the monitor. Biopatch was applied to the insertion site and catheter was sutured in place. Sterile Bi0-occlusive dressing was applied to the site. Patient tolerated the procedure well with no immediate competitions noted. Joon Pruitt MD November 18, 2017 17:50
[2017-11-18 18:48] LABS: HEMATOCRIT 28.9 % (35.0-46.0); HEMOGLOBIN 9.4 GM/DL (11.6-15.3); MEAN CELL VOLUME 88.3 FL (80.0-100.0); MEAN CORPUSCULAR HEMOGLOBIN 28.7 PG (27.0-34.0); MEAN CORPUSCULAR HGB CONC 32.5 % (32.0-36.0); MEAN PLATELET VOLUME 6.5 FL (7.0-11.0); PLATELET COUNT 359 TH/MM3 (150-450); RED BLOOD COUNT 3.27 MIL/MM3 (4.00-5.30); RED CELL DISTRIBUTION WIDTH 19.9 % (11.6-17.2); WHITE BLOOD COUNT 7.7 TH/MM3 (4.0-11.0)
[2017-11-18 19:22] LABS: ALBUMIN 1.3 GM/DL (3.4-5.0); BICARBONATE 23.8 MEQ/L (21.0-32.0); CALCIUM 7.2 MG/DL (8.5-10.1); CALCIUM-PROTEIN CORRECTED 8.7 MG/DL (8.5-10.1); CREATININE 0.88 MG/DL (0.50-1.00); LACTIC ACID SEPSIS PROTOCOL 6.4 mmol/L (0.4-2.0); TOTAL BILIRUBIN ADULT 0.3 MG/DL (0.2-1.0); TOTAL PROTEIN 4.5 GM/DL (6.4-8.2); TROPONIN I 0.14 NG/ML (0.02-0.05)
[2017-11-18] MEDS: VASOPRESSIN INJ 40 UNITS in DEXTROSE 5% IN WATER 100ML INJ 98 ML IV SCH ×2 (19:41)
[2017-11-18] MEDS: CHLORHEXIDINE 0.12% (ORAL KIT) 15 ML CUP MT SCH (20:00)
[2017-11-18] MEDS: PROPOFOL 1000 MG/100 ML INJ 100 ML IV PRN (20:07)
[2017-11-18] MEDS: ALBUMIN 5% INJ 250 ML IV SCH (23:03)
[2017-11-18] MEDS: LINEZOLID 600 MG PREMIX 300 ML IV SCH (23:03)
[2017-11-18 23:31] LABS: TROPONIN I 0.13 NG/ML (0.02-0.05)
[2017-11-19] VITALS (14 sets, daily range): BP systolic 94–140; BP diastolic 51–73; PULSE 99–118; RESP 18–28; TEMP 93.9–99.1; O2SAT 95–100
[2017-11-19] MEDS: POTASSIUM PHOSPHATE INJ 30 MMOL in SODIUM CHLOR 0.9% 250 ML INJ 250 ML IV PRN (00:06)
[2017-11-19] MEDS: VALPROATE INJ 750 MG in SODIUM CHLORIDE 0.9% INJ 100 ML IV SCH ×3 (00:38→16:40)
[2017-11-19] MEDS: PROPOFOL 1000 MG/100 ML INJ 100 ML IV PRN (00:38)
[2017-11-19] MEDS: NOREPINEPHRINE-DEXTROSE DRIP 250 ML IV PRN ×2 (00:53→21:53)
[2017-11-19] MEDS: VASOPRESSIN INJ 40 UNITS in DEXTROSE 5% IN WATER 100ML INJ 98 ML IV SCH ×4 (02:21→18:14)
[2017-11-19] MEDS: ALBUMIN 5% INJ 250 ML IV SCH ×4 (02:21→20:46)
[2017-11-19] MEDS: CHLORHEXIDINE GLUCONATE 2 % 1 PACK (2 CLOTHS) TOP SCH (04:00)
--- NOTE | 2017-11-19 04:06 | RADRPT ---
EXAM DATE/TIME: 11/19/2017 03:21 [facility] COMPARISON: CHEST SINGLE AP, November 18, 2017, 10:09. INDICATIONS : Respiratory failure MEDICAL HISTORY : Chronic obstructive pulmonary disease. Hypertension. Cerebrovascular disease.Diabetes SURGICAL HISTORY : Craniotomy. ENCOUNTER: Subsequent ACUITY: 2 weeks PAIN SCORE: Non-responsive. LOCATION: Bilateral chest FINDINGS: Worsening consolidation involving the left lung. Right lower lobe consolidation is stable. No discret e effusions. Heart is normal in size. Tip of the endotracheal tube 5 cm from the carrol. Tip of the n asogastric tube in the region of the pylorus of the stomach. Right subclavian central line. No pneumo thorax. CONCLUSION: Worsening consolidation of the left lung with stable right lung consolidation. Aquilino Colon Jr., MD on November 19, 2017 at 4:03 Board Certified Radiologist. This report was verified electronically.
[2017-11-19] MEDS: PIPERACIL-TAZO 3.375 GM PREMIX 50 ML IV SCH ×4 (04:41→20:46)
[2017-11-19] MEDS: PHENYLEPHRINE 40 MG in D5W 500 ML IV PRN (04:41)
[2017-11-19] MEDS: THYROID 30 MG TAB NG SCH (06:00)
[2017-11-19] MEDS: THYROID 60 MG TAB NG SCH (06:00)
[2017-11-19 06:16] LABS: HEMATOCRIT 23.9 % (35.0-46.0); HEMOGLOBIN 7.8 GM/DL (11.6-15.3); MEAN CELL VOLUME 89.9 FL (80.0-100.0); MEAN CORPUSCULAR HEMOGLOBIN 29.2 PG (27.0-34.0); MEAN CORPUSCULAR HGB CONC 32.5 % (32.0-36.0); MEAN PLATELET VOLUME 6.7 FL (7.0-11.0); PLATELET COUNT 300 TH/MM3 (150-450); RED BLOOD COUNT 2.66 MIL/MM3 (4.00-5.30); RED CELL DISTRIBUTION WIDTH 20.4 % (11.6-17.2); WHITE BLOOD COUNT 15.6 TH/MM3 (4.0-11.0)
[2017-11-19 06:44] LABS: INTERNATIONAL NORMALIZED RATIO 1.3 RATIO; PROTHROMBIN TIME - PATIENT 13.3 SEC (9.8-11.6)
[2017-11-19 07:04] LABS: BICARBONATE 10.5 MEQ/L (21.0-32.0); CALCIUM 6.5 MG/DL (8.5-10.1); CREATININE 0.88 MG/DL (0.50-1.00)
[2017-11-19 07:21] LABS: CALCIUM-PROTEIN CORRECTED 7.7 MG/DL (8.5-10.1); TOTAL PROTEIN 4.7 GM/DL (6.4-8.2)
[2017-11-19] MEDS: CHLORHEXIDINE 0.12% (ORAL KIT) 15 ML CUP MT SCH ×2 (08:45→20:46)
[2017-11-19] MEDS: DOCUSATE SODIUM 50 MG/SENNA 8.6 MG TAB PO SCH ×2 (09:00→20:36)
[2017-11-19] MEDS ORDERED: SODIUM CHLOR 0.9% 250 ML INJ 250 ML IV ONE (09:30)
[2017-11-19] MEDS: LANSOPRAZOLE SOLUTAB 15 MG TAB NG SCH (09:44)
[2017-11-19] MEDS: POTASSIUM PHOSPHATE MONOBASIC 500 MG TAB PO SCH ×2 (09:44→20:46)
[2017-11-19] MEDS: SODIUM CHLORIDE 0.9% FLUSH 10 ML FLUSH IV FLUSH SCH ×2 (09:44→20:46)
[2017-11-19] MEDS ORDERED: fentaNYL DRIP 250 ML IV PRN (09:45)
[2017-11-19] MEDS ORDERED: MIDAZOLAM 100 MG/100 ML INJ 100 ML IV PRN (09:45)
--- NOTE | 2017-11-19 09:48 | HHI.NSPN ---
History Chief Complaint: ICH. Interval History 82-year-old -[place] female who was transferred from [facility] where she presented with neurologic changes. There is no family members and the patient cannot relate much of a history but apparently with CT scan head obtained she was found to have a right posterior temporal lobe cerebral hemorrhage. CT scan of the head reviewed from [facility] on arrival reveals a less than 2 cm right posterior temporal lobe hemorrhage without any significant mass-effect or midline shift. Overnight her exam is not changed although she had an EEG study done and was noted to have subclinical seizures and has been noted to be more lethargic since then and is awaiting fosphenytoin bolus. MRI scan of the brain is also pending along with neurology evaluation. It is unclear whether this cerebral hemorrhage is spontaneous versus traumatic. 11/03/17: Pt awake and alert. At times not cooperative with exam. She at times doesn't verbalize and others answers questions yes/no. She follows commands at times and other times does not. 11/04/17: Pt sedated for MRI and not opening eyes or following commands. 11/05/17: Pt awakens but still fatigued. She states her name when asked but not verbalizing much otherwise. 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 She moves bilateral LEs to command. 11/06/17: Pt very fatigued again today. Not opening eyes. Not following commands. Pt resting in position. 11/07/17: Pt lethargic still. Not opening eyes or following commands. 11/09/17: Pt lethargic but more awake today than previous days as she actually opened her eyes and said some words. She underwent a right temporal craniotomy for hemorrhagic mass resection on 11/08/17. She is lethargic but opens her eyes. She answers some simple questions. She follows some simple commands. 11/10/17: Pt not as alert this morning as yesterday. Not opening eyes. Verbalizing some words but not able to understand. Spontaneously moves extremities. 11/11/17: Pt lethargic. Not opening eyes. Not following commands. Not verbalizing. Protecting airway currently. 11/15/17: Pt more awake today. Opens eyes and communicates appropriately. Denies headaches, nausea, paresthesias. 11/16/17: Pt awakens to voice but lethargic. She denies headaches, nausea, paresthesias. She denies chest pain or sob. 11/17/17: Pt more awake today. She denies headaches, nausea, chest pain or sob. 11/18/17: Pt sedated on Diprivan but opens eyes to voice. She nods her head to some questions and denies headache. She was intubated this morning. She is on a Phenylephrine drip. 11/19/17: Pt sedated on Diprivan. She is on 3 pressors Norepinephrine, Phenylephrine, Vasopressin. She is intubated. Pupils equal. System Review Comments Not able to obtain given clinical condition. Exam Results Vital Signs Date Time Temp Pulse Resp B/P (MAP) Pulse Ox O2 Delivery O2 Flow Rate FiO2 11/19/17 08:00 93.9 99 24 120/65 (83) 98 11/19/17 07:40 45 11/19/17 07:00 Mechanical Ventilator 11/18/17 08:18 10.00 Intake and Output 11/19/17 11/19/17 11/20/17 08:00 16:00 00:00 Intake Total 410 ml 2000 ml Output Total 450 ml Balance -40 ml 2000 ml Physical Examination General: Pt sedated on Diprivan. She is on 3 pressors. Eyes: Pupils equal 3mm bilaterally reactive bilaterally. Sclera anicteric. Resp: Wheezing bilaterally. She is on percussion device on bed. Heart: NSR no murmurs. Abd: Soft positive bs. NGT in place. Skin: No cyanosis or erythema. SCDs in place. Right surgical wound healing well no signs of infection. Muscle: Not following commands. Neuro: She is sedated on Diprivan. Not opening eyes. Pupils 3mm bilaterally, reactive sluggishly bilaterally. Not following commands. She is intubated and on 3 pressors. Lab, Micro, Other Results Last Impressions Chest X-Ray 11/19/17 0400 Signed Impressions: Service Date/Time: Sunday, November 19, 2017 03:21 - CONCLUSION: Worsening consolidation of the left lung with stable right lung consolidation. Aquilino Colon Jr., MD Head CT 11/18/17 0000 Signed Impressions: Service Date/Time: November 11:50 - CONCLUSION: Postsurgical changes and encephalomalacia developing in the right frontal lobe with one area of linear density probable artifact without definite hemorrhage or mass effect. Loretta Muro MD CT Angiography 11/18/17 0000 Signed Impressions: Service Date/Time: November 12:05 - CONCLUSION: 1. Dense airspace consolidation bilaterally characteristic of pneumonia. 2. There is simple cyst in the liver with one area of rim-like calcification of the right lobe most likely benign, however not definitely characterized. 3. There is no evidence for PE for technique. Loretta Muro MD Lower Extremity Ultrasound 11/17/17 0000 Signed Impressions: Service Date/Time: Friday, November 17, 2017 17:52 - CONCLUSION: No DVT. Donovan Fleming MD Soft Tissue Neck X-Ray 11/11/17 0000 Signed Impressions: Service Date/Time: November 13:28 - CONCLUSION: 1. No acute findings. NG tube present. Axel Cheema MD Abdomen X-Ray 11/10/17 0000 Signed Impressions: Service Date/Time: Friday, November 10, 2017 14:00 - CONCLUSION: NG tube in the stomach Donovan Piña MD Brain MRI 11/04/17 0000 Signed Impressions: Service Date/Time: November 12:38 - CONCLUSION: Focal abnormality in the right posterior temporal lobe measuring up to 3.9 cm, as above. Examination will be used for intraoperative localization. Donovan Campbell MD Chest CT 11/02/17 0000 Signed Impressions: Service Date/Time: Thursday, November 02, 2017 21:35 - CONCLUSION: 1. Negative for metastatic disease to the thorax. No acute findings. Axel Cheema MD Abdomen/Pelvis CT 11/02/17 0000 Signed Impressions: Service Date/Time: Thursday, November 02, 2017 21:35 - CONCLUSION: 1. Negative for metastatic disease in the abdomen or pelvis. Multiple hepatic cysts. Numerous fibroids in the uterus. Mild colonic constipation and moderate rectal constipation. Axel Cheema MD Laboratory Tests Test 11/18/17 10:11 11/18/17 11:13 11/18/17 12:25 11/18/17 18:29 Blood Urea Nitrogen 12 MG/DL 13 MG/DL Creatinine 0.65 MG/DL 0.88 MG/DL Random Glucose 139 MG/DL 122 MG/DL Total Protein 5.0 GM/DL 4.5 GM/DL Albumin 1.7 GM/DL 1.3 GM/DL Calcium Level 7.8 MG/DL 7.2 MG/DL Phosphorus Level 1.8 MG/DL Magnesium Level 1.5 MG/DL Alkaline Phosphatase 78 U/L 70 U/L Aspartate Amino Transf (AST/SGOT) 63 U/L 59 U/L Alanine Aminotransferase (ALT/SGPT) 20 U/L 18 U/L Total Bilirubin 0.4 MG/DL 0.3 MG/DL Sodium Level 139 MEQ/L 142 MEQ/L Potassium Level 2.9 MEQ/L 3.2 MEQ/L Chloride Level 100 MEQ/L 106 MEQ/L Carbon Dioxide Level 28.8 MEQ/L 23.8 MEQ/L Anion Gap 10 MEQ/L 12 MEQ/L Estimat Glomerular Filtration Rate 105 ML/MIN 74 ML/MIN Lactic Acid Level 3.2 mmol/L 6.4 mmol/L Total Creatine Kinase 991 U/L 750 U/L Creatine Kinase MB 4.1 NG/ML 3.1 NG/ML Creatine Kinase MB % 0.4 % 0.4 % Troponin I 0.11 NG/ML 0.14 NG/ML White Blood Count 4.3 TH/MM3 7.7 TH/MM3 Red Blood Count 3.58 MIL/MM3 3.27 MIL/MM3 Hemoglobin 10.2 GM/DL 9.4 GM/DL Hematocrit 31.4 % 28.9 % Mean Corpuscular Volume 87.7 FL 88.3 FL Mean Corpuscular Hemoglobin 28.4 PG 28.7 PG Mean Corpuscular Hemoglobin Concent 32.3 % 32.5 % Red Cell Distribution Width 19.8 % 19.9 % Platelet Count 404 TH/MM3 359 TH/MM3 Mean Platelet Volume 6.5 FL 6.5 FL Neutrophils (%) (Auto) 75.2 % Lymphocytes (%) (Auto) 15.4 % Monocytes (%) (Auto) 8.3 % Eosinophils (%) (Auto) 0.2 % Basophils (%) (Auto) 0.9 % Neutrophils # (Auto) 3.2 TH/MM3 Lymphocytes # (Auto) 0.7 TH/MM3 Monocytes # (Auto) 0.4 TH/MM3 Eosinophils # (Auto) 0.0 TH/MM3 Basophils # (Auto) 0.0 TH/MM3 CBC Comment DIFF FINAL Differential Comment Prothrombin Time 10.2 SEC Prothromb Time International Ratio 1.0 RATIO Activated Partial Thromboplast Time 22.1 SEC Blood Gas Puncture Site RT RADIAL Blood Gas Patient Temperature 98.6 Blood Gas HCO3 29 mmol/L Blood Gas Base Excess 5.6 mmol/L Blood Gas Oxygen Saturation 94 % Arterial Blood pH 7.54 Arterial Blood Partial Pressure CO2 34 mmHg Arterial Blood Partial Pressure O2 86 mmHg Arterial Blood Oxygen Content 14.2 Vol % Arterial Blood Carboxyhemoglobin 0.8 % Arterial Blood Methemoglobin 1.5 % Blood Gas Hemoglobin 10.7 G/DL Oxygen Delivery Device VENTILATOR Blood Gas Ventilator Setting PRVC/18/500/5/50% Blood Gas Inspired Oxygen 50 % Protein Corrected Calcium 8.7 MG/DL Test 11/18/17 19:55 11/18/17 22:15 11/18/17 22:28 11/19/17 06:00 Blood Gas Puncture Site CALVIN Blood Gas Patient Temperature 98.6 Blood Gas HCO3 19 mmol/L Blood Gas Base Excess -5.0 mmol/L Blood Gas Oxygen Saturation 94 % Arterial Blood pH 7.42 Arterial Blood Partial Pressure CO2 29 mmHg Arterial Blood Partial Pressure O2 97 mmHg Arterial Blood Oxygen Content 13.4 Vol % Arterial Blood Carboxyhemoglobin 0.6 % Arterial Blood Methemoglobin 1.6 % Blood Gas Hemoglobin 10.0 G/DL Oxygen Delivery Device VENT Blood Gas Ventilator Setting SEE COMMENTS Blood Gas Inspired Oxygen 50 % Stool C. difficile Toxin (PCR) NEGATIVE Stl C. difficile Toxin Epiderm 027 PRESUMPTIVE NEGATIVE Lactic Acid Level 7.0 mmol/L 11.6 mmol/L Total Creatine Kinase 812 U/L Creatine Kinase MB 4.5 NG/ML Creatine Kinase MB % 0.6 % Troponin I 0.13 NG/ML White Blood Count 15.6 TH/MM3 Red Blood Count 2.66 MIL/MM3 Hemoglobin 7.8 GM/DL Hematocrit 23.9 % Mean Corpuscular Volume 89.9 FL Mean Corpuscular Hemoglobin 29.2 PG Mean Corpuscular Hemoglobin Concent 32.5 % Red Cell Distribution Width 20.4 % Platelet Count 300 TH/MM3 Mean Platelet Volume 6.7 FL Prothrombin Time 13.3 SEC Prothromb Time International Ratio 1.3 RATIO Activated Partial Thromboplast Time 39.7 SEC Blood Urea Nitrogen 13 MG/DL Creatinine 0.88 MG/DL Random Glucose 249 MG/DL Total Protein 4.7 GM/DL Calcium Level 6.5 MG/DL Sodium Level 135 MEQ/L Potassium Level 4.4 MEQ/L Chloride Level 103 MEQ/L Carbon Dioxide Level 10.5 MEQ/L Anion Gap 22 MEQ/L Estimat Glomerular Filtration Rate 74 ML/MIN Protein Corrected Calcium 7.7 MG/DL 11/19/17 11/19/17 11/20/17 15:00 23:00 07:00 Intake Total 2000 ml Balance 2000 ml IV Total 2000 ml Medical Decision Making Impression and Plan A: 82-year-old lady with a right posterior temporal lobe cerebral hemorrhage without mass-effect or midline shift. Continue with observation along with seizure prophylaxis. MRI reveals likely underlying mass. No metastatic sites found on CT chest, abdomen, pelvis. s/p right temporal craniotomy for hemorrhagic mass resection on 11/08/17. Follow up CT head stable. Follow up CT head 11/18 stable. Path pending. P: Continue with hypertension control. Continue with neuro checks Continue with Rehab efforts. Continue with DVT prophylaxis. Continue with GI prophylaxis. Following pathology. Continue with critical care. Deandre Cordoba November 19, 2017 9:48 am
--- NOTE | 2017-11-19 09:56 | HHI.CCPN ---
Subjective Remarks/Hospital Course Hospital Course: 82-year-old female with past medical history significant for COPD, diabetes mellitus, dyslipidemia, hypertension, osteoporosis, thyroid disorder presented to [facility] due to altered mental status, found by the patient's caregiver. At the emergency department the CT of the head revealed hemorrhagic infarct in the right temporal occipital region, measuring approximately 3.5 cm and the patient has been transferred to [facility] for higher level of care. The patient is nonverbal and information is obtained from medical chart review. Subjective: 11/02: more somnolent than on admission. EEG ordered and to my read appears to have significant ictal activity. loaded with fosphenytoin and neurology consult ordered. also, given size and location of the bleed, have ordered an MRI to better evaluate the area. 11/03: Awake and alert. Following commands. 11/18: Critical care reconsulted by Dr. Figueroa for worsening shortness of breath overnight. This morning patient was noted to be on a nonrebreather facemask with respiratory rate in the 30s using accessory muscles of respiration. Rapid response team was activated and patient was transferred to the ICU. I evaluated the patient immediately following her arrival to the ICU. She was in significant respiratory distress and I proceeded with emergent intubation and patient was placed on mechanical ventilation. Borderline blood pressures following intubation for which 1 L normal saline bolus ordered. I emergently placed a central line as well. Patient underwent a CT chest which was negative for PE however showed bilateral dense consolidations with concern regarding aspiration. Stat labs were ordered and patient was initiated on IV Zosyn for empiric antibiotic coverage. 11/19: Sedated, orally intubated on mechanical ventilation. On Levophed 9 mics per minute, Srinivasan-Synephrine 50 mics per minute, vasopressin 0.04 U/min. Received 6+ L in the last 24 hours. Has had some diarrhea. Hypothermic this morning. Chest x-ray shows multilobar pneumonia. Remains in septic shock. Objective Vital Signs Date Time Temp Pulse Resp B/P (MAP) Pulse Ox O2 Delivery O2 Flow Rate FiO2 11/19/17 08:00 93.9 99 24 120/65 (83) 98 11/19/17 07:40 45 11/19/17 07:00 Mechanical Ventilator 11/18/17 08:18 10.00 Intake and Output 11/19/17 11/19/17 11/20/17 08:00 16:00 00:00 Intake Total 410 ml 2000 ml Output Total 450 ml Balance -40 ml 2000 ml Result Diagram: 11/19/17 0600 11/19/17 0600 Other Results Microbiology Date/Time Source Procedure Growth Status 11/18/17 22:15 Stool Stool Stool Pus (GUMARO) - Final RARE WBC Complete Laboratory Tests Test 11/18/17 12:25 11/18/17 19:55 Blood Gas Puncture Site RT RADIAL CALVIN Blood Gas Patient Temperature 98.6 98.6 Blood Gas HCO3 29 mmol/L (22-26) 19 mmol/L (22-26) Blood Gas Base Excess 5.6 mmol/L (-2-2) -5.0 mmol/L (-2-2) Blood Gas Oxygen Saturation 94 % (90-100) 94 % (90-100) Arterial Blood pH 7.54 (7.380-7.420) 7.42 (7.380-7.420) Arterial Blood Partial Pressure CO2 34 mmHg (38-42) 29 mmHg (38-42) Arterial Blood Partial Pressure O2 86 mmHg (61-120) 97 mmHg (61-120) Arterial Blood Oxygen Content 14.2 Vol % (12.0-20.0) 13.4 Vol % (12.0-20.0) Arterial Blood Carboxyhemoglobin 0.8 % (0-4) 0.6 % (0-4) Arterial Blood Methemoglobin 1.5 % (0-2) 1.6 % (0-2) Blood Gas Hemoglobin 10.7 G/DL (12.0-16.0) 10.0 G/DL (12.0-16.0) Oxygen Delivery Device VENTILATOR VENT Blood Gas Ventilator Setting PRVC/18/500/5/50% SEE COMMENTS Blood Gas Inspired Oxygen 50 % 50 % Imaging Last Impressions Head CT 11/18/17 0000 Signed Impressions: Service Date/Time: November 11:50 - CONCLUSION: Postsurgical changes and encephalomalacia developing in the right frontal lobe with one area of linear density probable artifact without definite hemorrhage or mass effect. Loretta Muro MD Chest X-Ray 11/18/17 0000 Signed Impressions: Service Date/Time: November 10:09 - CONCLUSION: 1. Right central line in good position. 2. No pneumothorax. Corey Arreola MD CT Angiography 11/18/17 0000 Signed Impressions: Service Date/Time: November 12:05 - CONCLUSION: 1. Dense airspace consolidation bilaterally characteristic of pneumonia. 2. There is simple cyst in the liver with one area of rim-like calcification of the right lobe most likely benign, however not definitely characterized. 3. There is no evidence for PE for technique. K. Avelino Muro MD Lower Extremity Ultrasound 11/17/17 0000 Signed Impressions: Service Date/Time: Friday, November 17, 2017 17:52 - CONCLUSION: No DVT. Donovan Fleming MD Soft Tissue Neck X-Ray 11/11/17 0000 Signed Impressions: Service Date/Time: November 13:28 - CONCLUSION: 1. No acute findings. NG tube present. Axel Cheema MD Abdomen X-Ray 11/10/17 0000 Signed Impressions: Service Date/Time: Friday, November 10, 2017 14:00 - CONCLUSION: NG tube in the stomach Donovan Piña MD Brain MRI 11/04/17 0000 Signed Impressions: Service Date/Time: November 12:38 - CONCLUSION: Focal abnormality in the right posterior temporal lobe measuring up to 3.9 cm, as above. Examination will be used for intraoperative localization. Donovan Campbell MD Chest CT 11/02/17 0000 Signed Impressions: Service Date/Time: Thursday, November 02, 2017 21:35 - CONCLUSION: 1. Negative for metastatic disease to the thorax. No acute findings. Axel Cheema MD Abdomen/Pelvis CT 11/02/17 0000 Signed Impressions: Service Date/Time: Thursday, November 02, 2017 21:35 - CONCLUSION: 1. Negative for metastatic disease in the abdomen or pelvis. Multiple hepatic cysts. Numerous fibroids in the uterus. Mild colonic constipation and moderate rectal constipation. Axel Cheema MD Procedures Right temporal craniotomy for hemorrhagic mass resection; Heat[employer] Interactive stereotactic intraoperative navigation; microsurgical technique, left subclavian central line placement Objective Remarks HEENT/ Neuro: Sedated, orally intubated, Pallor present, no icterus, tongue/ mucosa moist. Mili over craniotomy site on right noted Neck: No JVD Chest/Pulm: on mech vent, good air entry bilaterally, scattered rhonchi bilaterally, no wheezing or crackles CVS: S1-S2 regular, no murmur GI/abdomen: soft, nontender, bowel sounds sluggish Extremities: warm bilaterally, bilateral edema Urinary Catheter: Yes Assessment to: Continue Duong insert reason: Measure Accurate Output Vascular Central Line Catheter: Yes Assessment to: Continue Date of Insertion: November 18, 2017 Line: Central Venous Catheter Side: Right Location: Subclavian A/P Assessment and Plan Assessment: 82-year-old female with right parietal intraparenchymal cerebral hemorrhage status post, subclinical status epilepticus. Now with acute respiratory failure requiring mechanical ventilation with suspected aspiration pneumonia Right parietal intraparenchymal hemorrhage status post craniotomy -Status post craniotomy 11/08, being followed by neurosurgery neurochecks Subclinical status epilepticus Neurology consulted and following Continue anticonvulsants per neurology. Currently on sedation, propofol being switched to Versed and fentanyl in view of hypotension. Frequent neurochecks Pneumonia with suspected aspiration Septic shock Acute respiratory failure requiring mechanical ventilation Lactic acidosis Pancultures ordered. Empiric antibiotic coverage with IV Zosyn/Zyvox started on 11/18. CT chest negative for PE and shows bilateral dense consolidations concerning for aspiration. -Status post fluid boluses ordered for hypotension. On Srinivasan-Synephrine/Levophed/ low-dose vasopressin for pressor support. Adding hydrocortisone 50 mg IV every 6 hourly -Starting bicarb drip. Follow serial lactic acid. COPD -Added hydrocortisone 50 mg IV every 6 hourly on 11/19 -DuoNeb scheduled and as needed Diarrhea IV hydration. Stool for enteric pathogens pending. Stool for C. difficile negative on 11/18 Anemia 1 unit PRBCs to be transfused on 11/19. Keep hemoglobin above 8 g percent - Diabetes mellitus -Insulin sliding scale Dyslipidemia -atorvastatin p.o. Thyroid disease -Levothyroxine per home dose when available DVT GI prophylaxis -James's and SCDs -Lovenox for DVT prophylaxis -IV Pepcid Condition critical Discussed with SOFTWARE ENGINEER ADVISOR. Consult palliative care to assist with deciding goals of therapy. Time spent on critical care excluding procedures 45 minutes Joon Pruitt MD November 19, 2017 09:56
[2017-11-19] MEDS: LINEZOLID 600 MG PREMIX 300 ML IV SCH ×2 (10:11→20:46)
[2017-11-19] MEDS: SODIUM BICARBONATE 8.4% INJ 150 MEQ in WATER STERILE FOR INJ 850 ML IV SCH ×2 (10:13→18:14)
[2017-11-19] MEDS ORDERED: CALCIUM GLUCONATE INJ 2 GM in DEXTROSE 5% IN WATER 100ML INJ 100 ML IV ONE ×2 (11:00)
[2017-11-19] MEDS: HYDROCORTISONE SOD SUCCINATE 100 MG VIAL IV PUSH SCH ×2 (11:20→17:18)
[2017-11-19 11:43] LABS: BILIRUBIN, URINE NEG (NEG); BLOOD, URINE SMALL (NEG); GLUCOSE,URINE TRACE mg/dL (NEG); HYALINE CAST, URINE 8 /lpf (RARE); KETONE, URINE 10 mg/dL (NEG); MUCUS URINE FEW /lpf (OCC); NITRITE,URINE NEG (NEG); SQUAMOUS EPITHELIAL CELL URINE 1 /hpf (0-5); URINE COLOR YELLOW (YELLW/STRAW); URINE LEUKOCYTE ESTERASE TRACE (NEG)
[2017-11-19] MEDS ORDERED: MIDAZOLAM 50 MG/50 ML INJ 50 ML IV PRN (12:00)
[2017-11-19] MEDS: INSULIN ASPART SUPPLEMENTAL SCALE SQ SCH ×2 (12:00→17:19)
--- NOTE | 2017-11-19 13:27 | HHI.PR ---
Review/Management Diagnosis Diagnosis/Plan: (1) ICH (intracerebral hemorrhage) ICD Codes: I61.9 - Nontraumatic intracerebral hemorrhage, unspecified Status: Acute Plan: ich with edema nsx following now on depakote monotherapy 11/04 mri brain with contrast reviewed 11/07 ct brain- rt temporal ich with edema 11/09 ct brain- s/p craniotomy, no mass effect noted eg- no sz recs Pathology still pending Based on the patient's multiple comorbidities and current critical status and hospice care seems appropriate (2) Seizure ICD Codes: R56.9 - Unspecified convulsions Status: Acute Plan: Resume IV Depacon follow level (3) Brain mass ICD Codes: G93.9 - Disorder of brain, unspecified Status: Acute Plan: biopsy pending (4) Respiratory failure ICD Codes: J96.90 - Respiratory failure, unspecified, unspecified whether with hypoxia or hypercapnia Status: Acute Plan: Intubated (5) Pneumonia ICD Codes: J18.9 - Pneumonia, unspecified organism Status: Acute Plan: On IV antibiotics Subjective Subjective Comments Went into respiratory distress sent to the intensive care unit intubated septic On pressor treatment Active Medications Current Medications Medications (Trade) Dose Ordered Sig/Cathie Route Start Time Stop Time Status Last Admin (NS Flush) 2 ml UNSCH PRN IV FLUSH 11/01/17 22:45 (NS Flush) 2 ml BID IV FLUSH 11/02/17 09:00 11/19/17 09:44 (Tylenol) 650 mg Q6H PRN PO 11/01/17 22:45 (Morphine Inj) 2 mg Q2H PRN IV PUSH 11/01/17 22:45 (Zofran Inj) 4 mg Q6H PRN IV PUSH 11/01/17 22:45 ([facility]) 1 [id number] XX 11/01/17 22:45 (Chlorhexidine 2% Cloth) Taper DAILY@04 TOP 11/02/17 04:00 10/29/18 03:59 11/19/17 04:00 (Chlorhexidine 2% Cloth) 3 pack UNSCH PRN TOP 11/01/17 22:45 (Leigh-Colace) 1 tab BID PO 11/02/17 09:00 11/17/17 19:52 (Milk Of Magnesia Liq) 30 ml Q12H PRN PO 11/01/17 22:45 (Senokot) 17.2 mg Q12H PRN PO 11/01/17 22:45 11/06/17 17:17 (Dulcolax Supp) 10 mg DAILY PRN RECTAL 11/01/17 22:45 (Lactulose Liq) 30 ml DAILY PRN PO 11/01/17 22:45 (D50w (Vial) Inj) 50 ml UNSCH PRN IV PUSH 11/03/17 18:15 11/10/17 15:21 (Glucagon Inj) 1 mg UNSCH PRN OTHER 11/03/17 18:15 (K-Phos) 1,000 mg Q12HR PO 11/08/17 09:00 11/19/17 09:44 (Albuterol Neb) 2.5 mg Q4HR NEB PRN NEB 11/10/17 13:45 11/17/17 23:32 (Racepinephrine 2.25% Neb) 0.5 ml Q4HR NEB PRN NEB 11/10/17 13:45 11/11/17 03:44 (Prevacid Odt) 15 mg DAILY NG 11/12/17 10:00 11/19/17 09:44 ([place] Thyroid) 60 mg DAILY@0600 NG 11/13/17 06:00 11/19/17 06:00 ([place] Thyroid) 30 mg DAILY@0600 NG 11/13/17 06:00 11/19/17 06:00 (Pill Splitter) 1 ea UNSCH PRN OTHER 11/13/17 11:00 Valproate Sodium 750 mg/Sodium Chloride 107.5 ml @ 105 mls/hr Q8H IV 11/17/17 17:00 11/19/17 09:44 (Lovenox Inj) 40 mg Q24H SQ 11/17/17 18:00 11/18/17 17:45 (Atrovent Neb) 0.5 mg Q6HR NEB PRN NEB 11/18/17 08:30 (Peridex 0.12% Liq) 15 ml BID@08,20 MT 11/18/17 20:00 11/19/17 08:45 Piperacillin Sod/ Tazobactam Sod 50 ml @ 100 mls/hr Q6H IV 11/18/17 10:00 11/19/17 09:45 Potassium Chloride 100 ml @ 50 mls/hr Q2H PRN IV 11/18/17 14:00 Potassium Chloride 100 ml @ 50 mls/hr Q2H PRN IV 11/18/17 14:00 (K-Lyte Cl Eff) 50 meq UNSCH PRN PO 11/18/17 14:00 Potassium Chloride 100 ml @ 25 mls/hr UNSCH PRN IV 11/18/17 14:00 Potassium Chloride 100 ml @ 50 mls/hr Q2H PRN IV 11/18/17 14:00 Magnesium Sulfate 4 gm/Sodium Chloride 100 ml @ 50 mls/hr UNSCH PRN IV 11/18/17 14:00 (Mag-Ox) 800 mg UNSCH PRN PO 11/18/17 14:00 Magnesium Sulfate 2 gm/Sodium Chloride 100 ml @ 50 mls/hr UNSCH PRN IV 11/18/17 14:00 11/18/17 19:40 (K-Phos) 2,000 mg Q4H PRN PO 11/18/17 14:00 Sodium Phosphate 30 mmol/Sodium Chloride 250 ml @ 42 mls/hr UNSCH PRN IV 11/18/17 14:00 (K-Phos) 2,000 mg UNSCH PRN PO/TUBE 11/18/17 14:00 Potassium Phosphate 30 mmol/ Sodium Chloride 260 ml @ 42 mls/hr UNSCH PRN IV 11/18/17 14:00 11/19/17 00:06 Phenylephrine HCl 40 mg/Dextrose 500 ml @ 30 mls/hr TITRATE PRN IV 11/18/17 14:15 11/19/17 04:41 (Brethine Inj) 1 mg UNSCH PRN SQ 11/18/17 14:15 Norepinephrine Bitartrate 250 ml @ 7.5 mls/hr TITRATE PRN IV 11/18/17 17:45 11/19/17 00:53 (Brethine Inj) 1 mg UNSCH PRN SQ 11/18/17 17:45 Vasopressin 40 units/Dextrose 100 ml @ 6 mls/hr [id number] IV 11/18/17 17:40 11/19/17 02:21 Albumin Human 250 ml @ 250 mls/hr Q6H IV 11/18/17 20:00 11/19/17 22:00 11/19/17 09:44 Linezolid 300 ml @ 300 mls/hr Q12H IV 11/18/17 20:00 11/19/17 10:11 Sodium Chloride 250 ml @ 15 mls/hr ONCE ONCE IV 11/19/17 09:30 11/20/17 02:09 11/19/17 09:30 Fentanyl Citrate 250 ml @ 5 mls/hr TITRATE PRN IV 11/19/17 09:45 (NovoLOG SUPPLEMENTAL SCALE) 1 Q6HR SQ 11/19/17 12:00 11/19/17 12:00 Sodium Bicarbonate 150 meq/Sterile Water 1,000 ml @ 100 mls/hr Q10H IV 11/19/17 11:00 11/19/17 10:13 (SoluCORTEF INJ) 50 mg Q6HR IV PUSH 11/19/17 12:00 11/19/17 11:20 Midazolam HCl 50 ml @ 2 mls/hr TITRATE PRN IV 11/19/17 12:00 Allergies Allergies Coded Allergies No Known Allergies (Unverified11/01/17) Review of Systems All other ROS: ROS reviewed as documented in chart Exam I&O / VS 11/19/17 11/19/17 11/20/17 15:00 23:00 07:00 Intake Total 2000 ml Balance 2000 ml IV Total 2000 ml Vital Signs Date Time Temp Pulse Resp B/P (MAP) Pulse Ox O2 Delivery O2 Flow Rate FiO2 11/19/17 13:18 97.2 107 28 94/54 98 11/19/17 12:02 99 40 11/19/17 12:00 96.4 103 26 116/66 (83) 99 11/19/17 08:00 93.9 99 24 120/65 (83) 98 11/19/17 07:40 95 45 11/19/17 07:00 98 Mechanical Ventilator 50 11/19/17 04:41 103 120/63 11/19/17 04:00 97.9 106 18 111/61 (78) 95 11/19/17 03:31 98 50 11/19/17 02:21 110 111/60 11/19/17 00:53 115 119/62 11/19/17 00:00 97.9 118 18 140/68 (92) 99 11/18/17 23:25 98 50 11/18/17 22:36 116 119/58 11/18/17 20:19 95 50 11/18/17 20:00 97.6 120 22 130/60 (83) 97 11/18/17 19:41 121 100/48 11/18/17 19:00 Mechanical Ventilator 50 11/18/17 18:04 94 50 11/18/17 17:03 116 120/52 11/18/17 16:00 97.9 116 22 92/50 (64) 95 11/18/17 14:16 138 69/38 Eye: PERRL, EOMI Respiratory: Non-labored respirations Cardiology: Normal rate Psychiatric: Cooperative Exam Comments Intubated and stuporous state not following partially opens eyes no gait deviations pupils 3-2 mm bilaterally minimal withdrawal of lower extremities minimal flexion of upper extremities no clonus Objective Micro and Labs Laboratory Tests Test 11/18/17 18:29 11/18/17 19:55 11/18/17 22:15 11/18/17 22:28 White Blood Count 7.7 Red Blood Count 3.27 Hemoglobin 9.4 Hematocrit 28.9 Mean Corpuscular Volume 88.3 Mean Corpuscular Hemoglobin 28.7 Mean Corpuscular Hemoglobin Concent 32.5 Red Cell Distribution Width 19.9 Platelet Count 359 Mean Platelet Volume 6.5 Blood Urea Nitrogen 13 Creatinine 0.88 Random Glucose 122 Total Protein 4.5 Albumin 1.3 Calcium Level 7.2 Alkaline Phosphatase 70 Aspartate Amino Transf (AST/SGOT) 59 Alanine Aminotransferase (ALT/SGPT) 18 Total Bilirubin 0.3 Sodium Level 142 Potassium Level 3.2 Chloride Level 106 Carbon Dioxide Level 23.8 Anion Gap 12 Estimat Glomerular Filtration Rate 74 Lactic Acid Level 6.4 7.0 Protein Corrected Calcium 8.7 Total Creatine Kinase 750 812 Creatine Kinase MB 3.1 4.5 Creatine Kinase MB % 0.4 0.6 Troponin I 0.14 0.13 Blood Gas Puncture Site CALVIN Blood Gas Patient Temperature 98.6 Blood Gas HCO3 19 Blood Gas Base Excess -5.0 Blood Gas Oxygen Saturation 94 Arterial Blood pH 7.42 Arterial Blood Partial Pressure CO2 29 Arterial Blood Partial Pressure O2 97 Arterial Blood Oxygen Content 13.4 Arterial Blood Carboxyhemoglobin 0.6 Arterial Blood Methemoglobin 1.6 Blood Gas Hemoglobin 10.0 Oxygen Delivery Device VENT Blood Gas Ventilator Setting SEE COMMENTS Blood Gas Inspired Oxygen 50 Stool C. difficile Toxin (PCR) NEGATIVE Stl C. difficile Toxin Epiderm 027 PRESUMPTIVE NEGATIVE Test 11/19/17 06:00 11/19/17 11:04 White Blood Count 15.6 Red Blood Count 2.66 Hemoglobin 7.8 Hematocrit 23.9 Mean Corpuscular Volume 89.9 Mean Corpuscular Hemoglobin 29.2 Mean Corpuscular Hemoglobin Concent 32.5 Red Cell Distribution Width 20.4 Platelet Count 300 Mean Platelet Volume 6.7 Prothrombin Time 13.3 Prothromb Time International Ratio 1.3 Activated Partial Thromboplast Time 39.7 Blood Urea Nitrogen 13 Creatinine 0.88 Random Glucose 249 Total Protein 4.7 Calcium Level 6.5 Sodium Level 135 Potassium Level 4.4 Chloride Level 103 Carbon Dioxide Level 10.5 Anion Gap 22 Estimat Glomerular Filtration Rate 74 Lactic Acid Level 11.6 Protein Corrected Calcium 7.7 Urine Color YELLOW Urine Turbidity HAZY Urine pH 5.0 Urine Specific [place] 1.024 Urine Protein 30 Urine Glucose (UA) TRACE Urine Ketones 10 Urine Occult Blood SMALL Urine Nitrite NEG Urine Bilirubin NEG Urine Urobilinogen LESS THAN 2.0 Urine Leukocyte Esterase TRACE Urine RBC 2 Urine WBC 13 Urine Squamous Epithelial Cells 1 Urine Hyaline Casts 8 Urine Mucus FEW Microscopic Urinalysis Comment CATH-CULTURE IND Date/Time Source Procedure Growth Status 11/18/17 18:29 Blood Peripheral Aerobic Blood Culture - Preliminary NO GROWTH IN 1 DAY Resulted 11/18/17 18:29 Blood Peripheral Anaerobic Blood Culture - Preliminary NO GROWTH IN 1 DAY Resulted 11/18/17 22:15 Stool Stool Stool Pus (GUMARO) - Final RARE WBC Complete 11/19/17 11:04 Sputum Endotracheal Gram Stain Pending Received 11/19/17 11:04 Sputum Endotracheal Sputum Culture Pending Received 11/19/17 11:04 Urine Catheterized Urine Urine Culture Pending Received Problem Qualifiers (1) Respiratory failure: Qualified Codes: J96.01 - Acute respiratory failure with hypoxia Jorge Yuan MD November 19, 2017 13:27
[2017-11-19] MEDS ORDERED: VALPROATE INJ 750 MG in SODIUM CHLORIDE 0.9% INJ 100 ML IV SCH (13:30)
--- NOTE | 2017-11-19 14:31 | EKG ---
Date Performed: 11/18/2017 Time Performed: 09:22:14 PTAGE: 82 years EKG: Sinus tachycardia. Poor R wave progression - probable normal variant Borderline ECG PREVIOUS TRACING 11/08/19.02 Since the previous tracing, no significant change noted DOCTOR: Santo Guardado Interpretating Date/Time 11/19/2017 14:31:15
[2017-11-19 16:40] LABS: HEMATOCRIT 25.5 % (35.0-46.0); HEMOGLOBIN 8.6 GM/DL (11.6-15.3); MEAN CELL VOLUME 86.8 FL (80.0-100.0); MEAN CORPUSCULAR HEMOGLOBIN 29.2 PG (27.0-34.0); MEAN CORPUSCULAR HGB CONC 33.7 % (32.0-36.0); MEAN PLATELET VOLUME 6.8 FL (7.0-11.0); PLATELET COUNT 226 TH/MM3 (150-450); RED BLOOD COUNT 2.93 MIL/MM3 (4.00-5.30); RED CELL DISTRIBUTION WIDTH 17.2 % (11.6-17.2)
[2017-11-19 16:56] LABS: ALBUMIN 2.2 GM/DL (3.4-5.0); BICARBONATE 14.4 MEQ/L (21.0-32.0); CALCIUM 6.8 MG/DL (8.5-10.1); CALCIUM-PROTEIN CORRECTED 8.1 MG/DL (8.5-10.1); CREATININE 0.75 MG/DL (0.50-1.00); TOTAL BILIRUBIN ADULT 0.9 MG/DL (0.2-1.0); TOTAL PROTEIN 4.7 GM/DL (6.4-8.2)
[2017-11-19] MEDS: ENOXAPARIN SODIUM 40 MG/0.4 ML SYRINGE SQ SCH (17:19)
[2017-11-20] VITALS (12 sets, daily range): BP systolic 98–124; BP diastolic 62–68; PULSE 94–102; RESP 15–21; TEMP 97–98.6; O2SAT 97–100
[2017-11-20] MEDS: INSULIN ASPART SUPPLEMENTAL SCALE SQ SCH ×4 (00:56→17:01)
[2017-11-20] MEDS: HYDROCORTISONE SOD SUCCINATE 100 MG VIAL IV PUSH SCH ×4 (00:56→17:00)
[2017-11-20] MEDS: VALPROATE INJ 750 MG in SODIUM CHLORIDE 0.9% INJ 100 ML IV SCH ×2 (01:00→08:43)
[2017-11-20] MEDS: CHLORHEXIDINE GLUCONATE 2 % 1 PACK (2 CLOTHS) TOP SCH (04:00)
[2017-11-20] MEDS: PIPERACIL-TAZO 3.375 GM PREMIX 50 ML IV SCH ×4 (05:08→22:00)
[2017-11-20] MEDS: THYROID 60 MG TAB NG SCH (05:09)
[2017-11-20] MEDS: THYROID 30 MG TAB NG SCH (05:09)
[2017-11-20] MEDS: SODIUM BICARBONATE 8.4% INJ 150 MEQ in WATER STERILE FOR INJ 850 ML IV SCH (05:09)
[2017-11-20] MEDS: CHLORHEXIDINE 0.12% (ORAL KIT) 15 ML CUP MT SCH ×2 (07:40→19:57)
[2017-11-20] MEDS: LINEZOLID 600 MG PREMIX 300 ML IV SCH ×2 (08:00→19:56)
[2017-11-20] MEDS: SODIUM CHLORIDE 0.9% FLUSH 10 ML FLUSH IV FLUSH SCH ×2 (08:43→19:57)
[2017-11-20] MEDS: DOCUSATE SODIUM 50 MG/SENNA 8.6 MG TAB PO SCH ×2 (08:43→19:21)
[2017-11-20] MEDS: POTASSIUM PHOSPHATE MONOBASIC 500 MG TAB PO SCH (08:43)
[2017-11-20] MEDS: LANSOPRAZOLE SOLUTAB 15 MG TAB NG SCH ×2 (08:43→10:00)
--- NOTE | 2017-11-20 09:09 | HHI.CCPN ---
Subjective Remarks/Hospital Course 82-year-old AA female with past medical history significant for COPD, diabetes mellitus, dyslipidemia, hypertension, osteoporosis, thyroid disorder presented to [facility] due to altered mental status, found by the patient's caregiver. 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 The patient is nonverbal and information is obtained from medical chart review. 11/02: more somnolent than on admission. EEG ordered and to my read appears to have significant ictal activity. loaded with fosphenytoin and neurology consult ordered. also, given size and location of the bleed, have ordered an MRI to better evaluate the area. 11/03: Awake and alert. Following commands. 11/18: Critical care reconsulted by Dr. Figueroa for worsening shortness of breath overnight. This morning patient was noted to be on a nonrebreather facemask with respiratory rate in the 30s using accessory muscles of respiration. Rapid response team was activated and patient was transferred to the ICU. I evaluated the patient immediately following her arrival to the ICU. She was in significant respiratory distress and I proceeded with emergent intubation and patient was placed on mechanical ventilation. Borderline blood pressures following intubation for which 1 L normal saline bolus ordered. I emergently placed a central line as well. Patient underwent a CT chest which was negative for PE however showed bilateral dense consolidations with concern regarding aspiration. Stat labs were ordered and patient was initiated on IV Zosyn for empiric antibiotic coverage. 11/19: Sedated, orally intubated on mechanical ventilation. On Levophed 9 mics per minute, Srinivasan-Synephrine 50 mics per minute, vasopressin 0.04 U/min. Received 6+ L in the last 24 hours. Has had some diarrhea. Hypothermic this morning. Chest x-ray shows multilobar pneumonia. Remains in septic shock. Subjective: 11/20: PSV trial lasted 15 minutes today. Case became acutely tachypneic and placed back on PRVC ventilation. Remains on vasopressin 0.04 units /min and norepinephrine drip at 1 mcg/min. Positive BM. 1200 cc urine output. Normothermic this a.m. Objective Vital Signs Date Time Temp Pulse Resp B/P (MAP) Pulse Ox O2 Delivery O2 Flow Rate FiO2 11/20/17 07:59 40 5/19/18 07:52 98 11/20/17 07:00 Mechanical Ventilator 11/20/17 04:00 98.6 102 18 122/67 (85) 11/18/17 08:18 10.00 Intake and Output 11/20/17 11/20/17 11/21/17 08:00 16:00 00:00 Intake Total 800 ml Output Total 1100 ml Balance -300 ml Result Diagram: 11/19/17 1620 11/19/17 1620 Other Results Microbiology Date/Time Source Procedure Growth Status 11/18/17 18:29 Blood Peripheral Aerobic Blood Culture - Preliminary NO GROWTH IN 1 DAY Resulted 11/18/17 18:29 Blood Peripheral Anaerobic Blood Culture - Preliminary NO GROWTH IN 1 DAY Resulted 11/18/17 22:15 Stool Stool Stool Pus (GUMARO) - Final RARE WBC Complete 11/19/17 11:04 Sputum Endotracheal Gram Stain - Final Resulted 11/19/17 11:04 Sputum Endotracheal Sputum Culture Pending Resulted 11/19/17 11:04 Urine Catheterized Urine Urine Culture Pending Received Imaging Last Impressions Chest X-Ray 11/19/17 0400 Signed Impressions: Service Date/Time: Sunday, November 19, 2017 03:21 - CONCLUSION: Worsening consolidation of the left lung with stable right lung consolidation. Aquilino Colon Jr., MD Head CT 11/18/17 0000 Signed Impressions: Service Date/Time: November 11:50 - CONCLUSION: Postsurgical changes and encephalomalacia developing in the right frontal lobe with one area of linear density probable artifact without definite hemorrhage or mass effect. Loretta Muro MD CT Angiography 11/18/17 0000 Signed Impressions: Service Date/Time: November 12:05 - CONCLUSION: 1. Dense airspace consolidation bilaterally characteristic of pneumonia. 2. There is simple cyst in the liver with one area of rim-like calcification of the right lobe most likely benign, however not definitely characterized. 3. There is no evidence for PE for technique. Loretta Muro MD Lower Extremity Ultrasound 11/17/17 0000 Signed Impressions: Service Date/Time: Friday, November 17, 2017 17:52 - CONCLUSION: No DVT. Donovan Fleming MD Soft Tissue Neck X-Ray 11/11/17 0000 Signed Impressions: Service Date/Time: November 13:28 - CONCLUSION: 1. No acute findings. NG tube present. Axel Cheema MD Abdomen X-Ray 11/10/17 Signed Impressions: Service Date/Time: Friday, November 10, 2017 14:00 - CONCLUSION: NG tube in the stomach Donovan Piña MD Brain MRI 11/04/17 0000 Signed Impressions: Service Date/Time: November 12:38 - CONCLUSION: Focal abnormality in the right posterior temporal lobe measuring up to 3.9 cm, as above. Examination will be used for intraoperative localization. Donovan Campbell MD Chest CT 11/02/17 Signed Impressions: Service Date/Time: Thursday, November 02, 2017 21:35 - CONCLUSION: 1. Negative for metastatic disease to the thorax. No acute findings. Axel Cheema MD Abdomen/Pelvis CT 11/02/17 0000 Signed Impressions: Service Date/Time: Thursday, November 02, 2017 21:35 - CONCLUSION: 1. Negative for metastatic disease in the abdomen or pelvis. Multiple hepatic cysts. Numerous fibroids in the uterus. Mild colonic constipation and moderate rectal constipation. Axel Cheema MD Procedures Right temporal craniotomy for hemorrhagic mass resection; BrainLab stereotactic intraoperative navigation; microsurgical technique, left subclavian central line placement, right subclavian central line and left axillary arterial line Objective Remarks GENERAL: 82 yo AA female currently resting in bed orotracheally intubated SKIN: Warm and dry. HEAD: Well-healed ashlie of her right temporal craniotomy site. EYES: Pupils equal and round about 2 mm bilaterally reactive to 1. No scleral icterus. No injection or drainage. ENT: No nasal bleeding or discharge. Mucous membranes pink and moist. NECK: Trachea midline. No JVD. CARDIOVASCULAR: Tachycardic, RR. S1, S2. No S4. Without murmur RESPIRATORY: Coarse rhonchorous breath sounds are appreciated anteriorly and posteriorly. Symmetrical excursion. GASTROINTESTINAL: Abdomen soft, non-tender, nondistended. Hypoactive bowel sounds are appreciated MUSCULOSKELETAL: Extremities 1+ bilateral upper and lower extremity edema. No obvious deformities. NEUROLOGICAL: Positive gag. Patient does have a cough. Yawns. Localizes bilateral upper lower extremities. Very poor examination Urinary Catheter: Yes Assessment to: Continue Duong insert reason: Prolonged Immobilization Vascular Central Line Catheter: Yes Assessment to: Continue Date of Insertion: November 18, 2017 Line: Central Venous Catheter Side: Right Location: Subclavian A/P Assessment and Plan Neuro/Psych: Right parietal intraparenchymal hemorrhage status post craniotomy for hemorrhagic left temporal mass with pathology still pending Subclinical status epilepticus Currently off all sedation with minimal neurological response on examination CT brain/EEG ordered for today -Status post craniotomy 11/08 for 3.7 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 Peterson - pathology still pending neurochecks On divalproex 750 mg IV every 8 hours. Level 98 this a.m. management per neurology EEG 11/17 revealed no l epileptiform activity y. Moderate slowing right-sided. Last positive EEG for sharps in the right hemisphere is 11/05. Acetaminophen 650 mg by tube every 6 hours as needed fever CV: Severe septic shock History of essential hypertension on hydrochlorothiazide Lactic acidosis Currently on norepinephrine drip at 1 mcg/min and vasopressin 0.04 units an hour to maintain mean atrial pressure greater than equal 65 Holding home medication hydrochlorothiazide Stress dose hydrocortisone 50 mg every 6 hours. On chronic prednisone 20 mg twice daily at home Switch IV fluids to LR at 84 cc an hour Serial lactates until cleared Resp: Acute respiratory failure secondary to aspiration pneumonia Severe COPD [facility] 14/07/09/34 Ventilator bundle Albuterol/ipratropium aerosols every 4 hours with albuterol aerosols every 2 hours as needed dyspnea Budesonide 0.5/2 1 inhalation twice daily. Spontaneous breathing trials as clinically indicated. Lasted 15 minutes today On budesonide/formoterol and tiotropium at home Follow-up x-ray in a.m. 11/21 GI: Hypoalbuminemia Elevated transaminases likely secondary to shock liver Diarrhea Liver cysts Start tube feedings with vital 1.5 goal 45 cc an hour Lansoprazole for GI prophylaxis Docusate sodium/senna 1 tablet twice daily for bowel regimen Follow-up liver transaminases and check liver ultrasound today : Duong catheter for accurate I's and O's in a critically ill patient Endo: Hypothyroidism with elevated TSH greater than 11 Diabetes mellitus Sliding scale insulin low regimen of NovoLog with Accu-Cheks every 6 hours to maintain euglycemia Currently on [place] Thyroid 90 mg daily. Current medications 120 mg daily of desiccated thyroid. TSH about 11 this admission Renal: Monitor urine output Accurate I's and O's Heme: Leukocytosis Normocytic anemia status post transfusion with PRBCs 11/19 Monitor CBC daily. Monitor trends. No indication for transfusion of blood products at this time. ID: Aspiration pneumonia Severe sepsis Currently on linezolid 600 mg IV every 12 hours and piperacillin l/tazobactam 3.375 g IV every 6 hours day #3 Pertinent cultures 11/19 -sputum -pending 11/19 -UA -pending 11/18 -blood cultures 2 -no growth FEN: Hyponatremia Replace electrolytes as clinically indicated MSK: Osteoarthritis/rheumatoid arthritis Leflunimide 10 mg daily held for RA. Holding scheduled prednisone 20 mg twice daily. PT evaluate and treat for range of motion Access: Right subclavian CVL placed 11/18 Left axillary arterial line placed 11/18 Prophylaxis -GI -lansoprazole -DVT -SCD/enoxaparin Level 2 follow-up Alfonzo Leger MD November 20, 2017 09:09
[2017-11-20] MEDS: LACTATED RINGER'S 1000 ML INJ 1,000 ML IV SCH ×2 (09:15→19:57)
[2017-11-20 09:19] LABS: AUTOMATED NEUTROPHIL # 17.2 TH/MM3 (1.8-7.7); BASOPHIL # 0.2 TH/MM3 (0-0.2); BASOPHIL % 0.9 % (0.0-2.0); HEMOGLOBIN 8.7 GM/DL (11.6-15.3); LYMPH % 5.5 % (9.0-44.0); LYMPHOCYTE # 1.1 TH/MM3 (1.0-4.8); MEAN CELL VOLUME 83.8 FL (80.0-100.0); MEAN CORPUSCULAR HGB CONC 34.6 % (32.0-36.0); MEAN PLATELET VOLUME 6.9 FL (7.0-11.0); MONO % 6.8 % (0.0-8.0); MONOCYTE # 1.3 TH/MM3 (0-0.9); NEUT % 86.8 % (16.0-70.0); PLATELET COUNT 218 TH/MM3 (150-450); RED BLOOD COUNT 2.98 MIL/MM3 (4.00-5.30); RED CELL DISTRIBUTION WIDTH 17.3 % (11.6-17.2); WHITE BLOOD COUNT 19.8 TH/MM3 (4.0-11.0)
[2017-11-20] MEDS ORDERED: ACETAMINOPHEN 650 MG/20.3 ML UDC PO PRN (09:30)
[2017-11-20] MEDS ORDERED: ALBUMIN 5% INJ 500 ML IV ONE (09:30)
[2017-11-20 09:42] LABS: INTERNATIONAL NORMALIZED RATIO 1.6 RATIO; PROTHROMBIN TIME - PATIENT 16.3 SEC (9.8-11.6)
[2017-11-20 09:47] LABS: BANDS 26 % (0-6); LYMPHOCYTES 4 % (9-44); MONOCYTES 4 % (0-8); MYELOCYTES 3 % (0-0); NEUTROPHIL # MANUAL DIFF 18.2 TH/MM3 (1.8-7.7); OVALOCYTES 1+ (NORMAL); POLYS (SEG NEUTROPHILS) 63 % (16-70)
[2017-11-20 09:48] LABS: ACANTHOCYTES OCC (NORMAL)
[2017-11-20] MEDS ORDERED: RESP: ALBUTEROL 2.5 MG/3 ML NEB (PRN) NEB (10:00)
[2017-11-20 10:05] LABS: CHOLESTEROL/ HDL RATIO 3.8 RATIO; HDL CHOLESTEROL 29.7 MG/DL (40.0-60.0)
[2017-11-20 10:21] LABS: BICARBONATE 22.5 MEQ/L (21.0-32.0); CALCIUM 6.6 MG/DL (8.5-10.1); CALCIUM-PROTEIN CORRECTED 7.9 MG/DL (8.5-10.1); CREATININE 0.57 MG/DL (0.50-1.00); MAGNESIUM 1.3 MG/DL (1.5-2.5); PHOSPHORUS 1.8 MG/DL (2.5-4.9); TOTAL BILIRUBIN ADULT 0.7 MG/DL (0.2-1.0); TOTAL PROTEIN 4.5 GM/DL (6.4-8.2)
[2017-11-20] MEDS ORDERED: POTASSIUM CHLORIDE 25 MEQ EFFERVESCENT TAB PO PRN (10:30)
[2017-11-20] MEDS ORDERED: POTASSIUM PHOSPHATE MONOBASIC 500 MG TAB PO/TUBE PRN (10:30)
[2017-11-20] MEDS ORDERED: POTASSIUM CHLOR 40 MEQ PREMIX 100 ML IV PRN ×2 (10:30)
[2017-11-20] MEDS ORDERED: POTASSIUM PHOSPHATE INJ 30 MMOL in SODIUM CHLOR 0.9% 250 ML INJ 250 ML IV ONE (10:30)
[2017-11-20] MEDS ORDERED: MAGNESIUM SULFATE INJ 2 GM in SODIUM CHLORIDE 0.9% INJ 96 ML IV PRN (10:30)
[2017-11-20] MEDS ORDERED: MAGNESIUM SULFATE INJ 4 GM in SODIUM CHLORIDE 0.9% INJ 92 ML IV PRN (10:30)
[2017-11-20] MEDS ORDERED: SODIUM PHOSPHATE INJ 30 MMOL in SODIUM CHLOR 0.9% 250 ML INJ 240 ML IV PRN (10:30)
[2017-11-20] MEDS ORDERED: POTASSIUM PHOSPHATE MONOBASIC 500 MG TAB PO PRN (10:30)
[2017-11-20] MEDS ORDERED: MAGNESIUM SULFATE 1 GM PREMIX 100 ML IV ONE (10:30)
[2017-11-20] MEDS: POTASSIUM CHLOR 40 MEQ PREMIX 100 ML IV SCH ×2 (10:30→14:17)
[2017-11-20] MEDS ORDERED: MAGNESIUM OXIDE 400 MG TAB PO PRN (10:30)
[2017-11-20 10:37] LABS: CORTISOL 102.2 MCG/DL
[2017-11-20] MEDS: MAGNESIUM SULFATE 1 GM PREMIX 100 ML IV SCH ×2 (10:49→11:11)
--- NOTE | 2017-11-20 10:52 | HHI.PR ---
Review/Management Diagnosis Diagnosis/Plan: (1) ICH (intracerebral hemorrhage) ICD Codes: I61.9 - Nontraumatic intracerebral hemorrhage, unspecified Status: Acute Plan: ich with edema nsx following now on depakote monotherapy 11/04 mri brain with contrast reviewed 11/07 ct brain- rt temporal ich with edema 11/09 ct brain- s/p craniotomy, no mass effect noted eg- no sz recs Depakote level 98 We will reduce IV Depacon to 500 every 8 Pathology still pending Based on the patient's multiple comorbidities and current critical status and hospice care seems appropriate (2) Seizure ICD Codes: R56.9 - Unspecified convulsions Status: Acute Plan: IV Depacon (3) Brain mass ICD Codes: G93.9 - Disorder of brain, unspecified Status: Acute Plan: biopsy pending (4) Respiratory failure ICD Codes: J96.90 - Respiratory failure, unspecified, unspecified whether with hypoxia or hypercapnia Status: Acute Plan: Intubated (5) Pneumonia ICD Codes: J18.9 - Pneumonia, unspecified organism Status: Acute Plan: On IV antibiotics Subjective Subjective Comments No acute events reported Active Medications Current Medications Medications (Trade) Dose Ordered Sig/Cathie Route Start Time Stop Time Status Last Admin (NS Flush) 2 ml UNSCH PRN IV FLUSH 11/01/17 22:45 (NS Flush) 2 ml BID IV FLUSH 11/02/17 09:00 11/19/17 20:46 (Morphine Inj) 2 mg Q2H PRN IV PUSH 11/01/17 22:45 (Zofran Inj) 4 mg Q6H PRN IV PUSH 11/01/17 22:45 ([facility] [facility] 1 [id number] XX 11/01/17 22:45 (Chlorhexidine 2% Cloth) Taper DAILY@04 TOP 11/02/17 04:00 10/29/18 03:59 11/20/17 04:00 (Chlorhexidine 2% Cloth) 3 pack UNSCH PRN TOP 11/01/17 22:45 (Leigh-Colace) 1 tab BID PO 11/02/17 09:00 11/17/17 19:52 (Milk Of Magnesia Liq) 30 ml Q12H PRN PO 11/01/17 22:45 (Senokot) 17.2 mg Q12H PRN PO 11/01/17 22:45 11/06/17 17:17 (Dulcolax Supp) 10 mg DAILY PRN RECTAL 11/01/17 22:45 (Lactulose Liq) 30 ml DAILY PRN PO 11/01/17 22:45 (D50w (Vial) Inj) 50 ml UNSCH PRN IV PUSH 11/03/17 18:15 11/10/17 15:21 (Glucagon Inj) 1 mg UNSCH PRN OTHER 11/03/17 18:15 (Racepinephrine 2.25% Neb) 0.5 ml Q4HR NEB PRN NEB 11/10/17 13:45 11/11/17 03:44 (Hindman Thyroid) 60 mg DAILY@0600 NG 11/13/17 06:00 11/20/17 05:09 (Hindman Thyroid) 30 mg DAILY@0600 NG 11/13/17 06:00 11/20/17 05:09 (Pill Splitter) 1 ea UNSCH PRN OTHER 11/13/17 11:00 Valproate Sodium 750 mg/Sodium Chloride 107.5 ml @ 105 mls/hr Q8H IV 11/17/17 17:00 11/20/17 08:43 (Lovenox Inj) 40 mg Q24H SQ 11/17/17 18:00 11/19/17 17:19 (Peridex 0.12% Liq) 15 ml BID@08,20 MT 11/18/17 20:00 11/20/17 07:40 Piperacillin Sod/ Tazobactam Sod 50 ml @ 100 mls/hr Q6H IV 11/18/17 10:00 11/20/17 05:08 Potassium Chloride 100 ml @ 50 mls/hr Q2H PRN IV 11/18/17 14:00 Potassium Chloride 100 ml @ 50 mls/hr Q2H PRN IV 11/18/17 14:00 (K-Lyte Cl Eff) 50 meq UNSCH PRN PO 11/18/17 14:00 Potassium Chloride 100 ml @ 25 mls/hr UNSCH PRN IV 11/18/17 14:00 Potassium Chloride 100 ml @ 50 mls/hr Q2H PRN IV 11/18/17 14:00 11/19/17 20:45 Magnesium Sulfate 4 gm/Sodium Chloride 100 ml @ 50 mls/hr UNSCH PRN IV 11/18/17 14:00 (Mag-Ox) 800 mg UNSCH PRN PO 11/18/17 14:00 Magnesium Sulfate 2 gm/Sodium Chloride 100 ml @ 50 mls/hr UNSCH PRN IV 11/18/17 14:00 11/18/17 19:40 (K-Phos) 2,000 mg Q4H PRN PO 11/18/17 14:00 Sodium Phosphate 30 mmol/Sodium Chloride 250 ml @ 42 mls/hr UNSCH PRN IV 11/18/17 14:00 (K-Phos) 2,000 mg UNSCH PRN PO/TUBE 11/18/17 14:00 Potassium Phosphate 30 mmol/ Sodium Chloride 260 ml @ 42 mls/hr UNSCH PRN IV 11/18/17 14:00 11/19/17 00:06 Phenylephrine HCl 40 mg/Dextrose 500 ml @ 30 mls/hr TITRATE PRN IV 11/18/17 14:15 11/19/17 04:41 (Brethine Inj) 1 mg UNSCH PRN SQ 11/18/17 14:15 Norepinephrine Bitartrate 250 ml @ 7.5 mls/hr TITRATE PRN IV 11/18/17 17:45 11/19/17 21:53 (Brethine Inj) 1 mg UNSCH PRN SQ 11/18/17 17:45 Vasopressin 40 units/Dextrose 100 ml @ 6 mls/hr [id number] IV 11/18/17 17:40 11/19/17 18:14 Linezolid 300 ml @ 300 mls/hr Q12H IV 11/18/17 20:00 11/20/17 08:00 Fentanyl Citrate 250 ml @ 5 mls/hr TITRATE PRN IV 11/19/17 09:45 (NovoLOG SUPPLEMENTAL SCALE) 1 Q6HR SQ 11/19/17 12:00 11/20/17 00:56 (SoluCORTEF INJ) 50 mg Q6HR IV PUSH 11/19/17 12:00 11/20/17 05:08 Midazolam HCl 50 ml @ 2 mls/hr TITRATE PRN IV 11/19/17 12:00 (Albuterol Neb) 2.5 mg Q2HR NEB PRN NEB 11/20/17 10:00 (Pulmicort Respule Neb) 0.5 mg Q12HR NEB NEB 11/20/17 10:00 (Duoneb Neb) 1 ampule Q4HR NEB NEB 11/20/17 12:00 (Prevacid Odt) 30 mg DAILY NG 11/20/17 10:00 (Tears Naturale Opth Soln) 1 drop Q8HR EACH EYE 11/20/17 14:00 Lactated Ringer's 1,000 ml @ 84 mls/hr [id number] IV 11/20/17 09:15 11/20/17 09:15 (Tylenol 650 Mg/ 20 ml Liq) 650 mg Q6H PRN PO 11/20/17 09:30 Albumin Human 500 ml @ 250 mls/hr ONCE ONCE IV 11/20/17 09:30 11/20/17 11:29 Potassium Chloride 100 ml @ 50 mls/hr Q2H PRN IV 11/20/17 10:30 Potassium Chloride 100 ml @ 50 mls/hr Q2H PRN IV 11/20/17 10:30 (K-Lyte Cl Eff) 50 meq UNSCH PRN PO 11/20/17 10:30 Potassium Chloride 100 ml @ 25 mls/hr UNSCH PRN IV 11/20/17 10:30 Potassium Chloride 100 ml @ 50 mls/hr Q2H PRN IV 11/20/17 10:30 Magnesium Sulfate 4 gm/Sodium Chloride 100 ml @ 50 mls/hr UNSCH PRN IV 11/20/17 10:30 (Mag-Ox) 800 mg UNSCH PRN PO 11/20/17 10:30 Magnesium Sulfate 2 gm/Sodium Chloride 100 ml @ 50 mls/hr UNSCH PRN IV 11/20/17 10:30 (K-Phos) 2,000 mg Q4H PRN PO 11/20/17 10:30 Sodium Phosphate 30 mmol/Sodium Chloride 250 ml @ 42 mls/hr UNSCH PRN IV 11/20/17 10:30 (K-Phos) 2,000 mg UNSCH PRN PO/TUBE 11/20/17 10:30 Potassium Phosphate 30 mmol/ Sodium Chloride 260 ml @ 42 mls/hr UNSCH PRN IV 11/20/17 10:30 Magnesium Sulfate/ Dextrose 100 ml @ 100 mls/hr Q1H IV 11/20/17 10:30 11/20/17 12:29 Magnesium Sulfate/ Dextrose 100 ml @ 100 mls/hr ONCE ONCE IV 11/20/17 10:30 11/20/17 11:29 Potassium Chloride 100 ml @ 25 mls/hr Q4H IV 11/20/17 10:30 11/20/17 18:29 Potassium Phosphate 30 mmol/ Sodium Chloride 260 ml @ 43.333 mls/ hr ONCE ONCE IV 11/20/17 10:30 11/20/17 16:29 Calcium Gluconate 1 gm/Sodium Chloride 110 ml @ 110 mls/hr ONCE ONCE IV 11/20/17 11:00 11/20/17 11:59 Allergies Allergies Coded Allergies No Known Allergies (Unverified11/01/17) Review of Systems All other ROS: ROS reviewed as documented in chart Exam I&O / VS 11/20/17 11/20/17 11/21/17 15:00 23:00 07:00 Intake Total 1050 ml Balance 1050 ml IV Total 1050 ml Vital Signs Date Time Temp Pulse Resp B/P (MAP) Pulse Ox O2 Delivery O2 Flow Rate FiO2 11/20/17 08:00 97.8 96 18 119/67 (84) 98 11/20/17 07:59 40 11/20/17 07:52 98 40 11/20/17 07:00 98 Mechanical Ventilator 40 11/20/17 04:00 98.6 102 18 122/67 (85) 98 11/20/17 03:45 98 40 11/20/17 00:59 97 40 11/20/17 00:00 97.9 102 20 116/66 (83) 100 11/19/17 21:53 106 114/67 11/19/17 20:27 100 40 11/19/17 20:00 99.1 113 23 133/73 (93) 97 11/19/17 20:00 97 Mechanical Ventilator 40 11/19/17 18:14 115 125/69 11/19/17 16:00 99.1 108 21 115/51 (72) 97 11/19/17 15:51 100 40 11/19/17 15:23 98.4 107 19 102/61 97 11/19/17 13:33 97.3 107 28 98/59 98 11/19/17 13:18 97.2 107 28 94/54 98 11/19/17 12:02 99 40 11/19/17 12:00 96.4 103 26 116/66 (83) 99 Eye: PERRL, EOMI Respiratory: Non-labored respirations Cardiology: Normal rate Psychiatric: Cooperative Exam Comments Intubated and stuporous state getting abdominal ultrasound done not following partially opens eyes no gait deviations pupils 3-2 mm bilaterally minimal withdrawal of lower extremities minimal flexion of upper extremities no clonus Objective Micro and Labs Laboratory Tests Test 11/19/17 11:04 11/19/17 16:20 11/20/17 04:20 11/20/17 08:57 Urine Color YELLOW Urine Turbidity HAZY Urine pH 5.0 Urine Specific [place] 1.024 Urine Protein 30 Urine Glucose (UA) TRACE Urine Ketones 10 Urine Occult Blood SMALL Urine Nitrite NEG Urine Bilirubin NEG Urine Urobilinogen LESS THAN 2.0 Urine Leukocyte Esterase TRACE Urine RBC 2 Urine WBC 13 Urine Squamous Epithelial Cells 1 Urine Hyaline Casts 8 Urine Mucus FEW Microscopic Urinalysis Comment CATH-CULTURE IND White Blood Count 15.0 Red Blood Count 2.93 Hemoglobin 8.6 Hematocrit 25.5 Mean Corpuscular Volume 86.8 Mean Corpuscular Hemoglobin 29.2 Mean Corpuscular Hemoglobin Concent 33.7 Red Cell Distribution Width 17.2 Platelet Count 226 Mean Platelet Volume 6.8 Blood Urea Nitrogen 11 Creatinine 0.75 Random Glucose 168 Total Protein 4.7 Albumin 2.2 Calcium Level 6.8 Alkaline Phosphatase 51 Aspartate Amino Transf (AST/SGOT) 621 Alanine Aminotransferase (ALT/SGPT) 133 Total Bilirubin 0.9 Sodium Level 134 Potassium Level 3.5 Chloride Level 102 Carbon Dioxide Level 14.4 Anion Gap 18 Estimat Glomerular Filtration Rate 89 Lactic Acid Level 8.2 Protein Corrected Calcium 8.1 Valproic Acid (Depakene) Level 80 98 Blood Gas Puncture Site ART LINE Blood Gas Patient Temperature 98.6 Blood Gas HCO3 23 Blood Gas Base Excess 0.5 Blood Gas Oxygen Saturation 95 Arterial Blood pH 7.56 Arterial Blood Partial Pressure CO2 25 Arterial Blood Partial Pressure O2 91 Arterial Blood Oxygen Content 11.8 Arterial Blood Carboxyhemoglobin 0.9 Arterial Blood Methemoglobin 1.3 Blood Gas Hemoglobin 8.7 Oxygen Delivery Device VENTILATOR Blood Gas Ventilator Setting Blood Gas Inspired Oxygen 30 Test 11/20/17 09:10 White Blood Count 19.8 Red Blood Count 2.98 Hemoglobin 8.7 Hematocrit 25.0 Mean Corpuscular Volume 83.8 Mean Corpuscular Hemoglobin 29.0 Mean Corpuscular Hemoglobin Concent 34.6 Red Cell Distribution Width 17.3 Platelet Count 218 Mean Platelet Volume 6.9 Neutrophils (%) (Auto) 86.8 Lymphocytes (%) (Auto) 5.5 Monocytes (%) (Auto) 6.8 Eosinophils (%) (Auto) 0.0 Basophils (%) (Auto) 0.9 Neutrophils # (Auto) 17.2 Lymphocytes # (Auto) 1.1 Monocytes # (Auto) 1.3 Eosinophils # (Auto) 0.0 Basophils # (Auto) 0.2 CBC Comment AUTO DIFF Differential Total Cells Counted 100 Neutrophils % (Manual) 63 Band Neutrophils % 26 Lymphocytes % 4 Monocytes % 4 Neutrophils # (Manual) 18.2 Myelocytes 3 Differential Comment FINAL DIFF MANUAL Platelet Estimate NORMAL Platelet Morphology Comment NORMAL Ovalocytes 1+ Acanthocytes OCC Haptoglobin 204 Prothrombin Time 16.3 Prothromb Time International Ratio 1.6 Activated Partial Thromboplast Time 43.9 Fibrinogen 492 Blood Urea Nitrogen 10 Creatinine 0.57 Random Glucose 95 Total Protein 4.5 Albumin 2.0 Calcium Level 6.6 Phosphorus Level 1.8 Magnesium Level 1.3 Alkaline Phosphatase 55 Aspartate Amino Transf (AST/SGOT) 356 Alanine Aminotransferase (ALT/SGPT) 131 Lactate Dehydrogenase 527 Total Bilirubin 0.7 Sodium Level 134 Potassium Level 2.7 Chloride Level 99 Carbon Dioxide Level 22.5 Anion Gap 13 Estimat Glomerular Filtration Rate 122 Lactic Acid Level 4.6 Protein Corrected Calcium 7.9 Ammonia 37 Total Creatine Kinase 1305 Creatine Kinase MB % 0.8 Triglycerides Level 83 Cholesterol Level 113 LDL Cholesterol 67 HDL Cholesterol 29.7 Cholesterol/HDL Ratio 3.80 Amylase Level 25 Lipase 21 Date/Time Source Procedure Growth Status 11/18/17 18:29 Blood Peripheral Aerobic Blood Culture - Preliminary NO GROWTH IN 1 DAY Resulted 11/18/17 18:29 Blood Peripheral Anaerobic Blood Culture - Preliminary NO GROWTH IN 1 DAY Resulted 11/18/17 22:15 Stool Stool Stool Pus (GUMARO) - Final RARE WBC Complete 11/19/17 11:04 Sputum Endotracheal Gram Stain - Final Resulted 11/19/17 11:04 Sputum Endotracheal Sputum Culture Pending Resulted 11/19/17 11:04 Urine Catheterized Urine Urine Culture Pending Received Problem Qualifiers (1) Respiratory failure: Qualified Codes: J96.01 - Acute respiratory failure with hypoxia Jorge Yuan MD November 20, 2017 10:52
[2017-11-20] MEDS ORDERED: CALCIUM GLUCONATE INJ 1 GM in SODIUM CHLORIDE 0.9% INJ 100 ML IV ONE (11:00)
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
[2017-11-20] MEDS: RESP: ALBUTEROL 2.5 MG/IPRATROPIUM 0.5 MG NEB (SCH) NEB ×4 (11:32→23:39)
[2017-11-20] MEDS: RESP: BUDESONIDE 0.5 MG/2 ML NEB NEB SCH ×2 (11:33→19:58)
[2017-11-20] MEDS ORDERED: ARTIFICIAL TEARS OPTH SOLN 15 ML BTL EACH EYE SCH (14:00)
[2017-11-20] MEDS: ARTIFICIAL TEARS OPTH SOLN 15 ML BTL EACH EYE SCH ×2 (14:00→22:00)
--- NOTE | 2017-11-20 15:57 | RADRPT ---
EXAM DATE/TIME: 11/20/2017 15:28 [facility] COMPARISON: CT BRAIN W/O CONTRAST, November 18, 2017, 11:50. INDICATIONS : Altered mental status,right temporal hemorrhagic mass RADIATION DOSE: 56.35 CTDIvol (mGy) MEDICAL HISTORY : Cerebrovascular disease. Hypertension. Cardiovascular diseasediabetes thyroid disease SURGICAL HISTORY : Craniotomy. ENCOUNTER: Initial ACUITY: 1 day PAIN SCALE: Non-responsive LOCATION: cranial TECHNIQUE: Multiple contiguous axial images were obtained of the head. Using automated exposure control and adj ustment of the mA and/or kV according to patient size, radiation dose was kept as low as reasonably a chievable to obtain optimal diagnostic quality images. DICOM format image data is available electro nically for review and comparison. FINDINGS: Evolving postsurgical features of right temporal craniotomy and resection of right temporal mass. Pre viously noted pneumocephalus has resolved. Mild encephalomalacia and postsurgical edema in the right temporal lobe with subtle increased linear densities in the surgical bed. Focal region of increased d ensity in the anterior thalamus noted on prior CT exam corresponds to calcification on current exam. No intercurrent hemorrhage. Ventricles are stable in size and midline without evidence of hydrocephal us. Basilar cisterns are maintained. Cerebellum and brainstem are intact. Remainder of exam is uncha nged. CONCLUSION: 1. Evolving postsurgical features of right temporal craniotomy with minimal blood products in the jolie gical bed. Otherwise, no intercurrent hemorrhage or other acute abnormality. Cesar Mcneil MD on November 20, 2017 at 15:50 Board Certified Radiologist. This report was verified electronically.
[2017-11-20] MEDS: VALPROATE INJ 500 MG in SODIUM CHLORIDE 0.9% INJ 100 ML IV SCH (17:00)
[2017-11-20] MEDS: ENOXAPARIN SODIUM 40 MG/0.4 ML SYRINGE SQ SCH (17:01)
[2017-11-20] MEDS: VASOPRESSIN INJ 40 UNITS in DEXTROSE 5% IN WATER 100ML INJ 98 ML IV SCH ×2 (19:40)
--- NOTE | 2017-11-20 21:35 | MG ---
cc: Jorge Yuan MD, Mandeep MD EEG RECORD [id number] INTERPRETATION: 2-3 Hz delta activity with admixed 4-5 Hz theta activity, 20-50 microvolts. Paroxysmal sharply contoured waves right temporal region occurring. No driving with photic stimulation. Single 12-lead EKG showed sinus rhythm. IMPRESSION: Moderate encephalopathy, some nonspecific changes in the right frontotemporal region. Clinical correlation. MD TORRES Anderson/ , 09:22 PM , 09:34 PM
[2017-11-21] VITALS (12 sets, daily range): BP systolic 109–142; BP diastolic 62–72; PULSE 94–111; RESP 15–19; TEMP 97.6–97.7; O2SAT 96–99
[2017-11-21 00:18] LABS: BICARBONATE 22.9 MEQ/L (21.0-32.0); CREATININE 0.57 MG/DL (0.50-1.00); MAGNESIUM 1.9 MG/DL (1.5-2.5); PHOSPHORUS 2.1 MG/DL (2.5-4.9)
[2017-11-21] MEDS: HYDROCORTISONE SOD SUCCINATE 100 MG VIAL IV PUSH SCH ×4 (00:44→20:08)
[2017-11-21] MEDS: VALPROATE INJ 500 MG in SODIUM CHLORIDE 0.9% INJ 100 ML IV SCH ×3 (00:44→16:21)
[2017-11-21] MEDS: POTASSIUM CHLOR 20 MEQ PREMIX 100 ML IV PRN ×2 (00:45→03:24)
[2017-11-21 00:48] LABS: CALCIUM-PROTEIN CORRECTED 8.2 MG/DL (8.5-10.1); TOTAL PROTEIN 4.8 GM/DL (6.4-8.2)
[2017-11-21] MEDS: RESP: ALBUTEROL 2.5 MG/IPRATROPIUM 0.5 MG NEB (SCH) NEB ×5 (03:24→21:27)
[2017-11-21] MEDS: POTASSIUM PHOSPHATE INJ 30 MMOL in SODIUM CHLOR 0.9% 250 ML INJ 250 ML IV PRN (03:25)
[2017-11-21] MEDS: CHLORHEXIDINE GLUCONATE 2 % 1 PACK (2 CLOTHS) TOP SCH (03:48)
[2017-11-21] MEDS: PIPERACIL-TAZO 3.375 GM PREMIX 50 ML IV SCH ×4 (03:55→20:09)
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
[2017-11-21] MEDS: THYROID 30 MG TAB NG SCH (05:01)
[2017-11-21] MEDS: ARTIFICIAL TEARS OPTH SOLN 15 ML BTL EACH EYE SCH ×3 (05:01→20:10)
[2017-11-21] MEDS: THYROID 60 MG TAB NG SCH (05:01)
[2017-11-21] MEDS: INSULIN ASPART SUPPLEMENTAL SCALE SQ SCH ×5 (06:22→20:09)
[2017-11-21 07:36] LABS: HEMATOCRIT 26.1 % (35.0-46.0); MEAN CELL VOLUME 85.1 FL (80.0-100.0); MEAN CORPUSCULAR HEMOGLOBIN 29.4 PG (27.0-34.0); MEAN CORPUSCULAR HGB CONC 34.5 % (32.0-36.0); MEAN PLATELET VOLUME 7.6 FL (7.0-11.0); PLATELET COUNT 234 TH/MM3 (150-450); RED BLOOD COUNT 3.07 MIL/MM3 (4.00-5.30); RED CELL DISTRIBUTION WIDTH 17.9 % (11.6-17.2); WHITE BLOOD COUNT 25.9 TH/MM3 (4.0-11.0)
[2017-11-21 07:39] LABS: ALBUMIN 2.1 GM/DL (3.4-5.0); BICARBONATE 23.2 MEQ/L (21.0-32.0); CREATININE 0.55 MG/DL (0.50-1.00); DIRECT BILIRUBIN ADULT 0.3 MG/DL (0.0-0.2); INDIRECT BILIRUBIN 0.3 MG/DL (0.0-0.8); PHOSPHORUS 3.2 MG/DL (2.5-4.9); TOTAL BILIRUBIN ADULT 0.6 MG/DL (0.2-1.0)
[2017-11-21] MEDS: CHLORHEXIDINE 0.12% (ORAL KIT) 15 ML CUP MT SCH ×2 (08:00→20:09)
[2017-11-21] MEDS: RESP: BUDESONIDE 0.5 MG/2 ML NEB NEB SCH ×2 (08:11→21:27)
[2017-11-21] MEDS: SODIUM CHLORIDE 0.9% FLUSH 10 ML FLUSH IV FLUSH SCH ×2 (08:14→20:10)
[2017-11-21 08:42] LABS: CALCIUM 7.2 MG/DL (8.5-10.1); CALCIUM-PROTEIN CORRECTED 7.9 MG/DL (8.5-10.1); TOTAL PROTEIN 5.7 GM/DL (6.4-8.2)
[2017-11-21] MEDS: LACTATED RINGER'S 1000 ML INJ 1,000 ML IV SCH ×2 (09:05→20:09)
[2017-11-21] MEDS: LINEZOLID 600 MG PREMIX 300 ML IV SCH ×2 (09:28→20:09)
[2017-11-21] MEDS: DOCUSATE SODIUM 50 MG/SENNA 8.6 MG TAB PO SCH ×2 (09:28→20:04)
[2017-11-21] MEDS: LANSOPRAZOLE SOLUTAB 15 MG TAB NG SCH (09:28)
[2017-11-21] MEDS: NOREPINEPHRINE-DEXTROSE DRIP 250 ML IV PRN (09:29)
--- NOTE | 2017-11-21 10:17 | HHI.PR ---
Review/Management Diagnosis Diagnosis/Plan: (1) ICH (intracerebral hemorrhage) ICD Codes: I61.9 - Nontraumatic intracerebral hemorrhage, unspecified Status: Acute Plan: Mental status improved ich with edema nsx following now on depakote monotherapy 11/04 mri brain with contrast reviewed 11/07 ct brain- rt temporal ich with edema 11/09 ct brain- s/p craniotomy, no mass effect noted 11/20eeg- no sz, moderate encephalopathy and nonspecific changes in the right hemisphere related to structural lesion IV Depacon to 500 every 8 recs Mental status improved Depakote level 93 Pathology still pending Based on the patient's multiple comorbidities and current critical status and hospice care seems appropriate (2) Seizure ICD Codes: R56.9 - Unspecified convulsions Status: Acute Plan: IV Depacon (3) Brain mass ICD Codes: G93.9 - Disorder of brain, unspecified Status: Acute Plan: biopsy pending (4) Respiratory failure ICD Codes: J96.90 - Respiratory failure, unspecified, unspecified whether with hypoxia or hypercapnia Status: Acute Plan: Intubated (5) Pneumonia ICD Codes: J18.9 - Pneumonia, unspecified organism Status: Acute Plan: On IV antibiotics Subjective Subjective Comments No acute events reported Active Medications Current Medications Medications (Trade) Dose Ordered Sig/Cathie Route Start Time Stop Time Status Last Admin (NS Flush) 2 ml UNSCH PRN IV FLUSH 11/01/17 22:45 (NS Flush) 2 ml BID IV FLUSH 11/02/17 09:00 11/21/17 08:14 (Morphine Inj) 2 mg Q2H PRN IV PUSH 11/01/17 22:45 (Zofran Inj) 4 mg Q6H PRN IV PUSH 11/01/17 22:45 ([facility] [place] [facility]) 1 [id number] XX 11/01/17 22:45 (Chlorhexidine 2% Cloth) 3 pack Taper DAILY@04 TOP 11/02/17 04:00 10/29/18 03:59 11/21/17 03:48 (Chlorhexidine 2% Cloth) 3 pack UNSCH PRN TOP 11/01/17 22:45 (Leigh-Colace) 1 tab BID PO 11/02/17 09:00 11/21/17 09:28 (Milk Of Magnesia Liq) 30 ml Q12H PRN PO 11/01/17 22:45 (Senokot) 17.2 mg Q12H PRN PO 11/01/17 22:45 11/06/17 17:17 (Dulcolax Supp) 10 mg DAILY PRN RECTAL 11/01/17 22:45 (Lactulose Liq) 30 ml DAILY PRN PO 11/01/17 22:45 (D50w (Vial) Inj) 50 ml UNSCH PRN IV PUSH 11/03/17 18:15 11/10/17 15:21 (Glucagon Inj) 1 mg UNSCH PRN OTHER 11/03/17 18:15 (Racepinephrine 2.25% Neb) 0.5 ml Q4HR NEB PRN NEB 11/10/17 13:45 11/11/17 03:44 (Cambria Thyroid) 60 mg DAILY@0600 NG 11/13/17 06:00 11/21/17 05:01 (Cambria Thyroid) 30 mg DAILY@0600 NG 11/13/17 06:00 11/21/17 05:01 (Pill Splitter) 1 ea UNSCH PRN OTHER 11/13/17 11:00 (Lovenox Inj) 40 mg Q24H SQ 11/17/17 18:00 11/20/17 17:01 (Peridex 0.12% Liq) 15 ml BID@08,20 MT 11/18/17 20:00 11/21/17 08:00 Piperacillin Sod/ Tazobactam Sod 50 ml @ 100 mls/hr Q6H IV 11/18/17 10:00 11/21/17 09:28 Potassium Chloride 100 ml @ 50 mls/hr Q2H PRN IV 11/18/17 14:00 11/20/17 11:11 Potassium Chloride 100 ml @ 50 mls/hr Q2H PRN IV 11/18/17 14:00 11/21/17 03:24 (K-Lyte Cl Eff) 50 meq UNSCH PRN PO 11/18/17 14:00 Potassium Chloride 100 ml @ 25 mls/hr UNSCH PRN IV 11/18/17 14:00 Potassium Chloride 100 ml @ 50 mls/hr Q2H PRN IV 11/18/17 14:00 11/19/17 20:45 Magnesium Sulfate 4 gm/Sodium Chloride 100 ml @ 50 mls/hr UNSCH PRN IV 11/18/17 14:00 (Mag-Ox) 800 mg UNSCH PRN PO 11/18/17 14:00 Magnesium Sulfate 2 gm/Sodium Chloride 100 ml @ 50 mls/hr UNSCH PRN IV 11/18/17 14:00 11/18/17 19:40 (K-Phos) 2,000 mg Q4H PRN PO 11/18/17 14:00 Sodium Phosphate 30 mmol/Sodium Chloride 250 ml @ 42 mls/hr UNSCH PRN IV 11/18/17 14:00 (K-Phos) 2,000 mg UNSCH PRN PO/TUBE 11/18/17 14:00 Potassium Phosphate 30 mmol/ Sodium Chloride 260 ml @ 42 mls/hr UNSCH PRN IV 11/18/17 14:00 11/21/17 03:25 Phenylephrine HCl 40 mg/Dextrose 500 ml @ 30 mls/hr TITRATE PRN IV 11/18/17 14:15 11/19/17 04:41 (Brethine Inj) 1 mg UNSCH PRN SQ 11/18/17 14:15 Norepinephrine Bitartrate 250 ml @ 7.5 mls/hr TITRATE PRN IV 11/18/17 17:45 11/21/17 09:29 (Brethine Inj) 1 mg UNSCH PRN SQ 11/18/17 17:45 Vasopressin 40 units/Dextrose 100 ml @ 6 mls/hr [id number] IV 11/18/17 17:40 11/19/17 18:14 Linezolid 300 ml @ 300 mls/hr Q12H IV 11/18/17 20:00 11/21/17 09:28 Fentanyl Citrate 250 ml @ 5 mls/hr TITRATE PRN IV 11/19/17 09:45 (NovoLOG SUPPLEMENTAL SCALE) 1 Q6HR SQ 11/19/17 12:00 11/21/17 06:22 (SoluCORTEF INJ) 50 mg Q6HR IV PUSH 11/19/17 12:00 11/21/17 05:01 Midazolam HCl 50 ml @ 2 mls/hr TITRATE PRN IV 11/19/17 12:00 (Albuterol Neb) 2.5 mg Q2HR NEB PRN NEB 11/20/17 10:00 (Pulmicort Respule Neb) 0.5 mg Q12HR NEB NEB 11/20/17 10:00 11/21/17 08:11 (Duoneb Neb) 1 ampule Q4HR NEB NEB 11/20/17 12:00 11/21/17 08:11 (Prevacid Odt) 30 mg DAILY NG 11/20/17 10:00 11/21/17 09:28 (Tears Naturale Opth Soln) 1 drop Q8HR EACH EYE 11/20/17 14:00 11/21/17 05:01 Lactated Ringer's 1,000 ml @ 84 mls/hr [id number] IV 11/20/17 09:15 11/21/17 09:05 (Tylenol 650 Mg/ 20 ml Liq) 650 mg Q6H PRN PO 11/20/17 09:30 Potassium Chloride 100 ml @ 50 mls/hr Q2H PRN IV 11/20/17 10:30 Potassium Chloride 100 ml @ 50 mls/hr Q2H PRN IV 11/20/17 10:30 (K-Lyte Cl Eff) 50 meq UNSCH PRN PO 11/20/17 10:30 Potassium Chloride 100 ml @ 25 mls/hr UNSCH PRN IV 11/20/17 10:30 Potassium Chloride 100 ml @ 50 mls/hr Q2H PRN IV 11/20/17 10:30 Magnesium Sulfate 4 gm/Sodium Chloride 100 ml @ 50 mls/hr UNSCH PRN IV 11/20/17 10:30 (Mag-Ox) 800 mg UNSCH PRN PO 11/20/17 10:30 Magnesium Sulfate 2 gm/Sodium Chloride 100 ml @ 50 mls/hr UNSCH PRN IV 11/20/17 10:30 (K-Phos) 2,000 mg Q4H PRN PO 11/20/17 10:30 Sodium Phosphate 30 mmol/Sodium Chloride 250 ml @ 42 mls/hr UNSCH PRN IV 11/20/17 10:30 (K-Phos) 2,000 mg UNSCH PRN PO/TUBE 11/20/17 10:30 Potassium Phosphate 30 mmol/ Sodium Chloride 260 ml @ 42 mls/hr UNSCH PRN IV 11/20/17 10:30 Valproate Sodium 500 mg/Sodium Chloride 105 ml @ 105 mls/hr Q8H IV 11/20/17 17:00 11/21/17 09:28 Allergies Allergies Coded Allergies No Known Allergies (Unverified11/01/17) Review of Systems All other ROS: ROS reviewed as documented in chart Exam I&O / VS 11/21/17 11/21/17 11/22/17 15:00 23:00 07:00 Intake Total 100 ml Balance 100 ml IV Total 100 ml Vital Signs Date Time Temp Pulse Resp B/P (MAP) Pulse Ox O2 Delivery O2 Flow Rate FiO2 11/21/17 09:29 90 120/58 11/21/17 09:23 35 11/21/17 08:11 98 35 11/21/17 04:23 96 35 11/21/17 04:00 97.7 111 15 109/65 (80) 96 11/21/17 01:24 98 35 11/21/17 00:00 97.6 98 16 126/65 (85) 99 11/20/17 20:01 97 35 11/20/17 20:00 97.9 95 15 124/68 (86) 98 11/20/17 20:00 97 Mechanical Ventilator 35 11/20/17 19:40 96 130/72 11/20/17 16:02 97 35 11/20/17 16:00 97.9 95 16 98/62 (74) 98 11/20/17 15:48 99 100 11/20/17 12:00 97.0 94 21 110/64 (79) 98 Eye: PERRL, EOMI Respiratory: Non-labored respirations Cardiology: Normal rate Psychiatric: Cooperative Exam Comments Drowsy arousable appears to follow simple motor requests intermittently is able open and close her eyes tend to show me 2 fingers of the left hand, deviations pupils 3-2 mm bilaterally minimal withdrawal of lower extremities minimal flexion of upper extremities no clonus Objective Micro and Labs Laboratory Tests Test 11/20/17 23:30 11/21/17 06:30 Blood Urea Nitrogen 8 7 Creatinine 0.57 0.55 Random Glucose 155 170 Total Protein 4.8 5.7 Calcium Level 7.0 7.2 Phosphorus Level 2.1 3.2 Magnesium Level 1.9 2.0 Sodium Level 138 141 Potassium Level 3.1 3.9 Chloride Level 103 105 Carbon Dioxide Level 22.9 23.2 Anion Gap 12 13 Estimat Glomerular Filtration Rate 122 127 Protein Corrected Calcium 8.2 7.9 White Blood Count 25.9 Red Blood Count 3.07 Hemoglobin 9.0 Hematocrit 26.1 Mean Corpuscular Volume 85.1 Mean Corpuscular Hemoglobin 29.4 Mean Corpuscular Hemoglobin Concent 34.5 Red Cell Distribution Width 17.9 Platelet Count 234 Mean Platelet Volume 7.6 CBC Comment AUTO DIFF Albumin 2.1 Alkaline Phosphatase 67 Aspartate Amino Transf (AST/SGOT) 172 Alanine Aminotransferase (ALT/SGPT) 101 Total Bilirubin 0.6 Direct Bilirubin 0.3 Indirect Bilirubin 0.3 Valproic Acid (Depakene) Level 93 Date/Time Source Procedure Growth Status 11/18/17 18:29 Blood Peripheral Aerobic Blood Culture - Preliminary NO GROWTH IN 2 DAYS Resulted 11/18/17 18:29 Blood Peripheral Anaerobic Blood Culture - Preliminary NO GROWTH IN 2 DAYS Resulted 11/18/17 22:15 Stool Stool Stool Pus (GUMARO) - Final RARE WBC Complete 11/19/17 11:04 Sputum Endotracheal Gram Stain - Final Complete 11/19/17 11:04 Sputum Culture - Final Staphylococcus Aureus Pseudomonas Aeruginosa Complete 11/19/17 11:04 Urine Catheterized Urine Urine Culture - Preliminary NO GROWTH IN 24 HOURS. Resulted Problem Qualifiers (1) Respiratory failure: Qualified Codes: J96.01 - Acute respiratory failure with hypoxia Jorge Yuan MD November 21, 2017 10:17
[2017-11-21 10:39] LABS: BANDS 27 % (0-6); LYMPHOCYTES 1 % (9-44); MONOCYTES 3 % (0-8); NEUTROPHIL # MANUAL DIFF 24.9 TH/MM3 (1.8-7.7); POLYS (SEG NEUTROPHILS) 69 % (16-70)
[2017-11-21 10:40] LABS: ACANTHOCYTES 1+ (NORMAL)
[2017-11-21 10:41] LABS: BURR CELLS 1+ (NORMAL); KERATOCYTES OCC (NORMAL)
[2017-11-21] MEDS: VASOPRESSIN INJ 40 UNITS in DEXTROSE 5% IN WATER 100ML INJ 98 ML IV SCH ×2 (11:16)
--- NOTE | 2017-11-21 13:24 | HHI.CCPN ---
Subjective Remarks/Hospital Course 82-year-old AA female with past medical history significant for COPD, diabetes mellitus, dyslipidemia, hypertension, osteoporosis, thyroid disorder presented to [facility] due to altered mental status, found by the patient's caregiver. 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 The patient is nonverbal and information is obtained from medical chart review. 11/02: more somnolent than on admission. EEG ordered and to my read appears to have significant ictal activity. loaded with fosphenytoin and neurology consult ordered. also, given size and location of the bleed, have ordered an MRI to better evaluate the area. 11/03: Awake and alert. Following commands. 11/18: Critical care reconsulted by Dr. Figueroa for worsening shortness of breath overnight. This morning patient was noted to be on a nonrebreather facemask with respiratory rate in the 30s using accessory muscles of respiration. Rapid response team was activated and patient was transferred to the ICU. I evaluated the patient immediately following her arrival to the ICU. She was in significant respiratory distress and I proceeded with emergent intubation and patient was placed on mechanical ventilation. Borderline blood pressures following intubation for which 1 L normal saline bolus ordered. I emergently placed a central line as well. Patient underwent a CT chest which was negative for PE however showed bilateral dense consolidations with concern regarding aspiration. Stat labs were ordered and patient was initiated on IV Zosyn for empiric antibiotic coverage. 11/19: Sedated, orally intubated on mechanical ventilation. On Levophed 9 mics per minute, Srinivasan-Synephrine 50 mics per minute, vasopressin 0.04 U/min. Received 6+ L in the last 24 hours. Has had some diarrhea. Hypothermic this morning. Chest x-ray shows multilobar pneumonia. Remains in septic shock. 11/20: PSV trial lasted 15 minutes today. Case became acutely tachypneic and placed back on PRVC ventilation. Remains on vasopressin 0.04 units /min and norepinephrine drip at 1 mcg/min. Positive BM. 1200 cc urine output. Normothermic this a.m. Subjective: 11/21: Sitting in bed in no acute distress. CT brain yesterday revealed post right temporal craniotomy changes with no new bleeding. Remains on norepinephrine drip at 2 mcg/min. Tolerating tube feeds at goal. On CPAP trial 20/5 and 40%. Tongue is swollen today Objective Vital Signs Date Time Temp Pulse Resp B/P (MAP) Pulse Ox O2 Delivery O2 Flow Rate FiO2 11/21/17 11:37 99 35 11/21/17 09:29 90 120/58 11/21/17 08:00 97.6 17 11/21/17 07:00 Mechanical Ventilator 11/18/17 08:18 10.00 Intake and Output 11/21/17 11/21/17 11/22/17 08:00 16:00 00:00 Intake Total 400 ml 100 ml Output Total 2430 ml Balance -2030 ml 100 ml Result Diagram: 11/21/17 0630 11/21/17 0630 Other Results Microbiology Date/Time Source Procedure Growth Status 11/18/17 18:29 Blood Peripheral Aerobic Blood Culture - Preliminary NO GROWTH IN 3 DAYS Resulted 11/18/17 18:29 Blood Peripheral Anaerobic Blood Culture - Preliminary NO GROWTH IN 3 DAYS Resulted 11/18/17 22:15 Stool Stool Stool Pus (GUMARO) - Final RARE WBC Complete 11/19/17 11:04 Sputum Endotracheal Gram Stain - Final Complete 11/19/17 11:04 Sputum Culture - Final Staphylococcus Aureus Pseudomonas Aeruginosa Complete 11/19/17 11:04 Urine Catheterized Urine Urine Culture - Final NO GROWTH IN 48 HOURS. Complete Imaging Last Impressions Chest X-Ray 11/21/17 0600 Signed Impressions: Service Date/Time: Tuesday, November 21, 2017 03:17 - CONCLUSION: 1. Increasing diffuse airspace disease since November 19, possibly edema. Increase in bilateral pleural effusions as well. Support apparatus unchanged. Axel Cheema MD Liver Ultrasound 11/20/17 0000 Signed Impressions: Service Date/Time: Monday, November 20, 2017 10:23 - CONCLUSION: 1. Normal dimension common hepatic duct. 2. Hepatomegaly. There are 2 cysts in the left lobe measuring up to 2.9 cm. Aquilino Hsieh MD Head CT 11/20/17 0000 Signed Impressions: Service Date/Time: Monday, November 20, 2017 15:28 - CONCLUSION: 1. Evolving postsurgical features of right temporal craniotomy with minimal blood products in the surgical bed. Otherwise, no intercurrent hemorrhage or other acute abnormality. Cesar Mcneil MD CT Angiography 11/18/17 0000 Signed Impressions: Service Date/Time: November 12:05 - CONCLUSION: 1. Dense airspace consolidation bilaterally characteristic of pneumonia. 2. There is simple cyst in the liver with one area of rim-like calcification of the right lobe most likely benign, however not definitely characterized. 3. There is no evidence for PE for technique. K. Avelino Muro MD Lower Extremity Ultrasound 11/17/17 0000 Signed Impressions: Service Date/Time: Friday, November 17, 2017 17:52 - CONCLUSION: No DVT. Donovan Fleming MD Soft Tissue Neck X-Ray 11/11/17 0000 Signed Impressions: Service Date/Time: November 13:28 - CONCLUSION: 1. No acute findings. NG tube present. Axel Cheema MD Abdomen X-Ray 11/10/17 0000 Signed Impressions: Service Date/Time: Friday, November 10, 2017 14:00 - CONCLUSION: NG tube in the stomach Donovan Piña MD Brain MRI 11/04/17 0000 Signed Impressions: Service Date/Time: November 12:38 - CONCLUSION: Focal abnormality in the right posterior temporal lobe measuring up to 3.9 cm, as above. Examination will be used for intraoperative localization. Donovan Campbell MD Chest CT 11/02/17 0000 Signed Impressions: Service Date/Time: Thursday, November 02, 2017 21:35 - CONCLUSION: 1. Negative for metastatic disease to the thorax. No acute findings. Axel Cheema MD Abdomen/Pelvis CT 11/02/17 0000 Signed Impressions: Service Date/Time: Thursday, November 02, 2017 21:35 - CONCLUSION: 1. Negative for metastatic disease in the abdomen or pelvis. Multiple hepatic cysts. Numerous fibroids in the uterus. Mild colonic constipation and moderate rectal constipation. Axel Cheema MD Procedures Right temporal craniotomy for hemorrhagic mass resection; [employer] stereotactic intraoperative navigation; microsurgical technique, left subclavian central line placement, right subclavian central line and left axillary arterial line Objective Remarks GENERAL: 82 yo AA female currently resting in bed orotracheally intubated SKIN: Warm and dry. HEAD: Well-healed ashlie of her right temporal craniotomy site. EYES: Pupils equal and round about 2 mm bilaterally reactive to 1. No scleral icterus. No injection or drainage. ENT: No nasal bleeding or discharge. Mucous membranes pink and moist. Tongue is quite edematous. No signs of trauma NECK: Trachea midline. No JVD. CARDIOVASCULAR: Tachycardic, RR. S1, S2. No S4. Without murmur RESPIRATORY: Coarse rhonchorous breath sounds are appreciated anteriorly and posteriorly. Symmetrical excursion. GASTROINTESTINAL: Abdomen soft, non-tender, nondistended. Hypoactive bowel sounds are appreciated MUSCULOSKELETAL: Extremities 1+ bilateral upper and lower extremity edema. No obvious deformities. NEUROLOGICAL: Positive gag. Patient does have a cough. Yawns. Localizes bilateral upper lower extremities. Very poor examination Urinary Catheter: Yes Assessment to: Continue Duong insert reason: Prolonged Immobilization Vascular Central Line Catheter: Yes Assessment to: Continue Date of Insertion: November 18, 2017 Line: Central Venous Catheter Side: Right Location: Subclavian A/P Assessment and Plan Neuro/Psych: Right parietal intraparenchymal hemorrhage status post craniotomy for hemorrhagic left temporal mass with pathology still pending Subclinical status epilepticus Currently off all sedation with minimal neurological response on examination CT brain 11/20 revealed status post left temporal craniotomy changes. No acute bleeding. 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 Peterson - pathology still pending neurochecks On divalproex 500 mg IV every 8 hours. Level 93 this a.m. management per neurology EEG 11/17 revealed no l epileptiform activity y. Moderate slowing right-sided. Last positive EEG for sharps in the right hemisphere is 11/05. Acetaminophen 650 mg by tube every 6 hours as needed fever CV: Severe septic shock History of essential hypertension on hydrochlorothiazide Lactic acidosis Currently on norepinephrine drip at 1 mcg/min and vasopressin 0.04 units an hour to maintain mean atrial pressure greater than equal 65 Holding home medication hydrochlorothiazide Stress dose hydrocortisone 50 mg every 6 hours. We will wean to 50 mg every 8 hours today on chronic prednisone 20 mg twice daily at home Switch IV fluids to LR at 84 cc an hour Serial lactates until cleared Resp: Acute respiratory failure secondary to aspiration pneumonia Severe COPD [facility] /07/09/34 Ventilator bundle Albuterol/ipratropium aerosols every 4 hours with albuterol aerosols every 2 hours as needed dyspnea Budesonide 0.5/2 1 inhalation twice daily. Spontaneous breathing trials as clinically indicated. Lasted 15 minutes today On budesonide/formoterol and tiotropium at home Follow-up x-ray in a.m. 11/22 GI: Hypoalbuminemia Elevated transaminases likely secondary to shock liver Diarrhea Liver cysts Start tube feedings with vital 1.5 goal 45 cc an hour Famotidine for GI prophylaxis Docusate sodium/senna 1 tablet twice daily for bowel regimen Liver ultrasound 11/20 revealed 2 hepatic cysts previous 2.9 cm in size. No's signs of common bile duct obstruction. : Duong catheter for accurate I's and O's in a critically ill patient Endo: Hypothyroidism with elevated TSH greater than 11 Diabetes mellitus Sliding scale insulin low regimen of NovoLog with Accu-Cheks every 6 hours to maintain euglycemia Currently on [place] Thyroid 90 mg daily. Current medications 120 mg daily of desiccated thyroid. TSH about 11 this admission Renal: Monitor urine output Accurate I's and O's Heme: Leukocytosis Normocytic anemia status post transfusion with PRBCs 11/19 Monitor CBC daily. Monitor trends. No indication for transfusion of blood products at this time. ID: Aspiration pneumonia with MSSA/Pseudomonas Severe sepsis Currently on linezolid 600 mg IV every 12 hours day #405 and piperacillin l/ tazobactam 3.375 g IV every 6 hours day #4/8 Pertinent cultures 11/19 -sputum -staph aureus/Pseudomonas 11/19 -UA -pending 11/18 -blood cultures 2 -no growth FEN: Hyponatremia Replace electrolytes as clinically indicated MSK: Osteoarthritis/rheumatoid arthritis Leflunimide 10 mg daily held for RA. Holding scheduled prednisone 20 mg twice daily. PT evaluate and treat for range of motion Access: Right subclavian CVL placed 11/18 Left axillary arterial line placed 11/18 Prophylaxis -GI -famotidine -DVT -SCD/enoxaparin Level 2 follow-up Alfonzo Leger MD November 21, 2017 13:24
[2017-11-21] MEDS ORDERED: CALCIUM GLUCONATE INJ 1 GM in SODIUM CHLORIDE 0.9% INJ 100 ML IV ONE (14:00)
[2017-11-21] MEDS: ENOXAPARIN SODIUM 40 MG/0.4 ML SYRINGE SQ SCH (16:30)
[2017-11-21] MEDS: FAMOTIDINE 20 MG TAB NG SCH (20:10)
[2017-11-21] MEDS ORDERED: FAMOTIDINE 40 MG/5 ML LIQ 50 ML BTL NG SCH (21:00)
[2017-11-22] VITALS (13 sets, daily range): BP systolic 101–123; BP diastolic 57–68; PULSE 85–101; RESP 10–24; TEMP 97.5–98; O2SAT 98–100
[2017-11-22] MEDS: INSULIN ASPART SUPPLEMENTAL SCALE SQ SCH ×6 (00:28→20:29)
[2017-11-22] MEDS: VALPROATE INJ 500 MG in SODIUM CHLORIDE 0.9% INJ 100 ML IV SCH ×3 (00:29→17:11)
[2017-11-22] MEDS: RESP: ALBUTEROL 2.5 MG/IPRATROPIUM 0.5 MG NEB (SCH) NEB ×6 (00:48→20:12)
[2017-11-22] MEDS: CHLORHEXIDINE GLUCONATE 2 % 1 PACK (2 CLOTHS) TOP SCH (04:00)
[2017-11-22] MEDS: VASOPRESSIN INJ 40 UNITS in DEXTROSE 5% IN WATER 100ML INJ 98 ML IV SCH ×4 (04:16→20:29)
[2017-11-22] MEDS: PIPERACIL-TAZO 3.375 GM PREMIX 50 ML IV SCH ×4 (04:16→20:30)
[2017-11-22 04:20] LABS: AUTOMATED NEUTROPHIL # 26.5 TH/MM3 (1.8-7.7); BASOPHIL # 0.1 TH/MM3 (0-0.2); BASOPHIL % 0.2 % (0.0-2.0); HEMATOCRIT 28.6 % (35.0-46.0); HEMOGLOBIN 9.6 GM/DL (11.6-15.3); LYMPH % 1.4 % (9.0-44.0); LYMPHOCYTE # 0.4 TH/MM3 (1.0-4.8); MEAN CELL VOLUME 86.4 FL (80.0-100.0); MEAN CORPUSCULAR HEMOGLOBIN 29.1 PG (27.0-34.0); MEAN CORPUSCULAR HGB CONC 33.7 % (32.0-36.0); MEAN PLATELET VOLUME 7.1 FL (7.0-11.0); MONO % 3.8 % (0.0-8.0); NEUT % 94.6 % (16.0-70.0); PLATELET COUNT 203 TH/MM3 (150-450); RED BLOOD COUNT 3.32 MIL/MM3 (4.00-5.30); RED CELL DISTRIBUTION WIDTH 18.4 % (11.6-17.2)
[2017-11-22 04:55] LABS: ALBUMIN 1.8 GM/DL (3.4-5.0); BICARBONATE 25.8 MEQ/L (21.0-32.0); CALCIUM 7.3 MG/DL (8.5-10.1); CALCIUM-PROTEIN CORRECTED 8.5 MG/DL (8.5-10.1); CREATININE 0.48 MG/DL (0.50-1.00); MAGNESIUM 1.9 MG/DL (1.5-2.5); PHOSPHORUS 1.7 MG/DL (2.5-4.9); TOTAL BILIRUBIN ADULT 0.5 MG/DL (0.2-1.0)
[2017-11-22] MEDS: HYDROCORTISONE SOD SUCCINATE 100 MG VIAL IV PUSH SCH ×3 (05:59→20:28)
[2017-11-22] MEDS: THYROID 60 MG TAB NG SCH (05:59)
[2017-11-22] MEDS: THYROID 30 MG TAB NG SCH (05:59)
[2017-11-22] MEDS: ARTIFICIAL TEARS OPTH SOLN 15 ML BTL EACH EYE SCH ×3 (06:00→21:14)
[2017-11-22] MEDS: POTASSIUM CHLOR 20 MEQ PREMIX 100 ML IV PRN ×2 (06:06→08:28)
[2017-11-22] MEDS: POTASSIUM PHOSPHATE INJ 30 MMOL in SODIUM CHLOR 0.9% 250 ML INJ 250 ML IV PRN (06:34)
[2017-11-22] MEDS: RESP: BUDESONIDE 0.5 MG/2 ML NEB NEB SCH ×2 (08:03→20:12)
--- NOTE | 2017-11-22 08:12 | HHI.CCPN ---
Subjective Remarks/Hospital Course 82-year-old AA female with past medical history significant for COPD, diabetes mellitus, dyslipidemia, hypertension, osteoporosis, thyroid disorder presented to [facility] due to altered mental status, found by the patient's caregiver. 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 The patient is nonverbal and information is obtained from medical chart review. 11/02: more somnolent than on admission. EEG ordered and to my read appears to have significant ictal activity. loaded with fosphenytoin and neurology consult ordered. also, given size and location of the bleed, have ordered an MRI to better evaluate the area. 11/03: Awake and alert. Following commands. 11/18: Critical care reconsulted by Dr. Figueroa for worsening shortness of breath overnight. This morning patient was noted to be on a nonrebreather facemask with respiratory rate in the 30s using accessory muscles of respiration. Rapid response team was activated and patient was transferred to the ICU. I evaluated the patient immediately following her arrival to the ICU. She was in significant respiratory distress and I proceeded with emergent intubation and patient was placed on mechanical ventilation. Borderline blood pressures following intubation for which 1 L normal saline bolus ordered. I emergently placed a central line as well. Patient underwent a CT chest which was negative for PE however showed bilateral dense consolidations with concern regarding aspiration. Stat labs were ordered and patient was initiated on IV Zosyn for empiric antibiotic coverage. 11/19: Sedated, orally intubated on mechanical ventilation. On Levophed 9 mics per minute, Srinivasan-Synephrine 50 mics per minute, vasopressin 0.04 U/min. Received 6+ L in the last 24 hours. Has had some diarrhea. Hypothermic this morning. Chest x-ray shows multilobar pneumonia. Remains in septic shock. 11/20: PSV trial lasted 15 minutes today. Case became acutely tachypneic and placed back on PRVC ventilation. Remains on vasopressin 0.04 units /min and norepinephrine drip at 1 mcg/min. Positive BM. 1200 cc urine output. Normothermic this a.m. 11/21: Sitting in bed in no acute distress. CT brain yesterday revealed post right temporal craniotomy changes with no new bleeding. Remains on norepinephrine drip at 2 mcg/min. Tolerating tube feeds at goal. On CPAP trial 20/5 and 40%. Tongue is swollen today Subjective: 11/22: Resting in bed on ventilator. Tolerated CPAP well yesterday greater than 6 hours. Tongue less swollen today. Follows commands intermittently and will grasp bilateral upper extremities spontaneously. Tolerating tube feeding Objective Vital Signs Date Time Temp Pulse Resp B/P (MAP) Pulse Ox O2 Delivery O2 Flow Rate FiO2 11/22/17 04:22 100 35 11/22/17 04:00 98.0 95 14 115/68 (84) 11/21/17 19:20 Mechanical Ventilator 11/18/17 08:18 10.00 Intake and Output 11/22/17 11/22/17 11/23/17 08:00 16:00 00:00 Intake Total 418 ml Output Total 600 ml Balance -182 ml Result Diagram: 11/22/17 0410 11/22/17 0410 Other Results Microbiology Date/Time Source Procedure Growth Status 11/18/17 18:29 Blood Peripheral Aerobic Blood Culture - Preliminary NO GROWTH IN 3 DAYS Resulted 11/18/17 18:29 Blood Peripheral Anaerobic Blood Culture - Preliminary NO GROWTH IN 3 DAYS Resulted 11/18/17 22:15 Stool Stool Stool Pus (GUMARO) - Final RARE WBC Complete 11/19/17 11:04 Sputum Endotracheal Gram Stain - Final Complete 11/19/17 11:04 Sputum Culture - Final Staphylococcus Aureus Pseudomonas Aeruginosa Complete 11/19/17 11:04 Urine Catheterized Urine Urine Culture - Final NO GROWTH IN 48 HOURS. Complete Imaging Last Impressions Chest X-Ray 11/21/17 0600 Signed Impressions: Service Date/Time: Tuesday, November 21, 2017 03:17 - CONCLUSION: 1. Increasing diffuse airspace disease since November 19, possibly edema. Increase in bilateral pleural effusions as well. Support apparatus unchanged. Axel Cheema MD Liver Ultrasound 11/20/17 0000 Signed Impressions: Service Date/Time: Monday, November 20, 2017 10:23 - CONCLUSION: 1. Normal dimension common hepatic duct. 2. Hepatomegaly. There are 2 cysts in the left lobe measuring up to 2.9 cm. Aquilino Hsieh MD Head CT 11/20/17 0000 Signed Impressions: Service Date/Time: Monday, November 20, 2017 15:28 - CONCLUSION: 1. Evolving postsurgical features of right temporal craniotomy with minimal blood products in the surgical bed. Otherwise, no intercurrent hemorrhage or other acute abnormality. Cesar Mcneil MD CT Angiography 11/18/17 0000 Signed Impressions: Service Date/Time: November 12:05 - CONCLUSION: 1. Dense airspace consolidation bilaterally characteristic of pneumonia. 2. There is simple cyst in the liver with one area of rim-like calcification of the right lobe most likely benign, however not definitely characterized. 3. There is no evidence for PE for technique. K. Avelino Muro MD Lower Extremity Ultrasound 11/17/17 0000 Signed Impressions: Service Date/Time: Friday, November 17, 2017 17:52 - CONCLUSION: No DVT. Donovan Fleming MD Soft Tissue Neck X-Ray 11/11/17 0000 Signed Impressions: Service Date/Time: November 13:28 - CONCLUSION: 1. No acute findings. NG tube present. Axel Cheema MD Abdomen X-Ray 11/10/17 0000 Signed Impressions: Service Date/Time: Friday, November 10, 2017 14:00 - CONCLUSION: NG tube in the stomach Donovan Piña MD Brain MRI 11/04/17 0000 Signed Impressions: Service Date/Time: November 12:38 - CONCLUSION: Focal abnormality in the right posterior temporal lobe measuring up to 3.9 cm, as above. Examination will be used for intraoperative localization. Donovan Campbell MD Chest CT 11/02/17 0000 Signed Impressions: Service Date/Time: Thursday, November 02, 2017 21:35 - CONCLUSION: 1. Negative for metastatic disease to the thorax. No acute findings. Axel Cheema MD Abdomen/Pelvis CT 11/02/17 0000 Signed Impressions: Service Date/Time: Thursday, November 02, 2017 21:35 - CONCLUSION: 1. Negative for metastatic disease in the abdomen or pelvis. Multiple hepatic cysts. Numerous fibroids in the uterus. Mild colonic constipation and moderate rectal constipation. Axel Cheema MD Procedures Right temporal craniotomy for hemorrhagic mass resection; [place] stereotactic intraoperative navigation; microsurgical technique, left subclavian central line placement, right subclavian central line and left axillary arterial line Objective Remarks GENERAL: 82 yo AA female currently resting in bed orotracheally intubated SKIN: Warm and dry. HEAD: Well-healed ashlie of her right temporal craniotomy site. EYES: Pupils equal and round about 2 mm bilaterally reactive to 1. No scleral icterus. No injection or drainage. ENT: No nasal bleeding or discharge. Mucous membranes pink and moist. Tongue is quite edematous. No signs of trauma NECK: Trachea midline. No JVD. CARDIOVASCULAR: Tachycardic, RR. S1, S2. No S4. Without murmur RESPIRATORY: Coarse rhonchorous breath sounds are appreciated anteriorly and posteriorly. Symmetrical excursion. GASTROINTESTINAL: Abdomen soft, non-tender, nondistended. Hypoactive bowel sounds are appreciated MUSCULOSKELETAL: Extremities 1+ bilateral upper and lower extremity edema. No obvious deformities. NEUROLOGICAL: Positive gag. Patient does have a cough. Yawns. Localizes bilateral upper lower extremities. Very poor examination Urinary Catheter: Yes Assessment to: Continue Duong insert reason: Prolonged Immobilization Vascular Central Line Catheter: Yes Assessment to: Continue Date of Insertion: November 18, 2017 Line: Central Venous Catheter Side: Right Location: Subclavian A/P Assessment and Plan Neuro/Psych: Right parietal intraparenchymal hemorrhage status post craniotomy for hemorrhagic left temporal mass with pathology still pending Subclinical status epilepticus Currently off all sedation with opens eyes to voice and follows commands upper extremities intermittently CT brain 11/20 revealed status post left temporal craniotomy changes. No acute bleeding. 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 Peterson - pathology still pending neurochecks On divalproex 500 mg IV every 8 hours. Level 85 this a.m. management per neurology EEG 11/17 revealed no l epileptiform activity y. Moderate slowing right-sided. Last positive EEG for sharps in the right hemisphere is 11/05. Acetaminophen 650 mg by tube every 6 hours as needed fever CV: Severe septic shock History of essential hypertension on hydrochlorothiazide Lactic acidosis 3.0 Currently on norepinephrine drip at 1 mcg/min and vasopressin 0.04 units an hour to maintain mean atrial pressure greater than equal 65 Holding home medication hydrochlorothiazide Stress dose hydrocortisone 50 mg every 8 hours. On chronic prednisone 20 mg twice daily at home Switch IV fluids to LR at 84 cc an hour. Will discontinue today Serial lactates until cleared Resp: Acute respiratory failure secondary to aspiration pneumonia Severe COPD [facility] 14/07/09/34 Ventilator bundle Albuterol/ipratropium aerosols every 4 hours with albuterol aerosols every 2 hours as needed dyspnea Budesonide 0.5/2 1 inhalation twice daily. Spontaneous breathing trials as clinically indicated. Lasted 15 minutes today On budesonide/formoterol and tiotropium at home Follow-up x-ray in a.m. 11/23 GI: Hypoalbuminemia Elevated transaminases likely secondary to shock liver Diarrhea Liver cysts Start tube feedings with vital 1.5 goal 45 cc an hour Famotidine for GI prophylaxis Docusate sodium/senna 1 tablet twice daily for bowel regimen Liver ultrasound 11/20 revealed 2 hepatic cysts previous 2.9 cm in size. No's signs of common bile duct obstruction. : Duong catheter for accurate I's and O's in a critically ill patient Endo: Hypothyroidism with elevated TSH greater than 11 Diabetes mellitus Sliding scale insulin low regimen of NovoLog with Accu-Cheks every 6 hours to maintain euglycemia Currently on Vesper Thyroid 90 mg daily. Current medications 120 mg daily of desiccated thyroid. TSH about 11 this admission Renal: Monitor urine output Accurate I's and O's Heme: Leukocytosis Normocytic anemia status post transfusion with PRBCs 11/19 Monitor CBC daily. Monitor trends. No indication for transfusion of blood products at this time. ID: Aspiration pneumonia with MSSA/Pseudomonas Severe sepsis Currently on linezolid 600 mg IV every 12 hours day #11/06 and piperacillin l/ tazobactam 3.375 g IV every 6 hours day #10/10 Pertinent cultures 11/19 -sputum -staph aureus/Pseudomonas 11/19 -UA -pending 11/18 -blood cultures 2 -no growth FEN: Hypopotassemia Hypophosphatemia Replace electrolytes as clinically indicated 30 mmol testing phosphorus, 40 mEq potassium chloride IV 1 now, 20 mEq KCl by tube 1 now. Recheck at 1800 hrs. today. MSK: Osteoarthritis/rheumatoid arthritis Leflunomide 10 mg daily held for RA. Holding scheduled prednisone 20 mg twice daily. PT evaluate and treat for range of motion Access: Right subclavian CVL placed 11/18 Left axillary arterial line placed 11/18 Prophylaxis -GI -famotidine -DVT -SCD/enoxaparin Level 2 follow-up Alfonzo Leger MD November 22, 2017 08:12
[2017-11-22] MEDS ORDERED: POTASSIUM CHLORIDE 20 MEQ PWD PACKET PO ONE (08:15)
[2017-11-22] MEDS ORDERED: POTASSIUM CHLOR 40 MEQ PREMIX 100 ML IV ONE (08:15)
[2017-11-22] MEDS ORDERED: MAGNESIUM SULFATE 1 GM PREMIX 100 ML IV ONE (08:15)
[2017-11-22] MEDS ORDERED: PHYTONADIONE 5 MG/SWFI 5 ML ORAL SYR PO ONE (08:30)
--- NOTE | 2017-11-22 09:09 | HHI.NSPN ---
History Chief Complaint: ICH. Interval History 82-year-old -[place] female who was transferred from [facility] where she presented with neurologic changes. There is no family members and the patient cannot relate much of a history but apparently with CT scan head obtained she was found to have a right posterior temporal lobe cerebral hemorrhage. CT scan of the head reviewed from [facility] on arrival reveals a less than 2 cm right posterior temporal lobe hemorrhage without any significant mass-effect or midline shift. Overnight her exam is not changed although she had an EEG study done and was noted to have subclinical seizures and has been noted to be more lethargic since then and is awaiting fosphenytoin bolus. MRI scan of the brain is also pending along with neurology evaluation. It is unclear whether this cerebral hemorrhage is spontaneous versus traumatic. 11/03/17: Pt awake and alert. At times not cooperative with exam. She at times doesn't verbalize and others answers questions yes/no. She follows commands at times and other times does not. 11/04/17: Pt sedated for MRI and not opening eyes or following commands. 11/05/17: Pt awakens but still fatigued. She states her name when asked but not verbalizing much otherwise. 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 She moves bilateral LEs to command. 11/06/17: Pt very fatigued again today. Not opening eyes. Not following commands. Pt resting in position. 11/07/17: Pt lethargic still. Not opening eyes or following commands. 11/09/17: Pt lethargic but more awake today than previous days as she actually opened her eyes and said some words. She underwent a right temporal craniotomy for hemorrhagic mass resection on 11/08/17. She is lethargic but opens her eyes. She answers some simple questions. She follows some simple commands. 11/10/17: Pt not as alert this morning as yesterday. Not opening eyes. Verbalizing some words but not able to understand. Spontaneously moves extremities. 11/11/17: Pt lethargic. Not opening eyes. Not following commands. Not verbalizing. Protecting airway currently. 11/15/17: Pt more awake today. Opens eyes and communicates appropriately. Denies headaches, nausea, paresthesias. 11/16/17: Pt awakens to voice but lethargic. She denies headaches, nausea, paresthesias. She denies chest pain or sob. 11/17/17: Pt more awake today. She denies headaches, nausea, chest pain or sob. 11/18/17: Pt sedated on Diprivan but opens eyes to voice. She nods her head to some questions and denies headache. She was intubated this morning. She is on a Phenylephrine drip. 11/19/17: Pt sedated on Diprivan. She is on 3 pressors Norepinephrine, Phenylephrine, Vasopressin. She is intubated. Pupils equal. 11/22/17: Pt. opens eyes briefly to voice. She follows commands in all 4 extremities. She nods her head to some questions. Intubated. She is only on Norepinephrine. System Review Comments Not able to obtain given clinical condition. Exam Results Vital Signs Date Time Temp Pulse Resp B/P (MAP) Pulse Ox O2 Delivery O2 Flow Rate FiO2 11/22/17 08:04 100 35 11/22/17 04:00 98.0 95 14 115/68 (84) 11/21/17 19:20 Mechanical Ventilator 11/18/17 08:18 10.00 Intake and Output 11/22/17 11/22/17 11/23/17 08:00 16:00 00:00 Intake Total 418 ml 1100 ml Output Total 600 ml Balance -182 ml 1100 ml Physical Examination General: Pt intubated on CPAP. She opens eyes to voice. Vitals stable with decreasing pressors. Eyes: Pupils equal 3mm bilaterally reactive bilaterally. Sclera anicteric. Resp: Intubated. CTA bilaterally. Heart: NSR no murmurs. Decreasing pressor support now only on norepinephrine. Abd: Soft positive bs. NGT in place. Skin: No cyanosis or erythema. SCDs in place. Right surgical wound healing well no signs of infection. Muscle: Following simple commands in all 4 extremities. Neuro: She is sedated on Diprivan. Opening eyes to voice. Pupils 3mm bilaterally, reactive sluggishly bilaterally. Following simple commands. Decreasing pressor support now only on Norepinephrine.. Lab, Micro, Other Results Last Impressions Chest X-Ray 11/21/17 0600 Signed Impressions: Service Date/Time: Tuesday, November 21, 2017 03:17 - CONCLUSION: 1. Increasing diffuse airspace disease since November 19, possibly edema. Increase in bilateral pleural effusions as well. Support apparatus unchanged. Axel Cheema MD Liver Ultrasound 11/20/17 0000 Signed Impressions: Service Date/Time: Monday, November 20, 2017 10:23 - CONCLUSION: 1. Normal dimension common hepatic duct. 2. Hepatomegaly. There are 2 cysts in the left lobe measuring up to 2.9 cm. Aquilino Hsieh MD Head CT 11/20/17 0000 Signed Impressions: Service Date/Time: Monday, November 20, 2017 15:28 - CONCLUSION: 1. Evolving postsurgical features of right temporal craniotomy with minimal blood products in the surgical bed. Otherwise, no intercurrent hemorrhage or other acute abnormality. Cesar Mcneil MD CT Angiography 11/18/17 0000 Signed Impressions: Service Date/Time: November 12:05 - CONCLUSION: 1. Dense airspace consolidation bilaterally characteristic of pneumonia. 2. There is simple cyst in the liver with one area of rim-like calcification of the right lobe most likely benign, however not definitely characterized. 3. There is no evidence for PE for technique. K. Avelino Muro MD Lower Extremity Ultrasound 11/17/17 0000 Signed Impressions: Service Date/Time: Friday, November 17, 2017 17:52 - CONCLUSION: No DVT. Donovan Fleming MD Soft Tissue Neck X-Ray 11/11/17 0000 Signed Impressions: Service Date/Time: November 13:28 - CONCLUSION: 1. No acute findings. NG tube present. Axel Cheema MD Abdomen X-Ray 11/10/17 0000 Signed Impressions: Service Date/Time: Friday, November 10, 2017 14:00 - CONCLUSION: NG tube in the stomach Donovan Piña MD Brain MRI 11/04/17 0000 Signed Impressions: Service Date/Time: November 12:38 - CONCLUSION: Focal abnormality in the right posterior temporal lobe measuring up to 3.9 cm, as above. Examination will be used for intraoperative localization. Donovan Campbell MD Chest CT 11/02/17 0000 Signed Impressions: Service Date/Time: Thursday, November 02, 2017 21:35 - CONCLUSION: 1. Negative for metastatic disease to the thorax. No acute findings. Axel Cheema MD Abdomen/Pelvis CT 11/02/17 0000 Signed Impressions: Service Date/Time: Thursday, November 02, 2017 21:35 - CONCLUSION: 1. Negative for metastatic disease in the abdomen or pelvis. Multiple hepatic cysts. Numerous fibroids in the uterus. Mild colonic constipation and moderate rectal constipation. Axel Cheema MD Laboratory Tests Test 11/22/17 04:10 White Blood Count 28.0 TH/MM3 Red Blood Count 3.32 MIL/MM3 Hemoglobin 9.6 GM/DL Hematocrit 28.6 % Mean Corpuscular Volume 86.4 FL Mean Corpuscular Hemoglobin 29.1 PG Mean Corpuscular Hemoglobin Concent 33.7 % Red Cell Distribution Width 18.4 % Platelet Count 203 TH/MM3 Mean Platelet Volume 7.1 FL Neutrophils (%) (Auto) 94.6 % Lymphocytes (%) (Auto) 1.4 % Monocytes (%) (Auto) 3.8 % Eosinophils (%) (Auto) 0.0 % Basophils (%) (Auto) 0.2 % Neutrophils # (Auto) 26.5 TH/MM3 Lymphocytes # (Auto) 0.4 TH/MM3 Monocytes # (Auto) 1.0 TH/MM3 Eosinophils # (Auto) 0.0 TH/MM3 Basophils # (Auto) 0.1 TH/MM3 CBC Comment DIFF FINAL Differential Comment Blood Urea Nitrogen 7 MG/DL Creatinine 0.48 MG/DL Random Glucose 146 MG/DL Total Protein 5.0 GM/DL Albumin 1.8 GM/DL Calcium Level 7.3 MG/DL Phosphorus Level 1.7 MG/DL Magnesium Level 1.9 MG/DL Alkaline Phosphatase 81 U/L Aspartate Amino Transf (AST/SGOT) 88 U/L Alanine Aminotransferase (ALT/SGPT) 80 U/L Total Bilirubin 0.5 MG/DL Sodium Level 143 MEQ/L Potassium Level 3.0 MEQ/L Chloride Level 107 MEQ/L Carbon Dioxide Level 25.8 MEQ/L Anion Gap 10 MEQ/L Estimat Glomerular Filtration Rate 149 ML/MIN Lactic Acid Level 3.0 mmol/L Protein Corrected Calcium 8.5 MG/DL Valproic Acid (Depakene) Level 85 MCG/ML 11/22/17 11/22/17 11/23/17 15:00 23:00 07:00 Intake Total 1100 ml Balance 1100 ml IV Total 1100 ml Medical Decision Making Impression and Plan A: 82-year-old lady with a right posterior temporal lobe cerebral hemorrhage without mass-effect or midline shift. Continue with observation along with seizure prophylaxis. MRI reveals likely underlying mass. No metastatic sites found on CT chest, abdomen, pelvis. s/p right temporal craniotomy for hemorrhagic mass resection on 11/08/17. Follow up CT head stable. Follow up CT head 11/18 stable. Path pending. Discussed with Pathology was sent to [place] for second opinion. P: Continue with neuro checks Continue with Rehab efforts. Continue with DVT prophylaxis. Continue with GI prophylaxis. Following pathology- sent for second opinion in [place]. Continue with critical care. Deandre Cordoba November 22, 2017 9:09 am
[2017-11-22] MEDS: LINEZOLID 600 MG PREMIX 300 ML IV SCH ×2 (09:24→20:28)
[2017-11-22] MEDS: CHLORHEXIDINE 0.12% (ORAL KIT) 15 ML CUP MT SCH ×2 (09:25→21:14)
[2017-11-22] MEDS: DOCUSATE SODIUM 50 MG/SENNA 8.6 MG TAB PO SCH ×2 (09:26→20:29)
[2017-11-22] MEDS: FAMOTIDINE 20 MG TAB NG SCH ×2 (09:26→20:28)
[2017-11-22] MEDS: SODIUM CHLORIDE 0.9% FLUSH 10 ML FLUSH IV FLUSH SCH ×2 (09:26→20:29)
[2017-11-22] MEDS ORDERED: POTASSIUM PHOSPHATE INJ 30 MMOL in SODIUM CHLOR 0.9% 250 ML INJ 250 ML IV ONE (10:00)
--- NOTE | 2017-11-22 10:46 | HHI.PR ---
Review/Management Diagnosis Diagnosis/Plan: (1) ICH (intracerebral hemorrhage) ICD Codes: I61.9 - Nontraumatic intracerebral hemorrhage, unspecified Status: Acute Plan: Mental status improved ich with edema nsx following now on depakote monotherapy 11/04 mri brain with contrast reviewed 11/07 ct brain- rt temporal ich with edema 11/09 ct brain- s/p craniotomy, no mass effect noted 11/20eeg- no sz, moderate encephalopathy and nonspecific changes in the right hemisphere related to structural lesion IV Depacon to 500 every 8 recs Mental status improved. She is more consistently following motor requests Depakote level 85 CPAP trials per critical care Pathology still pending (2) Seizure ICD Codes: R56.9 - Unspecified convulsions Status: Acute Plan: IV Depacon (3) Brain mass ICD Codes: G93.9 - Disorder of brain, unspecified Status: Acute Plan: biopsy pending (4) Respiratory failure ICD Codes: J96.90 - Respiratory failure, unspecified, unspecified whether with hypoxia or hypercapnia Status: Acute Plan: Intubated (5) Pneumonia ICD Codes: J18.9 - Pneumonia, unspecified organism Status: Acute Plan: On IV antibiotics Subjective Subjective Comments No acute events reported No headache No seizures reported Active Medications Current Medications Medications (Trade) Dose Ordered Sig/Cathie Route Start Time Stop Time Status Last Admin (NS Flush) 2 ml UNSCH PRN IV FLUSH 11/01/17 22:45 (NS Flush) 2 ml BID IV FLUSH 11/02/17 09:00 11/22/17 09:26 (Morphine Inj) 2 mg Q2H PRN IV PUSH 11/01/17 22:45 (Zofran Inj) 4 mg Q6H PRN IV PUSH 11/01/17 22:45 ([facility]) 1 [id number] XX 11/01/17 22:45 (Chlorhexidine 2% Cloth) 3 pack Taper DAILY@04 TOP 11/02/17 04:00 10/29/18 03:59 11/22/17 04:00 (Chlorhexidine 2% Cloth) 3 pack UNSCH PRN TOP 11/01/17 22:45 (Leigh-Colace) 1 tab BID PO 11/02/17 09:00 11/22/17 09:26 (Milk Of Magnesia Liq) 30 ml Q12H PRN PO 11/01/17 22:45 (Senokot) 17.2 mg Q12H PRN PO 11/01/17 22:45 11/06/17 17:17 (Dulcolax Supp) 10 mg DAILY PRN RECTAL 11/01/17 22:45 (Lactulose Liq) 30 ml DAILY PRN PO 11/01/17 22:45 (D50w (Vial) Inj) 50 ml UNSCH PRN IV PUSH 11/03/17 18:15 11/10/17 15:21 (Glucagon Inj) 1 mg UNSCH PRN OTHER 11/03/17 18:15 (Racepinephrine 2.25% Neb) 0.5 ml Q4HR NEB PRN NEB 11/10/17 13:45 11/11/17 03:44 (Alvo Thyroid) 60 mg DAILY@0600 NG 11/13/17 06:00 11/22/17 05:59 (Alvo Thyroid) 30 mg DAILY@0600 NG 11/13/17 06:00 11/22/17 05:59 (Pill Splitter) 1 ea UNSCH PRN OTHER 11/13/17 11:00 (Lovenox Inj) 40 mg Q24H SQ 11/17/17 18:00 11/21/17 16:30 (Peridex 0.12% Liq) 15 ml BID@08,20 MT 11/18/17 20:00 11/22/17 09:25 Piperacillin Sod/ Tazobactam Sod 50 ml @ 100 mls/hr Q6H IV 11/18/17 10:00 11/26/17 09:59 11/22/17 09:24 Phenylephrine HCl 40 mg/Dextrose 500 ml @ 30 mls/hr TITRATE PRN IV 11/18/17 14:15 11/19/17 04:41 (Brethine Inj) 1 mg UNSCH PRN SQ 11/18/17 14:15 Norepinephrine Bitartrate 250 ml @ 7.5 mls/hr TITRATE PRN IV 11/18/17 17:45 11/21/17 09:29 (Brethine Inj) 1 mg UNSCH PRN SQ 11/18/17 17:45 Vasopressin 40 units/Dextrose 100 ml @ 6 mls/hr [id number] IV 11/18/17 17:40 5/18/18 18:14 Linezolid 300 ml @ 300 mls/hr Q12H IV 11/18/17 20:00 11/23/17 19:59 11/22/17 09:24 Fentanyl Citrate 250 ml @ 5 mls/hr TITRATE PRN IV 11/19/17 09:45 Midazolam HCl 50 ml @ 2 mls/hr TITRATE PRN IV 11/19/17 12:00 (Albuterol Neb) 2.5 mg Q2HR NEB PRN NEB 11/20/17 10:00 (Pulmicort Respule Neb) 0.5 mg Q12HR NEB NEB 11/20/17 10:00 11/22/17 08:03 (Duoneb Neb) 1 ampule Q4HR NEB NEB 11/20/17 12:00 11/22/17 08:03 (Tears Naturale Opth Soln) 1 drop Q8HR EACH EYE 11/20/17 14:00 11/22/17 06:00 (Tylenol 650 Mg/ 20 ml Liq) 650 mg Q6H PRN PO 11/20/17 09:30 Potassium Chloride 100 ml @ 50 mls/hr Q2H PRN IV 11/20/17 10:30 Potassium Chloride 100 ml @ 50 mls/hr Q2H PRN IV 11/20/17 10:30 11/22/17 08:28 (K-Lyte Cl Eff) 50 meq UNSCH PRN PO 11/20/17 10:30 Potassium Chloride 100 ml @ 25 mls/hr UNSCH PRN IV 11/20/17 10:30 Potassium Chloride 100 ml @ 50 mls/hr Q2H PRN IV 11/20/17 10:30 Magnesium Sulfate 4 gm/Sodium Chloride 100 ml @ 50 mls/hr UNSCH PRN IV 11/20/17 10:30 (Mag-Ox) 800 mg UNSCH PRN PO 11/20/17 10:30 Magnesium Sulfate 2 gm/Sodium Chloride 100 ml @ 50 mls/hr UNSCH PRN IV 11/20/17 10:30 (K-Phos) 2,000 mg Q4H PRN PO 11/20/17 10:30 Sodium Phosphate 30 mmol/Sodium Chloride 250 ml @ 42 mls/hr UNSCH PRN IV 11/20/17 10:30 (K-Phos) 2,000 mg UNSCH PRN PO/TUBE 11/20/17 10:30 Potassium Phosphate 30 mmol/ Sodium Chloride 260 ml @ 42 mls/hr UNSCH PRN IV 11/20/17 10:30 11/22/17 06:34 Valproate Sodium 500 mg/Sodium Chloride 105 ml @ 105 mls/hr Q8H IV 11/20/17 17:00 11/22/17 10:06 (NovoLOG SUPPLEMENTAL SCALE) 1 Q4HR SQ 11/21/17 16:00 11/22/17 09:26 (SoluCORTEF INJ) 50 mg Q8HR IV PUSH 11/21/17 22:00 11/22/17 05:59 (Pepcid) 20 mg BID NG 11/21/17 21:00 11/22/17 09:26 Potassium Phosphate 30 mmol/ Sodium Chloride 260 ml @ 43.333 mls/ hr ONCE ONCE IV 11/22/17 10:00 11/22/17 15:59 Potassium Chloride 100 ml @ 25 mls/hr BOLUS ONCE IV 11/22/17 08:15 11/22/17 12:14 11/22/17 10:06 Allergies Allergies Coded Allergies No Known Allergies (Unverified11/01/17) Review of Systems All other ROS: ROS reviewed as documented in chart Exam I&O / VS 11/22/17 11/22/17 11/23/17 14:59 22:59 06:59 Intake Total 1100 ml Balance 1100 ml IV Total 1100 ml Vital Signs Date Time Temp Pulse Resp B/P (MAP) Pulse Ox O2 Delivery O2 Flow Rate FiO2 11/22/17 08:04 100 35 11/22/17 08:04 35 11/22/17 04:22 100 35 11/22/17 04:00 98.0 95 14 115/68 (84) 100 11/22/17 00:48 99 35 11/22/17 00:00 97.6 95 15 101/65 (77) 99 11/21/17 21:27 99 35 11/21/17 20:00 97.6 94 16 142/68 (92) 98 11/21/17 19:20 99 Mechanical Ventilator 35 11/21/17 16:56 99 35 11/21/17 16:00 97.7 94 15 112/62 (79) 99 11/21/17 12:00 97.6 96 19 116/68 (84) 99 11/21/17 11:37 99 35 Eye: PERRL, EOMI Respiratory: Non-labored respirations Cardiology: Normal rate Psychiatric: Cooperative Exam Comments More awake appears to follow simple motor requests intermittently is able open and close her eyes tend to show me 2 fingers with both hands, wiggles toes deviations pupils 3-2 mm bilaterally minimal withdrawal of lower extremities minimal flexion of upper extremities no clonus Objective Micro and Labs Laboratory Tests Test 11/22/17 04:10 White Blood Count 28.0 Red Blood Count 3.32 Hemoglobin 9.6 Hematocrit 28.6 Mean Corpuscular Volume 86.4 Mean Corpuscular Hemoglobin 29.1 Mean Corpuscular Hemoglobin Concent 33.7 Red Cell Distribution Width 18.4 Platelet Count 203 Mean Platelet Volume 7.1 Neutrophils (%) (Auto) 94.6 Lymphocytes (%) (Auto) 1.4 Monocytes (%) (Auto) 3.8 Eosinophils (%) (Auto) 0.0 Basophils (%) (Auto) 0.2 Neutrophils # (Auto) 26.5 Lymphocytes # (Auto) 0.4 Monocytes # (Auto) 1.0 Eosinophils # (Auto) 0.0 Basophils # (Auto) 0.1 CBC Comment DIFF FINAL Differential Comment Blood Urea Nitrogen 7 Creatinine 0.48 Random Glucose 146 Total Protein 5.0 Albumin 1.8 Calcium Level 7.3 Phosphorus Level 1.7 Magnesium Level 1.9 Alkaline Phosphatase 81 Aspartate Amino Transf (AST/SGOT) 88 Alanine Aminotransferase (ALT/SGPT) 80 Total Bilirubin 0.5 Sodium Level 143 Potassium Level 3.0 Chloride Level 107 Carbon Dioxide Level 25.8 Anion Gap 10 Estimat Glomerular Filtration Rate 149 Lactic Acid Level 3.0 Protein Corrected Calcium 8.5 Valproic Acid (Depakene) Level 85 Date/Time Source Procedure Growth Status 11/18/17 18:29 Blood Peripheral Aerobic Blood Culture - Preliminary NO GROWTH IN 3 DAYS Resulted 11/18/17 18:29 Blood Peripheral Anaerobic Blood Culture - Preliminary NO GROWTH IN 3 DAYS Resulted 11/18/17 22:15 Stool Stool Stool Pus (GUMARO) - Final RARE WBC Complete 11/19/17 11:04 Sputum Endotracheal Gram Stain - Final Complete 11/19/17 11:04 Sputum Culture - Final Staphylococcus Aureus Pseudomonas Aeruginosa Complete 11/19/17 11:04 Urine Catheterized Urine Urine Culture - Final NO GROWTH IN 48 HOURS. Complete Problem Qualifiers (1) Respiratory failure: Qualified Codes: J96.01 - Acute respiratory failure with hypoxia Jorge Yuan MD November 22, 2017 10:46
--- NOTE | 2017-11-22 12:18 | PD.CONS ---
Consult Service Palliative Care Consult Requested By Dr. Pruitt Primary Care Physician Unknown Reason for Consultation a. To assist with evaluation and management of symptoms including:dyspnea b. To assist medical decision maker(s) with: better understanding of current medical conditions; weighing benefits/burdens of medical treatment options; making medical treatment decisions. HPI History of Present Illness Patient is an 82-year-old past medical history of COPD, diabetes, dyslipidemia, hypertension, osteoporosis and thyroid disorder. Patient presented to [facility] due to altered mental status. 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 Patient on 11/01/2017 was transferred to [facility] for higher level of care. Neurosurgery was consulted and imaging was reviewed shows a right posterior temporal lobe without any significant mass-effect or midline shift.. MRI scan was ordered. Neurology was consulted. 11/02/2017 -MRI shows a 3.7 cm masslike lesion in the posterior right temporal region that does contain blood products. Head CT show hemorrhagic infact in the right tempoeral/occiptal region. Abdomen and pelvic CT is negative for metastatic disease in the abdomen or pelvis. EEG was ordered and shows significant for EEG was ordered was ordered and showed significant ictal activity, pt loaded with fosphenytoin. EEG show right frontal slowing at times with some sharply contoured features and highter amplitiues/ could be sizures. 11/03/2017. Pt is reported to be awake, alert and following commands. 11/04/2017. Pt transfer off from [facility]. Repeat MRI show right posterior temporal lobe measuring 3.9 cm. EEG shows seizures. Pt is reported to be sedated for MRI and not opening eyes. 11/05 to 11/07. Patient has had recurrent hypoglycimeia, with mentation fluctuating. There is discussion on possible biopsy of brain mass. 11/08 Patient underwent Right temporal craniotomy for hemorrhagic mass resection. biposy results are still pending. Pt remains in the hospital On 11/18/2017 patient developed worseing dyspnea, required nonrebreather facemask. CT neg for PE, but showed bilateral dense cosolidation. Patient was intubated. 11/19- Patient remains sedated and intubated, on pressors for multi lobar pneumonia and sepsis. 11/20 to 11/22- patient appears to be tolerating cpap trials and following some commands. Pt on tube feedings. In short: 82 year old with COPD, transferred to [facility] for hemorrhagic infarct. Further imaging shows 3.7 cm masslike lesion on MRI at the right temperol region. She underwent right temporal craniotomy/hemorrhagic mass resection 11/08/2017. Condition complicated by dyspnea (multi-lobar pneumonia and sepsis, require intubation on 11/18) fluctuating mentation, subclinical seizures. Currently pt is tolerating cpap trials palliative consulted to review goals of care. On my visit patient open eyes, can follow some commands, but is fatigued. Given clinical condition could not give too much history on dyspnea, but she does have some gaging at times. I met with pt's daughter, pt's son has flown back to [place]. I have left a message with him. We reviewed patients clinical course, and certain clinical scenerios. We also review her challenges in which daughter state "There are many." Goals of treatment are as follows: * She will talk it over with brother, but she feels patient ultimately would want to be a DNR. Daughter endorse "I have spoken to her about this, after her sister has pass away." She will give me an answer by tomorrow. * Her goal is to try to take her back to [place] if possible, but understand, the risk of reintubation, her confusion, risk for multiple hospitalization and destablization will hinder that process. * She does want to try to get patient to rehab, however, should it not be possible or if she have another sudden decline, she is amenable to transition comfort measures at that point. Function/Cognitive Trajectory Pt is O2 dependent has had more fatigued, but was fairly functional until recent episode/ hospitalization. Review of Systems ROS Limitations: Clinical Condition Constitutional: COMPLAINS OF: Fatigue Endocrine: DENIES: Heat/cold intolerance Eyes: DENIES: Blurred vision Ears, nose, mouth, throat: DENIES: Hearing loss Respiratory: COMPLAINS OF: Wheezing, Shortness of breath Cardiovascular: DENIES: Chest pain, Palpitations Gastrointestinal: DENIES: Black stools Genitourinary: DENIES: Abnormal vaginal bleeding Musculoskeletal: DENIES: Muscle aches Integumentary: DENIES: Pruritus Hematologic/Lymphatics: DENIES: Lymphadenopathy Neurologic: COMPLAINS OF: Localized weakness Psychiatric: COMPLAINS OF: Confusion Past Family Social History Coded Allergies: No Known Allergies (Unverified , 11/01/17) Past Medical History COPD, diabetes mellitus, dyslipidemia, hypertension, osteoporosis, thyroid disorder Past Surgical History Gallstones removed. 11/08/2017- craniotomy. Current Medications Medications (Trade) Dose Ordered Sig/Cathie Route Start Time Stop Time Status Last Admin (NS Flush) 2 ml UNSCH PRN IV FLUSH 11/01/17 22:45 (NS Flush) 2 ml BID IV FLUSH 11/02/17 09:00 11/22/17 09:26 (Morphine Inj) 2 mg Q2H PRN IV PUSH 11/01/17 22:45 (Zofran Inj) 4 mg Q6H PRN IV PUSH 11/01/17 22:45 ([facility] [place] 1 [id number] XX 11/01/17 22:45 (Chlorhexidine 2% Cloth) 3 pack Taper DAILY@04 TOP 11/02/17 04:00 10/29/18 03:59 11/22/17 04:00 (Chlorhexidine 2% Cloth) 3 pack UNSCH PRN TOP 11/01/17 22:45 (Leigh-Colace) 1 tab BID PO 11/02/17 09:00 11/22/17 09:26 (Milk Of Magnesia Liq) 30 ml Q12H PRN PO 11/01/17 22:45 (Senokot) 17.2 mg Q12H PRN PO 11/01/17 22:45 11/06/17 17:17 (Dulcolax Supp) 10 mg DAILY PRN RECTAL 11/01/17 22:45 (Lactulose Liq) 30 ml DAILY PRN PO 11/01/17 22:45 (D50w (Vial) Inj) 50 ml UNSCH PRN IV PUSH 11/03/17 18:15 11/10/17 15:21 (Glucagon Inj) 1 mg UNSCH PRN OTHER 11/03/17 18:15 (Racepinephrine 2.25% Neb) 0.5 ml Q4HR NEB PRN NEB 11/10/17 13:45 11/11/17 03:44 (Summit Thyroid) 60 mg DAILY@0600 NG 11/13/17 06:00 11/22/17 05:59 (Summit Thyroid) 30 mg DAILY@0600 NG 11/13/17 06:00 11/22/17 05:59 (Pill Splitter) 1 ea UNSCH PRN OTHER 11/13/17 11:00 (Lovenox Inj) 40 mg Q24H SQ 11/17/17 18:00 11/21/17 16:30 (Peridex 0.12% Liq) 15 ml BID@08,20 MT 11/18/17 20:00 11/22/17 09:25 Piperacillin Sod/ Tazobactam Sod 50 ml @ 100 mls/hr Q6H IV 11/18/17 10:00 11/26/17 09:59 11/22/17 09:24 Phenylephrine HCl 40 mg/Dextrose 500 ml @ 30 mls/hr TITRATE PRN IV 11/18/17 14:15 11/19/17 04:41 (Brethine Inj) 1 mg UNSCH PRN SQ 11/18/17 14:15 Norepinephrine Bitartrate 250 ml @ 7.5 mls/hr TITRATE PRN IV 11/18/17 17:45 11/21/17 09:29 (Brethine Inj) 1 mg UNSCH PRN SQ 11/18/17 17:45 Vasopressin 40 units/Dextrose 100 ml @ 6 mls/hr [id number] IV 11/18/17 17:40 11/19/17 18:14 Linezolid 300 ml @ 300 mls/hr Q12H IV 11/18/17 20:00 11/23/17 19:59 11/22/17 09:24 Fentanyl Citrate 250 ml @ 5 mls/hr TITRATE PRN IV 11/19/17 09:45 Midazolam HCl 50 ml @ 2 mls/hr TITRATE PRN IV 11/19/17 12:00 (Albuterol Neb) 2.5 mg Q2HR NEB PRN NEB 11/20/17 10:00 (Pulmicort Respule Neb) 0.5 mg Q12HR NEB NEB 11/20/17 10:00 11/22/17 08:03 (Duoneb Neb) 1 ampule Q4HR NEB NEB 11/20/17 12:00 11/22/17 08:03 (Tears Naturale Opth Soln) 1 drop Q8HR EACH EYE 11/20/17 14:00 11/22/17 06:00 (Tylenol 650 Mg/ 20 ml Liq) 650 mg Q6H PRN PO 11/20/17 09:30 Potassium Chloride 100 ml @ 50 mls/hr Q2H PRN IV 11/20/17 10:30 Potassium Chloride 100 ml @ 50 mls/hr Q2H PRN IV 11/20/17 10:30 11/22/17 08:28 (K-Lyte Cl Eff) 50 meq UNSCH PRN PO 11/20/17 10:30 Potassium Chloride 100 ml @ 25 mls/hr UNSCH PRN IV 11/20/17 10:30 Potassium Chloride 100 ml @ 50 mls/hr Q2H PRN IV 11/20/17 10:30 Magnesium Sulfate 4 gm/Sodium Chloride 100 ml @ 50 mls/hr UNSCH PRN IV 11/20/17 10:30 (Mag-Ox) 800 mg UNSCH PRN PO 11/20/17 10:30 Magnesium Sulfate 2 gm/Sodium Chloride 100 ml @ 50 mls/hr UNSCH PRN IV 11/20/17 10:30 (K-Phos) 2,000 mg Q4H PRN PO 11/20/17 10:30 Sodium Phosphate 30 mmol/Sodium Chloride 250 ml @ 42 mls/hr UNSCH PRN IV 11/20/17 10:30 (K-Phos) 2,000 mg UNSCH PRN PO/TUBE 11/20/17 10:30 Potassium Phosphate 30 mmol/ Sodium Chloride 260 ml @ 42 mls/hr UNSCH PRN IV 11/20/17 10:30 11/22/17 06:34 Valproate Sodium 500 mg/Sodium Chloride 105 ml @ 105 mls/hr Q8H IV 11/20/17 17:00 11/22/17 10:06 (NovoLOG SUPPLEMENTAL SCALE) 1 Q4HR SQ 11/21/17 16:00 11/22/17 09:26 (SoluCORTEF INJ) 50 mg Q8HR IV PUSH 11/21/17 22:00 11/22/17 05:59 (Pepcid) 20 mg BID NG 11/21/17 21:00 11/22/17 09:26 Potassium Phosphate 30 mmol/ Sodium Chloride 260 ml @ 43.333 mls/ hr ONCE ONCE IV 11/22/17 10:00 11/22/17 15:59 Potassium Chloride 100 ml @ 25 mls/hr BOLUS ONCE IV 11/22/17 08:15 11/22/17 12:14 11/22/17 10:06 Family History unable to elicit. No reported history of significant tooler tumors. Substance Use Tobacco:yes Alcohol:no Prescription med abuse:no Illicits:no Psychosocial History [facility] Spiritual/Cultural Factors [facility] Living Will: Never completed Health Care Surrogate: Never completed Durable Power of Farmworker Animal: Never completed Physical Exam Vital Signs Date Time Temp Pulse Resp B/P (MAP) Pulse Ox O2 Delivery O2 Flow Rate FiO2 11/22/17 08:04 100 35 11/22/17 08:04 35 11/22/17 04:22 100 35 11/22/17 04:00 98.0 95 14 115/68 (84) 100 11/22/17 00:48 99 35 11/22/17 00:00 97.6 95 15 101/65 (77) 99 11/21/17 21:27 99 35 11/21/17 20:00 97.6 94 16 142/68 (92) 98 11/21/17 19:20 99 Mechanical Ventilator 35 11/21/17 16:56 99 35 11/21/17 16:00 97.7 94 15 112/62 (79) 99 11/21/17 12:00 97.6 96 19 116/68 (84) 99 11/22/17 11/23/17 19:00 07:00 Intake Total 1100 ml Balance 1100 ml IV Total 1100 ml Exam CONSTITUTIONAL/GENERAL: This is an elderly female, appears to be fatigued, and uncomfortable. TUBES/LINES/DRAINS: ET tube, SKIN: No jaundice, rashes, or lesions. Ecchymoses on upper extremities. No wounds seen anteriorly. Skin temperature appropriate. Not diaphoretic. HEAD: Normocephalic. EYES: Pupils equal and round and reactive. Extraocular motions intact. No scleral icterus. No injection or drainage. Fundi not examined. ENT: Hearing grossly normal. Nose without bleeding or purulent drainage. Throat without visible erythema, exudates, masses, or lesions. NECK: Trachea midline. Supple, nontender. No palpable thyroid enlargement or nodularity. CARDIOVASCULAR: Regular rate and rhythm without murmurs, gallops, or rubs. No JVD. Peripheral pulses symmetric. RESPIRATORY/CHEST: Symmetric, unlabored respirations. decreas breath sound bilaterally. GASTROINTESTINAL: Abdomen soft, non-tender, nondistended. No hepato-splenomegaly , or palpable masses. No guarding. Bowel sounds present. GENITOURINARY: Without palpable bladder distension. Duong catheter in place. MUSCULOSKELETAL: Extremities without clubbing, cyanosis. There is edema on all 4 ext. LYMPHATICS: No palpable cervical or supraclavicular adenopathy. NEUROLOGICAL: Awake and alert, confused. Motor and sensory grossly within normal limits. Follows some commands. Moves all extremities. PSYCHIATRIC: frail, fatigued, could not examine.. Diagnostic Tests Laboratory Laboratory Tests Test 11/19/17 16:20 11/20/17 04:20 11/20/17 08:57 11/20/17 09:10 White Blood Count 15.0 TH/MM3 (4.0-11.0) 19.8 TH/MM3 (4.0-11.0) Red Blood Count 2.93 MIL/MM3 (4.00-5.30) 2.98 MIL/MM3 (4.00-5.30) Hemoglobin 8.6 GM/DL (11.6-15.3) 8.7 GM/DL (11.6-15.3) Hematocrit 25.5 % (35.0-46.0) 25.0 % (35.0-46.0) Mean Corpuscular Volume 86.8 FL (80.0-100.0) 83.8 FL (80.0-100.0) Mean Corpuscular Hemoglobin 29.2 PG (27.0-34.0) 29.0 PG (27.0-34.0) Mean Corpuscular Hemoglobin Concent 33.7 % (32.0-36.0) 34.6 % (32.0-36.0) Red Cell Distribution Width 17.2 % (11.6-17.2) 17.3 % (11.6-17.2) Platelet Count 226 TH/MM3 (150-450) 218 TH/MM3 (150-450) Mean Platelet Volume 6.8 FL (7.0-11.0) 6.9 FL (7.0-11.0) Blood Urea Nitrogen 11 MG/DL (7-18) 10 MG/DL (7-18) Creatinine 0.75 MG/DL (0.50-1.00) 0.57 MG/DL (0.50-1.00) Random Glucose 168 MG/DL (74-106) 95 MG/DL (74-106) Total Protein 4.7 GM/DL (6.4-8.2) 4.5 GM/DL (6.4-8.2) Albumin 2.2 GM/DL (3.4-5.0) 2.0 GM/DL (3.4-5.0) Calcium Level 6.8 MG/DL (8.5-10.1) 6.6 MG/DL (8.5-10.1) Alkaline Phosphatase 51 U/L (45-117) 55 U/L (45-117) Aspartate Amino Transf (AST/SGOT) 621 U/L (15-37) 356 U/L (15-37) Alanine Aminotransferase (ALT/SGPT) 133 U/L (10-53) 131 U/L (10-53) Total Bilirubin 0.9 MG/DL (0.2-1.0) 0.7 MG/DL (0.2-1.0) Sodium Level 134 MEQ/L (136-145) 134 MEQ/L (136-145) Potassium Level 3.5 MEQ/L (3.5-5.1) 2.7 MEQ/L (3.5-5.1) Chloride Level 102 MEQ/L (98-107) 99 MEQ/L (98-107) Carbon Dioxide Level 14.4 MEQ/L (21.0-32.0) 22.5 MEQ/L (21.0-32.0) Anion Gap 18 MEQ/L (5-15) 13 MEQ/L (5-15) Estimat Glomerular Filtration Rate 89 ML/MIN (>89) 122 ML/MIN (>89) Lactic Acid Level 8.2 mmol/L (0.4-2.0) 4.6 mmol/L (0.4-2.0) Protein Corrected Calcium 8.1 MG/DL (8.5-10.1) 7.9 MG/DL (8.5-10.1) Valproic Acid (Depakene) Level 80 MCG/ML (50-100) 98 MCG/ML (50-100) Blood Gas Puncture Site ART LINE Blood Gas Patient Temperature 98.6 Blood Gas HCO3 23 mmol/L (22-26) Blood Gas Base Excess 0.5 mmol/L (-2-2) Blood Gas Oxygen Saturation 95 % (90-100) Arterial Blood pH 7.56 (7.380-7.420) Arterial Blood Partial Pressure CO2 25 mmHg (38-42) Arterial Blood Partial Pressure O2 91 mmHg (61-120) Arterial Blood Oxygen Content 11.8 Vol % (12.0-20.0) Arterial Blood Carboxyhemoglobin 0.9 % (0-4) Arterial Blood Methemoglobin 1.3 % (0-2) Blood Gas Hemoglobin 8.7 G/DL (12.0-16.0) Oxygen Delivery Device VENTILATOR Blood Gas Ventilator Setting Blood Gas Inspired Oxygen 30 % Neutrophils (%) (Auto) 86.8 % (16.0-70.0) Lymphocytes (%) (Auto) 5.5 % (9.0-44.0) Monocytes (%) (Auto) 6.8 % (0.0-8.0) Eosinophils (%) (Auto) 0.0 % (0.0-4.0) Basophils (%) (Auto) 0.9 % (0.0-2.0) Neutrophils # (Auto) 17.2 TH/MM3 (1.8-7.7) Lymphocytes # (Auto) 1.1 TH/MM3 (1.0-4.8) Monocytes # (Auto) 1.3 TH/MM3 (0-0.9) Eosinophils # (Auto) 0.0 TH/MM3 (0-0.4) Basophils # (Auto) 0.2 TH/MM3 (0-0.2) CBC Comment AUTO DIFF Differential Total Cells Counted 100 Neutrophils % (Manual) 63 % (16-70) Band Neutrophils % 26 % (0-6) Lymphocytes % 4 % (9-44) Monocytes % 4 % (0-8) Neutrophils # (Manual) 18.2 TH/MM3 (1.8-7.7) Myelocytes 3 % (0-0) Differential Comment FINAL DIFF MANUAL Platelet Estimate NORMAL (NORMAL) Platelet Morphology Comment NORMAL (NORMAL) Ovalocytes 1+ (NORMAL) Acanthocytes OCC (NORMAL) Haptoglobin 204 MG/DL (30-200) Prothrombin Time 16.3 SEC (9.8-11.6) Prothromb Time International Ratio 1.6 RATIO Activated Partial Thromboplast Time 43.9 SEC (24.3-30.1) Fibrinogen 492 mg/dL (227-377) Phosphorus Level 1.8 MG/DL (2.5-4.9) Magnesium Level 1.3 MG/DL (1.5-2.5) Lactate Dehydrogenase 527 U/L (84-246) Ammonia 37 MCMOL/L (11-32) Total Creatine Kinase 1305 U/L (26-192) Creatine Kinase MB 10.7 NG/ML (0.5-3.6) Creatine Kinase MB % 0.8 % (0.0-4.0) Triglycerides Level 83 MG/DL (42-150) Cholesterol Level 113 MG/DL (120-200) LDL Cholesterol 67 MG/DL (0-99) HDL Cholesterol 29.7 MG/DL (40.0-60.0) Cholesterol/HDL Ratio 3.80 RATIO Amylase Level 25 U/L (25-115) Lipase 21 U/L (73-393) Random Cortisol 102.2 MCG/DL Test 11/20/17 23:30 11/21/17 06:30 11/22/17 04:10 Blood Urea Nitrogen 8 MG/DL (7-18) 7 MG/DL (7-18) 7 MG/DL (7-18) Creatinine 0.57 MG/DL (0.50-1.00) 0.55 MG/DL (0.50-1.00) 0.48 MG/DL (0.50-1.00) Random Glucose 155 MG/DL (74-106) 170 MG/DL (74-106) 146 MG/DL (74-106) Total Protein 4.8 GM/DL (6.4-8.2) 5.7 GM/DL (6.4-8.2) 5.0 GM/DL (6.4-8.2) Calcium Level 7.0 MG/DL (8.5-10.1) 7.2 MG/DL (8.5-10.1) 7.3 MG/DL (8.5-10.1) Phosphorus Level 2.1 MG/DL (2.5-4.9) 3.2 MG/DL (2.5-4.9) 1.7 MG/DL (2.5-4.9) Magnesium Level 1.9 MG/DL (1.5-2.5) 2.0 MG/DL (1.5-2.5) 1.9 MG/DL (1.5-2.5) Sodium Level 138 MEQ/L (136-145) 141 MEQ/L (136-145) 143 MEQ/L (136-145) Potassium Level 3.1 MEQ/L (3.5-5.1) 3.9 MEQ/L (3.5-5.1) 3.0 MEQ/L (3.5-5.1) Chloride Level 103 MEQ/L (98-107) 105 MEQ/L (98-107) 107 MEQ/L (98-107) Carbon Dioxide Level 22.9 MEQ/L (21.0-32.0) 23.2 MEQ/L (21.0-32.0) 25.8 MEQ/L (21.0-32.0) Anion Gap 12 MEQ/L (5-15) 13 MEQ/L (5-15) 10 MEQ/L (5-15) Estimat Glomerular Filtration Rate 122 ML/MIN (>89) 127 ML/MIN (>89) 149 ML/MIN (>89) Protein Corrected Calcium 8.2 MG/DL (8.5-10.1) 7.9 MG/DL (8.5-10.1) 8.5 MG/DL (8.5-10.1) White Blood Count 25.9 TH/MM3 (4.0-11.0) 28.0 TH/MM3 (4.0-11.0) Red Blood Count 3.07 MIL/MM3 (4.00-5.30) 3.32 MIL/MM3 (4.00-5.30) Hemoglobin 9.0 GM/DL (11.6-15.3) 9.6 GM/DL (11.6-15.3) Hematocrit 26.1 % (35.0-46.0) 28.6 % (35.0-46.0) Mean Corpuscular Volume 85.1 FL (80.0-100.0) 86.4 FL (80.0-100.0) Mean Corpuscular Hemoglobin 29.4 PG (27.0-34.0) 29.1 PG (27.0-34.0) Mean Corpuscular Hemoglobin Concent 34.5 % (32.0-36.0) 33.7 % (32.0-36.0) Red Cell Distribution Width 17.9 % (11.6-17.2) 18.4 % (11.6-17.2) Platelet Count 234 TH/MM3 (150-450) 203 TH/MM3 (150-450) Mean Platelet Volume 7.6 FL (7.0-11.0) 7.1 FL (7.0-11.0) CBC Comment AUTO DIFF DIFF FINAL Differential Total Cells Counted 100 Neutrophils % (Manual) 69 % (16-70) Band Neutrophils % 27 % (0-6) Lymphocytes % 1 % (9-44) Monocytes % 3 % (0-8) Neutrophils # (Manual) 24.9 TH/MM3 (1.8-7.7) Differential Comment FINAL DIFF MANUAL Platelet Estimate NORMAL (NORMAL) Platelet Morphology Comment NORMAL (NORMAL) Irina Cells 1+ (NORMAL) Acanthocytes 1+ (NORMAL) Keratocytes OCC (NORMAL) Albumin 2.1 GM/DL (3.4-5.0) 1.8 GM/DL (3.4-5.0) Alkaline Phosphatase 67 U/L (45-117) 81 U/L (45-117) Aspartate Amino Transf (AST/SGOT) 172 U/L (15-37) 88 U/L (15-37) Alanine Aminotransferase (ALT/SGPT) 101 U/L (10-53) 80 U/L (10-53) Total Bilirubin 0.6 MG/DL (0.2-1.0) 0.5 MG/DL (0.2-1.0) Direct Bilirubin 0.3 MG/DL (0.0-0.2) Indirect Bilirubin 0.3 MG/DL (0.0-0.8) Valproic Acid (Depakene) Level 93 MCG/ML (50-100) 85 MCG/ML (50-100) Neutrophils (%) (Auto) 94.6 % (16.0-70.0) Lymphocytes (%) (Auto) 1.4 % (9.0-44.0) Monocytes (%) (Auto) 3.8 % (0.0-8.0) Eosinophils (%) (Auto) 0.0 % (0.0-4.0) Basophils (%) (Auto) 0.2 % (0.0-2.0) Neutrophils # (Auto) 26.5 TH/MM3 (1.8-7.7) Lymphocytes # (Auto) 0.4 TH/MM3 (1.0-4.8) Monocytes # (Auto) 1.0 TH/MM3 (0-0.9) Eosinophils # (Auto) 0.0 TH/MM3 (0-0.4) Basophils # (Auto) 0.1 TH/MM3 (0-0.2) Lactic Acid Level 3.0 mmol/L (0.4-2.0) Result Diagram: 11/22/1740911/22/17409 Patient/Family Conference Present at Family Conference: pt's daughter Tsering Family Conference Time (mins): 35 Family Conference Location: Bedside, Consult Room Issues Discussed: * Palliative care role, purpose, approach * Additional medical, psychosocial, and spiritual history * Patients general health, functional status, and cognitive changes in the months leading up to the current hospitalization * Patient/family understanding of the current medical problems * Patient/family understanding of prognosis * Patients goals of care as best understood from advance directives and/or conversations and/or values * Current medical treatment options and benefits/burdens of those options * Likely scenarios comparing ongoing aggressive care with a transition to comfort measures only * Questions answered to the best of my ability * Palliative care contact information provided Assessment and Plan Disease Oriented Problem List: (1) Seizure (2) ICH (intracerebral hemorrhage) (3) Brain mass (4) Respiratory failure (5) Pneumonia Symptom Scale: (1) Dyspnea Pertinent Non-Medical Issues Psychosocial: Spiritual:[facility] Legal: Ethical issues impacting care: Important Contacts Tsering Vargas [phone] [place] Daughter Beto Hensley [phone] Son Prognosis Prognosis is guarded. She is 82 has right temperoal ischemic stroke, and condition has been complicated by respiratory failure, aspiration pneumonia, and sepsis. At risk of further decline and setback. Code Status: Full Code Plan == capacity- mentation has fluctuated. Could some follow commands, but very fatigued, weak. I do not feel at this time patient can weigh the risk and benefits of medical decisions. == health care decision maker: pt is ( pass away from Alzheimer' s) Patient has 2 children a son in [place] and daughter in [place]. Son and daughter are the proxy. == symptoms: dyspnea- 2nd to aspiration pneumonia- intubated. no current med recommendation. == goals of treatment. I met with pt's daughter, pt's son has flown back to [place]. I have left a message with him. We reviewed patients clinical course, and certain clinical scenerios. We also review her challenges in which daughter state "There are many." Goals of treatment are as follows: * She will talk it over with brother, but she feels patient ultimately would want to be a DNR. Daughter endorse "I have spoken to her about this, after her sister has pass away." She will give me an answer by tomorrow. * Her goal is to try to take her back to [place] if possible, but understand, the risk of reintubation, her confusion, risk for multiple hospitalization and destablization will hinder that process. * She does want to try to get patient to rehab, however, should it not be possible or if she have another sudden decline, she is amenable to transition comfort measures at that point. == code status: full for now, but are consider to change to DNR after pt's children talk it over. Thank you for the opportunity to participate in the care of Ms. Hensley. Attestation To help prompt me to consider important information that might be impacting today's encounter and assessment, information from prior notes written by myself or my colleagues may have been "brought forward" into today's note. My signature on this note, however, is an attestation that I personally performed the exam, history, and/or decision-making noted today, and, unless otherwise indicated, the interactions with patient, family, and staff as well as the review of records all occurred today. I also attest that the listed assessment and stated plan reflect my best clinical judgment today based on the combination of historical information, prior notes, and today's exam/ interactions. When time spent is documented, it refers only to time spent today by the signer, or if indicated, combined time spent today by collaborating physician/nurse practitioner. Poncho Sue MD November 22, 2017 12:18
[2017-11-22] MEDS ORDERED: FUROSEMIDE 20 MG/2 ML VIAL IV PUSH ONE (13:45)
[2017-11-22] MEDS: ENOXAPARIN SODIUM 40 MG/0.4 ML SYRINGE SQ SCH (17:11)
[2017-11-23] VITALS (12 sets, daily range): BP systolic 97–139; BP diastolic 48–96; PULSE 83–102; RESP 14–23; TEMP 97.8–98.4; O2SAT 97–100
[2017-11-23] MEDS: VALPROATE INJ 500 MG in SODIUM CHLORIDE 0.9% INJ 100 ML IV SCH ×3 (01:13→16:32)
[2017-11-23] MEDS: INSULIN ASPART SUPPLEMENTAL SCALE SQ SCH ×6 (01:13→20:00)
[2017-11-23] MEDS: RESP: ALBUTEROL 2.5 MG/IPRATROPIUM 0.5 MG NEB (SCH) NEB ×6 (03:37→23:44)
[2017-11-23] MEDS: CHLORHEXIDINE GLUCONATE 2 % 1 PACK (2 CLOTHS) TOP SCH (04:00)
[2017-11-23 04:15] LABS: AUTOMATED NEUTROPHIL # 15.5 TH/MM3 (1.8-7.7); BASOPHIL # 0.1 TH/MM3 (0-0.2); BASOPHIL % 0.5 % (0.0-2.0); EOSINOPHIL % 0.1 % (0.0-4.0); HEMATOCRIT 26.4 % (35.0-46.0); HEMOGLOBIN 8.8 GM/DL (11.6-15.3); LYMPH % 2.2 % (9.0-44.0); LYMPHOCYTE # 0.4 TH/MM3 (1.0-4.8); MEAN CELL VOLUME 86.9 FL (80.0-100.0); MEAN CORPUSCULAR HEMOGLOBIN 28.9 PG (27.0-34.0); MEAN CORPUSCULAR HGB CONC 33.2 % (32.0-36.0); MEAN PLATELET VOLUME 7.5 FL (7.0-11.0); MONO % 3.5 % (0.0-8.0); MONOCYTE # 0.6 TH/MM3 (0-0.9); NEUT % 93.7 % (16.0-70.0); PLATELET COUNT 168 TH/MM3 (150-450); RED BLOOD COUNT 3.04 MIL/MM3 (4.00-5.30); RED CELL DISTRIBUTION WIDTH 18.8 % (11.6-17.2); WHITE BLOOD COUNT 16.6 TH/MM3 (4.0-11.0)
[2017-11-23 04:22] LABS: PROTHROMBIN TIME - PATIENT 10.5 SEC (9.8-11.6)
[2017-11-23] MEDS: THYROID 30 MG TAB NG SCH (04:38)
[2017-11-23] MEDS: THYROID 60 MG TAB NG SCH (04:38)
[2017-11-23] MEDS: ARTIFICIAL TEARS OPTH SOLN 15 ML BTL EACH EYE SCH ×3 (04:39→21:22)
[2017-11-23] MEDS: HYDROCORTISONE SOD SUCCINATE 100 MG VIAL IV PUSH SCH ×3 (04:39→21:22)
[2017-11-23] MEDS: PIPERACIL-TAZO 3.375 GM PREMIX 50 ML IV SCH ×4 (04:39→21:22)
[2017-11-23 04:49] LABS: ALBUMIN 1.7 GM/DL (3.4-5.0); AST (GOT) 47 U/L (15-37); BICARBONATE 25.9 MEQ/L (21.0-32.0); BLOOD UREA NITROGEN 9 MG/DL (7-18); CALCIUM 7.6 MG/DL (8.5-10.1); CHLORIDE 109 MEQ/L (98-107); CREATININE 0.46 MG/DL (0.50-1.00); GLOMERULAR FILTRATION RATE 157 ML/MIN (>89); GLUCOSE,RANDOM 164 MG/DL (74-106); SODIUM (NA) 145 MEQ/L (136-145)
[2017-11-23 04:50] LABS: ALT (GPT) 60 U/L (10-53); CHOLESTEROL 136 MG/DL (120-200)
[2017-11-23 04:54] LABS: ALKALINE PHOSPHATASE 73 U/L (45-117); CHOLESTEROL/ HDL RATIO 3.72 RATIO; HDL CHOLESTEROL 36.5 MG/DL (40.0-60.0); LDL CHOLESTEROL 84 MG/DL (0-99); TOTAL BILIRUBIN ADULT 0.4 MG/DL (0.2-1.0); TOTAL PROTEIN 4.6 GM/DL (6.4-8.2); TRIGLYCERIDES 77 MG/DL (42-150)
[2017-11-23 06:51] LABS: BANDS 47 % (0-6); LYMPHOCYTES 4 % (9-44); MONOCYTES 2 % (0-8); NEUTROPHIL # MANUAL DIFF 15.6 TH/MM3 (1.8-7.7); POLYS (SEG NEUTROPHILS) 47 % (16-70)
[2017-11-23] MEDS: RESP: BUDESONIDE 0.5 MG/2 ML NEB NEB SCH ×2 (08:00→19:53)
--- NOTE | 2017-11-23 08:59 | HHI.NSPN ---
History Chief Complaint: ICH. Interval History 82-year-old -[place] female who was transferred from [facility] where she presented with neurologic changes. There is no family members and the patient cannot relate much of a history but apparently with CT scan head obtained she was found to have a right posterior temporal lobe cerebral hemorrhage. CT scan of the head reviewed from [facility] on arrival reveals a less than 2 cm right posterior temporal lobe hemorrhage without any significant mass-effect or midline shift. Overnight her exam is not changed although she had an EEG study done and was noted to have subclinical seizures and has been noted to be more lethargic since then and is awaiting fosphenytoin bolus. MRI scan of the brain is also pending along with neurology evaluation. It is unclear whether this cerebral hemorrhage is spontaneous versus traumatic. 11/03/17: Pt awake and alert. At times not cooperative with exam. She at times doesn't verbalize and others answers questions yes/no. She follows commands at times and other times does not. 11/04/17: Pt sedated for MRI and not opening eyes or following commands. 11/05/17: Pt awakens but still fatigued. She states her name when asked but not verbalizing much otherwise. She audio video mechanic her right hand but not the left. She moves bilateral LEs to command. 11/06/17: Pt very fatigued again today. Not opening eyes. Not following commands. Pt resting in position. 11/07/17: Pt lethargic still. Not opening eyes or following commands. 11/09/17: Pt lethargic but more awake today than previous days as she actually opened her eyes and said some words. She underwent a right temporal craniotomy for hemorrhagic mass resection on 11/08/17. She is lethargic but opens her eyes. She answers some simple questions. She follows some simple commands. 11/10/17: Pt not as alert this morning as yesterday. Not opening eyes. Verbalizing some words but not able to understand. Spontaneously moves extremities. 11/11/17: Pt lethargic. Not opening eyes. Not following commands. Not verbalizing. Protecting airway currently. 11/15/17: Pt more awake today. Opens eyes and communicates appropriately. Denies headaches, nausea, paresthesias. 11/16/17: Pt awakens to voice but lethargic. She denies headaches, nausea, paresthesias. She denies chest pain or sob. 11/17/17: Pt more awake today. She denies headaches, nausea, chest pain or sob. 11/18/17: Pt sedated on Diprivan but opens eyes to voice. She nods her head to some questions and denies headache. She was intubated this morning. She is on a Phenylephrine drip. 11/19/17: Pt sedated on Diprivan. She is on 3 pressors Norepinephrine, Phenylephrine, Vasopressin. She is intubated. Pupils equal. 11/22/17: Pt opens eyes briefly to voice. She follows commands in all 4 extremities. She nods her head to some questions. Intubated. She is only on Norepinephrine. 11/23/17: Pt opens eyes to voice. Nods head to questions. Denies headaches or pain. Follows commands in all 4 extremities. Intubated on CPAP. System Review Comments Not able to obtain given clinical condition. Exam Results Vital Signs Date Time Temp Pulse Resp B/P (MAP) Pulse Ox O2 Delivery O2 Flow Rate FiO2 11/23/17 08:07 100 35 11/23/17 04:00 97.9 93 14 106/49 (68) 11/22/17 20:00 Mechanical Ventilator Intake and Output 11/23/17 11/23/17 11/24/17 08:00 16:00 00:00 Intake Total 660 ml Output Total 600 ml Balance 60 ml Physical Examination General: Pt intubated on CPAP. She opens eyes to voice. Vitals stable, off pressors. Eyes: Pupils equal 3mm bilaterally reactive bilaterally. Sclera anicteric. Resp: Intubated. CTA bilaterally. Heart: NSR no murmurs. Off Pressors. Abd: Soft positive bs. NGT in place. Skin: No cyanosis or erythema. SCDs in place. Right surgical wound healing well no signs of infection. Muscle: Following simple commands in all 4 extremities. Neuro: Opening eyes to voice. Pupils 3mm bilaterally, reactive sluggishly bilaterally. Following simple commands. Nods head to questions denies headache or pain. Lab, Micro, Other Results Last Impressions Chest X-Ray 11/21/17 0600 Signed Impressions: Service Date/Time: Tuesday, November 21, 2017 03:17 - CONCLUSION: 1. Increasing diffuse airspace disease since November 19, possibly edema. Increase in bilateral pleural effusions as well. Support apparatus unchanged. Axel Cheema MD Liver Ultrasound 11/20/17 0000 Signed Impressions: Service Date/Time: Monday, November 20, 2017 10:23 - CONCLUSION: 1. Normal dimension common hepatic duct. 2. Hepatomegaly. There are 2 cysts in the left lobe measuring up to 2.9 cm. Aquilino Hsieh MD Head CT 11/20/17 0000 Signed Impressions: Service Date/Time: Monday, November 20, 2017 15:28 - CONCLUSION: 1. Evolving postsurgical features of right temporal craniotomy with minimal blood products in the surgical bed. Otherwise, no intercurrent hemorrhage or other acute abnormality. Cesar Mcneil MD CT Angiography 11/18/17 0000 Signed Impressions: Service Date/Time: November 12:05 - CONCLUSION: 1. Dense airspace consolidation bilaterally characteristic of pneumonia. 2. There is simple cyst in the liver with one area of rim-like calcification of the right lobe most likely benign, however not definitely characterized. 3. There is no evidence for PE for technique. K. Avelino Muro MD Lower Extremity Ultrasound 11/17/17 0000 Signed Impressions: Service Date/Time: Friday, November 17, 2017 17:52 - CONCLUSION: No DVT. Donovan Fleming MD Soft Tissue Neck X-Ray 11/11/17 0000 Signed Impressions: Service Date/Time: November 13:28 - CONCLUSION: 1. No acute findings. NG tube present. Axel Cheema MD Abdomen X-Ray 11/10/17 0000 Signed Impressions: Service Date/Time: Friday, November 10, 2017 14:00 - CONCLUSION: NG tube in the stomach Donovan Piña MD Brain MRI 11/04/17 0000 Signed Impressions: Service Date/Time: November 12:38 - CONCLUSION: Focal abnormality in the right posterior temporal lobe measuring up to 3.9 cm, as above. Examination will be used for intraoperative localization. Donovan Campbell MD Chest CT 11/02/17 0000 Signed Impressions: Service Date/Time: Thursday, November 02, 2017 21:35 - CONCLUSION: 1. Negative for metastatic disease to the thorax. No acute findings. Axel Cheema MD Abdomen/Pelvis CT 11/02/17 0000 Signed Impressions: Service Date/Time: Thursday, November 02, 2017 21:35 - CONCLUSION: 1. Negative for metastatic disease in the abdomen or pelvis. Multiple hepatic cysts. Numerous fibroids in the uterus. Mild colonic constipation and moderate rectal constipation. Axel Cheema MD Laboratory Tests Test 11/22/17 17:58 11/23/17 04:05 Potassium Level 4.0 MEQ/L 3.5 MEQ/L White Blood Count 16.6 TH/MM3 Red Blood Count 3.04 MIL/MM3 Hemoglobin 8.8 GM/DL Hematocrit 26.4 % Mean Corpuscular Volume 86.9 FL Mean Corpuscular Hemoglobin 28.9 PG Mean Corpuscular Hemoglobin Concent 33.2 % Red Cell Distribution Width 18.8 % Platelet Count 168 TH/MM3 Mean Platelet Volume 7.5 FL Neutrophils (%) (Auto) 93.7 % Lymphocytes (%) (Auto) 2.2 % Monocytes (%) (Auto) 3.5 % Eosinophils (%) (Auto) 0.1 % Basophils (%) (Auto) 0.5 % Neutrophils # (Auto) 15.5 TH/MM3 Lymphocytes # (Auto) 0.4 TH/MM3 Monocytes # (Auto) 0.6 TH/MM3 Eosinophils # (Auto) 0.0 TH/MM3 Basophils # (Auto) 0.1 TH/MM3 CBC Comment AUTO DIFF Differential Total Cells Counted 100 Neutrophils % (Manual) 47 % Band Neutrophils % 47 % Lymphocytes % 4 % Monocytes % 2 % Neutrophils # (Manual) 15.6 TH/MM3 Differential Comment FINAL DIFF MANUAL Platelet Estimate LOW Platelet Morphology Comment NORMAL Prothrombin Time 10.5 SEC Prothromb Time International Ratio 1.0 RATIO Blood Urea Nitrogen 9 MG/DL Creatinine 0.46 MG/DL Random Glucose 164 MG/DL Total Protein 4.6 GM/DL Albumin 1.7 GM/DL Calcium Level 7.6 MG/DL Phosphorus Level 2.0 MG/DL Alkaline Phosphatase 73 U/L Aspartate Amino Transf (AST/SGOT) 47 U/L Alanine Aminotransferase (ALT/SGPT) 60 U/L Total Bilirubin 0.4 MG/DL Sodium Level 145 MEQ/L Chloride Level 109 MEQ/L Carbon Dioxide Level 25.9 MEQ/L Anion Gap 10 MEQ/L Estimat Glomerular Filtration Rate 157 ML/MIN Triglycerides Level 77 MG/DL Cholesterol Level 136 MG/DL LDL Cholesterol 84 MG/DL HDL Cholesterol 36.5 MG/DL Cholesterol/HDL Ratio 3.72 RATIO Valproic Acid (Depakene) Level 66 MCG/ML Medical Decision Making Impression and Plan A: 82-year-old lady with a right posterior temporal lobe cerebral hemorrhage without mass-effect or midline shift. Continue with observation along with seizure prophylaxis. MRI reveals likely underlying mass. No metastatic sites found on CT chest, abdomen, pelvis. s/p right temporal craniotomy for hemorrhagic mass resection on 11/08/17. Follow up CT head stable. Follow up CT head 11/18 stable. Path revealed infarction. Clinically pt improving. P: Continue with neuro checks Continue with Rehab efforts. Continue with DVT prophylaxis. Continue with GI prophylaxis. Continue with critical care. Deandre Cordoba November 23, 2017 8:59 am
[2017-11-23] MEDS: DOCUSATE SODIUM 50 MG/SENNA 8.6 MG TAB PO SCH ×2 (09:00→20:31)
[2017-11-23] MEDS: POTASSIUM PHOSPHATE INJ 30 MMOL in SODIUM CHLOR 0.9% 250 ML INJ 250 ML IV PRN (09:09)
[2017-11-23] MEDS: CHLORHEXIDINE 0.12% (ORAL KIT) 15 ML CUP MT SCH ×2 (09:10→20:30)
[2017-11-23] MEDS: LINEZOLID 600 MG PREMIX 300 ML IV SCH (09:27)
[2017-11-23] MEDS: FAMOTIDINE 20 MG TAB NG SCH ×2 (09:28→20:19)
[2017-11-23] MEDS: SODIUM CHLORIDE 0.9% FLUSH 10 ML FLUSH IV FLUSH SCH ×2 (09:28→20:19)
[2017-11-23] MEDS ORDERED: POTASSIUM CHLORIDE 20 MEQ PWD PACKET PO ONE (09:45)
[2017-11-23] MEDS ORDERED: FUROSEMIDE 40 MG/4 ML VIAL IV PUSH ONE (09:45)
--- NOTE | 2017-11-23 09:46 | HHI.CCPN ---
Subjective Remarks/Hospital Course 82-year-old AA female with past medical history significant for COPD, diabetes mellitus, dyslipidemia, hypertension, osteoporosis, thyroid disorder presented to [facility] due to altered mental status, found by the patient's caregiver. At the emergency department the CT of the head revealed hemorrhagic infarct in the right temporal occipital region, measuring approximately 3.5 cm and the patient has been transferred to [facility] for higher level of care. The patient is nonverbal and information is obtained from medical chart review. 11/02: more somnolent than on admission. EEG ordered and to my read appears to have significant ictal activity. loaded with fosphenytoin and neurology consult ordered. also, given size and location of the bleed, have ordered an MRI to better evaluate the area. 11/03: Awake and alert. Following commands. 11/18: Critical care reconsulted by Dr. Figueroa for worsening shortness of breath overnight. This morning patient was noted to be on a nonrebreather facemask with respiratory rate in the 30s using accessory muscles of respiration. Rapid response team was activated and patient was transferred to the ICU. I evaluated the patient immediately following her arrival to the ICU. She was in significant respiratory distress and I proceeded with emergent intubation and patient was placed on mechanical ventilation. Borderline blood pressures following intubation for which 1 L normal saline bolus ordered. I emergently placed a central line as well. Patient underwent a CT chest which was negative for PE however showed bilateral dense consolidations with concern regarding aspiration. Stat labs were ordered and patient was initiated on IV Zosyn for empiric antibiotic coverage. 11/19: Sedated, orally intubated on mechanical ventilation. On Levophed 9 mics per minute, Srinivasan-Synephrine 50 mics per minute, vasopressin 0.04 U/min. Received 6+ L in the last 24 hours. Has had some diarrhea. Hypothermic this morning. Chest x-ray shows multilobar pneumonia. Remains in septic shock. 11/20: PSV trial lasted 15 minutes today. Case became acutely tachypneic and placed back on PRVC ventilation. Remains on vasopressin 0.04 units /min and norepinephrine drip at 1 mcg/min. Positive BM. 1200 cc urine output. Normothermic this a.m. 11/21: Sitting in bed in no acute distress. CT brain yesterday revealed post right temporal craniotomy changes with no new bleeding. Remains on norepinephrine drip at 2 mcg/min. Tolerating tube feeds at goal. On CPAP trial 20/5 and 40%. Tongue is swollen today 11/22: Resting in bed on ventilator. Tolerated CPAP well yesterday greater than 6 hours. Tongue less swollen today. Follows commands intermittently and will grasp bilateral upper extremities spontaneously. Tolerating tube feeding Subjective: 11/23: Tolerated PSV trial 12 hours yesterday. Currently 8/5 at 35%. Her tongue is much less swollen today. Will diuresis overnight again with possible extubation a.m. 11/24. CODE STATUS to be addressed by family today. Objective Vital Signs Date Time Temp Pulse Resp B/P (MAP) Pulse Ox O2 Delivery O2 Flow Rate FiO2 11/23/17 08:07 100 35 11/23/17 04:00 97.9 93 14 106/49 (68) 11/22/17 20:00 Mechanical Ventilator Intake and Output 11/23/17 11/23/17 11/24/17 08:00 16:00 00:00 Intake Total 660 ml Output Total 600 ml Balance 60 ml Result Diagram: 11/23/17 0405 11/23/17 0405 Other Results Microbiology Date/Time Source Procedure Growth Status 11/18/17 18:29 Blood Peripheral Aerobic Blood Culture - Preliminary NO GROWTH IN 4 DAYS Resulted 11/18/17 18:29 Blood Peripheral Anaerobic Blood Culture - Preliminary NO GROWTH IN 4 DAYS Resulted 11/18/17 22:15 Stool Stool Stool Pus (GUMARO) - Final RARE WBC Complete 11/19/17 11:04 Sputum Endotracheal Gram Stain - Final Complete 11/19/17 11:04 Sputum Culture - Final Staphylococcus Aureus Pseudomonas Aeruginosa Complete 11/19/17 11:04 Urine Catheterized Urine Urine Culture - Final NO GROWTH IN 48 HOURS. Complete Imaging Last Impressions Chest X-Ray 11/21/17 0600 Signed Impressions: Service Date/Time: Tuesday, November 21, 2017 03:17 - CONCLUSION: 1. Increasing diffuse airspace disease since November 19, possibly edema. Increase in bilateral pleural effusions as well. Support apparatus unchanged. Axel Cheema MD Liver Ultrasound 11/20/17 0000 Signed Impressions: Service Date/Time: Monday, November 20, 2017 10:23 - CONCLUSION: 1. Normal dimension common hepatic duct. 2. Hepatomegaly. There are 2 cysts in the left lobe measuring up to 2.9 cm. Aquilino Hsieh MD Head CT 11/20/17 0000 Signed Impressions: Service Date/Time: Monday, November 20, 2017 15:28 - CONCLUSION: 1. Evolving postsurgical features of right temporal craniotomy with minimal blood products in the surgical bed. Otherwise, no intercurrent hemorrhage or other acute abnormality. Cesar Mcneil MD CT Angiography 11/18/17 0000 Signed Impressions: Service Date/Time: November 12:05 - CONCLUSION: 1. Dense airspace consolidation bilaterally characteristic of pneumonia. 2. There is simple cyst in the liver with one area of rim-like calcification of the right lobe most likely benign, however not definitely characterized. 3. There is no evidence for PE for technique. K. Avelino Muro MD Lower Extremity Ultrasound 11/17/17 0000 Signed Impressions: Service Date/Time: Friday, November 17, 2017 17:52 - CONCLUSION: No DVT. Donovan Fleming MD Soft Tissue Neck X-Ray 11/11/17 0000 Signed Impressions: Service Date/Time: November 13:28 - CONCLUSION: 1. No acute findings. NG tube present. Axel Cheema MD Abdomen X-Ray 11/10/17 0000 Signed Impressions: Service Date/Time: Friday, November 10, 2017 14:00 - CONCLUSION: NG tube in the stomach Donovan Piña MD Brain MRI 11/04/17 0000 Signed Impressions: Service Date/Time: November 12:38 - CONCLUSION: Focal abnormality in the right posterior temporal lobe measuring up to 3.9 cm, as above. Examination will be used for intraoperative localization. Donovan Campbell MD Chest CT 11/02/17 0000 Signed Impressions: Service Date/Time: Thursday, November 02, 2017 21:35 - CONCLUSION: 1. Negative for metastatic disease to the thorax. No acute findings. Axel Cheema MD Abdomen/Pelvis CT 11/02/17 0000 Signed Impressions: Service Date/Time: Thursday, November 02, 2017 21:35 - CONCLUSION: 1. Negative for metastatic disease in the abdomen or pelvis. Multiple hepatic cysts. Numerous fibroids in the uterus. Mild colonic constipation and moderate rectal constipation. Axel Cheema MD Procedures Right temporal craniotomy for hemorrhagic mass resection; BrainLab stereotactic intraoperative navigation; microsurgical technique, left subclavian central line placement, right subclavian central line and left axillary arterial line Objective Remarks GENERAL: 82 yo AA female currently resting in bed orotracheally intubated SKIN: Warm and dry. HEAD: Well-healed ashlie of her right temporal craniotomy site. EYES: Pupils equal and round about 2 mm bilaterally reactive to 1. No scleral icterus. No injection or drainage. ENT: No nasal bleeding or discharge. Mucous membranes pink and moist. Tongue is quite edematous. No signs of trauma NECK: Trachea midline. No JVD. CARDIOVASCULAR: Tachycardic, RR. S1, S2. No S4. Without murmur RESPIRATORY: Coarse rhonchorous breath sounds are appreciated anteriorly and posteriorly. Symmetrical excursion. GASTROINTESTINAL: Abdomen soft, non-tender, nondistended. Hypoactive bowel sounds are appreciated MUSCULOSKELETAL: Extremities 1+ bilateral upper and lower extremity edema. No obvious deformities. NEUROLOGICAL: Positive gag. Patient does have a cough. Yawns. Localizes bilateral upper lower extremities. Very poor examination Urinary Catheter: Yes Assessment to: Continue Duong insert reason: Prolonged Immobilization Vascular Central Line Catheter: Yes Assessment to: Continue Date of Insertion: November 18, 2017 Line: Central Venous Catheter Side: Right Location: Subclavian A/P Assessment and Plan Neuro/Psych: Right parietal intraparenchymal hemorrhage status post craniotomy for hemorrhagic left temporal mass with pathology still pending Subclinical status epilepticus Currently off all sedation with opens eyes to voice and follows commands upper extremities intermittently CT brain 11/20 revealed status post left temporal craniotomy changes. No acute bleeding. 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 Peterson - pathology still pending neurochecks On divalproex 500 mg IV every 8 hours. Level 66 this a.m. management per neurology EEG 11/17 revealed no l epileptiform activity y. Moderate slowing right-sided. Last positive EEG for sharps in the right hemisphere is 11/05. Acetaminophen 650 mg by tube every 6 hours as needed fever CV: Severe septic shock History of essential hypertension on hydrochlorothiazide Currently on norepinephrine drip at 1 mcg/min to maintain mean atrial pressure greater than equal 65 Holding home medication hydrochlorothiazide Stress dose hydrocortisone 50 mg every 8 hours. On chronic prednisone 20 mg twice daily at home Serial lactates until cleared Resp: Acute respiratory failure secondary to aspiration pneumonia Severe COPD [facility] /07/09/34 Ventilator bundle Albuterol/ipratropium aerosols every 4 hours with albuterol aerosols every 2 hours as needed dyspnea Budesonide 0.5/2 1 inhalation twice daily. Spontaneous breathing trials as clinically indicated. Lasted 15 minutes today On budesonide/formoterol and tiotropium at home Follow-up x-ray in a.m. 11/24 GI: Hypoalbuminemia Elevated transaminases likely secondary to shock liver Diarrhea Liver cysts Start tube feedings with vital 1.5 goal 45 cc an hour Famotidine for GI prophylaxis Docusate sodium/senna 1 tablet twice daily for bowel regimen Liver ultrasound 11/20 revealed 2 hepatic cysts previous 2.9 cm in size. No's signs of common bile duct obstruction. : Duong catheter for accurate I's and O's in a critically ill patient Endo: Hypothyroidism with elevated TSH greater than 11 Diabetes mellitus Sliding scale insulin low regimen of NovoLog with Accu-Cheks every 6 hours to maintain euglycemia Currently on [place] Thyroid 90 mg daily. Current medications 120 mg daily of desiccated thyroid. TSH about 11 this admission Renal: Monitor urine output Accurate I's and O's Heme: Leukocytosis Normocytic anemia status post transfusion with PRBCs 11/19 Monitor CBC daily. Monitor trends. No indication for transfusion of blood products at this time. ID: Aspiration pneumonia with MSSA/Pseudomonas Severe sepsis Currently on linezolid 600 mg IV every 12 hours day #11/06 and piperacillin l/ tazobactam 3.375 g IV every 6 hours day #11/09 Pertinent cultures 11/19 -sputum -staph aureus/Pseudomonas 11/19 -UA -pending 11/18 -blood cultures 2 -no growth FEN: Hypophosphatemia Replace electrolytes as clinically indicated 30 mmol potassium phosphorus, 20 mEq KCl by tube 1 now. Recheck in a.m. 11/24 MSK: Osteoarthritis/rheumatoid arthritis Elevated BMI of 33 Leflunomide 10 mg daily held for RA. Holding scheduled prednisone 20 mg twice daily. PT evaluate and treat for range of motion Weight loss encouraged Access: Right subclavian CVL placed 11/18 Left axillary arterial line placed 11/18 - 11/24 Prophylaxis -GI -famotidine -DVT -SCD/enoxaparin Level 2 follow-up Alfonzo Leger MD November 23, 2017 09:46
--- NOTE | 2017-11-23 13:27 | HHI.HCPN ---
Reason for visit a. To assist with evaluation and management of symptoms including:dyspnea, anxiety b. To assist medical decision maker(s) with: better understanding of current medical conditions; weighing benefits/burdens of medical treatment options; making medical treatment decisions. Subjective/Interval History Patient remains intubated for dyspnea. Pt less responsive for me today. Some grimacing to indicate some anxiety. Afebrile. Pt will be diuresis overnight and there possibility of medical extubation tomorrow. Family/friend interactions I spoke with patient's daughter Tsering in person, and daughter has endorse a DNR , no reintubation. I have spoken with brother 5at 516 pm. Goals of treatment as follow: = Medical extubate once stable. =If however once she is extubated and she becomes unstable, no heroic efforts, no reintubation. She is a DNR = Medically treat short of resucitation. = Goals is take things one day at a time, to try to get patient back to [place]. = both understand there remains challenges, should she decline again, family is open to comfort measures. Advance Directives Living Will: Never completed Health Care Surrogate: Never completed Durable Power of Law Enforcement Instructor: Never completed Objective Vital Signs Date Time Temp Pulse Resp B/P (MAP) Pulse Ox O2 Delivery O2 Flow Rate FiO2 11/23/17 11:34 98 30 11/23/17 08:07 100 35 11/23/17 08:07 35 11/23/17 04:00 97.9 93 14 106/49 (68) 99 11/23/17 03:38 97 35 11/23/17 00:00 97.9 92 14 97/48 (64) 99 11/22/17 20:14 100 35 11/22/17 20:00 97.5 101 24 123/59 (80) 99 11/22/17 20:00 99 Mechanical Ventilator 35 11/22/17 16:00 97.6 100 21 120/62 (81) 98 11/22/17 15:43 98 35 Intake & Output 11/23/17 11/23/17 07:00 19:00 Intake Total 1010 ml Output Total 600 ml Balance 410 ml IV Total 505 ml Tube Feeding 415 ml Other 90 ml Output Urine Total 300 ml Stool Total 300 ml Tube Feeding Residual Discard 0 ml Physical Exam CONSTITUTIONAL/GENERAL: This is an elderly female, appears to be fatigued, and uncomfortable. TUBES/LINES/DRAINS: ET tube, SKIN: No jaundice, rashes, or lesions. Ecchymoses on upper extremities. No wounds seen anteriorly. Skin temperature appropriate. Not diaphoretic. HEAD: Normocephalic. EYES: Pupils equal and round and reactive. Extraocular motions intact. No scleral icterus. No injection or drainage. Fundi not examined. ENT: Nose without bleeding or purulent drainage. ET tube in place. Tongue somewhat large. NECK: Trachea midline. Supple, nontender. No palpable thyroid enlargement or nodularity. CARDIOVASCULAR: Regular rate and rhythm without murmurs, gallops, or rubs. No JVD. Peripheral pulses symmetric. RESPIRATORY/CHEST: Symmetric, unlabored respirations. decrease breath sound bilaterally. GASTROINTESTINAL: Abdomen soft, non-tender, nondistended. No hepato-splenomegaly , or palpable masses. No guarding. Bowel sounds present. GENITOURINARY: Without palpable bladder distension. Duong catheter in place. MUSCULOSKELETAL: Extremities without clubbing, cyanosis. There is edema on all 4 ext. LYMPHATICS: Not examine NEUROLOGICAL:Less responsive for me today. PSYCHIATRIC: frail, fatigued, could not examine.. Diagnostic Tests Laboratory Laboratory Tests Test 11/20/17 23:30 11/21/17 06:30 11/22/17 04:10 11/22/17 17:58 Blood Urea Nitrogen 8 MG/DL (7-18) 7 MG/DL (7-18) 7 MG/DL (7-18) Creatinine 0.57 MG/DL (0.50-1.00) 0.55 MG/DL (0.50-1.00) 0.48 MG/DL (0.50-1.00) Random Glucose 155 MG/DL (74-106) 170 MG/DL (74-106) 146 MG/DL (74-106) Total Protein 4.8 GM/DL (6.4-8.2) 5.7 GM/DL (6.4-8.2) 5.0 GM/DL (6.4-8.2) Calcium Level 7.0 MG/DL (8.5-10.1) 7.2 MG/DL (8.5-10.1) 7.3 MG/DL (8.5-10.1) Phosphorus Level 2.1 MG/DL (2.5-4.9) 3.2 MG/DL (2.5-4.9) 1.7 MG/DL (2.5-4.9) Magnesium Level 1.9 MG/DL (1.5-2.5) 2.0 MG/DL (1.5-2.5) 1.9 MG/DL (1.5-2.5) Sodium Level 138 MEQ/L (136-145) 141 MEQ/L (136-145) 143 MEQ/L (136-145) Potassium Level 3.1 MEQ/L (3.5-5.1) 3.9 MEQ/L (3.5-5.1) 3.0 MEQ/L (3.5-5.1) 4.0 MEQ/L (3.5-5.1) Chloride Level 103 MEQ/L (98-107) 105 MEQ/L (98-107) 107 MEQ/L (98-107) Carbon Dioxide Level 22.9 MEQ/L (21.0-32.0) 23.2 MEQ/L (21.0-32.0) 25.8 MEQ/L (21.0-32.0) Anion Gap 12 MEQ/L (5-15) 13 MEQ/L (5-15) 10 MEQ/L (5-15) Estimat Glomerular Filtration Rate 122 ML/MIN (>89) 127 ML/MIN (>89) 149 ML/MIN (>89) Protein Corrected Calcium 8.2 MG/DL (8.5-10.1) 7.9 MG/DL (8.5-10.1) 8.5 MG/DL (8.5-10.1) White Blood Count 25.9 TH/MM3 (4.0-11.0) 28.0 TH/MM3 (4.0-11.0) Red Blood Count 3.07 MIL/MM3 (4.00-5.30) 3.32 MIL/MM3 (4.00-5.30) Hemoglobin 9.0 GM/DL (11.6-15.3) 9.6 GM/DL (11.6-15.3) Hematocrit 26.1 % (35.0-46.0) 28.6 % (35.0-46.0) Mean Corpuscular Volume 85.1 FL (80.0-100.0) 86.4 FL (80.0-100.0) Mean Corpuscular Hemoglobin 29.4 PG (27.0-34.0) 29.1 PG (27.0-34.0) Mean Corpuscular Hemoglobin Concent 34.5 % (32.0-36.0) 33.7 % (32.0-36.0) Red Cell Distribution Width 17.9 % (11.6-17.2) 18.4 % (11.6-17.2) Platelet Count 234 TH/MM3 (150-450) 203 TH/MM3 (150-450) Mean Platelet Volume 7.6 FL (7.0-11.0) 7.1 FL (7.0-11.0) CBC Comment AUTO DIFF DIFF FINAL Differential Total Cells Counted 100 Neutrophils % (Manual) 69 % (16-70) Band Neutrophils % 27 % (0-6) Lymphocytes % 1 % (9-44) Monocytes % 3 % (0-8) Neutrophils # (Manual) 24.9 TH/MM3 (1.8-7.7) Differential Comment FINAL DIFF MANUAL Platelet Estimate NORMAL (NORMAL) Platelet Morphology Comment NORMAL (NORMAL) [place] Cells 1+ (NORMAL) Acanthocytes 1+ (NORMAL) Keratocytes OCC (NORMAL) Albumin 2.1 GM/DL (3.4-5.0) 1.8 GM/DL (3.4-5.0) Alkaline Phosphatase 67 U/L (45-117) 81 U/L (45-117) Aspartate Amino Transf (AST/SGOT) 172 U/L (15-37) 88 U/L (15-37) Alanine Aminotransferase (ALT/SGPT) 101 U/L (10-53) 80 U/L (10-53) Total Bilirubin 0.6 MG/DL (0.2-1.0) 0.5 MG/DL (0.2-1.0) Direct Bilirubin 0.3 MG/DL (0.0-0.2) Indirect Bilirubin 0.3 MG/DL (0.0-0.8) Valproic Acid (Depakene) Level 93 MCG/ML (50-100) 85 MCG/ML (50-100) Neutrophils (%) (Auto) 94.6 % (16.0-70.0) Lymphocytes (%) (Auto) 1.4 % (9.0-44.0) Monocytes (%) (Auto) 3.8 % (0.0-8.0) Eosinophils (%) (Auto) 0.0 % (0.0-4.0) Basophils (%) (Auto) 0.2 % (0.0-2.0) Neutrophils # (Auto) 26.5 TH/MM3 (1.8-7.7) Lymphocytes # (Auto) 0.4 TH/MM3 (1.0-4.8) Monocytes # (Auto) 1.0 TH/MM3 (0-0.9) Eosinophils # (Auto) 0.0 TH/MM3 (0-0.4) Basophils # (Auto) 0.1 TH/MM3 (0-0.2) Lactic Acid Level 3.0 mmol/L (0.4-2.0) Test 11/23/17 04:05 White Blood Count 16.6 TH/MM3 (4.0-11.0) Red Blood Count 3.04 MIL/MM3 (4.00-5.30) Hemoglobin 8.8 GM/DL (11.6-15.3) Hematocrit 26.4 % (35.0-46.0) Mean Corpuscular Volume 86.9 FL (80.0-100.0) Mean Corpuscular Hemoglobin 28.9 PG (27.0-34.0) Mean Corpuscular Hemoglobin Concent 33.2 % (32.0-36.0) Red Cell Distribution Width 18.8 % (11.6-17.2) Platelet Count 168 TH/MM3 (150-450) Mean Platelet Volume 7.5 FL (7.0-11.0) Neutrophils (%) (Auto) 93.7 % (16.0-70.0) Lymphocytes (%) (Auto) 2.2 % (9.0-44.0) Monocytes (%) (Auto) 3.5 % (0.0-8.0) Eosinophils (%) (Auto) 0.1 % (0.0-4.0) Basophils (%) (Auto) 0.5 % (0.0-2.0) Neutrophils # (Auto) 15.5 TH/MM3 (1.8-7.7) Lymphocytes # (Auto) 0.4 TH/MM3 (1.0-4.8) Monocytes # (Auto) 0.6 TH/MM3 (0-0.9) Eosinophils # (Auto) 0.0 TH/MM3 (0-0.4) Basophils # (Auto) 0.1 TH/MM3 (0-0.2) CBC Comment AUTO DIFF Differential Total Cells Counted 100 Neutrophils % (Manual) 47 % (16-70) Band Neutrophils % 47 % (0-6) Lymphocytes % 4 % (9-44) Monocytes % 2 % (0-8) Neutrophils # (Manual) 15.6 TH/MM3 (1.8-7.7) Differential Comment FINAL DIFF MANUAL Platelet Estimate LOW (NORMAL) Platelet Morphology Comment NORMAL (NORMAL) Prothrombin Time 10.5 SEC (9.8-11.6) Prothromb Time International Ratio 1.0 RATIO Blood Urea Nitrogen 9 MG/DL (7-18) Creatinine 0.46 MG/DL (0.50-1.00) Random Glucose 164 MG/DL (74-106) Total Protein 4.6 GM/DL (6.4-8.2) Albumin 1.7 GM/DL (3.4-5.0) Calcium Level 7.6 MG/DL (8.5-10.1) Phosphorus Level 2.0 MG/DL (2.5-4.9) Alkaline Phosphatase 73 U/L (45-117) Aspartate Amino Transf (AST/SGOT) 47 U/L (15-37) Alanine Aminotransferase (ALT/SGPT) 60 U/L (10-53) Total Bilirubin 0.4 MG/DL (0.2-1.0) Sodium Level 145 MEQ/L (136-145) Potassium Level 3.5 MEQ/L (3.5-5.1) Chloride Level 109 MEQ/L (98-107) Carbon Dioxide Level 25.9 MEQ/L (21.0-32.0) Anion Gap 10 MEQ/L (5-15) Estimat Glomerular Filtration Rate 157 ML/MIN (>89) Triglycerides Level 77 MG/DL (42-150) Cholesterol Level 136 MG/DL (120-200) LDL Cholesterol 84 MG/DL (0-99) HDL Cholesterol 36.5 MG/DL (40.0-60.0) Cholesterol/HDL Ratio 3.72 RATIO Valproic Acid (Depakene) Level 66 MCG/ML (50-100) Result Diagram: 11/23/17 0405 11/23/17 0405 Imaging Last Impressions Chest X-Ray 11/21/17 0600 Signed Impressions: Service Date/Time: Tuesday, November 21, 2017 03:17 - CONCLUSION: 1. Increasing diffuse airspace disease since November 19, possibly edema. Increase in bilateral pleural effusions as well. Support apparatus unchanged. Axel Cheema MD Liver Ultrasound 11/20/17 0000 Signed Impressions: Service Date/Time: Monday, November 20, 2017 10:23 - CONCLUSION: 1. Normal dimension common hepatic duct. 2. Hepatomegaly. There are 2 cysts in the left lobe measuring up to 2.9 cm. Aquilino Hsieh MD Head CT 11/20/17 0000 Signed Impressions: Service Date/Time: Monday, November 20, 2017 15:28 - CONCLUSION: 1. Evolving postsurgical features of right temporal craniotomy with minimal blood products in the surgical bed. Otherwise, no intercurrent hemorrhage or other acute abnormality. Cesar Mcneil MD CT Angiography 11/18/17 0000 Signed Impressions: Service Date/Time: November 12:05 - CONCLUSION: 1. Dense airspace consolidation bilaterally characteristic of pneumonia. 2. There is simple cyst in the liver with one area of rim-like calcification of the right lobe most likely benign, however not definitely characterized. 3. There is no evidence for PE for technique. K. Avelino Muro MD Lower Extremity Ultrasound 11/17/17 0000 Signed Impressions: Service Date/Time: Friday, November 17, 2017 17:52 - CONCLUSION: No DVT. Donovan Fleming MD Soft Tissue Neck X-Ray 11/11/17 0000 Signed Impressions: Service Date/Time: November 13:28 - CONCLUSION: 1. No acute findings. NG tube present. Axel Cheema MD Abdomen X-Ray 11/10/17 0000 Signed Impressions: Service Date/Time: Friday, November 10, 2017 14:00 - CONCLUSION: NG tube in the stomach Donovan Piña MD Brain MRI 11/04/17 0000 Signed Impressions: Service Date/Time: November 12:38 - CONCLUSION: Focal abnormality in the right posterior temporal lobe measuring up to 3.9 cm, as above. Examination will be used for intraoperative localization. Donovan Campbell MD Chest CT 11/02/17 0000 Signed Impressions: Service Date/Time: Thursday, November 02, 2017 21:35 - CONCLUSION: 1. Negative for metastatic disease to the thorax. No acute findings. Axel Cheema MD Abdomen/Pelvis CT 11/02/17 0000 Signed Impressions: Service Date/Time: Thursday, November 02, 2017 21:35 - CONCLUSION: 1. Negative for metastatic disease in the abdomen or pelvis. Multiple hepatic cysts. Numerous fibroids in the uterus. Mild colonic constipation and moderate rectal constipation. Axel Cheema MD Assessment and Plan Disease Oriented Problem List: (1) Seizure (2) ICH (intracerebral hemorrhage) (3) Brain mass (4) Respiratory failure (5) Pneumonia Symptom Scale: (1) Dyspnea (2) Anxiety Pertinent Non-Medical Issues Psychosocial: Spiritual:Gnosticism Legal: Ethical issues impacting care: Important Contacts Tsering Vargas [phone] [place] Daughter Beto Hensley [phone] Son Prognosis Prognosis is guarded. She is 82 has right temperoal ischemic stroke, and condition has been complicated by respiratory failure, aspiration pneumonia, and sepsis. At risk of further decline and setback. Code Status: No Code Plan == capacity- mentation has fluctuated. Could some follow commands, but very fatigued, weak. I do not feel patient has capacity to make medical decisons at this time. == health care decision maker: pt is ( pass away from Alzheimer' s) Patient has 2 children a son in [place] and daughter in [place]. Son and daughter are the proxy. == symptoms: dyspnea- 2nd to aspiration pneumonia- intubated. no current med recommendation. anxiety- some grimacing noted, likely due to pt's decline, s/p hemoraghic cva. == goals of treatment. Goals of treatment as follow: = Medical extubate once stable. =If however once she is extubated and she becomes unstable, no heroic efforts, no reintubation. She is a DNR = Medically treat short of resucitation. = Goals is take things one day at a time, to try to get patient back to [place]. = both understand there remains challenges, should she decline again, family is open to comfort measures. == code status: spoke with both son and daughter: DNR. Attestation To help prompt me to consider important information that might be impacting today's encounter and assessment, information from prior notes written by myself or my colleagues may have been "brought forward" into today's note. My signature on this note, however, is an attestation that I personally performed the exam, history, and/or decision-making noted today, and, unless otherwise indicated, the interactions with patient, family, and staff as well as the review of records all occurred today. I also attest that the listed assessment and stated plan reflect my best clinical judgment today based on the combination of historical information, prior notes, and today's exam/ interactions. When time spent is documented, it refers only to time spent today by the signer, or if indicated, combined time spent today by collaborating physician/nurse practitioner. Poncho Sue MD November 23, 2017 13:27
[2017-11-23] MEDS: ENOXAPARIN SODIUM 40 MG/0.4 ML SYRINGE SQ SCH (16:31)
[2017-11-23 19:31] LABS: PHOSPHORUS 2.8 MG/DL (2.5-4.9)
[2017-11-23] MEDS: POTASSIUM CHLOR 20 MEQ PREMIX 100 ML IV PRN ×2 (21:22→23:33)
[2017-11-24] VITALS (19 sets, daily range): BP systolic 113–150; BP diastolic 61–89; PULSE 90–107; RESP 15–25; TEMP 97.9–98.7; O2SAT 96–100
[2017-11-24] MEDS: VALPROATE INJ 500 MG in SODIUM CHLORIDE 0.9% INJ 100 ML IV SCH ×3 (00:23→17:45)
[2017-11-24] MEDS: INSULIN ASPART SUPPLEMENTAL SCALE SQ SCH ×6 (00:23→20:38)
[2017-11-24] MEDS: RESP: ALBUTEROL 2.5 MG/IPRATROPIUM 0.5 MG NEB (SCH) NEB ×6 (03:29→23:51)
[2017-11-24] MEDS: CHLORHEXIDINE GLUCONATE 2 % 1 PACK (2 CLOTHS) TOP SCH (04:00)
[2017-11-24] MEDS: PIPERACIL-TAZO 3.375 GM PREMIX 50 ML IV SCH ×4 (04:00→21:29)
[2017-11-24] MEDS: THYROID 30 MG TAB NG SCH (05:03)
[2017-11-24] MEDS: HYDROCORTISONE SOD SUCCINATE 100 MG VIAL IV PUSH SCH ×2 (05:03→17:00)
[2017-11-24] MEDS: SODIUM CHLORIDE 0.9% FLUSH 10 ML FLUSH IV FLUSH PRN (05:03)
[2017-11-24] MEDS: THYROID 60 MG TAB NG SCH (05:03)
[2017-11-24 05:48] LABS: AUTOMATED NEUTROPHIL # 8.7 TH/MM3 (1.8-7.7); BASOPHIL % 0.2 % (0.0-2.0); EOSINOPHIL # 0.2 TH/MM3 (0-0.4); EOSINOPHIL % 2.3 % (0.0-4.0); HEMATOCRIT 29.2 % (35.0-46.0); HEMOGLOBIN 9.9 GM/DL (11.6-15.3); LYMPH % 7.1 % (9.0-44.0); LYMPHOCYTE # 0.8 TH/MM3 (1.0-4.8); MEAN CELL VOLUME 87.2 FL (80.0-100.0); MEAN CORPUSCULAR HEMOGLOBIN 29.5 PG (27.0-34.0); MEAN CORPUSCULAR HGB CONC 33.9 % (32.0-36.0); MEAN PLATELET VOLUME 8.1 FL (7.0-11.0); MONO % 8.7 % (0.0-8.0); MONOCYTE # 0.9 TH/MM3 (0-0.9); NEUT % 81.7 % (16.0-70.0); PLATELET COUNT 155 TH/MM3 (150-450); RED BLOOD COUNT 3.35 MIL/MM3 (4.00-5.30); RED CELL DISTRIBUTION WIDTH 18.9 % (11.6-17.2); WHITE BLOOD COUNT 10.6 TH/MM3 (4.0-11.0)
--- NOTE | 2017-11-24 05:57 | RADRPT ---
EXAM DATE: 11/24/2017 5:52 AM EDT AGE/SEX: 82 years / Female INDICATIONS: Shortness of breath. CLINICAL DATA: This is the patient's subsequent encounter. Patient reports that signs and symptoms h ave been present for 3 weeks and indicates a pain score of Nonresponsive. MEDICAL/SURGICAL HISTORY: . Chronic obstructive pulmonary disease. Hypertension.Hypercholestero lemia, Thyroid disease. Cerebrovascular accident. Osteoporosis. Diabetes. Aspiration pneumonia. Intra cranial hemorrhage. Sepsis . [place]iot[place] [facility] [place]. . FINDINGS: A single AP semierect portable view of the chest was obtained. The endotracheal tube remains in place with the tip approximately 3 cm above the carrol. A nasogastric tube is seen coursing through the es ophagus and stomach. The right-sided central venous line remains in place. Hazy opacity is noted in b oth lungs greatest at the right lung base and left upper lobe. The heart size appears mildly prominen t. Both costophrenic angles remain blunted. CONCLUSION: No significant change. Electronically signed by: Hany Booth MD 11/24/2017 5:55 AM EDT
[2017-11-24] MEDS: ARTIFICIAL TEARS OPTH SOLN 15 ML BTL EACH EYE SCH ×3 (06:00→21:29)
[2017-11-24 06:14] LABS: ALBUMIN 1.7 GM/DL (3.4-5.0); AST (GOT) 29 U/L (15-37); BLOOD UREA NITROGEN 13 MG/DL (7-18); CALCIUM 7.9 MG/DL (8.5-10.1); CHLORIDE 108 MEQ/L (98-107); CREATININE 0.47 MG/DL (0.50-1.00); GLOMERULAR FILTRATION RATE 153 ML/MIN (>89); GLUCOSE,RANDOM 131 MG/DL (74-106); MAGNESIUM 1.9 MG/DL (1.5-2.5); SODIUM (NA) 146 MEQ/L (136-145)
[2017-11-24 06:16] LABS: ALKALINE PHOSPHATASE 88 U/L (45-117); ALT (GPT) 50 U/L (10-53); TOTAL BILIRUBIN ADULT 0.4 MG/DL (0.2-1.0); TOTAL PROTEIN 5.1 GM/DL (6.4-8.2)
[2017-11-24 07:47] LABS: BANDS 49 % (0-6); LYMPHOCYTES 4 % (9-44); METAMYELOCYTES 2 % (0-1); MONOCYTES 7 % (0-8); NEUTROPHIL # MANUAL DIFF 9.4 TH/MM3 (1.8-7.7); POLYS (SEG NEUTROPHILS) 38 % (16-70)
[2017-11-24 07:48] LABS: ACANTHOCYTES OCC (NORMAL); TOXIC GRANULATION 2+ (NORMAL)
[2017-11-24] MEDS: CHLORHEXIDINE 0.12% (ORAL KIT) 15 ML CUP MT SCH ×2 (08:00→20:00)
[2017-11-24] MEDS: RESP: BUDESONIDE 0.5 MG/2 ML NEB NEB SCH ×2 (08:03→20:24)
--- NOTE | 2017-11-24 08:49 | HHI.CCPN ---
Subjective Remarks/Hospital Course 82-year-old AA female with past medical history significant for COPD, diabetes mellitus, dyslipidemia, hypertension, osteoporosis, thyroid disorder presented to [facility] due to altered mental status, found by the patient's caregiver. 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 The patient is nonverbal and information is obtained from medical chart review. 11/02: more somnolent than on admission. EEG ordered and to my read appears to have significant ictal activity. loaded with fosphenytoin and neurology consult ordered. also, given size and location of the bleed, have ordered an MRI to better evaluate the area. 11/03: Awake and alert. Following commands. 11/18: Critical care reconsulted by Dr. Figueroa for worsening shortness of breath overnight. This morning patient was noted to be on a nonrebreather facemask with respiratory rate in the 30s using accessory muscles of respiration. Rapid response team was activated and patient was transferred to the ICU. I evaluated the patient immediately following her arrival to the ICU. She was in significant respiratory distress and I proceeded with emergent intubation and patient was placed on mechanical ventilation. Borderline blood pressures following intubation for which 1 L normal saline bolus ordered. I emergently placed a central line as well. Patient underwent a CT chest which was negative for PE however showed bilateral dense consolidations with concern regarding aspiration. Stat labs were ordered and patient was initiated on IV Zosyn for empiric antibiotic coverage. 11/19: Sedated, orally intubated on mechanical ventilation. On Levophed 9 mics per minute, Srinivasan-Synephrine 50 mics per minute, vasopressin 0.04 U/min. Received 6+ L in the last 24 hours. Has had some diarrhea. Hypothermic this morning. Chest x-ray shows multilobar pneumonia. Remains in septic shock. 11/20: PSV trial lasted 15 minutes today. Case became acutely tachypneic and placed back on PRVC ventilation. Remains on vasopressin 0.04 units /min and norepinephrine drip at 1 mcg/min. Positive BM. 1200 cc urine output. Normothermic this a.m. 11/21: Sitting in bed in no acute distress. CT brain yesterday revealed post right temporal craniotomy changes with no new bleeding. Remains on norepinephrine drip at 2 mcg/min. Tolerating tube feeds at goal. On CPAP trial 20/5 and 40%. Tongue is swollen today 11/22: Resting in bed on ventilator. Tolerated CPAP well yesterday greater than 6 hours. Tongue less swollen today. Follows commands intermittently and will grasp bilateral upper extremities spontaneously. Tolerating tube feeding 11/23: Tolerated PSV trial 12 hours yesterday. Currently 8/5 at 35%. Her tongue is much less swollen today. Will diuresis overnight again with possible extubation a.m. 11/24. CODE STATUS to be addressed by family today. Subjective: 11/24: Pathology returned revealing brain infarction. Tongue was swollen today. Tolerating CPAP 8/5 and 30%. Switched to DNR status. Possible extubation either today or tomorrow. Tolerating tube feeding. Objective Vital Signs Date Time Temp Pulse Resp B/P (MAP) Pulse Ox O2 Delivery O2 Flow Rate FiO2 11/24/17 08:03 30 11/24/17 08:03 100 11/24/17 08:00 98.0 102 25 119/89 (99) 11/24/17 07:00 Mechanical Ventilator Intake and Output 11/24/17 11/24/17 11/25/17 08:00 16:00 00:00 Intake Total 522 ml Output Total 525 ml Balance -3 ml Result Diagram: 11/24/17 0441 11/24/17 0441 Other Results Microbiology Date/Time Source Procedure Growth Status 11/18/17 18:29 Blood Peripheral Aerobic Blood Culture - Final NO GROWTH IN 5 DAYS Complete 11/18/17 18:29 Blood Peripheral Anaerobic Blood Culture - Final NO GROWTH IN 5 DAYS Complete 11/18/17 22:15 Stool Stool Stool Pus (GUMARO) - Final RARE WBC Complete 11/19/17 11:04 Sputum Endotracheal Gram Stain - Final Complete 11/19/17 11:04 Sputum Culture - Final Staphylococcus Aureus Pseudomonas Aeruginosa Complete 11/19/17 11:04 Urine Catheterized Urine Urine Culture - Final NO GROWTH IN 48 HOURS. Complete Imaging Last Impressions Chest X-Ray 11/24/17 0600 Signed Impressions: CONCLUSION: Liver Ultrasound 11/20/17 0000 Signed Impressions: Service Date/Time: Monday, November 20, 2017 10:23 - CONCLUSION: 1. Normal dimension common hepatic duct. 2. Hepatomegaly. There are 2 cysts in the left lobe measuring up to 2.9 cm. Aquilino Hsieh MD Head CT 11/20/17 0000 Signed Impressions: Service Date/Time: Monday, November 20, 2017 15:28 - CONCLUSION: 1. Evolving postsurgical features of right temporal craniotomy with minimal blood products in the surgical bed. Otherwise, no intercurrent hemorrhage or other acute abnormality. Cesar Mcneil MD CT Angiography 11/18/17 0000 Signed Impressions: Service Date/Time: November 12:05 - CONCLUSION: 1. Dense airspace consolidation bilaterally characteristic of pneumonia. 2. There is simple cyst in the liver with one area of rim-like calcification of the right lobe most likely benign, however not definitely characterized. 3. There is no evidence for PE for technique. K. Avelino Muro MD Lower Extremity Ultrasound 11/17/17 0000 Signed Impressions: Service Date/Time: Friday, November 17, 2017 17:52 - CONCLUSION: No DVT. Donovan Fleming MD Soft Tissue Neck X-Ray 11/11/17 0000 Signed Impressions: Service Date/Time: November 13:28 - CONCLUSION: 1. No acute findings. NG tube present. Axel Cheema MD Abdomen X-Ray 11/10/17 0000 Signed Impressions: Service Date/Time: Friday, November 10, 2017 14:00 - CONCLUSION: NG tube in the stomach Donovan Piña MD Brain MRI 11/04/17 0000 Signed Impressions: Service Date/Time: November 12:38 - CONCLUSION: Focal abnormality in the right posterior temporal lobe measuring up to 3.9 cm, as above. Examination will be used for intraoperative localization. Donovan Campbell MD Chest CT 11/02/17 0000 Signed Impressions: Service Date/Time: Thursday, November 02, 2017 21:35 - CONCLUSION: 1. Negative for metastatic disease to the thorax. No acute findings. Axel Cheema MD Abdomen/Pelvis CT 11/02/17 0000 Signed Impressions: Service Date/Time: Thursday, November 02, 2017 21:35 - CONCLUSION: 1. Negative for metastatic disease in the abdomen or pelvis. Multiple hepatic cysts. Numerous fibroids in the uterus. Mild colonic constipation and moderate rectal constipation. Axel Cheema MD Procedures Right temporal craniotomy for hemorrhagic mass resection; BrainLab stereotactic intraoperative navigation; microsurgical technique, left subclavian central line placement, right subclavian central line and left axillary arterial line Objective Remarks GENERAL: 82 yo AA female currently resting in bed orotracheally intubated SKIN: Warm and dry. HEAD: Well-healed ashlie of her right temporal craniotomy site. EYES: Pupils equal and round about 2 mm bilaterally reactive to 1. No scleral icterus. No injection or drainage. ENT: No nasal bleeding or discharge. Mucous membranes pink and moist. Tongue is quite edematous. No signs of trauma NECK: Trachea midline. No JVD. CARDIOVASCULAR: Tachycardic, RR. S1, S2. No S4. Without murmur RESPIRATORY: Coarse rhonchorous breath sounds are appreciated anteriorly and posteriorly. Symmetrical excursion. GASTROINTESTINAL: Abdomen soft, non-tender, nondistended. Hypoactive bowel sounds are appreciated MUSCULOSKELETAL: Extremities 1+ bilateral upper and lower extremity edema. No obvious deformities. NEUROLOGICAL: Positive gag. Patient does have a cough. Yawns. Localizes bilateral upper lower extremities. Very poor examination Urinary Catheter: Yes Assessment to: Continue Duong insert reason: Prolonged Immobilization Vascular Central Line Catheter: Yes Assessment to: Continue Date of Insertion: November 18, 2017 Line: Central Venous Catheter Side: Right Location: Subclavian A/P Assessment and Plan Neuro/Psych: Right parietal intraparenchymal hemorrhage status post craniotomy for hemorrhagic left temporal mass with pathology still pending Subclinical status epilepticus Currently off all sedation with opens eyes to voice and follows commands upper extremities intermittently CT brain 11/20 revealed status post left temporal craniotomy changes. No acute bleeding. 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 Peterson - pathology revealed acute to subacute infarction neurochecks On divalproex 500 mg IV every 8 hours. Level 63 this a.m. management per neurology EEG 11/17 revealed no l epileptiform activity y. Moderate slowing right-sided. Last positive EEG for sharps in the right hemisphere is 11/05. Acetaminophen 650 mg by tube every 6 hours as needed fever CV: Severe septic shock History of essential hypertension on hydrochlorothiazide Currently on norepinephrine drip at 1 mcg/min to maintain mean atrial pressure greater than equal 65 Holding home medication hydrochlorothiazide Stress dose hydrocortisone 50 mg every 12 hours. On chronic prednisone 20 mg twice daily at home Serial lactates until cleared Resp: Acute respiratory failure secondary to aspiration pneumonia Severe COPD [facility] /07/09/29 Ventilator bundle Albuterol/ipratropium aerosols every 4 hours with albuterol aerosols every 2 hours as needed dyspnea Budesonide 0.5/2 1 inhalation twice daily. Spontaneous breathing trials as clinically indicated. Lasted 15 minutes today On budesonide/formoterol and tiotropium at home Follow-up x-ray in a.m. 11/25 GI: Hypoalbuminemia Elevated transaminases likely secondary to shock liver Diarrhea Liver cysts Start tube feedings with vital 1.5 goal 45 cc an hour Famotidine for GI prophylaxis Docusate sodium/senna 1 tablet twice daily for bowel regimen Liver ultrasound 11/20 revealed 2 hepatic cysts previous 2.9 cm in size. No's signs of common bile duct obstruction. : Duong catheter for accurate I's and O's in a critically ill patient Endo: Hypothyroidism with elevated TSH greater than 11 Diabetes mellitus Sliding scale insulin low regimen of NovoLog with Accu-Cheks every 6 hours to maintain euglycemia Currently on Bigelow Thyroid 90 mg daily. Current medications 120 mg daily of desiccated thyroid. TSH about 11 this admission Renal: Monitor urine output Accurate I's and O's Heme: Normocytic anemia status post transfusion with PRBCs 11/19 Monitor CBC daily. Monitor trends. No indication for transfusion of blood products at this time. ID: Aspiration pneumonia with MSSA/Pseudomonas Severe sepsis Currently on linezolid 600 mg IV every 12 hours day #11/06 and piperacillin l/ tazobactam 3.375 g IV every 6 hours day #11/09 Pertinent cultures 11/19 -sputum -staph aureus/Pseudomonas 11/19 -UA -pending 11/18 -blood cultures 2 -no growth FEN: Hypernatremia Replace electrolytes as clinically indicated MSK: Osteoarthritis/rheumatoid arthritis Elevated BMI of 33 Leflunomide 10 mg daily held for RA. Holding scheduled prednisone 20 mg twice daily. PT evaluate and treat for range of motion Weight loss encouraged Access: Right subclavian CVL placed 11/18 Left axillary arterial line placed 11/18 - 11/24 Prophylaxis -GI -famotidine -DVT -SCD/enoxaparin Level 2 follow-up Alfonzo Leger MD November 24, 2017 08:49
[2017-11-24] MEDS: FAMOTIDINE 20 MG TAB NG SCH ×2 (08:53→20:37)
[2017-11-24] MEDS: DOCUSATE SODIUM 50 MG/SENNA 8.6 MG TAB PO SCH ×2 (08:53→20:38)
[2017-11-24] MEDS: SODIUM CHLORIDE 0.9% FLUSH 10 ML FLUSH IV FLUSH SCH ×2 (08:53→20:38)
[2017-11-24] MEDS ORDERED: POTASSIUM CHLORIDE 20 MEQ PWD PACKET PO ONE (09:00)
[2017-11-24] MEDS ORDERED: POTASSIUM CHLOR 10 MEQ PREMIX 100 ML IV SCH (09:00)
[2017-11-24] MEDS ORDERED: MAGNESIUM SULFATE 1 GM PREMIX 100 ML IV ONE (09:00)
[2017-11-24] MEDS ORDERED: FUROSEMIDE 40 MG/4 ML VIAL IV PUSH ONE (09:00)
--- NOTE | 2017-11-24 09:17 | HHI.NSPN ---
History Chief Complaint: ICH. Interval History 82-year-old -[place] female who was transferred from [facility] where she presented with neurologic changes. There is no family members and the patient cannot relate much of a history but apparently with CT scan head obtained she was found to have a right posterior temporal lobe cerebral hemorrhage. CT scan of the head reviewed from [facility] on arrival reveals a less than 2 cm right posterior temporal lobe hemorrhage without any significant mass-effect or midline shift. Overnight her exam is not changed although she had an EEG study done and was noted to have subclinical seizures and has been noted to be more lethargic since then and is awaiting fosphenytoin bolus. MRI scan of the brain is also pending along with neurology evaluation. It is unclear whether this cerebral hemorrhage is spontaneous versus traumatic. 11/03/17: Pt awake and alert. At times not cooperative with exam. She at times doesn't verbalize and others answers questions yes/no. She follows commands at times and other times does not. 11/04/17: Pt sedated for MRI and not opening eyes or following commands. 11/05/17: Pt awakens but still fatigued. She states her name when asked but not verbalizing much otherwise. She review analyst her right hand but not the left. She moves bilateral LEs to command. 11/06/17: Pt very fatigued again today. Not opening eyes. Not following commands. Pt resting in position. 11/07/17: Pt lethargic still. Not opening eyes or following commands. 11/09/17: Pt lethargic but more awake today than previous days as she actually opened her eyes and said some words. She underwent a right temporal craniotomy for hemorrhagic mass resection on 11/08/17. She is lethargic but opens her eyes. She answers some simple questions. She follows some simple commands. 11/10/17: Pt not as alert this morning as yesterday. Not opening eyes. Verbalizing some words but not able to understand. Spontaneously moves extremities. 11/11/17: Pt lethargic. Not opening eyes. Not following commands. Not verbalizing. Protecting airway currently. 11/15/17: Pt more awake today. Opens eyes and communicates appropriately. Denies headaches, nausea, paresthesias. 11/16/17: Pt awakens to voice but lethargic. She denies headaches, nausea, paresthesias. She denies chest pain or sob. 11/17/17: Pt more awake today. She denies headaches, nausea, chest pain or sob. 11/18/17: Pt sedated on Diprivan but opens eyes to voice. She nods her head to some questions and denies headache. She was intubated this morning. She is on a Phenylephrine drip. 11/19/17: Pt sedated on Diprivan. She is on 3 pressors Norepinephrine, Phenylephrine, Vasopressin. She is intubated. Pupils equal. 11/22/17: Pt opens eyes briefly to voice. She follows commands in all 4 extremities. She nods her head to some questions. Intubated. She is only on Norepinephrine. 11/23/17: Pt opens eyes to voice. Nods head to questions. Denies headaches or pain. Follows commands in all 4 extremities. Intubated on CPAP. 11/24/17: Pt opens eyes to voice although briefly. She nods her head to questions. Denies headache or pain. Review of Systems General: Negative for: fever, chills, insomnia Respiratory: Negative for: shortness of breath, cough, sputum Cardiovascular: Negative for: chest pain Gastrointestinal: Negative for: nausea, vomitting, diarrhea, constipation Exam Results Vital Signs Date Time Temp Pulse Resp B/P (MAP) Pulse Ox O2 Delivery O2 Flow Rate FiO2 11/24/17 08:03 30 11/24/17 08:03 100 11/24/17 08:00 98.0 102 25 119/89 (99) 11/24/17 07:00 Mechanical Ventilator Intake and Output 11/24/17 11/24/17 11/25/17 08:00 16:00 00:00 Intake Total 522 ml Output Total 525 ml Balance -3 ml Physical Examination General: Pt intubated on CPAP. She opens eyes to voice. Vitals stable, off pressors. Eyes: Pupils equal 3mm bilaterally reactive bilaterally. Sclera anicteric. Resp: Intubated. On CPAP. Mild expiratory wheezing. Heart: NSR no murmurs. Off Pressors. Abd: Soft positive bs. Skin: No cyanosis or erythema. SCDs in place. Right surgical wound healing well no signs of infection. Muscle: Following simple commands, She has edema in LEs but moves toes slightly. Cane Flume Chute Operator hands slightly. Neuro: Opening eyes to voice. Pupils 3mm bilaterally, reactive sluggishly bilaterally. Following simple commands. Nods head to questions denies headache or pain. Lab, Micro, Other Results Laboratory Tests Test 11/23/17 18:33 11/24/17 04:41 Potassium Level 3.4 MEQ/L 3.7 MEQ/L Phosphorus Level 2.8 MG/DL White Blood Count 10.6 TH/MM3 Red Blood Count 3.35 MIL/MM3 Hemoglobin 9.9 GM/DL Hematocrit 29.2 % Mean Corpuscular Volume 87.2 FL Mean Corpuscular Hemoglobin 29.5 PG Mean Corpuscular Hemoglobin Concent 33.9 % Red Cell Distribution Width 18.9 % Platelet Count 155 TH/MM3 Mean Platelet Volume 8.1 FL Neutrophils (%) (Auto) 81.7 % Lymphocytes (%) (Auto) 7.1 % Monocytes (%) (Auto) 8.7 % Eosinophils (%) (Auto) 2.3 % Basophils (%) (Auto) 0.2 % Neutrophils # (Auto) 8.7 TH/MM3 Lymphocytes # (Auto) 0.8 TH/MM3 Monocytes # (Auto) 0.9 TH/MM3 Eosinophils # (Auto) 0.2 TH/MM3 Basophils # (Auto) 0.0 TH/MM3 CBC Comment AUTO DIFF Differential Total Cells Counted 100 Neutrophils % (Manual) 38 % Band Neutrophils % 49 % Lymphocytes % 4 % Monocytes % 7 % Neutrophils # (Manual) 9.4 TH/MM3 Metamyelocytes 2 % Differential Comment FINAL DIFF MANUAL Toxic Granulation 2+ Platelet Estimate NORMAL Platelet Morphology Comment NORMAL Acanthocytes OCC Keratocytes Blood Urea Nitrogen 13 MG/DL Creatinine 0.47 MG/DL Random Glucose 131 MG/DL Total Protein 5.1 GM/DL Albumin 1.7 GM/DL Calcium Level 7.9 MG/DL Magnesium Level 1.9 MG/DL Alkaline Phosphatase 88 U/L Aspartate Amino Transf (AST/SGOT) 29 U/L Alanine Aminotransferase (ALT/SGPT) 50 U/L Total Bilirubin 0.4 MG/DL Sodium Level 146 MEQ/L Chloride Level 108 MEQ/L Carbon Dioxide Level 30.0 MEQ/L Anion Gap 8 MEQ/L Estimat Glomerular Filtration Rate 153 ML/MIN Valproic Acid (Depakene) Level 63 MCG/ML Medical Decision Making Impression and Plan A: 82-year-old lady with a right posterior temporal lobe cerebral hemorrhage without mass-effect or midline shift. Continue with observation along with seizure prophylaxis. MRI reveals likely underlying mass. No metastatic sites found on CT chest, abdomen, pelvis. s/p right temporal craniotomy for hemorrhagic mass resection on 11/08/17. Follow up CT head stable. Follow up CT head 11/18 stable. Path revealed infarction. Clinically pt improving. P: Continue with neuro checks Continue with Rehab efforts. Continue with DVT prophylaxis. Continue with GI prophylaxis. Continue with critical care. Deandre Cordoba November 24, 2017 9:17 am
[2017-11-24] MEDS ORDERED: POTASSIUM CHLORIDE INJ 30 MEQ in SODIUM CHLORIDE 0.9% INJ 100 ML IV-CENTRAL ONE (10:00)
--- NOTE | 2017-11-24 15:57 | HHI.HCPN ---
Reason for visit a. To assist with evaluation and management of symptoms including:dyspnea, anxiety b. To assist medical decision maker(s) with: better understanding of current medical conditions; weighing benefits/burdens of medical treatment options; making medical treatment decisions. Subjective/Interval History Patient remains intubated for dyspnea. Pt trying to open eyes on command but fatigued. Family/friend interactions Spoke with pt's daughter who is at bedside. updated her that medical extubation likely tomorrow. Advance Directives Living Will: Never completed Health Care Surrogate: Never completed Durable Power of Architecture Faculty Member: Never completed Objective Vital Signs Date Time Temp Pulse Resp B/P (MAP) Pulse Ox O2 Delivery O2 Flow Rate FiO2 11/24/17 15:47 100 30 11/24/17 14:00 102 11/24/17 12:00 30 11/24/17 12:00 98.0 96 24 113/74 (87) 96 11/24/17 12:00 98 11/24/17 11:40 96 30 11/24/17 10:00 107 11/24/17 08:03 30 11/24/17 08:03 100 30 11/24/17 08:00 98.0 102 25 119/89 (99) 100 11/24/17 08:00 99 11/24/17 08:00 30 11/24/17 07:00 100 Mechanical Ventilator 30 11/24/17 06:00 90 11/24/17 04:08 100 30 11/24/17 04:00 98.5 100 16 121/61 (81) 99 11/24/17 04:00 35 11/24/17 04:00 100 11/24/17 02:00 101 11/24/17 01:08 100 30 11/24/17 00:00 99 11/24/17 00:00 35 11/24/17 00:00 97.9 99 15 127/76 (93) 99 11/23/17 22:00 98 11/23/17 20:00 35 11/23/17 20:00 97.8 100 16 132/68 (89) 100 Arterial Line 11/23/17 20:00 100 Mechanical Ventilator 35 11/23/17 20:00 100 11/23/17 19:53 97 30 11/23/17 16:00 98.0 99 23 130/92 (105) 100 Intake & Output 11/24/17 11/24/17 06:59 18:59 Intake Total 672 ml 370 ml Output Total 525 ml 0 ml Balance 147 ml 370 ml IV Total 150 ml 370 ml Tube Feeding 402 ml Other 120 ml Output Urine Total 275 ml Stool Total 250 ml Tube Feeding Residual Discard 0 ml 0 ml Physical Exam CONSTITUTIONAL/GENERAL: This is an elderly female, appears to be fatigued, but comfortable TUBES/LINES/DRAINS: ET tube, SKIN: No jaundice, rashes, or lesions. Ecchymoses on upper extremities. No wounds seen anteriorly. Skin temperature appropriate. Not diaphoretic. HEAD: Normocephalic. EYES: Pupils equal and round and reactive. Extraocular motions intact. No scleral icterus. No injection or drainage. Fundi not examined. ENT: Nose without bleeding or purulent drainage. ET tube in place. Tongue somewhat large. NECK: Trachea midline. Supple, nontender. No palpable thyroid enlargement or nodularity. CARDIOVASCULAR: Regular rate and rhythm without murmurs, gallops, or rubs. No JVD. Peripheral pulses symmetric. RESPIRATORY/CHEST: Symmetric, unlabored respirations. decrease breath sound bilaterally. GASTROINTESTINAL: Abdomen soft, non-tender, nondistended. No hepato-splenomegaly , or palpable masses. No guarding. Bowel sounds present. GENITOURINARY: Without palpable bladder distension. Duong catheter in place. MUSCULOSKELETAL: Extremities without clubbing, cyanosis. There is edema on all 4 ext. LYMPHATICS: Not examine NEUROLOGICAL:Less responsive for me today, fatigued PSYCHIATRIC: frail, fatigued, could not examine.. Diagnostic Tests Laboratory Laboratory Tests Test 11/22/17 04:10 11/22/17 17:58 11/23/17 04:05 11/23/17 18:33 White Blood Count 28.0 TH/MM3 (4.0-11.0) 16.6 TH/MM3 (4.0-11.0) Red Blood Count 3.32 MIL/MM3 (4.00-5.30) 3.04 MIL/MM3 (4.00-5.30) Hemoglobin 9.6 GM/DL (11.6-15.3) 8.8 GM/DL (11.6-15.3) Hematocrit 28.6 % (35.0-46.0) 26.4 % (35.0-46.0) Mean Corpuscular Volume 86.4 FL (80.0-100.0) 86.9 FL (80.0-100.0) Mean Corpuscular Hemoglobin 29.1 PG (27.0-34.0) 28.9 PG (27.0-34.0) Mean Corpuscular Hemoglobin Concent 33.7 % (32.0-36.0) 33.2 % (32.0-36.0) Red Cell Distribution Width 18.4 % (11.6-17.2) 18.8 % (11.6-17.2) Platelet Count 203 TH/MM3 (150-450) 168 TH/MM3 (150-450) Mean Platelet Volume 7.1 FL (7.0-11.0) 7.5 FL (7.0-11.0) Neutrophils (%) (Auto) 94.6 % (16.0-70.0) 93.7 % (16.0-70.0) Lymphocytes (%) (Auto) 1.4 % (9.0-44.0) 2.2 % (9.0-44.0) Monocytes (%) (Auto) 3.8 % (0.0-8.0) 3.5 % (0.0-8.0) Eosinophils (%) (Auto) 0.0 % (0.0-4.0) 0.1 % (0.0-4.0) Basophils (%) (Auto) 0.2 % (0.0-2.0) 0.5 % (0.0-2.0) Neutrophils # (Auto) 26.5 TH/MM3 (1.8-7.7) 15.5 TH/MM3 (1.8-7.7) Lymphocytes # (Auto) 0.4 TH/MM3 (1.0-4.8) 0.4 TH/MM3 (1.0-4.8) Monocytes # (Auto) 1.0 TH/MM3 (0-0.9) 0.6 TH/MM3 (0-0.9) Eosinophils # (Auto) 0.0 TH/MM3 (0-0.4) 0.0 TH/MM3 (0-0.4) Basophils # (Auto) 0.1 TH/MM3 (0-0.2) 0.1 TH/MM3 (0-0.2) CBC Comment DIFF FINAL AUTO DIFF Differential Comment FINAL DIFF MANUAL Blood Urea Nitrogen 7 MG/DL (7-18) 9 MG/DL (7-18) Creatinine 0.48 MG/DL (0.50-1.00) 0.46 MG/DL (0.50-1.00) Random Glucose 146 MG/DL (74-106) 164 MG/DL (74-106) Total Protein 5.0 GM/DL (6.4-8.2) 4.6 GM/DL (6.4-8.2) Albumin 1.8 GM/DL (3.4-5.0) 1.7 GM/DL (3.4-5.0) Calcium Level 7.3 MG/DL (8.5-10.1) 7.6 MG/DL (8.5-10.1) Phosphorus Level 1.7 MG/DL (2.5-4.9) 2.0 MG/DL (2.5-4.9) 2.8 MG/DL (2.5-4.9) Magnesium Level 1.9 MG/DL (1.5-2.5) Alkaline Phosphatase 81 U/L (45-117) 73 U/L (45-117) Aspartate Amino Transf (AST/SGOT) 88 U/L (15-37) 47 U/L (15-37) Alanine Aminotransferase (ALT/SGPT) 80 U/L (10-53) 60 U/L (10-53) Total Bilirubin 0.5 MG/DL (0.2-1.0) 0.4 MG/DL (0.2-1.0) Sodium Level 143 MEQ/L (136-145) 145 MEQ/L (136-145) Potassium Level 3.0 MEQ/L (3.5-5.1) 4.0 MEQ/L (3.5-5.1) 3.5 MEQ/L (3.5-5.1) 3.4 MEQ/L (3.5-5.1) Chloride Level 107 MEQ/L (98-107) 109 MEQ/L (98-107) Carbon Dioxide Level 25.8 MEQ/L (21.0-32.0) 25.9 MEQ/L (21.0-32.0) Anion Gap 10 MEQ/L (5-15) 10 MEQ/L (5-15) Estimat Glomerular Filtration Rate 149 ML/MIN (>89) 157 ML/MIN (>89) Lactic Acid Level 3.0 mmol/L (0.4-2.0) Protein Corrected Calcium 8.5 MG/DL (8.5-10.1) Valproic Acid (Depakene) Level 85 MCG/ML (50-100) 66 MCG/ML (50-100) Differential Total Cells Counted 100 Neutrophils % (Manual) 47 % (16-70) Band Neutrophils % 47 % (0-6) Lymphocytes % 4 % (9-44) Monocytes % 2 % (0-8) Neutrophils # (Manual) 15.6 TH/MM3 (1.8-7.7) Platelet Estimate LOW (NORMAL) Platelet Morphology Comment NORMAL (NORMAL) Prothrombin Time 10.5 SEC (9.8-11.6) Prothromb Time International Ratio 1.0 RATIO Triglycerides Level 77 MG/DL (42-150) Cholesterol Level 136 MG/DL (120-200) LDL Cholesterol 84 MG/DL (0-99) HDL Cholesterol 36.5 MG/DL (40.0-60.0) Cholesterol/HDL Ratio 3.72 RATIO Test 11/24/17 04:41 White Blood Count 10.6 TH/MM3 (4.0-11.0) Red Blood Count 3.35 MIL/MM3 (4.00-5.30) Hemoglobin 9.9 GM/DL (11.6-15.3) Hematocrit 29.2 % (35.0-46.0) Mean Corpuscular Volume 87.2 FL (80.0-100.0) Mean Corpuscular Hemoglobin 29.5 PG (27.0-34.0) Mean Corpuscular Hemoglobin Concent 33.9 % (32.0-36.0) Red Cell Distribution Width 18.9 % (11.6-17.2) Platelet Count 155 TH/MM3 (150-450) Mean Platelet Volume 8.1 FL (7.0-11.0) Neutrophils (%) (Auto) 81.7 % (16.0-70.0) Lymphocytes (%) (Auto) 7.1 % (9.0-44.0) Monocytes (%) (Auto) 8.7 % (0.0-8.0) Eosinophils (%) (Auto) 2.3 % (0.0-4.0) Basophils (%) (Auto) 0.2 % (0.0-2.0) Neutrophils # (Auto) 8.7 TH/MM3 (1.8-7.7) Lymphocytes # (Auto) 0.8 TH/MM3 (1.0-4.8) Monocytes # (Auto) 0.9 TH/MM3 (0-0.9) Eosinophils # (Auto) 0.2 TH/MM3 (0-0.4) Basophils # (Auto) 0.0 TH/MM3 (0-0.2) CBC Comment AUTO DIFF Differential Total Cells Counted 100 Neutrophils % (Manual) 38 % (16-70) Band Neutrophils % 49 % (0-6) Lymphocytes % 4 % (9-44) Monocytes % 7 % (0-8) Neutrophils # (Manual) 9.4 TH/MM3 (1.8-7.7) Metamyelocytes 2 % (0-1) Differential Comment FINAL DIFF MANUAL Toxic Granulation 2+ (NORMAL) Platelet Estimate NORMAL (NORMAL) Platelet Morphology Comment NORMAL (NORMAL) Acanthocytes OCC (NORMAL) Keratocytes (NORMAL) Blood Urea Nitrogen 13 MG/DL (7-18) Creatinine 0.47 MG/DL (0.50-1.00) Random Glucose 131 MG/DL (74-106) Total Protein 5.1 GM/DL (6.4-8.2) Albumin 1.7 GM/DL (3.4-5.0) Calcium Level 7.9 MG/DL (8.5-10.1) Magnesium Level 1.9 MG/DL (1.5-2.5) Alkaline Phosphatase 88 U/L (45-117) Aspartate Amino Transf (AST/SGOT) 29 U/L (15-37) Alanine Aminotransferase (ALT/SGPT) 50 U/L (10-53) Total Bilirubin 0.4 MG/DL (0.2-1.0) Sodium Level 146 MEQ/L (136-145) Potassium Level 3.7 MEQ/L (3.5-5.1) Chloride Level 108 MEQ/L (98-107) Carbon Dioxide Level 30.0 MEQ/L (21.0-32.0) Anion Gap 8 MEQ/L (5-15) Estimat Glomerular Filtration Rate 153 ML/MIN (>89) Valproic Acid (Depakene) Level 63 MCG/ML (50-100) Result Diagram: 5/23/18 0441 11/24/17 0441 Imaging Last Impressions Chest X-Ray 11/24/17 0600 Signed Impressions: CONCLUSION: Liver Ultrasound 11/20/17 0000 Signed Impressions: Service Date/Time: Monday, November 20, 2017 10:23 - CONCLUSION: 1. Normal dimension common hepatic duct. 2. Hepatomegaly. There are 2 cysts in the left lobe measuring up to 2.9 cm. Aquilino Hsieh MD Head CT 11/20/17 0000 Signed Impressions: Service Date/Time: Monday, November 20, 2017 15:28 - CONCLUSION: 1. Evolving postsurgical features of right temporal craniotomy with minimal blood products in the surgical bed. Otherwise, no intercurrent hemorrhage or other acute abnormality. Cesar Mcneil MD CT Angiography 11/18/17 0000 Signed Impressions: Service Date/Time: November 12:05 - CONCLUSION: 1. Dense airspace consolidation bilaterally characteristic of pneumonia. 2. There is simple cyst in the liver with one area of rim-like calcification of the right lobe most likely benign, however not definitely characterized. 3. There is no evidence for PE for technique. K. Avelino Muro MD Lower Extremity Ultrasound 11/17/17 0000 Signed Impressions: Service Date/Time: Friday, November 17, 2017 17:52 - CONCLUSION: No DVT. Donovan Fleming MD Soft Tissue Neck X-Ray 11/11/17 0000 Signed Impressions: Service Date/Time: November 13:28 - CONCLUSION: 1. No acute findings. NG tube present. Axel Cheema MD Abdomen X-Ray 11/10/17 0000 Signed Impressions: Service Date/Time: Friday, November 10, 2017 14:00 - CONCLUSION: NG tube in the stomach Donovan Piña MD Brain MRI 11/04/17 0000 Signed Impressions: Service Date/Time: November 12:38 - CONCLUSION: Focal abnormality in the right posterior temporal lobe measuring up to 3.9 cm, as above. Examination will be used for intraoperative localization. Donovan Campbell MD Chest CT 11/02/17 0000 Signed Impressions: Service Date/Time: Thursday, November 02, 2017 21:35 - CONCLUSION: 1. Negative for metastatic disease to the thorax. No acute findings. Axel Cheema MD Abdomen/Pelvis CT 11/02/17 0000 Signed Impressions: Service Date/Time: Thursday, November 02, 2017 21:35 - CONCLUSION: 1. Negative for metastatic disease in the abdomen or pelvis. Multiple hepatic cysts. Numerous fibroids in the uterus. Mild colonic constipation and moderate rectal constipation. Axel Cheema MD Assessment and Plan Disease Oriented Problem List: (1) Seizure (2) ICH (intracerebral hemorrhage) (3) Brain mass (4) Respiratory failure (5) Pneumonia Symptom Scale: (1) Dyspnea 0-10 Scale: Unable to quantify (2) Anxiety 0-10 Scale: Unable to quantify Pertinent Non-Medical Issues Psychosocial: Spiritual:[place] Legal: Ethical issues impacting care: Important Contacts Tsering Vargas [phone] [place] Daughter Beto Hensley [phone] Son Prognosis Prognosis is guarded. She is 82 has right temperoal ischemic stroke, and condition has been complicated by respiratory failure, aspiration pneumonia, and sepsis. At risk of further decline and setback. Code Status: No Code Plan == capacity- mentation has fluctuated. Could some follow commands, but very fatigued, weak. I do not feel patient has capacity to make medical decisons at this time. == health care decision maker: pt is ( pass away from Alzheimer' s) Patient has 2 children a son in [place] and daughter in [place]. Son and daughter are the proxy. == symptoms: dyspnea- 2nd to aspiration pneumonia- intubated. no current med recommendation. anxiety- some grimacing noted, likely due to pt's decline, s/p hemoraghic cva. == goals of treatment. Goals of treatment as follow: = Medical extubate once stable; likely tomorrow =If however once she is extubated and she becomes unstable, no heroic efforts, no reintubation. She is a DNR = Medically treat short of resucitation. = Goals is take things one day at a time, to try to get patient back to [place]. = both daughter understand there remains challenges, should she decline again, family is open to comfort measures. == code status: DNR. Poncho Sue MD November 24, 2017 15:57
[2017-11-24] MEDS: ENOXAPARIN SODIUM 40 MG/0.4 ML SYRINGE SQ SCH (17:28)
[2017-11-25] VITALS (19 sets, daily range): BP systolic 100–152; BP diastolic 53–92; PULSE 68–119; RESP 14–22; TEMP 97.8–99.2; O2SAT 96–100
[2017-11-25] MEDS: VALPROATE INJ 500 MG in SODIUM CHLORIDE 0.9% INJ 100 ML IV SCH ×3 (01:13→17:49)
[2017-11-25] MEDS: INSULIN ASPART SUPPLEMENTAL SCALE SQ SCH ×6 (01:14→21:35)
[2017-11-25] MEDS: RESP: ALBUTEROL 2.5 MG/IPRATROPIUM 0.5 MG NEB (SCH) NEB ×5 (03:55→20:44)
[2017-11-25] MEDS: CHLORHEXIDINE GLUCONATE 2 % 1 PACK (2 CLOTHS) TOP SCH (04:00)
[2017-11-25 04:11] LABS: AUTOMATED NEUTROPHIL # 6.9 TH/MM3 (1.8-7.7); BASOPHIL % 0.2 % (0.0-2.0); EOSINOPHIL # 0.2 TH/MM3 (0-0.4); EOSINOPHIL % 2.5 % (0.0-4.0); HEMATOCRIT 27.2 % (35.0-46.0); LYMPH % 11.3 % (9.0-44.0); LYMPHOCYTE # 1.1 TH/MM3 (1.0-4.8); MEAN CELL VOLUME 88.4 FL (80.0-100.0); MEAN CORPUSCULAR HEMOGLOBIN 29.4 PG (27.0-34.0); MEAN CORPUSCULAR HGB CONC 33.2 % (32.0-36.0); MEAN PLATELET VOLUME 7.8 FL (7.0-11.0); MONOCYTE # 1.4 TH/MM3 (0-0.9); PLATELET COUNT 132 TH/MM3 (150-450); RED BLOOD COUNT 3.07 MIL/MM3 (4.00-5.30); RED CELL DISTRIBUTION WIDTH 19.3 % (11.6-17.2); WHITE BLOOD COUNT 9.7 TH/MM3 (4.0-11.0)
[2017-11-25 04:38] LABS: ALBUMIN 1.5 GM/DL (3.4-5.0); AST (GOT) 22 U/L (15-37); BLOOD UREA NITROGEN 16 MG/DL (7-18); CALCIUM 7.9 MG/DL (8.5-10.1); CHLORIDE 110 MEQ/L (98-107); CREATININE 0.47 MG/DL (0.50-1.00); GLOMERULAR FILTRATION RATE 153 ML/MIN (>89); GLUCOSE,RANDOM 172 MG/DL (74-106); MAGNESIUM 1.9 MG/DL (1.5-2.5); SODIUM (NA) 147 MEQ/L (136-145)
[2017-11-25] MEDS: HYDROCORTISONE SOD SUCCINATE 100 MG VIAL IV PUSH SCH ×2 (04:38→17:34)
[2017-11-25 04:39] LABS: ALT (GPT) 38 U/L (10-53); PHOSPHORUS 1.9 MG/DL (2.5-4.9)
[2017-11-25] MEDS: PIPERACIL-TAZO 3.375 GM PREMIX 50 ML IV SCH ×4 (04:39→21:36)
[2017-11-25] MEDS: SODIUM CHLORIDE 0.9% FLUSH 10 ML FLUSH IV FLUSH PRN (04:39)
[2017-11-25 04:41] LABS: ALKALINE PHOSPHATASE 78 U/L (45-117); TOTAL BILIRUBIN ADULT 0.3 MG/DL (0.2-1.0); TOTAL PROTEIN 4.6 GM/DL (6.4-8.2)
[2017-11-25] MEDS: ARTIFICIAL TEARS OPTH SOLN 15 ML BTL EACH EYE SCH ×3 (05:36→21:36)
[2017-11-25] MEDS: THYROID 30 MG TAB NG SCH (05:36)
[2017-11-25] MEDS: THYROID 60 MG TAB NG SCH (05:36)
--- NOTE | 2017-11-25 06:22 | RADRPT ---
EXAM DATE: 11/25/2017 6:15 AM EDT AGE/SEX: 82 years / Female INDICATIONS: Respiratory distress. CLINICAL DATA: This is the patient's subsequent encounter. Patient reports that signs and symptoms h ave been present for 3 weeks and indicates a pain score of Nonresponsive. MEDICAL/SURGICAL HISTORY: Chronic obstructive pulmonary disease. Hypertension. Diabetes melli tus type II. Thyroid disease. Cerebrovascular accident. Osteoporosis. Hypercholesterolemia. Sepsis. Craniotomy. COMPARISON: [facility] – [place], CHEST SINGLE AP, 11/24/2017. . FINDINGS: A single AP portable semierect view of the chest was obtained. The endotracheal tube remains in place with the tip approximately 5 cm above the carrol. The nasogastric tube remains in place. Hazy opacit y is again noted in both lungs greatest at the right base. Both costophrenic angles are blunted. The heart size is at the limits of normal. CONCLUSION: No significant change. Electronically signed by: Hany Booth MD 11/25/2017 6:20 AM EDT
[2017-11-25 07:49] LABS: BANDS 20 % (0-6); CORRECTED NUCLEATED RBC 1 /100 WBC (0-0); LYMPHOCYTES 14 % (9-44); METAMYELOCYTES 4 % (0-1); MONOCYTES 12 % (0-8); MYELOCYTES 4 % (0-0); NEUTROPHIL # MANUAL DIFF 7.2 TH/MM3 (1.8-7.7); NUCLEATED RED BLOOD CELL 1 (0-0); POLYS (SEG NEUTROPHILS) 43 % (16-70); PROMYELOCYTES 3 % (0-0)
[2017-11-25 07:50] LABS: TOXIC GRANULATION 1+ (NORMAL)
[2017-11-25 07:51] LABS: TOXIC VACUOLATION PRESENT (NONE SEEN)
[2017-11-25] MEDS: CHLORHEXIDINE 0.12% (ORAL KIT) 15 ML CUP MT SCH ×2 (08:00→21:36)
[2017-11-25] MEDS: RESP: BUDESONIDE 0.5 MG/2 ML NEB NEB SCH (08:08)
[2017-11-25] MEDS: SODIUM CHLORIDE 0.9% FLUSH 10 ML FLUSH IV FLUSH SCH ×2 (08:44→21:35)
[2017-11-25] MEDS: DOCUSATE SODIUM 50 MG/SENNA 8.6 MG TAB PO SCH ×2 (08:44→21:00)
[2017-11-25] MEDS: FAMOTIDINE 20 MG TAB NG SCH ×2 (08:45→21:45)
[2017-11-25] MEDS ORDERED: POTASSIUM PHOSPHATE INJ 30 MMOL in SODIUM CHLOR 0.9% 250 ML INJ 250 ML IV ONE (09:00)
[2017-11-25] MEDS ORDERED: POTASSIUM CHLORIDE 20 MEQ PWD PACKET PO ONE (09:00)
[2017-11-25] MEDS ORDERED: MAGNESIUM SULFATE 1 GM PREMIX 100 ML IV ONE (09:00)
--- NOTE | 2017-11-25 09:02 | HHI.CCPN ---
Subjective Remarks/Hospital Course 82-year-old AA female with past medical history significant for COPD, diabetes mellitus, dyslipidemia, hypertension, osteoporosis, thyroid disorder presented to [facility] due to altered mental status, found by the patient's caregiver. 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 for higher level of care. The patient is nonverbal and information is obtained from medical chart review. 11/02: more somnolent than on admission. EEG ordered and to my read appears to have significant ictal activity. loaded with fosphenytoin and neurology consult ordered. also, given size and location of the bleed, have ordered an MRI to better evaluate the area. 11/03: Awake and alert. Following commands. 11/18: Critical care reconsulted by Dr. Figueroa for worsening shortness of breath overnight. This morning patient was noted to be on a nonrebreather facemask with respiratory rate in the 30s using accessory muscles of respiration. Rapid response team was activated and patient was transferred to the ICU. I evaluated the patient immediately following her arrival to the ICU. She was in significant respiratory distress and I proceeded with emergent intubation and patient was placed on mechanical ventilation. Borderline blood pressures following intubation for which 1 L normal saline bolus ordered. I emergently placed a central line as well. Patient underwent a CT chest which was negative for PE however showed bilateral dense consolidations with concern regarding aspiration. Stat labs were ordered and patient was initiated on IV Zosyn for empiric antibiotic coverage. 11/19: Sedated, orally intubated on mechanical ventilation. On Levophed 9 mics per minute, Srinivasan-Synephrine 50 mics per minute, vasopressin 0.04 U/min. Received 6+ L in the last 24 hours. Has had some diarrhea. Hypothermic this morning. Chest x-ray shows multilobar pneumonia. Remains in septic shock. 11/20: PSV trial lasted 15 minutes today. Case became acutely tachypneic and placed back on PRVC ventilation. Remains on vasopressin 0.04 units /min and norepinephrine drip at 1 mcg/min. Positive BM. 1200 cc urine output. Normothermic this a.m. 11/21: Sitting in bed in no acute distress. CT brain yesterday revealed post right temporal craniotomy changes with no new bleeding. Remains on norepinephrine drip at 2 mcg/min. Tolerating tube feeds at goal. On CPAP trial 20/5 and 40%. Tongue is swollen today 11/22: Resting in bed on ventilator. Tolerated CPAP well yesterday greater than 6 hours. Tongue less swollen today. Follows commands intermittently and will grasp bilateral upper extremities spontaneously. Tolerating tube feeding 11/23: Tolerated PSV trial 12 hours yesterday. Currently 8/5 at 35%. Her tongue is much less swollen today. Will diuresis overnight again with possible extubation a.m. 11/24. CODE STATUS to be addressed by family today. 11/24: Pathology returned revealing brain infarction. Tongue was swollen today. Tolerating CPAP 8/5 and 30%. Switched to DNR status. Possible extubation either today or tomorrow. Tolerating tube feeding. Subjective: 11/25: Arousable on the ventilator. Will attempt extubation 11/25 once family arrives and passes parameters. More arousable and follows commands. Less edematous. Will give 1 additional dose of furosemide today. Positive BM. Tolerating tube feeds which are currently on hold.. Objective Vital Signs Date Time Temp Pulse Resp B/P (MAP) Pulse Ox O2 Delivery O2 Flow Rate FiO2 11/25/17 08:16 30 11/25/17 08:15 100 11/25/17 07:00 Mechanical Ventilator 11/25/17 06:00 82 11/25/17 04:00 99.2 17 109/53 (71) Intake and Output 11/25/17 11/25/17 11/26/17 08:00 16:00 00:00 Intake Total 763 ml Output Total 400 ml Balance 363 ml Result Diagram: 11/25/17 0348 11/25/17 0348 Other Results Microbiology Date/Time Source Procedure Growth Status 11/18/17 18:29 Blood Peripheral Aerobic Blood Culture - Final NO GROWTH IN 5 DAYS Complete 11/18/17 18:29 Blood Peripheral Anaerobic Blood Culture - Final NO GROWTH IN 5 DAYS Complete 11/18/17 22:15 Stool Stool Stool Pus (GUMARO) - Final RARE WBC Complete 11/19/17 11:04 Sputum Endotracheal Gram Stain - Final Complete 11/19/17 11:04 Sputum Culture - Final Staphylococcus Aureus Pseudomonas Aeruginosa Complete 11/19/17 11:04 Urine Catheterized Urine Urine Culture - Final NO GROWTH IN 48 HOURS. Complete Imaging Last Impressions Chest X-Ray 11/25/17 0600 Signed Impressions: CONCLUSION: No significant change. Liver Ultrasound 11/20/17 0000 Signed Impressions: Service Date/Time: Monday, November 20, 2017 10:23 - CONCLUSION: 1. Normal dimension common hepatic duct. 2. Hepatomegaly. There are 2 cysts in the left lobe measuring up to 2.9 cm. Aquilino Hsieh MD Head CT 11/20/17 0000 Signed Impressions: Service Date/Time: Monday, November 20, 2017 15:28 - CONCLUSION: 1. Evolving postsurgical features of right temporal craniotomy with minimal blood products in the surgical bed. Otherwise, no intercurrent hemorrhage or other acute abnormality. Cesar Mcneil MD CT Angiography 11/18/17 0000 Signed Impressions: Service Date/Time: November 12:05 - CONCLUSION: 1. Dense airspace consolidation bilaterally characteristic of pneumonia. 2. There is simple cyst in the liver with one area of rim-like calcification of the right lobe most likely benign, however not definitely characterized. 3. There is no evidence for PE for technique. K. Avelino Muro MD Lower Extremity Ultrasound 11/17/17 0000 Signed Impressions: Service Date/Time: Friday, November 17, 2017 17:52 - CONCLUSION: No DVT. Donovan Fleming MD Soft Tissue Neck X-Ray 11/11/17 0000 Signed Impressions: Service Date/Time: November 13:28 - CONCLUSION: 1. No acute findings. NG tube present. Axel Cheema MD Abdomen X-Ray 11/10/17 0000 Signed Impressions: Service Date/Time: Friday, November 10, 2017 14:00 - CONCLUSION: NG tube in the stomach Donovan Piña MD Brain MRI 11/04/17 0000 Signed Impressions: Service Date/Time: November 12:38 - CONCLUSION: Focal abnormality in the right posterior temporal lobe measuring up to 3.9 cm, as above. Examination will be used for intraoperative localization. Donovan Campbell MD Chest CT 11/02/17 0000 Signed Impressions: Service Date/Time: Thursday, November 02, 2017 21:35 - CONCLUSION: 1. Negative for metastatic disease to the thorax. No acute findings. Axel Cheema MD Abdomen/Pelvis CT 11/02/17 0000 Signed Impressions: Service Date/Time: Thursday, November 02, 2017 21:35 - CONCLUSION: 1. Negative for metastatic disease in the abdomen or pelvis. Multiple hepatic cysts. Numerous fibroids in the uterus. Mild colonic constipation and moderate rectal constipation. Axel Cheema MD Procedures Right temporal craniotomy for hemorrhagic mass resection; BrainLab stereotactic intraoperative navigation; microsurgical technique, left subclavian central line placement, right subclavian central line and left axillary arterial line Objective Remarks GENERAL: 82 yo AA female currently resting in bed orotracheally intubated SKIN: Warm and dry. HEAD: Well-healed ashlie of her right temporal craniotomy site. EYES: Pupils equal and round about 2 mm bilaterally reactive to 1. No scleral icterus. No injection or drainage. ENT: No nasal bleeding or discharge. Mucous membranes pink and moist. Tongue is quite edematous. No signs of trauma NECK: Trachea midline. No JVD. CARDIOVASCULAR: Tachycardic, RR. S1, S2. No S4. Without murmur RESPIRATORY: Coarse rhonchorous breath sounds are appreciated anteriorly and posteriorly. Symmetrical excursion. GASTROINTESTINAL: Abdomen soft, non-tender, nondistended. Hypoactive bowel sounds are appreciated MUSCULOSKELETAL: Extremities 1+ bilateral upper and lower extremity edema. No obvious deformities. NEUROLOGICAL: Positive gag. Patient does have a cough. Yawns. Localizes bilateral upper lower extremities. Very poor examination Urinary Catheter: Yes Assessment to: Continue Duong insert reason: Prolonged Immobilization Vascular Central Line Catheter: Yes Assessment to: Continue Date of Insertion: November 18, 2017 Line: Central Venous Catheter Side: Right Location: Subclavian A/P Assessment and Plan Neuro/Psych: Right parietal intraparenchymal hemorrhage status post craniotomy for hemorrhagic left temporal mass with pathology still pending Subclinical status epilepticus Currently off all sedation with opens eyes to voice and follows commands upper extremities intermittently CT brain 11/20 revealed status post left temporal craniotomy changes. No acute bleeding. 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 Peterson - pathology revealed acute to subacute infarction neurochecks On divalproex 500 mg IV every 8 hours. Level 63 this a.m. management per neurology EEG 11/17 revealed no l epileptiform activity y. Moderate slowing right-sided. Last positive EEG for sharps in the right hemisphere is 11/05. Acetaminophen 650 mg by tube every 6 hours as needed fever CV: Severe septic shock History of essential hypertension on hydrochlorothiazide Currently off norepinephrine drip since 11/24 Holding home medication hydrochlorothiazide Stress dose hydrocortisone 50 mg every 12 hours.. Taper off over the next 3-4 days on chronic prednisone 20 mg twice daily at home Serial lactates until cleared Resp: Acute respiratory failure secondary to aspiration pneumonia Severe COPD [facility] /07/09/29 Ventilator bundle Albuterol/ipratropium aerosols every 4 hours with albuterol aerosols every 2 hours as needed dyspnea Budesonide 0.5/2 1 inhalation twice daily. Spontaneous breathing trials as clinically indicated. Lasted 15 minutes today On budesonide/formoterol and tiotropium at home Follow-up x-ray in a.m. 11/26 GI: Hypoalbuminemia Elevated transaminases likely secondary to shock liver Diarrhea Liver cysts With potential extubation holding tube feedings with vital 1.5 goal 45 cc an hour per nutrition's recommendations Famotidine for GI prophylaxis Docusate sodium/senna 1 tablet twice daily for bowel regimen Liver ultrasound 11/20 revealed 2 hepatic cysts previous 2.9 cm in size. No's signs of common bile duct obstruction. : Duong catheter for accurate I's and O's in a critically ill patient Endo: Hypothyroidism with elevated TSH greater than 11 Diabetes mellitus Sliding scale insulin low regimen of NovoLog with Accu-Cheks every 6 hours to maintain euglycemia Currently on [place] Thyroid 90 mg daily. Current medications 120 mg daily of desiccated thyroid. TSH about 11 this admission Renal: Monitor urine output Accurate I's and O's Heme: Normocytic anemia status post transfusion with PRBCs 11/19 Thrombocytopenia Monitor CBC daily. Monitor trends. No indication for transfusion of blood products at this time. ID: Aspiration pneumonia with MSSA/Pseudomonas Severe sepsis Currently on linezolid 600 mg IV every 12 hours day #11/06 and piperacillin l/ tazobactam 3.375 g IV every 6 hours day #11/09 Pertinent cultures 11/19 -sputum -staph aureus/Pseudomonas 11/19 -UA -pending 11/18 -blood cultures 2 -no growth FEN: Hypernatremia Replace electrolytes as clinically indicated MSK: Osteoarthritis/rheumatoid arthritis Elevated BMI of 33 Leflunomide 10 mg daily held for RA. Holding scheduled prednisone 20 mg twice daily. PT evaluate and treat for range of motion Weight loss encouraged Access: Right subclavian CVL placed 11/18 Left axillary arterial line placed 11/18 - 11/24 Prophylaxis -GI -famotidine -DVT -SCD/enoxaparin Level 2 follow-up We will attempt extubation today passes parameters. Alfonzo Leger MD November 25, 2017 09:02
[2017-11-25] MEDS ORDERED: CHLOROTHIAZIDE SOD 500 MG VIAL IV ONE (10:00)
[2017-11-25] MEDS: RESP: RACEPINEPHRINE 2.25% 0.5 ML NEB NEB PRN ×2 (13:45→17:34)
[2017-11-25] MEDS: ENOXAPARIN SODIUM 40 MG/0.4 ML SYRINGE SQ SCH (17:34)
[2017-11-26] VITALS (12 sets, daily range): BP systolic 121–160; BP diastolic 59–86; PULSE 99–114; RESP 17–25; TEMP 97.2–98.9; O2SAT 96–100
[2017-11-26] MEDS: RESP: ALBUTEROL 2.5 MG/IPRATROPIUM 0.5 MG NEB (SCH) NEB ×6 (00:23→20:15)
[2017-11-26] MEDS: INSULIN ASPART SUPPLEMENTAL SCALE SQ SCH ×3 (00:37→07:44)
[2017-11-26] MEDS: VALPROATE INJ 500 MG in SODIUM CHLORIDE 0.9% INJ 100 ML IV SCH ×3 (00:37→16:41)
[2017-11-26] MEDS: CHLORHEXIDINE GLUCONATE 2 % 1 PACK (2 CLOTHS) TOP SCH (04:00)
[2017-11-26] MEDS: RESP: RACEPINEPHRINE 2.25% 0.5 ML NEB NEB PRN (04:19)
[2017-11-26] MEDS: PIPERACIL-TAZO 3.375 GM PREMIX 50 ML IV SCH (04:45)
[2017-11-26] MEDS: HYDROCORTISONE SOD SUCCINATE 100 MG VIAL IV PUSH SCH ×2 (04:45→16:41)
--- NOTE | 2017-11-26 04:52 | RADRPT ---
EXAM DATE: 11/26/2017 4:41 AM EDT AGE/SEX: 82 years / Female INDICATIONS: Respiratory failure. CLINICAL DATA: This is the patient's subsequent encounter. Patient reports that signs and symptoms h ave been present for 3 weeks and indicates a pain score of Nonresponsive. MEDICAL/SURGICAL HISTORY: . Chronic obstructive pulmonary disease. Hypertension. Diabetes bea itus type II. Thyroid disease. Cerebrovascular accident. Osteoporosis. Hypercholesterolemia. Sepsis . Craniotomy. COMPARISON: [facility] [place]ST SING[place] AP, 11/25/2017. . FINDINGS: There is a right subclavian line in place. The heart size is normal. There is increased density at th e left upper lung and at the bases bilaterally. There is silhouetting of the left hemidiaphragm. Some degree of effusions needs be considered bilaterally. CONCLUSION: Bibasilar and left upper lung areas of consolidation or atelectasis. Some increased density at the ba ses could be related to effusions especially on the left. Electronically signed by: Donovan Fleming MD 11/26/2017 4:51 AM EDT
[2017-11-26 05:08] LABS: HEMATOCRIT 28.3 % (35.0-46.0); HEMOGLOBIN 9.2 GM/DL (11.6-15.3); MEAN CELL VOLUME 89.4 FL (80.0-100.0); MEAN CORPUSCULAR HEMOGLOBIN 28.9 PG (27.0-34.0); MEAN CORPUSCULAR HGB CONC 32.4 % (32.0-36.0); MEAN PLATELET VOLUME 7.7 FL (7.0-11.0); PLATELET COUNT 122 TH/MM3 (150-450); RED BLOOD COUNT 3.16 MIL/MM3 (4.00-5.30); RED CELL DISTRIBUTION WIDTH 19.4 % (11.6-17.2); WHITE BLOOD COUNT 11.2 TH/MM3 (4.0-11.0)
[2017-11-26 05:17] LABS: BICARBONATE 31.5 MEQ/L (21.0-32.0); CREATININE 0.41 MG/DL (0.50-1.00); MAGNESIUM 2.1 MG/DL (1.5-2.5); PHOSPHORUS 2.9 MG/DL (2.5-4.9)
[2017-11-26] MEDS: THYROID 30 MG TAB NG SCH (05:31)
[2017-11-26] MEDS: THYROID 60 MG TAB NG SCH (05:31)
[2017-11-26] MEDS: ARTIFICIAL TEARS OPTH SOLN 15 ML BTL EACH EYE SCH ×3 (05:31→20:22)
[2017-11-26] MEDS: POTASSIUM CHLOR 20 MEQ PREMIX 100 ML IV PRN ×2 (05:31→07:43)
[2017-11-26] MEDS: CHLORHEXIDINE 0.12% (ORAL KIT) 15 ML CUP MT SCH ×2 (07:44→20:00)
[2017-11-26] MEDS: RESP: BUDESONIDE 0.5 MG/2 ML NEB NEB SCH ×2 (08:04→20:15)
[2017-11-26] MEDS: SODIUM CHLORIDE 0.9% FLUSH 10 ML FLUSH IV FLUSH SCH ×2 (09:00→20:22)
[2017-11-26] MEDS: DOCUSATE SODIUM 50 MG/SENNA 8.6 MG TAB PO SCH ×2 (09:00→20:22)
--- NOTE | 2017-11-26 09:17 | HHI.CCPN ---
Subjective Remarks/Hospital Course 82-year-old AA female with past medical history significant for COPD, diabetes mellitus, dyslipidemia, hypertension, osteoporosis, thyroid disorder presented to [facility] due to altered mental status, found by the patient's caregiver. 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 The patient is nonverbal and information is obtained from medical chart review. 11/02: more somnolent than on admission. EEG ordered and to my read appears to have significant ictal activity. loaded with fosphenytoin and neurology consult ordered. also, given size and location of the bleed, have ordered an MRI to better evaluate the area. 11/03: Awake and alert. Following commands. 11/18: Critical care reconsulted by Dr. Figueroa for worsening shortness of breath overnight. This morning patient was noted to be on a nonrebreather facemask with respiratory rate in the 30s using accessory muscles of respiration. Rapid response team was activated and patient was transferred to the ICU. I evaluated the patient immediately following her arrival to the ICU. She was in significant respiratory distress and I proceeded with emergent intubation and patient was placed on mechanical ventilation. Borderline blood pressures following intubation for which 1 L normal saline bolus ordered. I emergently placed a central line as well. Patient underwent a CT chest which was negative for PE however showed bilateral dense consolidations with concern regarding aspiration. Stat labs were ordered and patient was initiated on IV Zosyn for empiric antibiotic coverage. 11/19: Sedated, orally intubated on mechanical ventilation. On Levophed 9 mics per minute, Srinivasan-Synephrine 50 mics per minute, vasopressin 0.04 U/min. Received 6+ L in the last 24 hours. Has had some diarrhea. Hypothermic this morning. Chest x-ray shows multilobar pneumonia. Remains in septic shock. 11/20: PSV trial lasted 15 minutes today. Case became acutely tachypneic and placed back on PRVC ventilation. Remains on vasopressin 0.04 units /min and norepinephrine drip at 1 mcg/min. Positive BM. 1200 cc urine output. Normothermic this a.m. 11/21: Sitting in bed in no acute distress. CT brain yesterday revealed post right temporal craniotomy changes with no new bleeding. Remains on norepinephrine drip at 2 mcg/min. Tolerating tube feeds at goal. On CPAP trial 20/5 and 40%. Tongue is swollen today 11/22: Resting in bed on ventilator. Tolerated CPAP well yesterday greater than 6 hours. Tongue less swollen today. Follows commands intermittently and will grasp bilateral upper extremities spontaneously. Tolerating tube feeding 11/23: Tolerated PSV trial 12 hours yesterday. Currently 8/5 at 35%. Her tongue is much less swollen today. Will diuresis overnight again with possible extubation a.m. 11/24. CODE STATUS to be addressed by family today. 11/24: Pathology returned revealing brain infarction. Tongue was swollen today. Tolerating CPAP 8/5 and 30%. Switched to DNR status. Possible extubation either today or tomorrow. Tolerating tube feeding. Subjective: 11/25: Arousable on the ventilator. Will attempt extubation 11/25 once family arrives and passes parameters. More arousable and follows commands. Less edematous. Will give 1 additional dose of furosemide today. Positive BM. Tolerating tube feeds which are currently on hold. 11/26: Breathing is slightly labored now maintaining oxygen saturation. Bilateral wheezing on exam. Overall edematous. Chest x-ray shows basilar infiltrates and some effusion. Continue breathing treatments, start Lasix 40 mg daily. Objective Vital Signs Date Time Temp Pulse Resp B/P (MAP) Pulse Ox O2 Delivery O2 Flow Rate FiO2 11/26/17 08:03 99 Nasal Cannula 2.00 11/26/17 06:00 99 11/26/17 04:00 97.8 17 121/69 (86) 11/25/17 12:00 30 Intake and Output 11/26/17 11/26/17 11/27/17 08:00 16:00 00:00 Intake Total 661 ml Output Total 650 ml Balance 11 ml Result Diagram: 11/26/17 0424 11/26/17 0424 Imaging Last Impressions Chest X-Ray 11/25/17 0600 Signed Impressions: CONCLUSION: No significant change. Liver Ultrasound 11/20/17 0000 Signed Impressions: Service Date/Time: Monday, November 20, 2017 10:23 - CONCLUSION: 1. Normal dimension common hepatic duct. 2. Hepatomegaly. There are 2 cysts in the left lobe measuring up to 2.9 cm. Aquilino Hsieh MD Head CT 11/20/17 0000 Signed Impressions: Service Date/Time: Monday, November 20, 2017 15:28 - CONCLUSION: 1. Evolving postsurgical features of right temporal craniotomy with minimal blood products in the surgical bed. Otherwise, no intercurrent hemorrhage or other acute abnormality. Cesar Mcneil MD CT Angiography 11/18/17 0000 Signed Impressions: Service Date/Time: November 12:05 - CONCLUSION: 1. Dense airspace consolidation bilaterally characteristic of pneumonia. 2. There is simple cyst in the liver with one area of rim-like calcification of the right lobe most likely benign, however not definitely characterized. 3. There is no evidence for PE for technique. K. Avelino Muro MD Lower Extremity Ultrasound 11/17/17 0000 Signed Impressions: Service Date/Time: Friday, November 17, 2017 17:52 - CONCLUSION: No DVT. Donovan Fleming MD Soft Tissue Neck X-Ray 11/11/17 0000 Signed Impressions: Service Date/Time: November 13:28 - CONCLUSION: 1. No acute findings. NG tube present. Axel Cheema MD Abdomen X-Ray 11/10/17 0000 Signed Impressions: Service Date/Time: Friday, November 10, 2017 14:00 - CONCLUSION: NG tube in the stomach Donovan Piña MD Brain MRI 11/04/17 0000 Signed Impressions: Service Date/Time: November 12:38 - CONCLUSION: Focal abnormality in the right posterior temporal lobe measuring up to 3.9 cm, as above. Examination will be used for intraoperative localization. Donovan Campbell MD Chest CT 11/02/17 0000 Signed Impressions: Service Date/Time: Thursday, November 02, 2017 21:35 - CONCLUSION: 1. Negative for metastatic disease to the thorax. No acute findings. Axel Cheema MD Abdomen/Pelvis CT 11/02/17 0000 Signed Impressions: Service Date/Time: Thursday, November 02, 2017 21:35 - CONCLUSION: 1. Negative for metastatic disease in the abdomen or pelvis. Multiple hepatic cysts. Numerous fibroids in the uterus. Mild colonic constipation and moderate rectal constipation. Axel Cheema MD Procedures Right temporal craniotomy for hemorrhagic mass resection; BrainLab stereotactic intraoperative navigation; microsurgical technique, left subclavian central line placement, right subclavian central line and left axillary arterial line Objective Remarks GENERAL: 82 yo AA female currently resting in bed eyes are closed SKIN: Warm and dry. HEAD: Well-healed ashlie of her right temporal craniotomy site. EYES: Pupils equal and round about 2 mm bilaterally reactive to 1. No scleral icterus. No injection or drainage. ENT: No nasal bleeding or discharge. Mucous membranes pink and moist. Tongue is edematous. No signs of trauma NECK: Trachea midline. No JVD. CARDIOVASCULAR: Tachycardic, RR. S1, S2. No S4. Without murmur RESPIRATORY: Bilateral expiratory wheezing. Air entry diminished at the bases. Symmetrical excursion. GASTROINTESTINAL: Abdomen soft, non-tender, nondistended. Hypoactive bowel sounds are appreciated MUSCULOSKELETAL: Extremities 1+ bilateral upper and lower extremity edema. No obvious deformities. NEUROLOGICAL: No spontaneous eye opening. Localizes bilateral upper lower extremities. Neuro exam remains poor Date of Insertion: November 18, 2017 Line: Central Venous Catheter Side: Right Location: Subclavian A/P Assessment and Plan Neuro/Psych: Right parietal intraparenchymal hemorrhage status post craniotomy for hemorrhagic left temporal mass with pathology still pending Subclinical status epilepticus Off all sedation lethargic and not following commands CT brain 11/20 revealed status post left temporal craniotomy changes. No acute bleeding. -Status post craniotomy 11/08 for 3.7 cm hemorrhagic brain mass right posterior temporal region, followed by neurosurgery Dr. Peterson -pathology revealed acute to subacute infarction On divalproex 500 mg IV every 8 hours. Management per neurology EEG 11/17 revealed no epileptiform activity. Moderate slowing right-sided. Last positive EEG for sharps in the right hemisphere is 11/05. Acetaminophen 650 mg by tube every 6 hours as needed fever CV: Septic shock resolved History of essential hypertension on hydrochlorothiazide Off norepinephrine drip since 11/24 Holding home medication hydrochlorothiazide Stress dose hydrocortisone 50 mg every 12 hours.. Taper off over the next 3-4 days to home prednisone on chronic prednisone 20 mg twice daily at home Anasarca present. Start IV Lasix 40 mg daily 11/26/2017 Resp: Acute respiratory failure secondary to aspiration pneumonia Severe COPD O2 by IN Albuterol/ipratropium aerosols every 4 hours with albuterol aerosols every 2 hours as needed dyspnea Budesonide 0.5/2 1 inhalation twice daily. On budesonide/formoterol and tiotropium at home Follow-up x-ray in a.m. 11/26 showing bibasilar infiltrates and small effusion GI: Hypoalbuminemia Elevated transaminases likely secondary to shock liver Diarrhea Liver cysts Speech therapy consult for swallow eval Famotidine for GI prophylaxis Docusate sodium/senna 1 tablet twice daily for bowel regimen Liver ultrasound 11/20 revealed 2 hepatic cysts previous 2.9 cm in size. No's signs of common bile duct obstruction. : Duong catheter for accurate I's and O's in a critically ill patient Endo: Hypothyroidism with elevated TSH greater than 11 Diabetes mellitus Sliding scale insulin low regimen of NovoLog with Accu-Cheks every 6 hours to maintain euglycemia Currently on [place] Thyroid 90 mg daily. Current medications 120 mg daily of desiccated thyroid. TSH about 11 this admission Renal: Monitor urine output Accurate I's and O's Heme: Normocytic anemia status post transfusion with PRBCs 11/19 Thrombocytopenia Monitor CBC daily. Monitor trends. No indication for transfusion of blood products at this time. ID: Aspiration pneumonia with MSSA/Pseudomonas Severe sepsis Currently on piperacillin l/tazobactam 3.375 g IV every 6 hours day #12/11 Zyvox DCd Pertinent cultures 11/19 -sputum -staph aureus/Pseudomonas 11/19 -UA -NGTD 11/18 -blood cultures 2 -no growth FEN: Hypernatremia Hypokalemia Replace electrolytes as clinically indicated MSK: Osteoarthritis/rheumatoid arthritis Leflunomide 10 mg daily held for RA. Holding scheduled prednisone 20 mg twice daily-currently on hydrocortisone PT evaluate and treat for range of motion Access: Right subclavian CVL placed 11/18 Left axillary arterial line 11/18 - 11/24 Prophylaxis -GI -famotidine -DVT -SCD/enoxaparin Level 2 follow-up Extubated yesterday currently with some respiratory deterioration. Due to altered mental status not a good candidate for BiPAP. If continues to deteriorate I would recommend comfort measures, as the patient is a DNR Caio Man MD November 26, 2017 09:17
[2017-11-26] MEDS: FAMOTIDINE 20 MG TAB NG SCH ×2 (10:00→20:22)
[2017-11-26] MEDS: FUROSEMIDE 40 MG/4 ML VIAL IV PUSH SCH (10:06)
--- NOTE | 2017-11-26 12:09 | HHI.HCPN ---
Reason for visit a. To assist with evaluation and management of symptoms including:dyspnea, anxiety b. To assist medical decision maker(s) with: better understanding of current medical conditions; weighing benefits/burdens of medical treatment options; making medical treatment decisions. Subjective/Interval History Patient extubated. Pt trying to open eyes on command but fatigued, mentation has not improved. Chest X ray today shows increase density at the bases. bibasilar and left upper lung areas of consolidation. It is reported that pt breathing is slightly labored. Senior Sous Chef noted that due to her mental status pt is not a good candidate for Bipap. Family/friend interactions Spoke with Tsering, pt's daughter. Updated her on clinical condition. Review imaging. She is amenable to hospice consultation. I called pt's son Mago, left a voicemail. Advance Directives Living Will: Never completed Health Care Surrogate: Never completed Durable Power of Foam Rubber Molder: Never completed Objective Vital Signs Date Time Temp Pulse Resp B/P (MAP) Pulse Ox O2 Delivery O2 Flow Rate FiO2 11/26/17 10:00 104 11/26/17 08:03 99 Nasal Cannula 2.00 11/26/17 08:00 97.5 100 24 135/86 (102) 100 11/26/17 08:00 109 11/26/17 07:00 100 Nasal Cannula 3.00 11/26/17 06:00 99 11/26/17 04:00 97.8 106 17 121/69 (86) 98 11/26/17 04:00 106 11/26/17 02:00 108 11/26/17 00:00 98.9 104 22 121/69 (86) 98 11/26/17 00:00 104 11/25/17 22:00 110 11/25/17 20:44 96 Nasal Cannula 2.00 11/25/17 20:00 96 Nasal Cannula 4.00 11/25/17 20:00 108 11/25/17 20:00 98.6 108 19 152/92 (112) 96 11/25/17 18:00 119 11/25/17 16:00 110 11/25/17 16:00 98.4 106 22 123/71 (88) 96 11/25/17 14:00 103 11/25/17 13:47 97 Nasal Cannula 2.00 11/25/17 13:40 97 Nasal Cannula 2 11/25/17 12:00 97.8 95 17 100/62 (75) 99 11/25/17 12:00 81 11/25/17 12:00 30 Intake & Output 11/26/17 11/26/17 07:00 19:00 Intake Total 563 ml 196 ml Output Total 650 ml Balance -87 ml 196 ml IV Total 155 ml 196 ml Tube Feeding 408 ml Output Urine Total 500 ml Stool Total 150 ml Tube Feeding Residual Discard 0 ml Physical Exam CONSTITUTIONAL/GENERAL: This is an elderly female, appears to be fatigued, stirs to exam, does not open eyes. TUBES/LINES/DRAINS: ET tube, SKIN: No jaundice, rashes, or lesions. Ecchymoses on upper extremities. No wounds seen anteriorly. Skin temperature appropriate. Not diaphoretic. HEAD: Normocephalic. surgical scar/ sutures from craniotomy. EYES: I did not force eyes open today. ENT: Nose without bleeding or purulent drainage. ET tube in place. Tongue somewhat large which has been persistence. NECK: Trachea midline. Supple, nontender. No palpable thyroid enlargement or nodularity. CARDIOVASCULAR: Regular rate and rhythm without murmurs, gallops, or rubs. No JVD. Peripheral pulses symmetric. RESPIRATORY/CHEST: Symmetric, unlabored respirations. decrease breath sound bilaterally. GASTROINTESTINAL: Abdomen soft, non-tender, nondistended. No hepato-splenomegaly , or palpable masses. No guarding. Bowel sounds present. GENITOURINARY: Without palpable bladder distension. Duong catheter in place. MUSCULOSKELETAL: Extremities without clubbing, cyanosis. There is edema on all 4 ext. LYMPHATICS: Not examine NEUROLOGICAL:obtundted. appears tired. PSYCHIATRIC: frail, fatigued, could not examine.. Diagnostic Tests Laboratory Laboratory Tests Test 11/23/17 18:33 11/24/17 04:41 11/25/17 03:48 11/26/17 04:24 Potassium Level 3.4 MEQ/L (3.5-5.1) 3.7 MEQ/L (3.5-5.1) 3.3 MEQ/L (3.5-5.1) 3.3 MEQ/L (3.5-5.1) Phosphorus Level 2.8 MG/DL (2.5-4.9) 1.9 MG/DL (2.5-4.9) 2.9 MG/DL (2.5-4.9) White Blood Count 10.6 TH/MM3 (4.0-11.0) 9.7 TH/MM3 (4.0-11.0) 11.2 TH/MM3 (4.0-11.0) Red Blood Count 3.35 MIL/MM3 (4.00-5.30) 3.07 MIL/MM3 (4.00-5.30) 3.16 MIL/MM3 (4.00-5.30) Hemoglobin 9.9 GM/DL (11.6-15.3) 9.0 GM/DL (11.6-15.3) 9.2 GM/DL (11.6-15.3) Hematocrit 29.2 % (35.0-46.0) 27.2 % (35.0-46.0) 28.3 % (35.0-46.0) Mean Corpuscular Volume 87.2 FL (80.0-100.0) 88.4 FL (80.0-100.0) 89.4 FL (80.0-100.0) Mean Corpuscular Hemoglobin 29.5 PG (27.0-34.0) 29.4 PG (27.0-34.0) 28.9 PG (27.0-34.0) Mean Corpuscular Hemoglobin Concent 33.9 % (32.0-36.0) 33.2 % (32.0-36.0) 32.4 % (32.0-36.0) Red Cell Distribution Width 18.9 % (11.6-17.2) 19.3 % (11.6-17.2) 19.4 % (11.6-17.2) Platelet Count 155 TH/MM3 (150-450) 132 TH/MM3 (150-450) 122 TH/MM3 (150-450) Mean Platelet Volume 8.1 FL (7.0-11.0) 7.8 FL (7.0-11.0) 7.7 FL (7.0-11.0) Neutrophils (%) (Auto) 81.7 % (16.0-70.0) 71.0 % (16.0-70.0) Lymphocytes (%) (Auto) 7.1 % (9.0-44.0) 11.3 % (9.0-44.0) Monocytes (%) (Auto) 8.7 % (0.0-8.0) 15.0 % (0.0-8.0) Eosinophils (%) (Auto) 2.3 % (0.0-4.0) 2.5 % (0.0-4.0) Basophils (%) (Auto) 0.2 % (0.0-2.0) 0.2 % (0.0-2.0) Neutrophils # (Auto) 8.7 TH/MM3 (1.8-7.7) 6.9 TH/MM3 (1.8-7.7) Lymphocytes # (Auto) 0.8 TH/MM3 (1.0-4.8) 1.1 TH/MM3 (1.0-4.8) Monocytes # (Auto) 0.9 TH/MM3 (0-0.9) 1.4 TH/MM3 (0-0.9) Eosinophils # (Auto) 0.2 TH/MM3 (0-0.4) 0.2 TH/MM3 (0-0.4) Basophils # (Auto) 0.0 TH/MM3 (0-0.2) 0.0 TH/MM3 (0-0.2) CBC Comment AUTO DIFF AUTO DIFF Differential Total Cells Counted 100 100 Neutrophils % (Manual) 38 % (16-70) 43 % (16-70) Band Neutrophils % 49 % (0-6) 20 % (0-6) Lymphocytes % 4 % (9-44) 14 % (9-44) Monocytes % 7 % (0-8) 12 % (0-8) Neutrophils # (Manual) 9.4 TH/MM3 (1.8-7.7) 7.2 TH/MM3 (1.8-7.7) Metamyelocytes 2 % (0-1) 4 % (0-1) Differential Comment FINAL DIFF MANUAL FINAL DIFF MANUAL Toxic Granulation 2+ (NORMAL) 1+ (NORMAL) Platelet Estimate NORMAL (NORMAL) LOW (NORMAL) Platelet Morphology Comment NORMAL (NORMAL) NORMAL (NORMAL) Acanthocytes OCC (NORMAL) Keratocytes (NORMAL) Blood Urea Nitrogen 13 MG/DL (7-18) 16 MG/DL (7-18) 15 MG/DL (7-18) Creatinine 0.47 MG/DL (0.50-1.00) 0.47 MG/DL (0.50-1.00) 0.41 MG/DL (0.50-1.00) Random Glucose 131 MG/DL (74-106) 172 MG/DL (74-106) 128 MG/DL (74-106) Total Protein 5.1 GM/DL (6.4-8.2) 4.6 GM/DL (6.4-8.2) Albumin 1.7 GM/DL (3.4-5.0) 1.5 GM/DL (3.4-5.0) Calcium Level 7.9 MG/DL (8.5-10.1) 7.9 MG/DL (8.5-10.1) 8.0 MG/DL (8.5-10.1) Magnesium Level 1.9 MG/DL (1.5-2.5) 1.9 MG/DL (1.5-2.5) 2.1 MG/DL (1.5-2.5) Alkaline Phosphatase 88 U/L (45-117) 78 U/L (45-117) Aspartate Amino Transf (AST/SGOT) 29 U/L (15-37) 22 U/L (15-37) Alanine Aminotransferase (ALT/SGPT) 50 U/L (10-53) 38 U/L (10-53) Total Bilirubin 0.4 MG/DL (0.2-1.0) 0.3 MG/DL (0.2-1.0) Sodium Level 146 MEQ/L (136-145) 147 MEQ/L (136-145) 148 MEQ/L (136-145) Chloride Level 108 MEQ/L (98-107) 110 MEQ/L (98-107) 109 MEQ/L (98-107) Carbon Dioxide Level 30.0 MEQ/L (21.0-32.0) 31.0 MEQ/L (21.0-32.0) 31.5 MEQ/L (21.0-32.0) Anion Gap 8 MEQ/L (5-15) 6 MEQ/L (5-15) 8 MEQ/L (5-15) Estimat Glomerular Filtration Rate 153 ML/MIN (>89) 153 ML/MIN (>89) 179 ML/MIN (>89) Valproic Acid (Depakene) Level 63 MCG/ML (50-100) 31 MCG/ML (50-100) Myelocytes 4 % (0-0) Promyelocytes 3 % (0-0) Nucleated Red Blood Cells 1 /100 WBC (0-0) Toxic Vacuolation PRESENT (NONE SEEN) Result Diagram: 11/26/17 0424 11/26/17 0424 Imaging Last Impressions Chest X-Ray 11/26/17 0600 Signed Impressions: CONCLUSION: Bibasilar and left upper lung areas of consolidation or atelectasis. Some incre ased density at the bases could be related to effusions especially on the left. Liver Ultrasound 11/20/17 0000 Signed Impressions: Service Date/Time: Monday, November 20, 2017 10:23 - CONCLUSION: 1. Normal dimension common hepatic duct. 2. Hepatomegaly. There are 2 cysts in the left lobe measuring up to 2.9 cm. Aquilino Hsieh MD Head CT 11/20/17 0000 Signed Impressions: Service Date/Time: Monday, November 20, 2017 15:28 - CONCLUSION: 1. Evolving postsurgical features of right temporal craniotomy with minimal blood products in the surgical bed. Otherwise, no intercurrent hemorrhage or other acute abnormality. Cesar Mcneil MD CT Angiography 11/18/17 0000 Signed Impressions: Service Date/Time: November 12:05 - CONCLUSION: 1. Dense airspace consolidation bilaterally characteristic of pneumonia. 2. There is simple cyst in the liver with one area of rim-like calcification of the right lobe most likely benign, however not definitely characterized. 3. There is no evidence for PE for technique. K. Avelino Muro MD Lower Extremity Ultrasound 11/17/17 0000 Signed Impressions: Service Date/Time: Friday, November 17, 2017 17:52 - CONCLUSION: No DVT. Donovan Fleming MD Soft Tissue Neck X-Ray 11/11/17 0000 Signed Impressions: Service Date/Time: November 13:28 - CONCLUSION: 1. No acute findings. NG tube present. Axel Cheema MD Abdomen X-Ray 11/10/17 0000 Signed Impressions: Service Date/Time: Friday, November 10, 2017 14:00 - CONCLUSION: NG tube in the stomach Donovan Piña MD Brain MRI 11/04/17 0000 Signed Impressions: Service Date/Time: November 12:38 - CONCLUSION: Focal abnormality in the right posterior temporal lobe measuring up to 3.9 cm, as above. Examination will be used for intraoperative localization. Donovan Campbell MD Chest CT 11/02/17 0000 Signed Impressions: Service Date/Time: Thursday, November 02, 2017 21:35 - CONCLUSION: 1. Negative for metastatic disease to the thorax. No acute findings. Axel Cheema MD Abdomen/Pelvis CT 11/02/17 0000 Signed Impressions: Service Date/Time: Thursday, November 02, 2017 21:35 - CONCLUSION: 1. Negative for metastatic disease in the abdomen or pelvis. Multiple hepatic cysts. Numerous fibroids in the uterus. Mild colonic constipation and moderate rectal constipation. Axel Cheema MD Assessment and Plan Disease Oriented Problem List: (1) Seizure (2) ICH (intracerebral hemorrhage) (3) Brain mass (4) Respiratory failure (5) Pneumonia Symptom Scale: (1) Dyspnea 0-10 Scale: Unable to quantify (2) Anxiety 0-10 Scale: Unable to quantify Pertinent Non-Medical Issues Psychosocial: Spiritual:Islam Legal: Ethical issues impacting care: Important Contacts Tsering Vargas [phone] [address] Daughter Beto Hensley [phone] Son Prognosis Prognosis is guarded. She is 82 has right temperoal ischemic stroke, and condition has been complicated by respiratory failure, aspiration pneumonia, and sepsis. At risk of further decline and setback. Code Status: No Code Plan == capacity- does not have capacity to make medical decision, and has not had capacity since I have started seeing patient. It is unlikely she will regain capacity due to cva and debility. == health care decision maker: pt is ( pass away from Alzheimer' s) Patient has 2 children a son in [place] and daughter in [place]. Son and daughter are the proxy. == symptoms: dyspnea- 2nd to aspiration pneumonia- intubated. chest X ray worse this morning. anxiety- some grimacing noted, likely due to pt's decline, s/p hemoraghic cva. discussed with daughter about hospice and comfort meds in which she was amenable. == goals of treatment. Goals of treatment as follow: After medical extubation, hopes was that pt could recover and maybe go to [place]. This morning Chest X-ray is worse, worsening wheezing. mentation continue to be poor. Spoke with daughter, I see pt likely will have respiratory decline again. Daughter Tsering has endorse, mother has told her in the past that she is tired. Amenable to hospice consult. Awaiting call back from pt's son. But while we wait Tsering is amenable to hospice consultation to ask questions. == code status: DNR. Attestation To help prompt me to consider important information that might be impacting today's encounter and assessment, information from prior notes written by myself or my colleagues may have been "brought forward" into today's note. My signature on this note, however, is an attestation that I personally performed the exam, history, and/or decision-making noted today, and, unless otherwise indicated, the interactions with patient, family, and staff as well as the review of records all occurred today. I also attest that the listed assessment and stated plan reflect my best clinical judgment today based on the combination of historical information, prior notes, and today's exam/ interactions. When time spent is documented, it refers only to time spent today by the signer, or if indicated, combined time spent today by collaborating physician/nurse practitioner. Poncho Sue MD November 26, 2017 12:09
[2017-11-26] MEDS: ENOXAPARIN SODIUM 40 MG/0.4 ML SYRINGE SQ SCH (16:40)
[2017-11-27] VITALS: BP 123/77; PULSE 96; RESP 16; TEMP 97.8; O2SAT 96
[2017-11-27] MEDS: RESP: ALBUTEROL 2.5 MG/IPRATROPIUM 0.5 MG NEB (SCH) NEB ×4 (00:45→13:02)
[2017-11-27] MEDS: CHLORHEXIDINE GLUCONATE 2 % 1 PACK (2 CLOTHS) TOP SCH (01:35)
[2017-11-27] MEDS: VALPROATE INJ 500 MG in SODIUM CHLORIDE 0.9% INJ 100 ML IV SCH ×2 (01:35→08:34)
[2017-11-27] MEDS: HYDROCORTISONE SOD SUCCINATE 100 MG VIAL IV PUSH SCH (05:59)
[2017-11-27] MEDS: ARTIFICIAL TEARS OPTH SOLN 15 ML BTL EACH EYE SCH ×2 (06:19→13:39)
[2017-11-27] MEDS: THYROID 30 MG TAB NG SCH (07:34)
[2017-11-27] MEDS: THYROID 60 MG TAB NG SCH (07:34)
[2017-11-27 08:00] VITALS: BP 127/79; PULSE 98; RESP 20; O2SAT 95
[2017-11-27] MEDS: RESP: BUDESONIDE 0.5 MG/2 ML NEB NEB SCH (08:27)
[2017-11-27 08:31] VITALS: O2SAT 96
[2017-11-27] MEDS: FUROSEMIDE 40 MG/4 ML VIAL IV PUSH SCH (08:34)
[2017-11-27] MEDS: FAMOTIDINE 20 MG TAB NG SCH (08:35)
[2017-11-27] MEDS: SODIUM CHLORIDE 0.9% FLUSH 10 ML FLUSH IV FLUSH SCH (08:35)
[2017-11-27] MEDS: DOCUSATE SODIUM 50 MG/SENNA 8.6 MG TAB PO SCH (08:35)
[2017-11-27] MEDS: CHLORHEXIDINE 0.12% (ORAL KIT) 15 ML CUP MT SCH (08:42)
[2017-11-27 11:45] VITALS: BP 149/75; PULSE 104; RESP 17; TEMP 98.2; O2SAT 95
[2017-11-27] MEDS ORDERED: VALPROIC ACID SYRUP 250 MG/5 ML UDC PO SCH (13:00)
--- NOTE | 2017-11-27 15:14 | HHI.DS ---
Discharge Summary Admission Date Nov 01, 2017 at 21:20 Discharge Date: November 27, 2017 Admitting Diagnosis (1) ICH (intracerebral hemorrhage) ICD Code: I61.9 - Nontraumatic intracerebral hemorrhage, unspecified Status: Acute (2) Seizure ICD Code: R56.9 - Unspecified convulsions Status: Acute (3) Respiratory failure ICD Code: J96.90 - Respiratory failure, unspecified, unspecified whether with hypoxia or hypercapnia Status: Acute (4) Pneumonia ICD Code: J18.9 - Pneumonia, unspecified organism Status: Acute Procedures Right temporal craniotomy for hemorrhagic mass resection; BrainPowered by Peak stereotactic intraoperative navigation; microsurgical technique, left subclavian central line placement, right subclavian central line and left axillary arterial line Brief History - From Admission HPI from the admitting physician 82-year-old female with past medical history significant for COPD, diabetes mellitus, dyslipidemia, hypertension, osteoporosis, thyroid disorder presented to [facility] due to altered mental status, found by the patient's caregiver. At the emergency department the CT of the head revealed hemorrhagic infarct in the right temporal occipital region, measuring approximately 3.5 cm and the patient has been transferred to [facility] for higher level of care. The patient is nonverbal and information is obtained from medical chart review. CBC/BMP: 11/26/17 0424 11/26/17 0424 Significant Findings Laboratory Tests Test 11/25/17 03:48 11/26/17 04:24 Red Blood Count 3.07 MIL/MM3 (4.00-5.30) 3.16 MIL/MM3 (4.00-5.30) Hemoglobin 9.0 GM/DL (11.6-15.3) 9.2 GM/DL (11.6-15.3) Hematocrit 27.2 % (35.0-46.0) 28.3 % (35.0-46.0) Red Cell Distribution Width 19.3 % (11.6-17.2) 19.4 % (11.6-17.2) Platelet Count 132 TH/MM3 (150-450) 122 TH/MM3 (150-450) Neutrophils (%) (Auto) 71.0 % (16.0-70.0) Monocytes (%) (Auto) 15.0 % (0.0-8.0) Monocytes # (Auto) 1.4 TH/MM3 (0-0.9) Band Neutrophils % 20 % (0-6) Monocytes % 12 % (0-8) Metamyelocytes 4 % (0-1) Myelocytes 4 % (0-0) Promyelocytes 3 % (0-0) Nucleated Red Blood Cells 1 /100 WBC (0-0) Toxic Granulation 1+ (NORMAL) Toxic Vacuolation PRESENT (NONE SEEN) Platelet Estimate LOW (NORMAL) Creatinine 0.47 MG/DL (0.50-1.00) 0.41 MG/DL (0.50-1.00) Random Glucose 172 MG/DL (74-106) 128 MG/DL (74-106) Total Protein 4.6 GM/DL (6.4-8.2) Albumin 1.5 GM/DL (3.4-5.0) Calcium Level 7.9 MG/DL (8.5-10.1) 8.0 MG/DL (8.5-10.1) Phosphorus Level 1.9 MG/DL (2.5-4.9) Sodium Level 147 MEQ/L (136-145) 148 MEQ/L (136-145) Potassium Level 3.3 MEQ/L (3.5-5.1) 3.3 MEQ/L (3.5-5.1) Chloride Level 110 MEQ/L (98-107) 109 MEQ/L (98-107) Valproic Acid (Depakene) Level 31 MCG/ML (50-100) White Blood Count 11.2 TH/MM3 (4.0-11.0) Imaging Last Impressions Chest X-Ray 11/26/17 0600 Signed Impressions: CONCLUSION: Bibasilar and left upper lung areas of consolidation or atelectasis. Some incre ased density at the bases could be related to effusions especially on the left. Liver Ultrasound 11/20/17 0000 Signed Impressions: Service Date/Time: Monday, November 20, 2017 10:23 - CONCLUSION: 1. Normal dimension common hepatic duct. 2. Hepatomegaly. There are 2 cysts in the left lobe measuring up to 2.9 cm. Aquilino Hsieh MD Head CT 11/20/17 0000 Signed Impressions: Service Date/Time: Monday, November 20, 2017 15:28 - CONCLUSION: 1. Evolving postsurgical features of right temporal craniotomy with minimal blood products in the surgical bed. Otherwise, no intercurrent hemorrhage or other acute abnormality. Cesar Mcneil MD CT Angiography 11/18/17 0000 Signed Impressions: Service Date/Time: November 12:05 - CONCLUSION: 1. Dense airspace consolidation bilaterally characteristic of pneumonia. 2. There is simple cyst in the liver with one area of rim-like calcification of the right lobe most likely benign, however not definitely characterized. 3. There is no evidence for PE for technique. K. Avelino Muro MD Lower Extremity Ultrasound 11/17/17 0000 Signed Impressions: Service Date/Time: Friday, November 17, 2017 17:52 - CONCLUSION: No DVT. Donovan Fleming MD Soft Tissue Neck X-Ray 11/11/17 0000 Signed Impressions: Service Date/Time: November 13:28 - CONCLUSION: 1. No acute findings. NG tube present. Axel Cheema MD Abdomen X-Ray 11/10/17 0000 Signed Impressions: Service Date/Time: Friday, November 10, 2017 14:00 - CONCLUSION: NG tube in the stomach Donovan Piña MD Brain MRI 11/04/17 0000 Signed Impressions: Service Date/Time: November 12:38 - CONCLUSION: Focal abnormality in the right posterior temporal lobe measuring up to 3.9 cm, as above. Examination will be used for intraoperative localization. Donovan Campbell MD Chest CT 11/02/17 0000 Signed Impressions: Service Date/Time: Thursday, November 02, 2017 21:35 - CONCLUSION: 1. Negative for metastatic disease to the thorax. No acute findings. Axel Cheema MD Abdomen/Pelvis CT 11/02/17 0000 Signed Impressions: Service Date/Time: Thursday, November 02, 2017 21:35 - CONCLUSION: 1. Negative for metastatic disease in the abdomen or pelvis. Multiple hepatic cysts. Numerous fibroids in the uterus. Mild colonic constipation and moderate rectal constipation. Axel Cheema MD PE at Discharge GENERAL: Unresponsive, not interactive. NG tube in place CARDIOVASCULAR: Regular rate and rhythm without murmurs, gallops, or rubs. RESPIRATORY: Moderate air entry. Mouth breather and there is some accessory muscle use. Neuro: Non interactive, non responsive Pt update on day of discharge Patient is unresponsive and noninteractive. Some mild tachypnea. Hospital Course 82-year-old female treated for the following diagnoses. Unfortunately the patient continued to decline, appropriately her family eventually decided to transition her to comfort care. She was discharged to hospice. Right parietal intraparenchymal hemorrhage status post craniotomy for hemorrhagic left temporal mass Subclinical status epilepticus Off all sedation lethargic and not following commands CT brain 11/20 revealed status post left temporal craniotomy changes. No acute bleeding. -Status post craniotomy 11/08 for 3.7 cm hemorrhagic brain mass right posterior temporal region, followed by neurosurgery Dr. Peterson -pathology revealed acute to subacute infarction On divalproex 500 mg IV every 8 hours. Patient was followed by neurology EEG 11/17 revealed no epileptiform activity. Moderate slowing right-sided. Last positive EEG for sharps in the right hemisphere is 11/05. Septic shock resolved History of essential hypertension on hydrochlorothiazide Off norepinephrine drip since 11/24 Holding home medication hydrochlorothiazide Stress dose hydrocortisone 50 mg every 12 hours.. Taper off over the next 3-4 days to home prednisone on chronic prednisone 20 mg twice daily at home Anasarca present. Patient was started on IV Lasix 40 mg daily 11/26/2017 Acute respiratory failure secondary to aspiration pneumonia Severe COPD O2 by NC Albuterol/ipratropium aerosols every 4 hours with albuterol aerosols every 2 hours as needed dyspnea Budesonide 0.5/2 1 inhalation twice daily. On budesonide/formoterol and tiotropium at home Follow-up x-ray in a.m. 11/26 showing bibasilar infiltrates and small effusion Hypoalbuminemia Elevated transaminases likely secondary to shock liver Diarrhea Liver cysts Speech therapy consult for swallow eval Famotidine for GI prophylaxis Docusate sodium/senna 1 tablet twice daily for bowel regimen Liver ultrasound 11/20 revealed 2 hepatic cysts previous 2.9 cm in size. No's signs of common bile duct obstruction. Hypothyroidism with elevated TSH greater than 11 Diabetes mellitus Patient treated with sliding scale insulin low regimen of NovoLog with Accu- Cheks every 6 hours to maintain euglycemia Currently on Foreman Thyroid 90 mg daily. Current medications 120 mg daily of desiccated thyroid. TSH about 11 this admission Normocytic anemia status post transfusion with PRBCs 11/19 Thrombocytopenia No indication for transfusion of blood products at this time. Aspiration pneumonia with MSSA/Pseudomonas Severe sepsis Patient treated with piperacillin l/tazobactam 3.375 g IV every 6 hours Zyvox DCd Pertinent cultures 11/19 -sputum -staph aureus/Pseudomonas 11/19 -UA -NGTD 11/18 -blood cultures 2 -no growth Pt Condition on Discharge: Deteriorating Discharge Disposition: Hospice/Med Facility Discharge Time: > 30 minutes Discharge Instructions DIET: Follow Instructions for: As Tolerated, No Restrictions Activities you can perform: Regular-No Restrictions Inna Loza MD November 27, 2017 15:14
== END 2017-11-27 15:21 | disposition hospice, inpatient (51) | DRG 23 ==
LOC: N03A 21:20 → N05A 11-03 17:17 → N03B 11-07 13:56 → N05A 11-15 18:40 → N03A 11-18 08:46 → N05B 11-26 22:44
PROVIDERS: ADMIT Family Medicine; ATTEND Family Medicine
PROC: 0T9B70Z Drainage of Bladder with Drainage Device, Via Natural or Artificial Opening (ICD-10-PCS; 2017-11-05)
PROC: 00B00ZX Excision of Brain, Open Approach, Diagnostic (ICD-10-PCS; 2017-11-08)
PROC: 00C70ZZ Extirpation of Matter from Cerebral Hemisphere, Open Approach (ICD-10-PCS; principal; 2017-11-08 13:41)
PROC: 5A1945Z Respiratory Ventilation, 24-96 Consecutive Hours (ICD-10-PCS; 2017-11-18)
PROC: 03HY32Z Insertion of Monitoring Device into Upper Artery, Percutaneous Approach (ICD-10-PCS; 2017-11-18)
PROC: 0BH17EZ Insertion of Endotracheal Airway into Trachea, Via Natural or Artificial Opening (ICD-10-PCS; 2017-11-18)
PROC: 02HV33Z Insertion of Infusion Device into Superior Vena Cava, Percutaneous Approach (ICD-10-PCS; 2017-11-18)
PROC: 4A133B1 Monitoring of Arterial Pressure, Peripheral, Percutaneous Approach (ICD-10-PCS; 2017-11-18)
PROC: 4A133J1 Monitoring of Arterial Pulse, Peripheral, Percutaneous Approach (ICD-10-PCS; 2017-11-18)
PROC: 30233N1 Transfusion of Nonautologous Red Blood Cells into Peripheral Vein, Percutaneous Approach (ICD-10-PCS; 2017-11-19)
DX: I61.1 Nontraumatic intracerebral hemorrhage in hemisphere, cortical (principal); J69.0 Pneumonitis due to inhalation of food and vomit; J96.01 Acute respiratory failure with hypoxia; K72.00 Acute and subacute hepatic failure without coma; R65.21 Severe sepsis with septic shock; G93.6 Cerebral edema; A41.9 Sepsis, unspecified organism; G92 Toxic encephalopathy; J15.211 Pneumonia due to Methicillin susceptible Staphylococcus aureus; E87.0 Hyperosmolality and hypernatremia; E87.2 Acidosis; E87.1 Hypo-osmolality and hyponatremia; J44.0 Chronic obstructive pulmonary disease with (acute) lower respiratory infection; I16.1 Hypertensive emergency; G93.89 Other specified disorders of brain; E11.649 Type 2 diabetes mellitus with hypoglycemia without coma; E11.65 Type 2 diabetes mellitus with hyperglycemia; I10 Essential (primary) hypertension; M81.0 Age-related osteoporosis without current pathological fracture; E78.5 Hyperlipidemia, unspecified; E03.9 Hypothyroidism, unspecified; E87.6 Hypokalemia; E83.39 Other disorders of phosphorus metabolism; Z87.891 Personal history of nicotine dependence; M06.9 Rheumatoid arthritis, unspecified; M19.90 Unspecified osteoarthritis, unspecified site; G40.901 Epilepsy, unspecified, not intractable, with status epilepticus; Z51.5 Encounter for palliative care; Z66 Do not resuscitate; Z68.33 Body mass index [BMI] 33.0-33.9, adult; T42.0X5A Adverse effect of hydantoin derivatives, initial encounter; Y92.239 Unspecified place in hospital as the place of occurrence of the external cause; F41.9 Anxiety disorder, unspecified; K59.00 Constipation, unspecified; N13.9 Obstructive and reflux uropathy, unspecified; R13.10 Dysphagia, unspecified; D64.9 Anemia, unspecified; R19.7 Diarrhea, unspecified; K76.89 Other specified diseases of liver; D69.6 Thrombocytopenia, unspecified
CPT/HCPCS: 36430; 36600; 70360; 70450; 70551; 70552; 71045; 71260; 71275; 74018; 74177; 76705; 76937; 80048; 80053; 80061; 80076; 80164; 80184; 80185; 81001; 82140; 82150; 82533; 82550; 82552; 82805; 82948; 83010; 83605; 83615; 83690; 83735; 83880; 84100; 84132; 84155; 84443; 84484; 85007; 85025; 85027; 85384; 85610; 85730; 86403; 86850; 86900; 86901; 86920; 87040; 87070; 87077; 87086; 87147; 87186; 87205; 87493; 87506; 87641; 88307; 88331; 93005; 93971; 94002; 94003; 94150; 94640; 94664; 95819; A9579; C1713; J0360; J0610; J0690; J1100; J1205; J1580; J1650; J1720; J1815; J1940; J2020; J2060; J2250; J2370; J2543; J2560; J2710; J2920; J3010; J3370; J3475; J3480; J7030; J7040; J7042; J7050; J7060; J7070; J7120; J7512; J7613; J7626; P9016; P9045; Q2009; Q9967